=== PATIENT | female | born 1960 | race Caucasian/White ===

== ENCOUNTER 2016-11-27 21:27 | Emergency (ER) | payer OTHER ==
[~2016-11-27] VITALS: Ht 170.2 cm; Wt 86.0 kg
[~2016-11-27 21:27] MED LIST: CALC600T9 PO; CETITAB27 PO; GLUCOSAMINE/CHON PO; LEVO112T2 PO; PARO1TAB29 PO; TRAZ100T29 PO
[2016-11-27 21:28] VITALS: BP 113/61; PULSE 85; TEMP 36.8; O2SAT 95; Ht 170.2 cm; Wt 86.0 kg
[2016-11-27] MEDS ORDERED: KETOROLAC TROMETHAMINE 60 MG/2 ML VIAL IM STA (21:51)
[2016-11-27] MEDS ORDERED: DEXM10TA2 PO (22:15)
[2016-11-27] MEDS ORDERED: DEXM10TA PO (22:15)
[2016-11-27] MEDS ORDERED: PARO1TAB27 PO (22:15)
[2016-11-27] MEDS ORDERED: BOSW1POW4 PO (22:15)
--- NOTE | 2016-11-27 23:15 | DIAGNOSTIC IMAGING REPORT ---
LEFT HAMSTRING ULTRASOUND CLINICAL HISTORY: Left hamstring medial pain. COMPARISON STUDY: No previous studies for comparison. TECHNIQUE: Sonography of the posterior medial aspect of the left thigh site of pain was performed. FINDINGS: Note is made of a large elongated complex fluid collection of the posterior medial aspect of the left thigh that measures approximately 15.1 x 3.3 x 2.7 cm. This is suggestive of a hematoma which is likely along the fascia and may be just deep to the fascia. A portion of this hematoma may be intramuscular in location. IMPRESSION: Large posterior medial left thigh subfascial/intramuscular fluid collection suggestive of a hematoma, measuring 15.1 x 3.3 x 2.7 cm. This suggests a grade II/III muscle tear, likely involving a portion of the hamstrings. Electronically signed by: Timmy Horta M.D. 11/27/2016 11:14 PM Dictated Date/Time: 11/27/2016 11:08 PM
[2016-11-27] MEDS ORDERED: HYDR-5688 PO (23:29)
[2016-11-27] MEDS ORDERED: NORCO 5/325MG HOME PACK ONE (23:45)
[2016-11-27] MEDS ORDERED: NORCO 5/325MG HOME PACK PO ONE (23:45)
--- NOTE | 2016-11-28 00:12 | EMERGENCY ROOM VISIT NOTE ---
History First contact with patient: 21:38 Chief Complaint: LEG PAIN,LEG INJURY Stated Complaint: POSSIBLE TURN HAMSTRING,LF LEG History of Present Illness The patient is a 56 year old white female who presents to the Emergency Room with complaints of left posterior thigh pain. Patient was at a country dance this evening and was dancing with her dog. She states she thinks she stepped on his leash in her left leg slipped forward. She essentially did an entire splint. She denies any snap or pop of her leg. She had immediate onset of pain in her medial hamstring bundle. She denies any buttock pain. She has been unable to bear weight on the left leg. She denies any thigh pain. Range of motion is limited secondary to pain. No prior history of significant left leg injury. No numbness or tingling. No treatment yet. Review of Systems REVIEW OF SYSTEM: HEENT: No dizziness, visual problems, hearing loss, or tinnitus. There is no difficulty swallowing and no oral lesions are present. PULMONARY: No cough, shortness of breath, sputum production or hemoptysis. CARDIOVASCULAR: No chest pain, palpitations, shortness of breath or peripheral edema. GASTROINTESTINAL: No diarrhea, constipation, nausea, vomiting, or abdominal pain. GENITOURINARY: No dysuria, frequency, urgency or nocturia. NEUROLOGIC: No weakness, muscle tenderness, epilepsy or history of neurological problems. MUSCULOSKELETAL: No history of joint tenderness/swelling. No history of arthritis or arthralgias. SKIN: No rashes or lesions. PSYCHIATRIC: No history of depression or mental illness. ENDOCRINE: No history of diabetes or abnormal hair growth. Past Medical/Surgical History Previous surgeries: Trigger digit release, left carpal tunnel release, colonoscopy Medical history: Significant for hypothyroidism and seasonal allergies Family History Noncontributory. Social History Smoking Status: Former Smoker Smokeless Tobacco Use: No Alcohol Use: none Drug Use: none Marital Status: Housing Status: lives alone Occupation Status: employed Current/Historical Medications Scheduled Boswellia Sarah Extract (Bul (Boswellia Sarah Extract), 1-2 CAP PO DAILY Cetirizine/Pseudoephedrine (Zyrtec-D Er 5MG/120MG), 1 TAB PO QAM Dexmethylphenidate Hcl (Dexmethylphenidate Hcl), 20 MG PO QAM Dexmethylphenidate Hcl (Focalin), 10 MG PO DAILY Levothyroxine Sodium (Synthroid), 112 MCG PO QAM Paroxetine (Paxil), 20 MG PO QPM Scheduled PRN Hydrocodone/Acetaminophen 5MG/325MG (Dille 5MG/325MG), 1-2 TABLET PO Q4H PRN for Pain Trazodone Hcl (Trazodone), 1-2 TAB PO HS PRN for Sleep Allergies Coded Allergies: Cat Dander (Unverified Allergy, Intermediate, EYES WATER, 11/27/16) Molds & Smuts (Unverified Allergy, Intermediate, UNKNOWN, 11/27/16) Dust (Verified Allergy, Unknown, SINUS INFECTION, 05/29/15) Physical Exam Vital Signs Date Time Temp Pulse Resp B/P (MAP) Pulse Ox O2 Delivery O2 Flow Rate FiO2 11/27/16 21:28 36.8 85 16 113/61 95 Room Air Physical Exam Gen.: Well-developed, well-nourished, middle-aged white female, in obvious discomfort. No acute distress. Sitting in a wheelchair. Alert and oriented. Skin:Warm and dry with good turgor. No rashes or lesions. No ecchymosis or erythema. The patient is not diaphoretic. No abrasions. No palpable defect in the left thigh. Musculoskeletal: Patient has no pain with palpation over her tibia, fibula, or gastroc. No pain with palpation over the quadriceps. Supple motion of the hip and knee actively and passively. Internal rotation does cause medial hamstring bundle pain. No pain with palpation over the hamstring insertions or origins. No pain over the ischial tuberosity. Patient does have focal discomfort with palpation over the medial hamstring bundle mid body. This is reproducible. She is unable to fully extend secondary to hamstring pain. Neurologic: Gross sensation is intact across the lower extremities by soft touch. Peripheral pulses are 2+. Medical Decision & Procedures ER Provider Diagnostic Interpretation: Ultrasound imaging of the thigh was read by radiology. It shows a 15 cm x 3.3 cm x 2.7 cm complex fluid collection in the area of concern. This is most likely a hematoma. Medications Administered Medications (Trade) Dose Ordered Sig/Catracho Route Start Time Stop Time Status Last Admin Dose Admin Ketorolac Tromethamine (Toradol Inj) 60 mg NOW STAT IM 11/27/16 21:51 11/27/16 21:53 DC 11/27/16 23:25 60 MG Toradol 60 mg IM ED Course Patient was educated regarding today's findings. Conservative care measures were discussed. I do not think traditional radiographic imaging will show us much. Ultrasound was obtained. This was read by radiology as positive for complex fluid collection consistent with hematoma. Patient was given a spica wrap with an Fredi wrap, and provided crutches for ambulation. Weight-bear as tolerated. Tylenol and Motrin every 6 hours as needed for mild discomfort. Substitute Dille 5 mg every 6 hours for more severe pain. Driving precautions were given. Follow-up with her PCP this week for reexamination. She understands that this may not resolve as quickly as she would like. She may require physical therapy to speed her resolution. She is aware. Medical Decision Possibility of hamstring avulsion, hamstring tear, femur fracture, and distal tendon rupture were considered. Impression Primary Impression: Tear of left hamstring Departure Information Dispostion Home / Self-Care Prescriptions Hydrocodone/Acetaminophen 5MG/325MG (Dille 5MG/325MG) Tab 1-2 TABLET PO Q4H Y for Pain, #16 TAB For Initial Treatment Prov: Peter Boss,P.A. 11/27/16 Referrals Ash Viramontes M.D. (PCP) Forms HOME CARE DOCUMENTATION FORM, SPECIAL NARCOTICS INSTRUCTIONS, MOTRIN USE, TYLENOL USE, IMPORTANT VISIT INFORMATION Patient Instructions My [place] Additional Instructions Ice to the area frequently over the next 3 days, then use moist heat Gentle motion daily Use crutches until you can walk without a [id number] as tolerated Tylenol and Motrin every 6 hours as needed for mild discomfort Substitute Dille 1 to 2 tablets every 6 hours as needed for more severe pain-no driving. Follow-up with your PCP if you are not improving, for a physical therapy referral Use the Fredi wrap for compression to limit swelling Problem Qualifiers Primary Impression: Tear of left hamstring Encounter type: initial encounter Qualified Codes: S76.312A - Strain of muscle, fascia and tendon of the posterior muscle group at thigh level, left thigh, initial encounter
== END 2016-11-28 00:21 | disposition home or self-care (01) ==
LOC: C.EDB 21:28 → C.EDD 11-28 00:21
DX: S76.812A Strain of other specified muscles, fascia and tendons at thigh level, left thigh, initial encounter (principal); X58.XXXA Exposure to other specified factors, initial encounter; E03.9 Hypothyroidism, unspecified; Z98.890 Other specified postprocedural states; Z87.891 Personal history of nicotine dependence; Z79.899 Other long term (current) drug therapy; Z91.09 Other allergy status, other than to drugs and biological substances

== ENCOUNTER → 2017-01-19 | Outpatient (CLI) | payer OTHER ==
[~2017-01-19] MED LIST changes: +BOSW1POW4 PO; -CALC600T9 PO; +DEXM10TA PO; +DEXM10TA2 PO; -GLUCOSAMINE/CHON PO; +HYDR-5688 PO; +PARO1TAB27 PO; -PARO1TAB29 PO
--- NOTE | 2017-01-19 17:19 | DIAGNOSTIC IMAGING REPORT ---
LEFT LOWER EXT JOINT WITHOUT CLINICAL HISTORY: KNEE pain. Trauma. TECHNIQUE: Multiaxial MRI acquisition COMPARISON STUDY: None FINDINGS: Minimal bone contusion anterior aspect lateral tibial plateau. Signal characteristics the osseous structures are otherwise unremarkable. No significant joint effusion. Anterior and posterior cruciate ligaments are intact. Medial as well as lateral menisci are unremarkable in configuration and signal character. Medial and lateral collateral ligament structures are intact. Patellar retinaculum are intact. No evidence for chondromalacia patella. IMPRESSION: 1. Minimal contusion anterior aspect lateral tibial plateau. 2. Otherwise negative study The above report was generated using voice recognition software. It may contain grammatical, syntax or spelling errors. Electronically signed by: Silverio Zacarias M.D. 01/19/2017 5:18 PM Dictated Date/Time: 01/19/2017 5:13 PM
== END | disposition home or self-care (01) ==
LOC: C.MRIBC 16:14
PROVIDERS: ATTEND Orthopaedic Surgery
DX: M25.562 Pain in left knee (principal)

== ENCOUNTER → 2017-02-01 | Outpatient (CLI) | payer OTHER | LOC: C.LAB 14:46 | PROVIDERS: ATTEND Family Medicine | DX: E03.9 Hypothyroidism, unspecified (principal) ==

== ENCOUNTER 2018-07-10 19:56 | Inpatient (IN) ==
[2018-07-10 21:26] LABS: Basophils # (auto) 0.07 K/uL (0-0.2); Basophils % (auto) 0.7 %; Eosinophils # (auto) 0.26 K/uL (0-0.5); Eosinophils % (auto) 2.8 %; Hematocrit (blood only) 39.1 % (37-47); Hemoglobin 12.7 g/dL (12.0-16.0); Immature Granulocytes # (auto) 0.01 K/uL (0.00-0.02); Immature Granulocytes % (auto) 0.1 %; Lymphocytes # (auto) 2.61 K/uL (1.2-3.4); Lymphocytes % (auto) 27.9 %; Mean Corpuscular Hgb Conc 32.5 g/dL (32-36); Mean Corpuscular Volume 86.7 fL (80-100); Mean Platelet Volume 9.4 fL (7.4-10.4); Monocytes # (auto) 0.61 K/uL (0.11-0.59); Monocytes % (auto) 6.5 %; Platelet Count 340 K/uL (130-400); RDW Coefficient of Variation 12.8 % (11.5-14.5); RDW Standard Deviation 40.9 fL (36.4-46.3); Red Blood Count 4.51 M/uL (4.2-5.4); White Blood Count 9.36 K/uL (4.8-10.8)
[2018-07-10 21:38] LABS: Partial Thromboplastin Time 25.9 Seconds (21.0-31.0); Prothrombin Time 10.1 Seconds (9.0-12.0)
[2018-07-10 21:51] LABS: BUN Creatinine Ratio 20.1 (10-20); Calcium 8.8 mg/dl (8.5-10.1); Creatinine Clr Calc Pharmacy 81.7 ml/min; Est GFR (African American) 86.3; Est GFR (Non-African American) 74.5; Potassium 3.3 mmol/L (3.5-5.1)
== END 2018-07-11 14:52 | disposition home or self-care (01) ==
LOC: ED 19:56 → 3W 21:43

== ENCOUNTER 2022-05-27 10:22 | Observation (INO) ==
[2022-05-27 11:28] LABS: Hematocrit (blood only) 40.9 % (34.1-44.9); Hemoglobin 13.7 g/dl (12.0-16.0); Mean Corpuscular Hemoglobin 29.4 pg (25.0-34.0); Mean Corpuscular Hgb Conc 33.5 g/dL (32.0-36.0); Mean Corpuscular Volume 87.8 fL (80.0-100.0); Mean Platelet Volume 9.1 fL (9.4-12.3); Platelet Count 374 K/uL (130-400); RDW Coefficient of Variation 13.1 % (11.5-14.5); RDW Standard Deviation 41.5 fL (36.4-46.3); Red Blood Count 4.66 M/uL (3.93-5.22); White Blood Count 29.62 K/ul (4.8-10.8)
[2022-05-27 11:44] LABS: Basophils # (auto) 0.04 K/uL (0-0.2); Basophils % (auto) 0.1 %; Immature Granulocytes # (auto) 0.24 K/uL (0.00-0.02); Immature Granulocytes % (auto) 0.8 %; Lymphocytes # (auto) 0.79 K/uL (1.2-3.4); Lymphocytes % (auto) 2.7 %; Monocytes # (auto) 1.87 K/uL (0.24-0.82); Monocytes % (auto) 6.3 %; Neutrophils # (auto) 26.68 K/uL (1.4-6.5); Neutrophils % (auto) 90.1 %
[2022-05-27 11:49] LABS: Albumin Globulin Ratio 1.7 (0.9-2); Albumin Level 4.3 gm/dl (3.4-5.0); BUN Creatinine Ratio 23.8 (10-20); Bilirubin,Total 0.5 mg/dl (0.2-1.0); Calcium 9.7 mg/dl (8.5-10.1); Creatinine Clr Calc Pharmacy 101.3 ml/min; Est GFR (African American) 110.6 ml/min; Est GFR (Non-African American) 95.5 ml/min; Globulin 2.6 gm/dl (2.5-4.0); Potassium 3.5 mmol/L (3.5-5.1); Total Protein 6.9 gm/dl (6.0-8.3)
[2022-05-27] MEDS ORDERED: SODIUM CHLORIDE 0.9% 1000ML 1,000 ML IV ONE (12:15)
[2022-05-27] MEDS ORDERED: ACETAMINOPHEN 1,000 MG/100 ML VIAL IV STA (12:15)
[2022-05-27] MEDS ORDERED: OPTIRAY 350 100ml IV ONE (12:40)
[2022-05-27 12:54] LABS: Appearance Urine Clear (Clear); Bilirubin Urine Negative (Negative); Blood Urine Negative (Negative); Color Urine Yellow; Glucose Urine UA Negative (Negative); Ketones Urine Negative (Negative); Leukocyte Esterase Urine Negative (Negative); Nitrite Urine Negative (Negative); Protein Urine Negative (Negative); Specific Gravity Urine 1.024 (1.000-1.030); Urobilinogen Urine Negative (Negative)
--- NOTE | 2022-05-27 13:41 | CT Scan Report ---
CT SCAN OF THE ABDOMEN AND PELVIS WITH IV CONTRAST CLINICAL HISTORY: Lower abdominal pain. Leukocytosis. COMPARISON STUDY: No priors. TECHNIQUE: Following the IV administration of 87 cc of Optiray 350, CT scan of the abdomen and pelvi s is performed from the lung bases to the proximal femora. Images are reviewed in the axial, sagittal , and coronal planes. IV contrast was administered without complication. A dose lowering technique wa s utilized adhering to the principles of ALARA. CT DOSE: 315.52 mGy.cm FINDINGS: Lung bases: The heart is normal in size and without pericardial effusion. The lung bases are clear no ting bibasilar scarring/atelectasis. Liver: The contrast-enhanced liver is normal in size, contour, and attenuation. There is no intrahepa tic biliary ductal dilatation. The hepatic veins and portal veins are patent. Gallbladder: Unremarkable. Spleen: Normal in size and attenuation. Pancreas: Unremarkable. Adrenal glands: Unremarkable. Kidneys: The contrast enhanced kidneys are normal in size and without hydronephrosis. The kidneys enh ance symmetrically. Abdominal vasculature: The abdominal aorta is normal in course and caliber. Bowel: Moderate fecal retention is seen throughout the colon. There is no bowel obstruction. There is moderate to advanced colonic diverticulosis. There is mild wall thickening the sigmoid colon with in filtration suggested between the sigmoid and the left ovary on axial image #331. The appendix is wel l-visualized and normal. Peritoneum: There is no intraperitoneal free air or abdominal ascites. There is a fat-containing umbi lical hernia. Lymphadenopathy: None. Pelvic viscera: The bladder wall is thickened and there is pericystic inflammation. The uterus is nor mal as visualized. Skeletal structures: The skeletal structures are osteopenic. There are bilateral pars defects at L4 w ith advanced disc space narrowing, endplate sclerosis, and grade 1 anterolisthesis at L4-L5. No lytic or blastic lesions are seen. IMPRESSION: 1. The bladder wall appears thickened and there is surrounding infiltration. Correlate with clinical findings and urinalysis for evidence of cystitis. 2. There is moderate to advanced colonic diverticulosis. There is mild wall thickening of the sigmoid colon with minimal infiltration suggested around the sigmoid and the adjacent left ovary. Clinically the presence of a mild diverticulitis or possibly oophoritis. 3. No intraperitoneal free air is seen and there is no organized fluid collection to suggest abscess. 4. Additional findings as above. ACT 112: Negative or not required by law. Electronically signed by: Sim Frankel M.D. 05/27/2022 1:38 PM
[2022-05-27] MEDS ORDERED: PIPERACILLIN/TAZOBACTAM 4.5 GM/120 ML BAG IV ONE (13:55)
--- NOTE | 2022-05-27 15:02 | History & Physical Report ---
Date of Service May 27, 2022 Assessment & Plan (1) Diverticulitis: Plan: Bilateral lower abdominal crampy pain since this AM, feeling feverish, difficulty moving BMs, only had 1 very small BM so far today. WBC 29, lactate 1.0, procalcitonin 0.13. CT A/P: Moderate-advanced colonic diverticulosis with mild wall thickening of the sigmoid colon with minimal infiltration of the sigmoid and adjacent left ovary, no intraperitoneal free air or organized fluid collection to suggest abscess. Started on Zosyn in ED, will convert to Rocephin plus Flagyl. Considered cipro but patient has a previous hamstring rupture. Obtain EKG given use of QTC prolonging agents. Check EKG from last year, QTC wnl. Full liquid diet to begin, advance as tolerated by patient. IVF, replete electrolytes as necessary. Patient is at risk for C. difficile infection given recent Augmentin, doxycycline courses. Continue to monitor. (2) Hypothyroid: Plan: Continue levothyroxine 112 mcg. (3) Fibromyalgia: Plan: Continue Paxil, trazodone at night. (4) Allergy-induced asthma: Plan: Uses albuterol inhaler as needed, Zyrtec, Singulair. Plan Admit to med/surg. SCDs for DVT PPx. Full code. History of Present Illness Chief Complaint: abdominal pain x1 day Primary Care Provider: Ash Viramontes MD Reyna Anthony is a 61 y/o female with a past medical history of hypothyroidism, fibromyalgia, and allergy induced asthma who presented today with abdominal pain. She woke up this morning with lower, bilateral crampy abdominal pain and felt feverish. She thought she may need to have a BM, however tried and was unsuccessful. She had been feeling well up until this morning, and several normal bowel movements over the past week, nonpainful and nonbloody. She has had 1 very small bowel movement this morning, and otherwise has not been able to have what she would consider for her a normal size BM. Of note, she is recently been on 2 different antibiotics, Augmentin for recent sinus infection and a 3-week course of doxycycline her recent tick bite with bull's-eye rash. Both antibiotics were completed within the last week. She has not had any diarrhea. Presentation to the ED, her vital signs are within normal limits and stable, temp 37.6 C. Labs remarkable for for WBC of 29 with left shift, lactate 1.0, procalcitonin 0.13. Lipase level 11, no electrolyte abnormalities, renal function at baseline. No transaminitis. UA is negative for all, does not appear infected. Blood cultures collected in ED. CT A/P: There is moderate fecal retention throughout the colon without evidence of obstruction. There is moderate to advanced colonic diverticulosis with mild wall thickening of the sigmoid colon and infiltration suggested between the colon and left ovary, suggestive of mild diverticulitis or oophoritis. There is no intraperitoneal free air or fluid collection to suggest abscess. There is also bladder wall thickening with surrounding infiltration, however UA does not appear infected. Allergies Allergy/AdvReac Type Severity Reaction Status Date / Time cat dander Allergy Mild EYES WATER Verified 02/25/21 15:11 mold Allergy Mild sinus Verified 02/25/21 15:11 issues Home Medications Medication Instructions Recorded Confirmed Type cetirizine 10 mg tablet (Zyrtec) 10 mg PO QAM 07/10/18 02/25/21 History levothyroxine 112 mcg tablet 112 mcg PO QAM 07/10/18 02/25/21 History montelukast 10 mg tablet 10 mg PO QPM 07/10/18 02/25/21 History paroxetine HCl 20 mg tablet (Paxil) 20 mg PO QPM 07/10/18 02/25/21 History trazodone 100 mg tablet 100 mg PO HS 07/10/18 02/25/21 History albuterol sulfate 90 mcg/actuation 2 puff inhalation Q6H PRN 02/25/21 02/25/21 History aerosol inhaler (ProAir HFA) Shortness Of Breath oxycodone-acetaminophen 5 mg-325 1 tab PO Q6H PRN pain #20 tabs 03/12/21 Rx mg tablet (Percocet) Past Med/Surg History Medical History (Updated 05/27/22 @ 15:41 by Sarah Escoto PA-C) Allergy-induced asthma inhaler prn Chronic back pain Fibromyalgia GERD (gastroesophageal reflux disease) Hearing difficulty of right ear Hypothyroid Osteoarthritis PVD (posterior vitreous detachment), left eye hx of--was evaluated, no sx, cleared Surgical History 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 History of colonoscopy History of tooth extraction History of wisdom tooth extraction S/P carpal tunnel release bilt S/P trigger finger release Family History Other No family history of adverse response to anesthesia Social History Smoking Status: Never smoker Second Hand Exposure: No; Hx Alcohol Use: No Hx Substance Use: No Preferred Language: Malaysian Communication Ability: Effective Testing Coordinator Required: No Beliefs That Will Affect Care: None Current Living Situation: Alone Feels Safe at Home: Yes Assistive Devices: Glasses Review of Systems Review of Systems: Constitutional: Brady feverish at one point this a.m.; no reported fevers at home or chills,, weakness, fatigue, myalgias, anorexia, night sweats Eyes: No diplopia, no worsening or blurred vision ENT: normal hearing, no trouble swallowing Respiratory: No cough, sputum, dyspnea at rest or on exertion Cardiovascular: No chest pain, tightness or palpitations Abdomen: Bilateral lower abdominal crampy pain since 7 AM this morning with minimal BMs, mild nausea x1 without any vomiting : Denies dysuria, hematuria, increased urgency/frequency, urinary retention Musculoskeletal: No joint pain, calf pain, swelling Neurologic: No weakness, numbness/tingling, or balance problems Psychiatric: No anxiety or depression Skin: No rash or itch Physical Exam Physical Exam: General: awake, alert, no apparent distress Head: Normocephalic, atraumatic ENT: PERRL, EOMI, no pharyngeal exudate, mucous membranes moist Chest: Clear to auscultation, on room air, no adventitious breath sounds Cardiac: Regular rate and rhythm, no murmur, no JVD, normal peripheral pulses, good capillary refill Abdominal: mildly TTP in b/l lower quadrants without rebound or guarding; NABS x 4 quadrants, soft Extremities: Normal inspection, no peripheral edema or erythema, calfs nontender to palpation Psych: Normal mood and affect Neuro: AAO x 3, strength intact bilaterally and rated 5/5, no motor deficits, speech is clear, no peripheral sensory deficits Skin: no rash or erythema Results & Data Results & Data ([facility]) Vital Signs (Past 12 Hours) Vital Signs Temp Pulse Pulse Resp BP Pulse Ox O2 Del Method 05/27/22 14:50 68 19 95 Room Air 05/27/22 10:56 37.6 C H 76 20 125/77 95 Room Air Laboratory Results Abnormal lab results 05/27/22 05/27/22 Range/Units 11:14 11:14 WBC 29.62 H (4.8-10.8) K/ul MPV 9.1 L (9.4-12.3) fL Neut # (Auto) 26.68 H (1.4-6.5) K/uL Lymph # (Auto) 0.79 L (1.2-3.4) K/uL [place] # (Auto) 1.87 H (0.24-0.82) K/uL Immature Gran # (Auto) 0.24 H (0.00-0.02) K/uL BUN/Creatinine Ratio 23.8 H (10-20) Glucose 114 H (70-99(Fasting)) mg/dl Diagnostic Findings Abdomen/Pelvis CT 05/27/22 12:15 CT SCAN OF THE ABDOMEN AND PELVIS WITH IV CONTRAST CLINICAL HISTORY: Lower abdominal pain. Leukocytosis. COMPARISON STUDY: No priors. TECHNIQUE: Following the IV administration of 87 cc of Optiray 350, CT scan of the abdomen and pelvis is performed from the lung bases to the proximal femora. Images are reviewed in the axial, sagittal, and coronal planes. IV contrast was administered without complication. A dose lowering technique was utilized adhering to the principles of ALARA. CT DOSE: 315.52 mGy.cm FINDINGS: Lung bases: The heart is normal in size and without pericardial effusion. The lung bases are clear noting bibasilar scarring/atelectasis. Liver: The contrast-enhanced liver is normal in size, contour, and attenuation. There is no intrahepatic biliary ductal dilatation. The hepatic veins and portal veins are patent. Gallbladder: Unremarkable. Spleen: Normal in size and attenuation. Pancreas: Unremarkable. Adrenal glands: Unremarkable. Kidneys: The contrast enhanced kidneys are normal in size and without h ydronephrosis. The kidneys enhance symmetrically. Abdominal vasculature: The abdominal aorta is normal in course and caliber. Bowel: Moderate fecal retention is seen throughout the colon. There is no bowel obstruction. There is moderate to advanced colonic diverticulosis. There is mild wall thickening the sigmoid colon with infiltration suggested between the sigmoid and the left ovary on axial image #331. The appendix is well-visualized and normal. Peritoneum: There is no intraperitoneal free air or abdominal ascites. There is a fat-containing umbilical hernia. Lymphadenopathy: None. Pelvic viscera: The bladder wall is thickened and there is pericystic inflammation. The uterus is normal as visualized. Skeletal structures: The skeletal structures are osteopenic. There are bilateral pars defects at L4 with advanced disc space narrowing, endplate sclerosis, and grade 1 anterolisthesis at L4-L5. No lytic or blastic lesions are seen. IMPRESSION: 1. The bladder wall appears thickened and there is surrounding infiltration. Correlate with clinical findings and urinalysis for evidence of cystitis. 2. There is moderate to advanced colonic diverticulosis. There is mild wall thickening of the sigmoid colon with minimal infiltration suggested around the sigmoid and the adjacent left ovary. Clinically the presence of a mild diverticulitis or possibly oophoritis. 3. No intraperitoneal free air is seen and there is no organized fluid collection to suggest abscess. 4. Additional findings as above. ACT 112: Negative or not required by law. Electronically signed by: Sim Frankel M.D. 05/27/2022 1:38 PM Code Status & VTE Plan Code Status Full Code. Supervising Physician Co-Signing Physician Notes Patient seen and examined, chart reviewed, case discussed with Sarah Escoto and I agree with the assessment and plan as above except as otherwise noted Labs and images reviewed Reyna Anthony is a 61-year-old female with a past medical history of hypothyroidism, allergy induced asthma, and recent sinus infection treated with Augmentin and recent tick bite with bull's-eye's rash treated with doxycycline who presents with feeling of fever, temperature of 99 Fahrenheit, crampy abdominal pain, and lack of bowel movements and to is found to have a leukocytosis to 29 with left shift, moderate to advanced diverticulosis, and suspected mild diverticulitis on ER evaluation. CT consistent with diverticulitis, does show possible oophoritis, suspect that this is mild infiltration 2/2 diverticulitis. No flank pain, no vaginal bleeding/symptoms. By chart review patient with a history of meniscus tear, patient reports that she has also had a tear of her hamstring although do not see a record of this on chart review. We will defer fluoroquinolones and treat with ceftriaxone/Flagyl. Discussed diverticulosis with patient, and that overall her presentation is consistent with uncomplicated diverticulosis without sepsis and no evidence of perforation/abscess, although a elevated white count of 29/not greater than 30. She was recommended recommended for admission given her high rate count and recent antibiotic treatment, although Augmentin was 5 weeks ago on review with patient. Patient reports that her pain began this morning and prefers observation due to her white count and is not comfortable returning home with close outpatient follow-up. At bedside does have low midline abdominal pain without guarding/rebound. Lungs are clear, breathing is unlabored, heart rate is regular. We will treat with Rocephin/Flagyl, trend CBC, and follow serial exam. PG Care Time/CCT Total # of Minutes Spent Total Time Spent with Patient: Total time spent is greater than 50% in coordination of care (as documented) at patient's floor/unit and/or counseling patient: Coding Level of Care Code 84097 Initial Inpt Care Lvl 3 Diagnoses Diverticulitis K57.92 Hypothyroid E03.9 Fibromyalgia M79.7 Allergy-induced asthma J45.909
--- NOTE | 2022-05-27 16:00 | Emergency Department Note ---
Impression & Plan Diverticulitis, Leukocytosis, Lower abdominal pain ED Provider Note NAME: LAURA PADRON AGE: 61 SEX: F ARRIVES VIA: Walk-In INFORMANT: Patient ED PROVIDER(S): Johann Phelan MD CHIEF COMPLAINT: Abdominal pain PLAN: Disposition: Admit MEDICAL DECISION MAKING: The patient is a pleasant 61-year-old woman with a past medical history of osteoarthritis, fibromyalgia, GERD, hypothyroidism who presents to the emergency department company by her friend for evaluation of lower abdominal pain with feverishness and intermittent nausea with feeling of constipation that developed quickly this morning. She reports going out to dinner with her friend last night and they had [place] food which she felt was fine. This morning however she reports eating a breakfast bar and her symptoms began thereafter. She denies any urinary symptoms, cough congestion, chest pain or shortness of breath. She does report that she was treated for a sinus infection approximately a month ago and then shortly after that had a tick bite with an annular rash on her abdomen and so completed 3 weeks of doxycycline. She reports she was riding her horse yesterday but denies any rough riding/trotting and only walked. On arrival the patient is uncomfortable no acute distress, with temperature of 37.6 and vital signs otherwise stable. She appears clinically dry. She has mild lower abdominal tenderness without guarding or rebound. WBC 29K with neutrophil predominance and left shift. H/H and platelets within normal limits. Chemistry without metabolic acidosis. Lactic acid 1.0, electrolytes and LFTs without significant abnormality. Lipase is not elevated. Procalcitonin is not elevated. UA without evidence of infection. CT of the abdomen pelvis was performed and demonstrates findings most consistent with diverticulitis given the patient's symptoms/sensation of constipation. Patient denies any vaginal symptoms or discharge and so oophoritis is considered less likely. Patient was treated with IV fluid hydration and Which she felt improved her lynn n. She was given IV Zosyn for diverticulitis given her significant leukocytosis. Patient agrees with plan for admission for further management. Case was discussed with Sarah Escoto [facility] PAC with Dr. Contreras, [facility] hospitalist, who will evaluate the patient for admission. Triage Nursing notes reviewed and agree them. Prior medical records reviewed Vital Signs: reviewed Differential diagnosis: Gastroenteritis, food borne illness, infections, appendicitis, diverticulitis, inflammatory bowel disease, obstruction, GI bleed, biliary pathology, volvulus, as well as other pathologies. ER treatment provided: See below. Diagnostics interpreted by me: Cardiac Monitoring: An order for continuous cardiac monitoring was placed and demonstrated normal sinus rhythm, 68 bpm, no ectopy. Laboratory studies: See below Imaging studies: See below Consultation(s): Sarah Escoto [facility] PAC with Dr. Contreras, [facility] hospitalist HPI: The patient is a pleasant 61-year-old woman with a past medical history of osteoarthritis, fibromyalgia, GERD, hypothyroidism who presents to the emergency department company by her friend for evaluation of lower abdominal pain with feverishness and intermittent nausea with feeling of constipation that developed quickly this morning. She reports going out to dinner with her friend last night and they had [place] food which she felt was fine. This morning however she reports eating a breakfast bar and her symptoms began thereafter. She denies any urinary symptoms, cough congestion, chest pain or shortness of breat h. She does report that she was treated for a sinus infection approximately a month ago and then shortly after that had a tick bite with an annular rash on her abdomen and so completed 3 weeks of doxycycline. She reports she was riding her horse yesterday but denies any rough riding/trotting and only walked. ROS: See above HPI for pertinent positives & negatives. A total of 10 systems reviewed and were otherwise negative. VITALS:See Below PHYSICAL EXAMINATION: GENERAL: Awake, alert, uncomfortable-appearing, in no distress HENT: Normocephalic, atraumatic. Oropharynx with dry mucous membranes and otherwise unremarkable. EYES: Normal conjunctiva. Sclera non-icteric. NECK: Supple. No nuchal rigidity. FROM. No JVD. RESPIRATORY: Clear to auscultation. CARDIAC: Regular rate, normal rhythm. Extremities warm and well perfused. Pulses equal. ABDOMEN: Soft, non-distended. Mild lower abdominal tenderness to palpation. No rebound or guarding. No masses. RECTAL: Deferred. MUSCULOSKELETAL: Chest examination reveals no tenderness. The back is symmetrical on inspection without obvious abnormality. There is no CVA ten derness to palpation. No joint edema. LOWER EXTREMITIES: Calves are equal size bilaterally and non-tender. No edema. No discoloration. NEURO: Normal sensorium. No sensory or motor deficits noted. SKIN: No rash or jaundice noted. 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 History of colonoscopy History of tooth extraction History of wisdom tooth extraction S/P carpal tunnel release bilt S/P trigger finger release Family History Other No family history of adverse response to anesthesia Social History Smoking Status: Never smoker Second Hand Exposure: No; Hx Alcohol Use: No Hx Substance Use: No Preferred Language: [place] Communication Ability: Effective Gum Worker Required: No Beliefs That Will Affect Care: None Current Living Situation: Alone Feels Safe at Home: Yes Assistive Devices: Glasses Allergies Allergies Allergy/AdvReac Type Severity Reaction Status Date / Time cat dander Allergy Mild EYES WATER Verified 02/25/21 15:11 mold Allergy Mild sinus Verified 02/25/21 15:11 issues Home Meds Home Medications Medication Instructions Recorded Confirmed cetirizine 10 mg tablet (Zyrtec) 10 mg PO QAM 07/10/18 02/25/21 levothyroxine 112 mcg tablet 112 mcg PO QAM 07/10/18 02/25/21 montelukast 10 mg tablet 10 mg PO QPM 07/10/18 02/25/21 paroxetine HCl 20 mg tablet (Paxil) 20 mg PO QPM 07/10/18 02/25/21 trazodone 100 mg tablet 100 mg PO HS 07/10/18 02/25/21 albuterol sulfate 90 mcg/actuation 2 puff inhalation Q6H PRN 02/25/21 02/25/21 aerosol inhaler (ProAir HFA) Shortness Of Breath Previous Rx's Medication Instructions Recorded oxycodone-acetaminophen 5 mg-325 1 tab PO Q6H PRN pain #20 tabs 03/12/21 mg tablet (Percocet) Results & Data (ED) Vital Signs Vital Signs - 24 hr 05/27/22 10:56 05/27/22 14:50 Temperature 37.6 C H Temperature Source Temporal Artery Scan Pulse Rate 76 Pulse Rate [Right Brachial] 68 Respiratory Rate 20 19 Respiratory Effort / Characteristics Non-Labored Non-Labored Spontaneous Respiratory Depth Normal Normal Blood Pressure 125/77 Blood Pressure Mean 93 Pulse Oximetry 95 95 Oxygen Delivery Method Room Air Room Air Sepsis Recent Fever Within 48 Hours No Sepsis New/Unexplained Change in Mental Status N/A Sepsis Action Taken by Nursing No Action Required Laboratory Data Attestation: I reviewed the patient's lab results. Result diagrams: 05/27/22 11:14 05/27/22 11:14 Lab Results 05/27/22 05/27/22 05/27/22 Range/Units 11:14 11:14 12:30 WBC 29.62 H (4.8-10.8) K/ul RBC 4.66 (3.93-5.22) M/uL Hgb 13.7 (12.0-16.0) g/dl Hct 40.9 (34.1-44.9) % MCV 87.8 (80.0-100.0) fL MCH 29.4 (25.0-34.0) pg MCHC 33.5 (32.0-36.0) g/dL RDW Std Deviation 41.5 (36.4-46.3) fL RDW Coeff of Geovani 13.1 (11.5-14.5) % Plt Count 374 (130-400) K/uL MPV 9.1 L (9.4-12.3) fL Immature Gran % (Auto) 0.8 % Neut % (Auto) 90.1 % Lymph % (Auto) 2.7 % [place] % (Auto) 6.3 % Eos % (Auto) 0.0 % Baso % (Auto) 0.1 % Neut # (Auto) 26.68 H (1.4-6.5) K/uL Lymph # (Auto) 0.79 L (1.2-3.4) K/uL [place] # (Auto) 1.87 H (0.24-0.82) K/uL Eos # (Auto) 0.00 (0-0.50) K/uL Baso # (Auto) 0.04 (0-0.2) K/uL Immature Gran # (Auto) 0.24 H (0.00-0.02) K/uL Sodium 140 (136-145) mmol/L Potassium 3.5 (3.5-5.1) mmol/L Chloride 107 (98-107) mmol/L Carbon Dioxide 25 (21-32) mmol/L Anion Gap 8 (3-11) BUN 15 (6-23) mg/dl Creatinine 0.63 (0.6-1.2) mg/dl Est Cr Clr Drug Dosing 101.3 ml/min Est GFR ( Amer) 110.6 ml/min Est GFR (Non-Af Amer) 95.5 ml/min BUN/Creatinine Ratio 23.8 H (10-20) Glucose 114 H (70-99(Fasting)) mg/dl Lactate (0.4-2.0) mmol/L Calcium 9.7 (8.5-10.1) mg/dl Total Bilirubin 0.5 (0.2-1.0) mg/dl AST 18 (13-39) U/L ALT 26 (7-52) U/L Alkaline Phosphatase 63 (34-104) U/L Total Protein 6.9 (6.0-8.3) gm/dl Albumin 4.3 (3.4-5.0) gm/dl Globulin 2.6 (2.5-4.0) gm/dl Albumin/Globulin Ratio 1.7 (0.9-2) Lipase 11 (11-82) U/L Procalcitonin (0-0.5) ng/ml Urine Color Yellow Urine Appearance Clear (Clear) Urine pH 6.0 (4.5-7.5) Ur Specific [place] 1.024 (1.000-1.030) Urine Protein Negative (Negative) Urine Glucose (UA) Negative (Negative) Urine Ketones Negative (Negative) Urine Blood Negative (Negative) Urine Nitrite Negative (Negative) Urine Bilirubin Negative (Negative) Urine Urobilinogen Negative (Negative) Ur Leukocyte Esterase Negative (Negative) 05/27/22 05/27/22 Range/Units 13:05 13:13 WBC (4.8-10.8) K/ul RBC (3.93-5.22) M/uL Hgb (12.0-16.0) g/dl Hct (34.1-44.9) % MCV (80.0-100.0) fL MCH (25.0-34.0) pg MCHC (32.0-36.0) g/dL RDW Std Deviation (36.4-46.3) fL RDW Coeff of Geovani (11.5-14.5) % Plt Count (130-400) K/uL MPV (9.4-12.3) fL Immature Gran % (Auto) % Neut % (Auto) % Lymph % (Auto) % [place] % (Auto) % Eos % (Auto) % Baso % (Auto) % Neut # (Auto) (1.4-6.5) K/uL Lymph # (Auto) (1.2-3.4) K/uL [place] # (Auto) (0.24-0.82) K/uL Eos # (Auto) (0-0.50) K/uL Baso # (Auto) (0-0.2) K/uL Immature Gran # (Auto) (0.00-0.02) K/uL Sodium (136-145) mmol/L Potassium (3.5-5.1) mmol/L Chloride (98-107) mmol/L Carbon Dioxide (21-32) mmol/L Anion Gap (3-11) BUN (6-23) mg/dl Creatinine (0.6-1.2) mg/dl Est Cr Clr Drug Dosing ml/min Est GFR ( Amer) ml/min Est GFR (Non-Af Amer) ml/min BUN/Creatinine Ratio (10-20) Glucose (70-99(Fasting)) mg/dl Lactate 1.0 (0.4-2.0) mmol/L Calcium (8.5-10.1) mg/dl Total Bilirubin (0.2-1.0) mg/dl AST (13-39) U/L ALT (7-52) U/L Alkaline Phosphatase (34-104) U/L Total Protein (6.0-8.3) gm/dl Albumin (3.4-5.0) gm/dl Globulin (2.5-4.0) gm/dl Albumin/Globulin Ratio (0.9-2) Lipase (11-82) U/L Procalcitonin 0.13 (0-0.5) ng/ml Urine Color Urine Appearance (Clear) Urine pH (4.5-7.5) Ur Specific [place] (1.000-1.030) Urine Protein (Negative) Urine Glucose (UA) (Negative) Urine Ketones (Negative) Urine Blood (Negative) Urine Nitrite (Negative) Urine Bilirubin (Negative) Urine Urobilinogen (Negative) Ur Leukocyte Esterase (Negative) Administered Medications Discontinued Medications Sodium Chloride (Nss 1000ml) 1,000 mls @ 999 mls/hr IV .Q1H1M ONE Stop: 05/27/22 13:15 Last Infusion: 05/27/22 13:21 Dose: 0 mls/hr Documented By: Admin: 05/27/22 12:21 Dose: 999 mls/hr Documented By: AMARIS Acetaminophen (Ofirmev) 1,000 mg in 100 mls @ 400 mls/hr IV NOW STA Stop: 05/27/22 12:29 Last Infusion: 05/27/22 13:21 Dose: 0 mls/hr Documented By: Admin: 05/27/22 12:23 Dose: 400 mls/hr Documented By: AMARIS Piperacillin Sod/Tazobactam Sod (Zosyn) 4.5 gm in 120 mls @ 240 mls/hr IV NOW ONE Stop: 05/27/22 14:24 Last Infusion: 05/27/22 15:40 Dose: 0 mls/hr Documented By: Admin: 05/27/22 14:30 Dose: 240 mls/hr Documented By: AMARIS Ioversol (Optiray 350 100ml) 87 ml IV ONCE ONE Stop: 05/27/22 12:41 Last Admin: 05/27/22 12:41 Dose: 87 ml Documented By: ABDULKADIR Imaging Data Radiologist's Impression: Abdomen/Pelvis CT 05/27/22 12:15 CT SCAN OF THE ABDOMEN AND PELVIS WITH IV CONTRAST CLINICAL HISTORY: Lower abdominal pain. Leukocytosis. COMPARISON STUDY: No priors. TECHNIQUE: Following the IV administration of 87 cc of Optiray 350, CT scan of the abdomen and pelvis is performed from the lung bases to the proximal femora. Images are reviewed in the axial, sagittal, and coronal planes. IV contrast was administered without complication. A dose lowering technique was utilized adhering to the principles of ALARA. CT DOSE: 315.52 mGy.cm FINDINGS: Lung bases: The heart is normal in size and without pericardial effusion. The lung bases are clear noting bibasilar scarring/atelectasis. Liver: The contrast-enhanced liver is normal in size, contour, and attenuation. There is no intrahepatic biliary ductal dilatation. The hepatic veins and portal veins are patent. Gallbladder: Unremarkable. Spleen: Normal in size and attenuation. Pancreas: Unremarkable. Adrenal glands: Unremarkable. Kidneys: The contrast enhanced kidneys are normal in size and without hydronephrosis. The kidneys enhance symmetrically. Abdominal vasculature: The abdominal aorta is normal in course and caliber. Bowel: Moderate fecal retention is seen throughout the colon. There is no bowel obstruction. There is moderate to advanced colonic diverticulosis. There is mild wall thickening the sigmoid colon with infiltration suggested between the sigmoid and the left ovary on axial image #331. The appendix is well-visualized and normal. Peritoneum: There is no intraperitoneal free air or abdominal ascites. There is a fat-containing umbilical hernia. Lymphadenopathy: None. Pelvic viscera: The bladder wall is thickened and there is pericystic inflammation. The uterus is normal as visualized. Skeletal structures: The skeletal structures are osteopenic. There are bilateral pars defects at L4 with advanced disc space narrowing, endplate sclerosis, and grade 1 anterolisthesis at L4-L5. No lytic or blastic lesions are seen. IMPRESSION: 1. The bladder wall appears thickened and there is surrounding infiltration. Correlate with clinical findings and urinalysis for evidence of cystitis. 2. There is moderate to advanced colonic diverticulosis. There is mild wall thickening of the sigmoid colon with minimal infiltration suggested around the sigmoid and the adjacent left ovary. Clinically the presence of a mild diverticulitis or possibly oophoritis. 3. No intraperitoneal free air is seen and there is no organized fluid collection to suggest abscess. 4. Additional findings as above. ACT 112: Negative or not required by law. Electronically signed by: Sim Frankel M.D. 05/27/2022 1:38 PM Discharge Plan Visit Data Chief Complaint: Abdominal Pain Stated Complaint: SEVERE ABDOMINAL PAIN, NAUSEA ED Provider: Johann Phelan Discharge Problem: Diverticulitis, Leukocytosis, Lower abdominal pain Forms Stand Alone Forms: [facility] Prescriptions Prescriptions: No Action levothyroxine 112 mcg tablet 112 mcg PO QAM cetirizine [Zyrtec] 10 mg Tablet 10 mg PO QAM trazodone 100 mg tablet 100 mg PO HS paroxetine HCl [Paxil] 20 mg Tablet 20 mg PO QPM montelukast 10 mg tablet 10 mg PO QPM albuterol sulfate [ProAir HFA] 90 mcg/actuation Hfa Aerosol Inhaler 2 puff INHALATION Q6H PRN (Reason: Shortness Of Breath) oxycodone-acetaminophen [Percocet] 5-325 mg tablet 1 tab PO Q6H PRN (Reason: pain) Qty: 20 0RF Referrals Referrals: Ash Viramontes MD [Primary Care Provider] -
[2022-05-27] MEDS ORDERED: POLYETHYLENE (MIRALAX) 17 GM PACK PO PRN (18:31)
[2022-05-27] MEDS ORDERED: ALUMINUM/MAGNESIUM SUSP 30 ML UDC PO PRN (18:31)
[2022-05-27] MEDS ORDERED: ALBUTEROL HFA 8 GM INHALER INH PRN (18:31)
[2022-05-27] MEDS ORDERED: ONDANSETRON INJ 2 MG/ML 2 ML VIAL IV PRN (18:31)
[2022-05-27] MEDS ORDERED: cefTRIAXone SODIUM 1,000 MG in DEXTROSE 5% AD-VAN 50 ML IV SCH (18:31)
[2022-05-27] MEDS ORDERED: oxyCODONE/ACETAMINOPHEN 5mg/325mg TAB PO PRN (18:31)
[2022-05-27] MEDS: SODIUM CHLORIDE 0.9% 1000ML 1,000 ML IV SCH (19:50)
[2022-05-27] MEDS: oxyCODONE/ACETAMINOPHEN 5mg/325mg TAB PO PRN (19:53)
[2022-05-27] MEDS: metroNIDAZOLE 500 MG/100 ML BAG IV SCH (19:55)
[2022-05-27] MEDS: MONTELUKAST SODIUM 10 MG TABLET PO SCH (19:57)
[2022-05-27] MEDS: PARoxetine HCL 20 MG TAB PO SCH (19:57)
[2022-05-27] MEDS ORDERED: cefTRIAXone SODIUM 2,000 MG in DEXTROSE 5% 50 ML IV SCH (20:00)
[2022-05-27] MEDS: traZODone HCL 100 MG TAB PO SCH (21:07)
[2022-05-28] MEDS: metroNIDAZOLE 500 MG/100 ML BAG IV SCH ×2 (02:55→10:48)
[2022-05-28] MEDS: oxyCODONE/ACETAMINOPHEN 5mg/325mg TAB PO PRN ×2 (04:11→10:47)
[2022-05-28 06:50] LABS: BUN Creatinine Ratio 22.2 (10-20); Calcium 8.6 mg/dl (8.5-10.1); Creatinine Clr Calc Pharmacy 118.2 ml/min; Est GFR (African American) 116.4 ml/min; Est GFR (Non-African American) 100.4 ml/min; Potassium 3.9 mmol/L (3.5-5.1)
[2022-05-28 07:16] LABS: Basophils # (auto) 0.01 K/uL (0-0.2); Basophils % (auto) 0.1 %; Hematocrit (blood only) 33.5 % (34.1-44.9); Hemoglobin 11.2 g/dl (12.0-16.0); Immature Granulocytes # (auto) 0.12 K/uL (0.00-0.02); Immature Granulocytes % (auto) 0.8 %; Lymphocytes # (auto) 0.73 K/uL (1.2-3.4); Lymphocytes % (auto) 4.7 %; Mean Corpuscular Hemoglobin 29.2 pg (25.0-34.0); Mean Corpuscular Hgb Conc 33.4 g/dL (32.0-36.0); Mean Corpuscular Volume 87.2 fL (80.0-100.0); Mean Platelet Volume 9.5 fL (9.4-12.3); Monocytes # (auto) 0.78 K/uL (0.24-0.82); Neutrophils # (auto) 13.81 K/uL (1.4-6.5); Neutrophils % (auto) 89.4 %; Platelet Count 272 K/uL (130-400); RDW Coefficient of Variation 13.2 % (11.5-14.5); RDW Standard Deviation 42.3 fL (36.4-46.3); Red Blood Count 3.84 M/uL (3.93-5.22); White Blood Count 15.45 K/ul (4.8-10.8)
[2022-05-28] MEDS: CETIRIZINE HCL 10 MG TABLET PO SCH (08:43)
[2022-05-28] MEDS: LEVOTHYROXINE SODIUM 112 MCG TABLET PO SCH (08:44)
[2022-05-28] MEDS: SODIUM CHLORIDE 0.9% 1000ML 1,000 ML IV SCH (08:46)
--- NOTE | 2022-05-28 17:23 | Hospitalist Progress Note ---
Date of Service May 28, 2022 Assessment & Plan (1) Diverticulitis: Plan: Bilateral lower abdominal crampy pain since this AM, feeling feverish, difficulty moving BMs, only had 1 very small BM so far today. WBC 29, lactate 1.0, procalcitonin 0.13. CT A/P: Moderate-advanced colonic diverticulosis with mild wall thickening of the sigmoid colon with minimal infiltration of the sigmoid and adjacent left ovary, no intraperitoneal free air or organized fluid collection to suggest abscess. 05/28 No clinical evidence of diverticulitis. Stop antibiotics. Regular diet to be begun at dinner. Tolerated low fiber diet at lunch. Constipation seems to be the problemfecal impaction seen on CT abdomen. Lactulose 1 dose nowalready on polyethylene glycol. No BM for 2 days before presentation. (2) Hypothyroid: Plan: Continue levothyroxine 112 mcg. (3) Fibromyalgia: Plan: (4) Allergy-induced asthma: Plan: Uses albuterol inhaler as needed, Zyrtec, Singulair. (5) Depression: Plan: 30-year history of taking Paxil which is being weaned off now by PCP. Continue Paxil mg here.. Also states she has a diagnosis of obsessive-compulsive disorder. No notes to affirm that Plan Discharge tomorrow if remains well. Percocet stopped. Laxatives and high-fiber diet recommendations. Admission and Anticipated Discharge Date Admission Date: May 27, 2022 Subjective seen at 11 am Had done well with liquid diet. No n/v Complained of lower abdominal pain going across her abdomen from the right lower quadrant to the left and Percocet relieved it. No nausea. Had nausea ye sterday. Had not had a bowel movement for 2 days and is usually not constipated. No vomiting or diarrhea recently. Does not have a diagnosis of asthma and is has allergies for which she takes Singulair and albuterol she says. Fibromyalgia causes pain in her upper back legs and feet. Longstanding history of depression and OCD. Her PCP is trying to wean her off Paxil and she is currently on 20 mg. She is taken Paxil since the . Has been ambulating here without difficulty Physical Exam Physical Exam: Well-looking talkative lady, Moist oral mucosa Chest is clear to station CVS S1-S2 Abdomen slightly distended with tenderness and guarding in the right lower quadrant Extremities no edema Intact judgment and insight Results & Data Results & Data ([facility]) Vital Signs (Past 12 Hours) Vital Signs Temp Pulse Resp BP Pulse Ox O2 Del Method 05/28/22 16:00 36.7 C 60 20 106/62 95 Room Air 05/28/22 07:20 36.8 C 63 16 112/56 L 95 Room Air Laboratory Results Abnormal lab results 05/28/22 05/28/22 Range/Units 05:51 05:51 WBC 15.45 H D (4.8-10.8) K/ul RBC 3.84 L (3.93-5.22) M/uL Hgb 11.2 L (12.0-16.0) g/dl Hct 33.5 L (34.1-44.9) % Neut # (Auto) 13.81 H (1.4-6.5) K/uL Lymph # (Auto) 0.73 L (1.2-3.4) K/uL Immature Gran # (Auto) 0.12 H (0.00-0.02) K/uL Chloride 109 H (98-107) mmol/L Creatinine 0.54 L (0.6-1.2) mg/dl BUN/Creatinine Ratio 22.2 H (10-20) Glucose 116 H (70-99(Fasting)) mg/dl PG Care Time/CCT Total # of Minutes Spent Total Time Spent with Patient: Total time spent is greater than 50% in coordination of care (as documented) at patient's floor/unit and/or counseling patient: Coding Level of Care Code 08778 Subseq Hosp Care Lvl 2 Diagnoses Diverticulitis K57.92 Hypothyroid E03.9 Fibromyalgia M79.7 Allergy-induced asthma J45.909 Depression F32.A
[2022-05-28] MEDS ORDERED: LACTULOSE SYRUP 20 GM/30 ML UDC PO ONE (17:45)
[2022-05-28] MEDS ORDERED: CIPROFLOXACIN 500 MG TAB PO SCH (21:00)
[2022-05-28] MEDS ORDERED: metroNIDAZOLE 500 MG TAB PO SCH (21:00)
[2022-05-28] MEDS ORDERED: NAPROXEN 250 MG TAB PO SCH (21:00)
[2022-05-28] MEDS: PARoxetine HCL 20 MG TAB PO SCH (21:27)
[2022-05-28] MEDS: MONTELUKAST SODIUM 10 MG TABLET PO SCH (21:27)
[2022-05-28] MEDS: ACETAMINOPHEN 325 MG TAB PO PRN (21:27)
[2022-05-28] MEDS: traZODone HCL 100 MG TAB PO SCH (21:27)
[2022-05-29] MEDS: LEVOTHYROXINE SODIUM 112 MCG TABLET PO SCH (08:17)
[2022-05-29] MEDS: CETIRIZINE HCL 10 MG TABLET PO SCH (08:17)
[2022-05-29] MEDS ORDERED: MINERAL OIL ENEMA 133 ML BTL PR PRN (10:44)
[2022-05-29] MEDS ORDERED: LACTULOSE SYRUP 20 GM/30 ML UDC PO ONE (12:31)
[2022-05-29] MEDS ORDERED: bisacodyL 10 MG SUPP PR STA (13:22)
[2022-05-29] MEDS: ACETAMINOPHEN 325 MG TAB PO PRN (16:03)
[2022-05-29] MEDS ORDERED: LACTULOSE SYRUP 30 GM/45 ML UDP PO STA (17:26)
--- NOTE | 2022-05-29 17:27 | Hospitalist Progress Note ---
Date of Service May 29, 2022 Assessment & Plan (1) Constipation: Plan: With mild diverticulitis if that. Clinical exam not consistent with diverticulitis. Antibiotics stopped. After 20 g of lactulose, 1 Dulcolax suppository, Fleet enema, polyethylene glycol and a bowel movement which did not completely relieve her constipation, has some twinges of abdominal pain. Appetite is good. . Has never had constipation before Will give 30 g of lactulose p.o. this evening Likely discharge tomorrow (2) Hypothyroid: Plan: Check TSH in view of this new onset constipation. (3) Fibromyalgia: Plan: (4) Allergy-induced asthma: Plan: Uses albuterol inhaler as needed, Zyrtec, Singulair. (5) Depression: Plan: 30-year history of taking Paxil which is being weaned off now by PCP. Continue Paxil mg here.. Also states she has a diagnosis of obsessive-compulsive disorder. No notes to affirm that Plan Discharge tomorrow if remains well. Laxatives and high-fiber diet recommendations emphasized as well as more fluid intake then she has been doing. Admission and Anticipated Discharge Date Admission Date: May 27, 2022 Subjective seen at 1030 and then at 1700 h. Complained of lower abdominal pain in t winges/stabs. Had a small bowel movement before I saw her. After getting a fleets enema and Dulcolax she had a bowel movement that did not completely relieve her constipation when I met her at 5 PM. No nausea or vomiting. 100% of breakfast consumed and only about half of lunch. Complains of some belching as well. Admits to poor fiber intake at home. Not drinking a lot of water. Quite active in horse riding. Physical Exam Physical Exam: Well-looking talkative lady, standing by her roommate's bed at 5 pm, taking her phone charging cord Moist oral mucosa Chest is clear to auscultation CVS S1-S2 Abdomen slightly distended with tenderness and guarding in the right lower quadrant Extremities no edema UPHOLSTERER LIMOUSINE AND HEARSE normal rapid gait Intact judgment and insight Results & Data Results & Data ([facility]) Vital Signs (Past 12 Hours) Vital Signs Temp Pulse Resp BP BP Pulse Ox O2 Del Method 05/29/22 14:39 36.8 C 60 16 112/68 96 Room Air 05/29/22 07:05 36.8 C 65 16 105/62 96 Room Air Medications Administered Home Medications Medication Instructions Recorded Confirmed Last Taken levothyroxine 112 mcg tablet 112 mcg PO DAILYBB 07/10/18 05/27/22 05/27/22 montelukast 10 mg tablet 10 mg PO QPM 07/10/18 05/27/22 05/26/22 trazodone 100 mg tablet 100 mg PO HS 07/10/18 05/27/22 05/26/22 albuterol sulfate 90 mcg/actuation 2 puff inhalation Q6H PRN 02/25/21 05/27/22 Unknown aerosol inhaler (ProAir HFA) Shortness Of Breath Active Medications Generic Name Dose Route Start Last Admin Trade Name Freq PRN Reason Stop Dose Admin Acetaminophen 650 mg 05/27/22 18:31 05/29/22 16:03 Acetaminophen 325 Mg Tab PO 06/26/22 18:30 650 mg Q4H PRN Administration Mild pain or Fever Cetirizine HCl 10 mg 05/28/22 09:00 05/29/22 08:17 Cetirizine Hcl 10 Mg Tablet PO 06/27/22 08:59 Not Given QAM REEMA Levothyroxine Sodium 112 mcg 05/28/22 09:00 05/29/22 08:17 Levothyroxine Sodium 112 Mcg Tablet PO 06/27/22 08:59 112 mcg QAM REEMA Administration Mineral Oil 133 ml 05/29/22 10:44 05/29/22 11:14 Mineral Oil Enema 133 Ml Btl GA 06/28/22 10:43 133 ml DAILYBD PRN Administration Constipation Montelukast Sodium 10 mg 05/27/22 21:00 05/28/22 21:27 Montelukast Sodium 10 Mg Tablet PO 06/26/22 20:59 10 mg QPM REEMA Administration Paroxetine HCl 20 mg 05/27/22 21:00 05/28/22 21:27 Paroxetine Hcl 20 Mg Tab PO 06/26/22 20:59 Not Given QPM REEMA Trazodone HCl 100 mg 05/27/22 21:00 05/28/22 21:27 Trazodone Hcl 100 Mg Tab PO 06/26/22 20:59 100 mg HS REEMA Administration PG Care Time/CCT Total # of Minutes Spent Total Time Spent with Patient: Total time spent is greater than 50% in coordination of care (as documented) at patient's floor/unit and/or counseling patient: Coding Level of Care Code 16662 Subseq Hosp Care Lvl 2 Diagnoses Constipation K59.00 Hypothyroid E03.9 Fibromyalgia M79.7 Allergy-induced asthma J45.909 Depression F32.A
[2022-05-29] MEDS: traZODone HCL 100 MG TAB PO SCH (20:20)
[2022-05-29] MEDS: MONTELUKAST SODIUM 10 MG TABLET PO SCH (20:20)
[2022-05-29] MEDS: PARoxetine HCL 20 MG TAB PO SCH ×2 (20:21→20:22)
[2022-05-30] MEDS: CETIRIZINE HCL 10 MG TABLET PO SCH (07:36)
[2022-05-30] MEDS: LEVOTHYROXINE SODIUM 112 MCG TABLET PO SCH (07:41)
[2022-05-30] MEDS: ACETAMINOPHEN 325 MG TAB PO PRN (07:42)
[2022-05-30 08:13] LABS: Hemoglobin 14.7 g/dl (12.0-16.0); Mean Corpuscular Hemoglobin 29.2 pg (25.0-34.0); Mean Corpuscular Hgb Conc 33.4 g/dL (32.0-36.0); Mean Corpuscular Volume 87.5 fL (80.0-100.0); Mean Platelet Volume 9.2 fL (9.4-12.3); Platelet Count 363 K/uL (130-400); RDW Coefficient of Variation 13.2 % (11.5-14.5); RDW Standard Deviation 42.3 fL (36.4-46.3); Red Blood Count 5.03 M/uL (3.93-5.22); White Blood Count 16.86 K/ul (4.8-10.8)
[2022-05-30] MEDS ORDERED: LACTULOSE SYRUP 20 GM/30 ML UDC PO SCH (09:00)
--- NOTE | 2022-05-30 12:00 | Discharge Summary ---
Date of Service May 30, 2022 Admission HPI Per Admitting Provider Reyna Anthony is a 61 y/o female with a past medical history of hypothyroidism, fibromyalgia, and allergy induced asthma who presented today with abdominal pain. She woke up this morning with lower, bilateral crampy abdominal pain and felt feverish. She thought she may need to have a BM, however tried and was unsuccessful. She had been feeling well up until this morning, and several normal bowel movements over the past week, nonpainful and nonbloody. She has had 1 very small bowel movement this morning, and otherwise has not been able to have what she would consider for her a normal size BM. Of note, she is recently been on 2 different antibiotics, Augmentin for recent sinus infection and a 3-week course of doxycycline her recent tick bite with bull's-eye rash ( Lyme prophylaxis). Both antibiotics were completed within the last week. She has not had any diarrhea. Presentation to the ED, her vital signs are within normal limits and stable, temp 37.6 C. Labs remarkable for for WBC of 29 with left shift, lactate 1.0, procalcitonin 0.13. Lipase level 11, no electrolyte abnormalities, renal function at baseline. No transaminitis. UA is negative for all, does not appear infected. Blood cultures collected in ED. CT A/P: There is moderate fecal retention throughout the colon without evidence of obstruction. There is moderate to advanced colonic diverticulosis with mild wall thickening of the sigmoid colon and infiltration suggested between the colon and left ovary, suggestive of mild diverticulitis or oophoritis. There is no intraperitoneal free air or fluid collection to suggest abscess. There is also bladder wall thickening with surrounding infiltration, however UA does not appear infected. 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 Clinical exam was not consistent with diverticulitis. Antibiotics stopped on hospital day 2[place] [id number] on 05/30/2022, and had mild abdominal cramping- so I decided to give a 5 day course of cipro and Flagyl. After 20 g of lactulose, 1 Dulcolax suppository, Fleet enema, polyethylene glycol and a bowel movement which did not completely relieve her constipation, has some twinges of abdominal pain 05/29. Appetite remained goof Has never had constipation before After 30 g of lactulose p.o. 05/29 pm, had diarrhea. But no BMP next day when seen around noon discharged 05/30 w counselling again to eat more fibers. For the last year or so had been on a diet which has a lot of processed food. She has lost 20 pounds on it. Urged to stop that and do exercising for weight loss. Her BMI is 28 [place] often. (2) Hypothyroid: tsh 6.19 05/30/2022 and Synthroid raised from 112 MCG daily to 125 MCG daily considering she has constipation.. (3) Fibromyalgia: Pretty asymptomatic (4) Allergy-induced asthma: Uses albuterol inhaler as needed, Zyrtec, Singulair. (5) Depression: 30-year history of taking Paxil which is being weaned off now by PCP. She was on 5 mg every other day or so. Told her to stop it completely. Plan Discharged with a 5-day course of metronidazole and ciprofloxacin. Lactulose as needed and MiraLAX daily. Laxatives and high-fiber diet recommendations emphasized as well as more fluid intake then she has been doing. Total Time Total Time Spent Total Time Spent (In Minutes): 40 minutes Discharge Plan Discharge Items Patient Disposition: Home - Self-Care Reason For Visit: DIVERTICULITIS Discharge Diagnosis: constipation and diverticulitis Activity: Resume your previous activity Bathing: No limitations Non-emergency contact: Primary Care Provider Call non-emergency contact if: you have any medication questions Follow-up/Referrals: Ash Viramontes MD [Primary Care Provider] - Diet: Regular Diet Comment: eat natural fibers and exercise regualrly Addtl Attending Provider Instructions: drink adequate fluids See your PCP in 3 days as per plan Pending Studies at Discharge: No Stand-Alone Forms: [facility] Medications and DC Order Prescriptions: New levothyroxine 125 mcg capsule 125 mcg PO DAILY Qty: 60 0RF ciprofloxacin 500 mg/5 mL suspension,microcapsule recon 250 mg PO BID 5 Days Qty: 25 0RF metronidazole [Flagyl] 375 mg capsule 375 mg PO BID 10 Days Qty: 20 0RF lactulose 10 gram packet 10 g PO DAILY PRN (Reason: constipation) Qty: 15 0RF Continued trazodone 100 mg tablet 100 mg PO HS montelukast 10 mg tablet 10 mg PO QPM albuterol sulfate [ProAir HFA] 90 mcg/actuation Hfa Aerosol Inhaler 2 puff INHALATION Q6H PRN (Reason: Shortness Of Breath) Discontinued levothyroxine 112 mcg tablet 112 mcg PO DAILYBB Discharge Orders: Discharge Order (Routine); Ordered 05/30/22 Ordered By: Rodriguez Villatoro Admission Data Admit Date/Time: 05/27/22 15:30 Attending Provider: Rodriguez Villatoro Admit Provider: Navarro Contreras Primary Care Provider: Ash Viramontes Coding Level of Care Code D/C DAY MANAGEMENT >30 MINS Diagnoses Constipation K59.00 Hypothyroid E03.9 Fibromyalgia M79.7 Allergy-induced asthma J45.909 Depression F32.A
== END 2022-05-30 14:43 | disposition home or self-care (01) ==
LOC: ED 10:22 → SUATTDRO 15:30 → INTOOBSV 15:30 → 3N 15:30

== ENCOUNTER 2022-06-18 10:33 | Inpatient (IN) ==
[2022-06-18] MEDS ORDERED: ONDANSETRON INJ 2 MG/ML 2 ML VIAL IV STA ×2 (11:20→15:50)
[2022-06-18] MEDS ORDERED: ONDANSETRON INJ 2 MG/ML 2 ML VIAL ONE (11:21)
[2022-06-18 11:43] LABS: Basophils # (auto) 0.04 K/uL (0-0.2); Basophils % (auto) 0.3 %; Eosinophils # (auto) 0.03 K/uL (0-0.50); Eosinophils % (auto) 0.2 %; Hemoglobin 12.8 g/dl (12.0-16.0); Immature Granulocytes # (auto) 0.09 K/uL (0.00-0.02); Immature Granulocytes % (auto) 0.6 %; Lymphocytes # (auto) 1.23 K/uL (1.2-3.4); Lymphocytes % (auto) 7.7 %; Mean Corpuscular Hemoglobin 28.9 pg (25.0-34.0); Mean Corpuscular Hgb Conc 33.7 g/dL (32.0-36.0); Mean Corpuscular Volume 85.8 fL (80.0-100.0); Mean Platelet Volume 9.3 fL (9.4-12.3); Monocytes # (auto) 1.22 K/uL (0.24-0.82); Monocytes % (auto) 7.7 %; Neutrophils # (auto) 13.28 K/uL (1.4-6.5); Neutrophils % (auto) 83.5 %; Platelet Count 339 K/uL (130-400); RDW Coefficient of Variation 13.1 % (11.5-14.5); RDW Standard Deviation 41.1 fL (36.4-46.3); Red Blood Count 4.43 M/uL (3.93-5.22); White Blood Count 15.89 K/ul (4.8-10.8)
[2022-06-18 11:54] LABS: Appearance Urine Clear (Clear); Bacteria Urine Automated Negative (Negative); Bilirubin Urine Negative (Negative); Blood Urine Negative (Negative); Color Urine Orange; Glucose Urine UA Negative (Negative); Ketones Urine Trace (Negative); Leukocyte Esterase Urine 2+ (Negative); Nitrite Urine Negative (Negative); Protein Urine Trace (Negative); RBC Urine Automated 0-4 /hpf (0-4); Urobilinogen Urine Negative (Negative)
[2022-06-18 12:07] LABS: Albumin Globulin Ratio 1.3 (0.9-2); Albumin Level 3.8 gm/dl (3.4-5.0); BUN Creatinine Ratio 12.3 (10-20); Calcium 9.1 mg/dl (8.5-10.1); Creatinine Clr Calc Pharmacy 96.1 ml/min; Est GFR (African American) 109.5 ml/min; Est GFR (Non-African American) 94.5 ml/min; Potassium 3.9 mmol/L (3.5-5.1); Total Protein 6.8 gm/dl (6.0-8.3)
[2022-06-18] MEDS ORDERED: OPTIRAY 350 100ml IV ONE (12:58)
[2022-06-18] MEDS ORDERED: KETOROLAC 30 MG/ML VIAL IV STA (13:22)
--- NOTE | 2022-06-18 13:32 | CT Scan Report ---
CT abd pelvis IV con only CLINICAL HISTORY: RECENT DIVERTICULITIS, INCREASED LLQ PAIN TECHNIQUE: Helical axial images of the abdomen and pelvis were obtained and displayed. Automated dose lowering techniques and/or adjustment according to patient size were utilized for this exam. This e xam was performed with intravenous contrast. CT DOSE: 314.53 mGy.cm COMPARISON: Comparison is made to CT abdomen pelvis 05/27/2022 FINDINGS: Lower chest: No acute abnormality. Liver: Unremarkable. No focal lesions are seen. Gallbladder and biliary tree: No calcified gallstones. Normal caliber wall. No intra- or extrahepatic biliary ductal dilation. Pancreas: Unremarkable, no focal lesions. Spleen: Splenule is incidentally noted. Adrenals: Unremarkable. Kidneys and ureters: Unremarkable. Bladder: Unremarkable. Reproductive organs: Unremarkable. The left adnexa is involved with the sigmoid colon stranding. Bowel: There is wall thickening in the sigmoid colon. There are adjacent rim-enhancing fluid collecti ons which are also adjacent to the adnexa. No definitive extraluminal gas is seen. The appendix is no rmal. Lymph nodes Retroperitoneal: Subcentimeter lymph nodes are noted. Pelvic: Subcentimeter nodes are seen on the right. Mesenteric: Unremarkable. Peritoneum: Fat stranding is seen in the left pelvis. Complex, loculated fluid collection measuring i n total approximately 53 x 42 mm with surrounding fat stranding is seen adjacent to the sigmoid colon . There is a serpiginous component in the anterior aspect of the collection. No pneumoperitoneum is s een. Vessels: Unremarkable. Abdominal wall: Unremarkable. Bones: Unremarkable. IMPRESSION: Findings are compatible with diverticulitis. In the interval there is development of a complex fluid collection surrounding the sigmoid colon. The posterior component represents an abscess, the anterior serpiginous component may represent further loculations of an abscess or reactive oophoritis. No emile e air is seen in the abdomen. ACT 112: Negative or not required by law. Electronically signed by: Arun Benitez M.D. 06/18/2022 1:31 PM
[2022-06-18] MEDS ORDERED: PIPERACILLIN/TAZOBACTAM 4.5 GM/120 ML BAG IV ONE (13:39)
--- NOTE | 2022-06-18 13:39 | Emergency Department Note ---
History of Present Illness General Chief complaint: Abdominal Pain Stated complaint: ABDOMINAL PAIN, FEVER Time Seen by Provider: 06/18/22 12:45 History of Present Illness Maximum Pain Intensity: 3 61-year-old female presents to the ED with a chief complaint of pain in the left lower quadrant. She states that she was in the hospital from the to the for diverticulitis. She had gotten better but yesterday started having some crampy abdominal pain in the lower abdomen more so on the left. The patient states that she saw her PCP yesterday and was started on Flagyl and Ramy trim. He presented today because of the crampy pain. He also reports that previously she was told she had an inflamed ovary and a thickened uterus. She has seen an appointment to see a health policy manager for this. No urinary symptoms. No diarrhea. No blood in the stools. No other complaints. OTC pain medications seems to help some. Home Medications Medication Instructions Recorded Confirmed Type montelukast 10 mg tablet 10 mg PO QPM 07/10/18 05/27/22 History trazodone 100 mg tablet 100 mg PO HS 07/10/18 05/27/22 History albuterol sulfate 90 mcg/actuation 2 puff inhalation Q6H PRN 02/25/21 05/27/22 History aerosol inhaler (ProAir HFA) Shortness Of Breath lactulose 10 gram oral packet 10 g PO DAILY PRN constipation #15 05/30/22 Rx ea levothyroxine 125 mcg capsule 125 mcg PO DAILY #60 caps 05/30/22 Rx Allergies Allergy/AdvReac Type Severity Reaction Status Date / Time cat dander Allergy Mild EYES WATER Verified 05/27/22 16:04 mold Allergy Mild sinus Verified 05/27/22 16:04 issues Past Med/Surg History Medical History Allergy-induced asthma inhaler prn Chronic back pain Fibromyalgia GERD (gastroesophageal reflux disease) Hearing difficulty of right ear Hypothyroid Osteoarthritis PVD (posterior vitreous detachment), left eye hx of--was evaluated, no sx, cleared Surgical History 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 History of colonoscopy History of tooth extraction History of wisdom tooth extraction S/P carpal tunnel release bilt S/P trigger finger release Family History Other No family history of adverse response to anesthesia Social History Smoking Status: Never smoker Second Hand Exposure: No; Hx Alcohol Use: No Hx Substance Use: No Preferred Language: Barbadian Communication Ability: Effective Electroencephalograph Technologist Required: No Beliefs That Will Affect Care: None Current Living Situation: Alone Feels Safe at Home: Yes Assistive Devices: None Review of Systems A total of 10 systems reviewed and were otherwise negative Physical Exam Vital Signs Vital Signs - 24 hr 06/18/22 10:41 06/18/22 13:50 Temperature 37.4 C Temperature Source Temporal Artery Scan Pulse Rate 94 H Pulse Rate [Left Finger] 72 Respiratory Rate 18 18 Respiratory Effort / Characteristics Non-Labored Non-Labored Spontaneous Respiratory Depth Normal Normal Respiratory Pattern Regular Blood Pressure 106/63 Blood Pressure [Left Arm] 98/60 L Blood Pressure Mean 77 Blood Pressure Mean [Left Arm] 72 Blood Pressure Position Sitting Pulse Oximetry 97 98 Oxygen Delivery Method Room Air Room Air Sepsis Recent Fever Within 48 Hours Yes Sepsis New/Unexplained Change in Mental Status No Sepsis Action Taken by Nursing No Action Required CONSTITUTIONAL/VITAL SIGNS: Reviewed / noted above. GENERAL: Non-toxic in appearance. INTEGUMENTARY: Warm, dry, and [place]. HEAD: Normocephalic. EYES: without scleral icterus or trauma. ENT/OROPHARYNX: clear and moist. LYMPHADENOPATHY/NECK: Is supple without lymphadenopathy or meningismus. RESPIRATORY: Clear to auscultation bilaterally. No increased work of breathing. CARDIOVASCULAR: Regular rate and rhythm. GI/ABDOMEN: Soft and nontender. No organomegaly or pulsatile mass. EXTREMITIES: Warm and well perfused. BACK: No CVA tenderness. NEUROLOGICAL: Intact without focal deficits. PSYCHIATRIC: normal affect. MUSCULOSKELETAL: Normally developed with good muscle tone. TRIAGE NURSING DOCUMENTATION REVIEWED. Course Administered Medications Discontinued Medications Piperacillin Sod/Tazobactam Sod (Zosyn) 4.5 gm in 120 mls @ 240 mls/hr IV NOW ONE Stop: 06/18/22 14:08 Last Infusion: 06/18/22 14:51 Dose: 0 mls/hr Documented By: Admin: 06/18/22 13:57 Dose: 240 mls/hr Documented By: PATY Ioversol (Optiray 350 100ml) 87 ml IV ONCE ONE Stop: 06/18/22 12:59 Last Admin: 06/18/22 12:56 Dose: 87 ml Documented By: LIBBY Ketorolac Tromethamine (Ketorolac 30 Mg/Ml Vial) 30 mg IV NOW STA Stop: 06/18/22 13:23 Last Admin: 06/18/22 13:51 Dose: 30 mg Documented By: PATY Ondansetron HCl (Ondansetron Inj 2 Mg/Ml 2 Ml Vial) 4 mg IV NOW STA Stop: 06/18/22 11:21 Last Admin: 06/18/22 11:25 Dose: 4 mg Documented By: BRIAN Ondansetron HCl (Ondansetron Inj 2 Mg/Ml 2 Ml Vial) Confirm Administered Dose 4 mg .ROUTE .STK-MED ONE Stop: 06/18/22 11:22 Last Admin: 06/18/22 11:25 Dose: Not Given Documented By: BRIAN Medical Decision Making Differential Diagnosis Differential considered: pancreatitis, hepatitis, acute cholecystitis, AAA, UTI, pyelonephritis, kidney stones, appendicitis, diverticulitis, shingles, bowel obstruction, mesenteric ischemia, intussusception,hernia, testicular torsion, retractor pathology Medical Records Attestation: I reviewed the patient's medical records. Home Medications Current Medication List: was personally reviewed by me Laboratory Data Attestation: I reviewed the patient's lab results. Result diagrams: 06/18/22 11:20 06/18/22 11:20 Lab Results 06/18/22 06/18/22 06/18/22 Range/Units 11:10 11:20 11:20 WBC 15.89 H (4.8-10.8) K/ul RBC 4.43 (3.93-5.22) M/uL Hgb 12.8 (12.0-16.0) g/dl Hct 38.0 (34.1-44.9) % MCV 85.8 (80.0-100.0) fL MCH 28.9 (25.0-34.0) pg MCHC 33.7 (32.0-36.0) g/dL RDW Std Deviation 41.1 (36.4-46.3) fL RDW Coeff of Geovani 13.1 (11.5-14.5) % Plt Count 339 (130-400) K/uL MPV 9.3 L (9.4-12.3) fL Immature Gran % (Auto) 0.6 % Neut % (Auto) 83.5 % Lymph % (Auto) 7.7 % [place] % (Auto) 7.7 % Eos % (Auto) 0.2 % Baso % (Auto) 0.3 % Neut # (Auto) 13.28 H (1.4-6.5) K/uL Lymph # (Auto) 1.23 (1.2-3.4) K/uL [place] # (Auto) 1.22 H (0.24-0.82) K/uL Eos # (Auto) 0.03 (0-0.50) K/uL Baso # (Auto) 0.04 (0-0.2) K/uL Immature Gran # (Auto) 0.09 H (0.00-0.02) K/uL Sodium 137 (136-145) mmol/L Potassium 3.9 (3.5-5.1) mmol/L Chloride 105 (98-107) mmol/L Carbon Dioxide 24 (21-32) mmol/L Anion Gap 8 (3-11) BUN 8 (6-23) mg/dl Creatinine 0.65 (0.6-1.2) mg/dl Est Cr Clr Drug Dosing 96.1 ml/min Est GFR ( Amer) 109.5 ml/min Est GFR (Non-Af Amer) 94.5 ml/min BUN/Creatinine Ratio 12.3 (10-20) Glucose 112 H (70-99(Fasting)) mg/dl Calcium 9.1 (8.5-10.1) mg/dl Total Bilirubin 1.0 (0.2-1.0) mg/dl AST 23 (13-39) U/L ALT 28 (7-52) U/L Alkaline Phosphatase 60 (34-104) U/L Total Protein 6.8 (6.0-8.3) gm/dl Albumin 3.8 (3.4-5.0) gm/dl Globulin 3.0 (2.5-4.0) gm/dl Albumin/Globulin Ratio 1.3 (0.9-2) Lipase 15 (11-82) U/L Urine Color [place] Urine Appearance Clear (Clear) Urine pH 6.0 (4.5-7.5) Ur Specific [place] 1.020 (1.000-1.030) Urine Protein Trace H (Negative) Urine Glucose (UA) Negative (Negative) Urine Ketones Trace H (Negative) Urine Blood Negative (Negative) Urine Nitrite Negative (Negative) Urine Bilirubin Negative (Negative) Urine Urobilinogen Negative (Negative) Ur Leukocyte Esterase 2+ H (Negative) Urine WBC (Auto) 1-5 (0-5) /hpf Urine RBC (Auto) 0-4 (0-4) /hpf U Hyaline Cast (Auto) 1-5 (0-5) /lpf U Epithel Cells (Auto) 10-20 H (0-5) /lpf Urine Bacteria (Auto) Negative (Negative) SARS-CoV-2, RNA, NAAT (NEGATIVE) 06/18/22 Range/Units 14:55 WBC (4.8-10.8) K/ul RBC (3.93-5.22) M/uL Hgb (12.0-16.0) g/dl Hct (34.1-44.9) % MCV (80.0-100.0) fL MCH (25.0-34.0) pg MCHC (32.0-36.0) g/dL RDW Std Deviation (36.4-46.3) fL RDW Coeff of Geovani (11.5-14.5) % Plt Count (130-400) K/uL MPV (9.4-12.3) fL Immature Gran % (Auto) % Neut % (Auto) % Lymph % (Auto) % [place] % (Auto) % Eos % (Auto) % Baso % (Auto) % Neut # (Auto) (1.4-6.5) K/uL Lymph # (Auto) (1.2-3.4) K/uL [place] # (Auto) (0.24-0.82) K/uL Eos # (Auto) (0-0.50) K/uL Baso # (Auto) (0-0.2) K/uL Immature Gran # (Auto) (0.00-0.02) K/uL Sodium (136-145) mmol/L Potassium (3.5-5.1) mmol/L Chloride (98-107) mmol/L Carbon Dioxide (21-32) mmol/L Anion Gap (3-11) BUN (6-23) mg/dl Creatinine (0.6-1.2) mg/dl Est Cr Clr Drug Dosing ml/min Est GFR ( Amer) ml/min Est GFR (Non-Af Amer) ml/min BUN/Creatinine Ratio (10-20) Glucose (70-99(Fasting)) mg/dl Calcium (8.5-10.1) mg/dl Total Bilirubin (0.2-1.0) mg/dl AST (13-39) U/L ALT (7-52) U/L Alkaline Phosphatase (34-104) U/L Total Protein (6.0-8.3) gm/dl Albumin (3.4-5.0) gm/dl Globulin (2.5-4.0) gm/dl Albumin/Globulin Ratio (0.9-2) Lipase (11-82) U/L Urine Color Urine Appearance (Clear) Urine pH (4.5-7.5) Ur Specific [place] (1.000-1.030) Urine Protein (Negative) Urine Glucose (UA) (Negative) Urine Ketones (Negative) Urine Blood (Negative) Urine Nitrite (Negative) Urine Bilirubin (Negative) Urine Urobilinogen (Negative) Ur Leukocyte Esterase (Negative) Urine WBC (Auto) (0-5) /hpf Urine RBC (Auto) (0-4) /hpf U Hyaline Cast (Auto) (0-5) /lpf U Epithel Cells (Auto) (0-5) /lpf Urine Bacteria (Auto) (Negative) SARS-CoV-2, RNA, NAAT NEGATIVE (NEGATIVE) Imaging Data Radiologist's Impression: Abdomen/Pelvis CT 06/18/22 10:49 CT abd pelvis IV con only CLINICAL HISTORY: RECENT DIVERTICULITIS, INCREASED LLQ PAIN TECHNIQUE: Helical axial images of the abdomen and pelvis were obtained and displayed. Automated dose lowering techniques and/or adjustment according to patient size were utilized for this exam. This exam was performed with intravenous contrast. CT DOSE: 314.53 mGy.cm COMPARISON: Comparison is made to CT abdomen pelvis 05/27/2022 FINDINGS: Lower chest: No acute abnormality. Liver: Unremarkable. No focal lesions are seen. Gallbladder and biliary tree: No calcified gallstones. Normal caliber wall. No intra- or extrahepatic biliary ductal dilation. Pancreas: Unremarkable, no focal lesions. Spleen: Splenule is incidentally noted. Adrenals: Unremarkable. Kidneys and ureters: Unremarkable. Bladder: Unremarkable. Reproductive organs: Unremarkable. The left adnexa is involved with the sigmoid colon stranding. Bowel: There is wall thickening in the sigmoid colon. There are adjacent rim- enhancing fluid collections which are also adjacent to the adnexa. No definitive extraluminal gas is seen. The appendix is normal. Lymph nodes Retroperitoneal: Subcentimeter lymph nodes are noted. Pelvic: Subcentimeter nodes are seen on the right. Mesenteric: Unremarkable. Peritoneum: Fat stranding is seen in the left pelvis. Complex, loculated fluid c ollection measuring in total approximately 53 x 42 mm with surrounding fat stranding is seen adjacent to the sigmoid colon. There is a serpiginous component in the anterior aspect of the collection. No pneumoperitoneum is seen. Vessels: Unremarkable. Abdominal wall: Unremarkable. Bones: Unremarkable. IMPRESSION: Findings are compatible with diverticulitis. In the interval there is development of a complex fluid collection surrounding the sigmoid colon. The posterior component represents an abscess, the anterior serpiginous component may represent further loculations of an abscess or reactive oophoritis. No free air is seen in the abdomen. ACT 112: Negative or not required by law. Electronically signed by: Arun Benitez M.D. 06/18/2022 1:31 PM MDM Narrative 58-year-old female presents with left lower quadrant abdominal pain that started yesterday. She had diverticulitis earlier this month. Went through a course of antibiotics. She was started on antibiotics yesterday with Bactrim and Flagyl by her PCP because of her symptoms. She presents today for some worsening. Her CBC shows white blood cell count of 15.8. Chemistry panel was unremarkable. Lipase was negative. Urine did not show infection. CT scan of the abdomen pelvis shows findings concerning for diverticulitis with abscess. I did speak with general surgery here. They recommend transfer for interventional radiology. Plan is to send the patient to [facility] with this. She was treated with IV Zosyn here as well as IV Toradol, IV Zofran and IV fluids. Impression & Plan Diverticulitis of intestine with abscess Discharge Plan Visit Data Chief Complaint: Abdominal Pain Stated Complaint: ABDOMINAL PAIN, FEVER ED Provider: Benjie Valadez Discharge Problem: Diverticulitis of intestine with abscess Patient Disposition: Transfer Acute Care Hospital Discharge Instructions Activity Restrictions/Additional Instructions: Go to the [facility] for further care and evaluation. Forms Stand Alone Forms: [facility] [place] [facility] Prescriptions Prescriptions: No Action trazodone 100 mg tablet 100 mg PO HS montelukast 10 mg tablet 10 mg PO QPM albuterol sulfate [ProAir HFA] 90 mcg/actuation Hfa Aerosol Inhaler 2 puff INHALATION Q6H PRN (Reason: Shortness Of Breath) levothyroxine 125 mcg capsule 125 mcg PO DAILY Qty: 60 0RF lactulose 10 gram packet 10 g PO DAILY PRN (Reason: constipation) Qty: 15 0RF Referrals Referrals: Ash Viramontes MD [Primary Care Provider] -
[2022-06-18] MEDS ORDERED: SODIUM CHLORIDE 0.9% 1000ML 1,000 ML IV ONE (15:35)
[2022-06-18] MEDS: PIPERACILLIN/TAZOBACTAM 4.5 GM in DEXTROSE 5% 100 ML IV SCH (18:42)
[2022-06-18] MEDS ORDERED: PROCHLORPERAZINE 1 ML IV ONE (21:55)
[2022-06-18] MEDS ORDERED: traZODone HCL 50 MG TAB PO ONE (22:51)
[2022-06-19] MEDS ORDERED: SODIUM CHLORIDE 0.9% 1000ML 1,000 ML IV SCH (02:56)
[2022-06-19] MEDS ORDERED: ALBUTEROL HFA 8 GM INHALER INH PRN (02:56)
[2022-06-19] MEDS: PIPERACILLIN/TAZOBACTAM 4.5 GM in DEXTROSE 5% 100 ML IV SCH ×3 (04:18→19:24)
[2022-06-19] MEDS: LEVOTHYROXINE SODIUM 125 MCG TABLET PO SCH (05:50)
--- NOTE | 2022-06-19 07:14 | History & Physical Report ---
Date of Service June 19, 2022 Assessment & Plan (1) Diverticulitis of intestine with abscess: Plan: Patient presents to ED with left lower quadrant abdominal pain Lab data indicates elevated white count consistent with acute infection Patient treated in outpatient with Bactrim and Flagyl by her PCP CT of the abdomen shows evidence of diverticulitis with complex fluid collection surrounding the sigmoid colon with a posterior competent representing an abscess with further loculations and possible reactive oophoritis present. General surgery contacted from ED and that recommended patient to be transferred for interventional radiology [facility] Patient accepted to [facility] awaiting bed Continue IV Zosyn for antibiotic coverage IV analgesics and antiemetics as needed (2) Leukocytosis: Plan: Patient presents elevated white count of 15,000 along with left local and abdominal pain secondary to acute diverticulitis CT imaging shows evidence of fluid collection with abscess formation Continue IV Zosyn till bed available for IR drainage (3) Hypothyroid: Plan: Continue home dose levothyroxine 125mcg daily (4) GERD (gastroesophageal reflux disease): Plan: Continue PPI therapy Admission and Anticipated Discharge Date Admission Date: June 19, 2022 History of Present Illness Chief Complaint: Patient presents to ED with complaints of abdominal pain Primary Care Provider: Ash Viramontes MD This is a 61-year-old female with past medical history significant history of hypothyroidism, history of recent admission for diverticulitis about 3 weeks ago who presents to the emergency department with complaints of acute worsening of the pain in the left lower quadrant area. Patient was treated for acute diverticulitis and discharged on May 30 and patient reports that she has been having progressive improvement and she continued her antibiotics which she was given during her discharge. Patient however reports that she started experiencing crampy abdominal pain in lower abdomen on the left side and saw her PCP 2 days ago and she was prescribed a course of antibiotics with Flagyl and Bactrim. Patient however reports that her pain has continued to worsen over the past 24 hours and hence patient presents to ED for further evaluation. Patient was also reported to have inflammation in the bowel extending to her ovaries and was recommended to see a accounting associate as an outpatient as well. Patient otherwise denies any urinary symptoms or chest pain or shortness of breath. Upon evaluation in the ED patient was found to evaluate a white count of 15,000 and also had a CT of the abdomen that shows evidence of diverticulitis with development of a complex fluid collection surrounding the sigmoid colon and the posterior component showing an abscess with no free air seen in the abdomen. ED had contacted general surgery and they recommended patient to be transferred to facility where they have interventional radiology availability and hence patient is scheduled to be transferred to [facility] when bed available. Allergies Allergy/AdvReac Type Severity Reaction Status Date / Time cat dander Allergy Mild EYES WATER Verified 06/18/22 20:51 mold Allergy Mild sinus Verified 06/18/22 20:51 issues Home Medications Medication Instructions Recorded Confirmed Type montelukast 10 mg tablet 10 mg PO QPM 07/10/18 06/18/22 History trazodone 100 mg tablet 100 mg PO HS 07/10/18 06/18/22 History albuterol sulfate 90 mcg/actuation 2 puff inhalation Q6H PRN 02/25/21 06/18/22 History aerosol inhaler (ProAir HFA) Shortness Of Breath levothyroxine 125 mcg capsule 125 mcg PO DAILYBB 06/18/22 06/18/22 History Past Med/Surg History Medical History Allergy-induced asthma inhaler prn Chronic back pain Fibromyalgia GERD (gastroesophageal reflux disease) Hearing difficulty of right ear Hypothyroid Osteoarthritis PVD (posterior vitreous detachment), left eye hx of--was evaluated, no sx, cleared Surgical History 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 History of colonoscopy History of tooth extraction History of wisdom tooth extraction S/P carpal tunnel release bilt S/P trigger finger release Family History Other No family history of adverse response to anesthesia Social History Smoking Status: Never smoker Second Hand Exposure: No; Hx Alcohol Use: Yes Alcohol type: wine and hard liquor Hx Substance Use: No Preferred Language: Jordanian Communication Ability: Effective Dietetic Aide Required: No Beliefs That Will Affect Care: None Current Living Situation: Alone Feels Safe at Home: Yes Assistive Devices: Glasses Review of Systems Review of Systems: All systems reviewed & are unremarkable except as noted in HPI & below Physical Exam Physical Exam: Constitutional: well-nourished patient, in mild distress Vitals as above. HEENT: No scleral injection Clear oropharynx without exudate. Neck: Supple without lymphadenopathy or thyromegaly. Trachea midline. Lungs: Clear to auscultation bilaterally no wheezing. Cardiac: No murmurs.No extremity edema. Abdomen:Left lower quadrant tenderness noted no rebound tenderness MSK: No cyanosis or clubbing. Skin: No rashes, warm, dry. Neurologic: Grossly intact cranial nerves. Results & Data Results & Data ([facility]) Vital Signs (Past 12 Hours) Vital Signs Temp Pulse Pulse Resp BP Pulse Ox O2 Del Method 06/19/22 03:02 77 06/19/22 03:01 36.7 C 81 18 124/75 98 Room Air 06/19/22 02:00 80 17 121/87 98 Room Air 06/18/22 23:42 87 18 135/83 97 Room Air 06/18/22 21:00 96 H 16 123/72 99 Room Air Laboratory Results Short CBC 06/18/22 Range/Units 11:20 WBC 15.89 H (4.8-10.8) K/ul Hgb 12.8 (12.0-16.0) g/dl Hct 38.0 (34.1-44.9) % Plt Count 339 (130-400) K/uL BMP 06/18/22 11:20 Sodium 137 Potassium 3.9 Chloride 105 Carbon Dioxide 24 BUN 8 Creatinine 0.65 Glucose 112 H Calcium 9.1 Liver Function 06/18/22 Range/Units 11:20 Total Bilirubin 1.0 (0.2-1.0) mg/dl AST 23 (13-39) U/L ALT 28 (7-52) U/L Alkaline Phosphatase 60 (34-104) U/L Albumin 3.8 (3.4-5.0) gm/dl Urine 06/18/22 Range/Units 11:10 Urine Color [place] Urine Appearance Clear (Clear) Urine pH 6.0 (4.5-7.5) Ur Specific [place] 1.020 (1.000-1.030) Urine Protein Trace H (Negative) Urine Glucose (UA) Negative (Negative) Diagnostic Findings Abdomen/Pelvis CT 06/18/22 10:49 CT abd pelvis IV con only CLINICAL HISTORY: RECENT DIVERTICULITIS, INCREASED LLQ PAIN TECHNIQUE: Helical axial images of the abdomen and pelvis were obtained and displayed. Automated dose lowering techniques and/or adjustment according to patient size were utilized for this exam. This exam was performed with intravenous contrast. CT DOSE: 314.53 mGy.cm COMPARISON: Comparison is made to CT abdomen pelvis 05/27/2022 FINDINGS: Lower chest: No acute abnormality. Liver: Unremarkable. No focal lesions are seen. Gallbladder and biliary tree: No calcified gallstones. Normal caliber wall. No intra- or extrahepatic biliary ductal dilation. Pancreas: Unremarkable, no focal lesions. Spleen: Splenule is incidentally noted. Adrenals: Unremarkable. Kidneys and ureters: Unremarkable. Bladder: Unremarkable. Reproductive organs: Unremarkable. The left adnexa is involved with the sigmoid colon stranding. Bowel: There is wall thickening in the sigmoid colon. There are adjacent rim- enhancing fluid collections which are also adjacent to the adnexa. No definitive extraluminal gas is seen. The appendix is normal. Lymph nodes Retroperitoneal: Subcentimeter lymph nodes are noted. Pelvic: Subcentimeter nodes are seen on the right. Mesenteric: Unremarkable. Peritoneum: Fat stranding is seen in the left pelvis. Complex, loculated fluid collection measuring in total approximately 53 x 42 mm with surrounding fat stranding is seen adjacent to the sigmoid colon. There is a serpiginous component in the anterior aspect of the collection. No pneumoperitoneum is seen. Vessels: Unremarkable. Abdominal wall: Unremarkable. Bones: Unremarkable. IMPRESSION: Findings are compatible with diverticulitis. In the interval there is development of a complex fluid collection surrounding the sigmoid colon. The posterior component represents an abscess, the anterior serpiginous component may represent further loculations of an abscess or reactive oophoritis. No free air is seen in the abdomen. ACT 112: Negative or not required by law. Electronically signed by: Arun Benitez M.D. 06/18/2022 1:31 PM Code Status & VTE Plan VTE Prophylaxis Plan VTE Prophylaxis will be ordered: Yes PG Care Time/CCT Total # of Minutes Spent Total Time Spent with Patient: Total time spent is greater than 50% in coordination of care (as documented) at patient's floor/unit and/or counseling patient: Coding Level of Care Code 52211 Initial Inpt Care Lvl 2 Diagnoses Diverticulitis of intestine with abscess K57.80 Leukocytosis D72.829 Hypothyroid E03.9 GERD (gastroesophageal reflux disease) K21.9
[2022-06-19 07:35] LABS: Basophils # (auto) 0.04 K/uL (0-0.2); Basophils % (auto) 0.4 %; Eosinophils # (auto) 0.05 K/uL (0-0.50); Eosinophils % (auto) 0.4 %; Hematocrit (blood only) 33.6 % (34.1-44.9); Hemoglobin 11.1 g/dl (12.0-16.0); Immature Granulocytes # (auto) 0.05 K/uL (0.00-0.02); Immature Granulocytes % (auto) 0.4 %; Lymphocytes # (auto) 0.82 K/uL (1.2-3.4); Lymphocytes % (auto) 7.2 %; Mean Corpuscular Hemoglobin 28.7 pg (25.0-34.0); Mean Corpuscular Volume 86.8 fL (80.0-100.0); Mean Platelet Volume 8.9 fL (9.4-12.3); Monocytes # (auto) 0.99 K/uL (0.24-0.82); Monocytes % (auto) 8.7 %; Neutrophils # (auto) 9.37 K/uL (1.4-6.5); Neutrophils % (auto) 82.9 %; Platelet Count 261 K/uL (130-400); RDW Coefficient of Variation 13.1 % (11.5-14.5); RDW Standard Deviation 41.1 fL (36.4-46.3); Red Blood Count 3.87 M/uL (3.93-5.22); White Blood Count 11.32 K/ul (4.8-10.8)
[2022-06-19 08:02] LABS: BUN Creatinine Ratio 12.9 (10-20); Creatinine Clr Calc Pharmacy 100.8 ml/min; Est GFR (African American) 111.2 ml/min
[2022-06-19] MEDS: HEPARIN SOD 5,000 UNIT/0.5 ML VIAL SQ SCH ×2 (08:40→20:29)
[2022-06-19] MEDS: PANTOprazole 40 MG in SYRINGE 0 ML IV SCH ×2 (08:41→20:31)
--- NOTE | 2022-06-19 12:42 | Gastrointestinal Consultation ---
Date of Consultation June 19, 2022 Assessment & Plan (1) Diverticulitis of intestine with abscess: Plan complicated diverticulitis with abscess: improving clinically, continue current antibiotics and await placement/transfer to [facility] for IR drainage. recs: --continue abx --clear liquid diet --supportive care, IVFs --will need outpatient colonoscopy in 6-8 weeks after resolution of diverticulitis Thank you for allowing me to participate in the care of this patient History of Present Illness Attending Physician: Man Covarrubias MD History of Present Illness 61 yo female with hx hypothyroidism, recent admission for diverticulitis earlier this month here with complicated diverticulitis with abscess formation. She noted worsening abdominal pains in her left side and nausea. Placed on abx upon admission and today she feels better with improved pain and resolved nausea. current plan is to transfer to [facility] for IR drainage of the abscess, awaiting placement. CT showed diverticulitis and abscess surrounding sigmoid colon, no perforation. CBC and CMP reviewed. Allergies Allergy/AdvReac Type Severity Reaction Status Date / Time cat dander Allergy Mild EYES WATER Verified 06/18/22 20:51 mold Allergy Mild sinus Verified 06/18/22 20:51 issues Home Medications Medication Instructions Recorded Confirmed Type montelukast 10 mg tablet 10 mg PO QPM 07/10/18 06/18/22 History trazodone 100 mg tablet 100 mg PO HS 07/10/18 06/18/22 History albuterol sulfate 90 mcg/actuation 2 puff inhalation Q6H PRN 02/25/21 06/18/22 History aerosol inhaler (ProAir HFA) Shortness Of Breath levothyroxine 125 mcg capsule 125 mcg PO DAILYBB 06/18/22 06/18/22 History Patient History Medical History Allergy-induced asthma inhaler prn Chronic back pain Fibromyalgia GERD (gastroesophageal reflux disease) Hearing difficulty of right ear Hypothyroid Osteoarthritis PVD (posterior vitreous detachment), left eye hx of--was evaluated, no sx, cleared Surgical History 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 History of colonoscopy History of tooth extraction History of wisdom tooth extraction S/P carpal tunnel release bilt S/P trigger finger release Family History Other No family history of adverse response to anesthesia Social History Smoking Status: Never smoker Second Hand Exposure: No; Hx Alcohol Use: Yes Alcohol type: wine and hard liquor Hx Substance Use: No Preferred Language: Romanian Communication Ability: Effective Cross Country Coach Required: No Beliefs That Will Affect Care: None Current Living Situation: Alone Feels Safe at Home: Yes Assistive Devices: Glasses Review of Systems Constitutional: no fever, no chills and no weight loss Eyes: as per Subjective / HPI Ear, Nose, Mouth, Throat: as per Subjective / HPI Respiratory: no dyspnea and no dyspnea on exertion Cardiovascular: no chest pain and no palpitations Gastrointestinal: as per Subjective / HPI Musculoskeletal: no joint pain and no swelling Integumentary: no rash and no lesions Neurologic: no numbness and no paresthesia Psychiatric: no depression and no anxiety Endocrine: no fatigue Hematologic / Lymphatic: no easy bleeding and no easy bruising Physical Exam Constitutional: WD/WN, vitals as above Eyes: EOM intact bilaterally Neck: normal visual inspection Respiratory: normal respiratory effort, lungs clear to auscultation Cardiovascular: RRR, no murmur, no edema Gastrointestinal (Abdomen): Inspection/Auscultation: abdomen normal to inspection; abdomen not distended Percussion/Palpation: + abdomen tender (mild LLQ ) and abdomen soft; no hepatosplenomegaly Musculoskeletal: Extremities: no cyanosis Gait: normal gait Skin: no rashes, warm and dry Neurologic: moves all extremities Psychiatric: A+Ox3, euthymic affect Results & Data ([facility]) Vital Signs (Past 12 Hours) Vital Signs Temp Pulse Pulse Resp BP Pulse Ox O2 Del Method 06/19/22 11:37 36.7 C 87 18 117/72 97 Room Air 06/19/22 08:03 37.0 C 84 18 111/70 94 Room Air 06/19/22 07:25 82 06/19/22 03:02 77 06/19/22 03:01 36.7 C 81 18 124/75 98 Room Air 06/19/22 02:00 80 17 121/87 98 Room Air PG Care Time/CCT Total # of Minutes Spent Total Time Spent with Patient: Total time spent is greater than 50% in coordination of care (as documented) at patient's floor/unit and/or counseling patient: Coding Level of Care Code 27314 Inpt Consult Level 4 Diagnoses Diverticulitis of intestine with abscess K57.80
--- NOTE | 2022-06-19 18:16 | Hospitalist Progress Note ---
Date of Service June 19, 2022 Assessment & Plan (1) Diverticulitis of intestine with abscess: Plan: Patient presents to ED with left lower quadrant abdominal pain Lab data indicates elevated white count consistent with acute infection Patient treated in outpatient with Bactrim and Flagyl by her PCP CT of the abdomen shows evidence of diverticulitis with complex fluid collection surrounding the sigmoid colon with a posterior competent representing an abscess with further loculations and possible reactive oophoritis present. General surgery contacted from ED and that recommended patient to be transferred for interventional radiology [facility] Patient accepted to [facility] awaiting bed Continue IV Zosyn for antibiotic coverage IV analgesics and antiemetics as needed 06/19 [facility] declined the patient given they have no bed for last 6 days, I spoke with [facility] interventional radiologist who looked at the images, he is on the impression that the abscesses are too small to drain, patient feels significantly better today, start on clear liquid, will advance to full liquid tomorrow if he can tolerate, interventional radiology history recommend to repeat imaging if there is no improvement, for now continue Zosyn and probiotics Leukocytosis trending down, presented with worsening of 15,000, today white cells 11,000 (2) Hypothyroid: Plan: Continue home dose levothyroxine 125mcg daily (3) GERD (gastroesophageal reflux disease): Plan: Continue PPI therapy Admission and Anticipated Discharge Date Admission Date: June 19, 2022 Physical Exam Physical Exam: Constitutional: well-nourished patient, in mild distress Vitals as above. HEENT: No scleral injection Clear oropharynx without exudate. Neck: Supple without lymphadenopathy or thyromegaly. Trachea midline. Lungs: Clear to auscultation bilaterally no wheezing. Cardiac: No murmurs.No extremity edema. Abdomen:Left lower quadrant tenderness noted no rebound tenderness MSK: No cyanosis or clubbing. Skin: No rashes, warm, dry. Neurologic: Grossly intact cranial nerves. Constitutional: WD/WN, vitals as above Eyes: EOM intact bilaterally Neck: normal visual inspection Respiratory: normal respiratory effort, lungs clear to auscultation Cardiovascular: RRR, no murmur, no edema Gastrointestinal (Abdomen): Inspection/Auscultation: abdomen normal to in spection; abdomen not distended Percussion/Palpation: + abdomen tender (mild LLQ ) and abdomen soft; no hepatosplenomegaly Musculoskeletal: Extremities: no cyanosis Gait: normal gait Skin: no rashes, warm and dry Psychiatric: A+Ox3, euthymic affect Results & Data Results & Data ([facility]) Vital Signs (Past 12 Hours) Vital Signs Temp Pulse Pulse Resp BP Pulse Ox O2 Del Method 06/19/22 16:02 37.1 C 79 18 108/70 96 Room Air 06/19/22 15:45 102 H 06/19/22 11:37 36.7 C 87 18 117/72 97 Room Air 06/19/22 08:03 37.0 C 84 18 111/70 94 Room Air 06/19/22 07:25 82 PG Care Time/CCT Total # of Minutes Spent Total Time Spent with Patient: Total time spent is greater than 50% in coordination of care (as documented) at patient's floor/unit and/or counseling patient: Coding Level of Care Code 34610 Subseq Hosp Care Lvl 3 Diagnoses Diverticulitis of intestine with abscess K57.80 Hypothyroid E03.9 GERD (gastroesophageal reflux disease) K21.9
[2022-06-19] MEDS: traZODone HCL 100 MG TAB PO SCH (20:31)
[2022-06-19] MEDS: MONTELUKAST SODIUM 10 MG TABLET PO SCH (20:31)
[2022-06-19] MEDS ORDERED: traZODone HCL 100 MG TAB PO SCH (21:00)
[2022-06-20] MEDS: PIPERACILLIN/TAZOBACTAM 4.5 GM in DEXTROSE 5% 100 ML IV SCH ×3 (03:08→18:11)
[2022-06-20] MEDS: ONDANSETRON INJ 2 MG/ML 2 ML VIAL IV PRN (03:16)
[2022-06-20] MEDS: LEVOTHYROXINE SODIUM 125 MCG TABLET PO SCH (06:30)
[2022-06-20 07:01] LABS: Hematocrit (blood only) 32.5 % (34.1-44.9); Hemoglobin 10.6 g/dl (12.0-16.0); Mean Corpuscular Hemoglobin 28.6 pg (25.0-34.0); Mean Corpuscular Hgb Conc 32.6 g/dL (32.0-36.0); Mean Corpuscular Volume 87.8 fL (80.0-100.0); Mean Platelet Volume 9.3 fL (9.4-12.3); Platelet Count 279 K/uL (130-400); RDW Coefficient of Variation 12.9 % (11.5-14.5); RDW Standard Deviation 41.8 fL (36.4-46.3); White Blood Count 9.44 K/ul (4.8-10.8)
[2022-06-20 07:34] LABS: BUN Creatinine Ratio 10.4 (10-20); Calcium 8.1 mg/dl (8.5-10.1); Creatinine Clr Calc Pharmacy 93.1 ml/min; Est GFR (African American) 108.4 ml/min; Est GFR (Non-African American) 93.5 ml/min; Potassium 3.7 mmol/L (3.5-5.1)
[2022-06-20] MEDS: HEPARIN SOD 5,000 UNIT/0.5 ML VIAL SQ SCH ×2 (08:41→20:25)
[2022-06-20] MEDS: PANTOprazole 40 MG in SYRINGE 0 ML IV SCH ×2 (08:41→20:24)
--- NOTE | 2022-06-20 13:43 | Hospitalist Progress Note ---
Date of Service June 20, 2022 Assessment & Plan (1) Diverticulitis of intestine with abscess: Plan: Patient presents to ED with left lower quadrant abdominal pain Lab data indicates elevated white count consistent with acute infection Patient treated in outpatient with Bactrim and Flagyl by her PCP CT of the abdomen shows evidence of diverticulitis with complex fluid collection surrounding the sigmoid colon with a posterior competent representing an abscess with further loculations and possible reactive oophoritis present. General surgery contacted from ED and that recommended patient to be transferred for interventional radiology [place] Patient accepted to [facility] awaiting bed Continue IV Zosyn for antibiotic coverage IV analgesics and antiemetics as needed 06/19 [facility] declined the patient given they have no bed for last 6 days, I spoke wi th [facility] interventional radiologist who looked at the images, he is on the impression that the abscesses are too small to drain, patient feels significantly better today, start on clear liquid, will advance to full liquid tomorrow if he can tolerate, interventional radiology history recommend to repeat imaging if there is no improvement, for now continue Zosyn and probiotics Leukocytosis trending down, presented with worsening of 15,000, today white cells 11,000 06/20 Patient complaining of some nausea, however on physical exam patient looks better, she is not tachycardic, mild tenderness to left lower quadrant not rebound tenderness, was sick and is normalized, hold clear liquid for now, continue Zosyn, continue probiotic, CBC tomorrow, her white cell count is normalized (2) Hypothyroid: Plan: Continue home dose levothyroxine 125mcg daily (3) GERD (gastroesophageal reflux disease): Plan: Continue PPI therapy Admission and Anticipated Discharge Date Admission Date: June 19, 2022 Subjective Complains of having some nausea, currently on clear liquid, hold clear liquid for now, however on exam patient looks better, she is not tachycardic, she has no significant tenderness on exam, white cell count is normalized Review of Systems Review of Systems: General: Complaining of some nausea, no weakness Neck: No tenderness or pain CVS: No chest pain shortness of breath Lungs: No wheezing , Shortness of breath today Abdomen: Some nausea no vomiting HISTORY OF PRESENT ILLNESS: This patient developed gradual onset of shortness of breath this morning which has persisted all day. The shortness of breath is worse with exertion but is felt at rest at times. There is no chest pain, fever, production of sputum with cough, a feeling of wheezing, or swelling in the throat. There is no history of heart disease. Denies pain or swelling in the legs, history of cancer, or injuries to the legs or pelvic area, or a recent period of prolonged immobilization. REVIEW OF SYSTEMS: Head: No headache, injury or neck pain. Neck: No pain, stiffness, or swelling. Neurological: No headache, new changes in mental status, vertigo, focal weakness, numbness. Gastrointestinal: No abdominal pain, blood in stools, diarrhea, loss of appetite, nausea, or vomiting. Genitourinary: No dysuria, hematuria, hesitancy, frequency, change in bladder function, or flank pain. Musculoskeletal: No new joint pain or swelling, stiffness, or limited range of motion. General: No fever or chills, fatigue, loss of appetite, or significant recent weight gain or loss. PMH: The patient is healthy; there is no significant medical or surgical history. SOCIAL HISTORY: Patient lives at home. PHYSICAL EXAM: Vital Signs: Reviewed Nurse's notes. HEART: Regular rate and rhythm without murmurs, ectopy, gallops, or rubs. LUNGS: Clear to auscultation and breath sounds equal, no wheezes, rales, or rhonchi. SKIN: Normal. ABDOMEN: Soft, non-tender, no hepato-splenomegaly, or masses. MENTAL STATUS: Alert, o riented, and coherent. HEAD: Atraumatic, without temporal or scalp tenderness. EYES: PERRL, EOMI, no discharge or injection. NEUROLOGICAL: Alert and cooperative. Sensory and motor functions grossly intact. EMERGENCY DEPARTMENT COURSE: EKG: Normal sinus rhythm, no S-T segment abnormalities, no Q waves, normal MI interval and QRS duration. CBC and cardiac enzymes are normal. Chest X-Ray is normal with clear expanded lungs and a normal heart shadow. D-Dimer is XXXXX DIAGNOSIS: Shortness of breath of uncertain cause DISCHARGE INSTRUCTIONS & TREATMENT: Return here right away if the shortness of breath gets worse or if you develop any chest pain, fever, or a severe cough. See your own physician in follow-up. Physical Exam Physical Exam: Constitutional: well-nourished patient, in mild distress Vitals as above. HEENT: No scleral injection Clear oropharynx without exudate. Neck: Supple without lymphadenopathy or thyromegaly. Trachea midline. Lungs: Clear to auscultation bilaterally no wheezing. Cardiac: No murmurs.No extremity edema. Abdomen:Left lower quadrant tenderness noted no rebound tenderness MSK: No cyanosis or clubbing. Skin: No rashes, warm, dry. Neurologic: Grossly intact cranial nerves. Constitutional: WD/WN, vitals as above Eyes: EOM intact bilaterally Neck: normal visual inspection Respiratory: normal respiratory effort, lungs clear to auscultation Cardiovascular: RRR, no murmur, no edema Gastrointestinal (Abdomen): Inspection/Auscultation: abdomen normal to inspection; abdomen not distended Percussion/Palpation: + abdomen tender (mild LLQ ) and abdomen soft; no hepatosplenomegaly Musculoskeletal: Extremities: no cyanosis Gait: normal gait Skin: no rashes, warm and dry Psychiatric: A+Ox3, euthymic affect Results & Data Results & Data ([facility]) Vital Signs (Past 12 Hours) Vital Signs Temp Pulse Pulse Resp BP Pulse Ox O2 Del Method 06/20/22 11:48 37.6 C H 93 H 18 101/67 96 Room Air 06/20/22 07:35 37.0 C 77 18 113/67 93 Room Air 06/20/22 07:05 85 06/20/22 04:11 37.6 C H 87 20 98/57 L 94 Room Air PG Care Time/CCT Total # of Minutes Spent Total Time Spent with Patient: Total time spent is greater than 50% in coordination of care (as documented) at patient's floor/unit and/or counseling patient: Coding Level of Care Code 19224 Subseq Hosp Care Lvl 2 Diagnoses Diverticulitis of intestine with abscess K57.80 Hypothyroid E03.9 GERD (gastroesophageal reflux disease) K21.9
[2022-06-20] MEDS: ACETAMINOPHEN 325 MG TAB PO PRN ×2 (13:52→22:02)
[2022-06-20] MEDS: MONTELUKAST SODIUM 10 MG TABLET PO SCH (20:26)
[2022-06-20] MEDS: traZODone HCL 100 MG TAB PO SCH (23:27)
[2022-06-21] MEDS: ONDANSETRON INJ 2 MG/ML 2 ML VIAL IV PRN (03:21)
[2022-06-21] MEDS: PIPERACILLIN/TAZOBACTAM 4.5 GM in DEXTROSE 5% 100 ML IV SCH ×3 (03:21→18:15)
[2022-06-21] MEDS: LEVOTHYROXINE SODIUM 125 MCG TABLET PO SCH (05:48)
[2022-06-21 06:20] LABS: Basophils # (auto) 0.05 K/uL (0-0.2); Basophils % (auto) 0.7 %; Eosinophils # (auto) 0.12 K/uL (0-0.50); Eosinophils % (auto) 1.6 %; Hematocrit (blood only) 32.7 % (34.1-44.9); Hemoglobin 10.8 g/dl (12.0-16.0); Immature Granulocytes # (auto) 0.02 K/uL (0.00-0.02); Immature Granulocytes % (auto) 0.3 %; Lymphocytes # (auto) 1.14 K/uL (1.2-3.4); Lymphocytes % (auto) 15.6 %; Mean Corpuscular Hemoglobin 28.8 pg (25.0-34.0); Mean Corpuscular Volume 87.2 fL (80.0-100.0); Mean Platelet Volume 9.2 fL (9.4-12.3); Monocytes # (auto) 0.86 K/uL (0.24-0.82); Monocytes % (auto) 11.8 %; Neutrophils # (auto) 5.11 K/uL (1.4-6.5); Platelet Count 308 K/uL (130-400); RDW Coefficient of Variation 12.7 % (11.5-14.5); RDW Standard Deviation 40.7 fL (36.4-46.3); Red Blood Count 3.75 M/uL (3.93-5.22)
[2022-06-21] MEDS: PANTOprazole 40 MG in SYRINGE 0 ML IV SCH ×2 (07:38→20:23)
[2022-06-21] MEDS: HEPARIN SOD 5,000 UNIT/0.5 ML VIAL SQ SCH ×2 (07:38→20:22)
[2022-06-21] MEDS: ACETAMINOPHEN 325 MG TAB PO PRN (13:37)
[2022-06-21] MEDS: MONTELUKAST SODIUM 10 MG TABLET PO SCH (20:22)
[2022-06-21] MEDS: traZODone HCL 100 MG TAB PO SCH (21:14)
--- NOTE | 2022-06-21 23:38 | Hospitalist Progress Note ---
Date of Service June 21, 2022 Assessment & Plan (1) Diverticulitis of intestine with abscess: Plan: Patient presents to ED with left lower quadrant abdominal pain Lab data indicates elevated white count consistent with acute infection Patient treated in outpatient with Bactrim and Flagyl by her PCP CT of the abdomen shows evidence of diverticulitis with complex fluid collection surrounding the sigmoid colon with a posterior competent representing an abscess with further loculations and possible reactive oophoritis present. General surgery contacted from ED and that recommended patient to be transferred for interventional radiology [facility] Patient accepted to [facility] awaiting bed Continue IV Zosyn for antibiotic coverage IV analgesics and antiemetics as needed 06/19 [facility] had declined the patient given they have no bed for last 6 days, inte rventional radiology from [place] had reviewed the images and felt that the abscesses are too small to drain, Continue close monitoring and continue Zosyn and probiotics Leukocytosis trending down 1/ 2 patient's symptoms progressively improving with Zosyn Continue to monitor symptoms with advancement of diet (2) Hypothyroid: Plan: Continue home dose levothyroxine 125mcg daily (3) GERD (gastroesophageal reflux disease): Plan: Continue PPI therapy Admission and Anticipated Discharge Date Admission Date: June 19, 2022 Subjective Patient reports mild nausea and had her diet advancement held because of abdominal discomfort she developed yesterday reports feeling slightly better today Physical Exam Physical Exam: Constitutional: well-nourished patient, Vitals as above. HEENT: No scleral injection Clear oropharynx without exudate. Neck: Supple without lymphadenopathy or thyromegaly. Trachea midline. Lungs: Clear to auscultation bilaterally no wheezing. Cardiac: No murmurs.No extremity edema. Abdomen:Left lower quadrant tenderness improving no rebound tenderness MSK: No cyanosis or clubbing. Skin: No rashes, warm, dry. Neurologic: Grossly intact cranial nerves. Results & Data Results & Data ([facility]) Vital Signs (Past 12 Hours) Vital Signs Temp Pulse Pulse Resp BP Pulse Ox O2 Del Method 06/21/22 22:29 37.1 C 83 18 105/63 95 Room Air 06/21/22 19:44 36.6 C 82 18 99/65 L 96 Room Air 06/21/22 15:48 87 06/21/22 14:37 36.8 C 82 16 112/65 96 Room Air PG Care Time/CCT Total # of Minutes Spent Total Time Spent with Patient: Total time spent is greater than 50% in coordination of care (as documented) at patient's floor/unit and/or counseling patient: Coding Level of Care Code 90579 Subseq Hosp Care Lvl 2 Diagnoses Diverticulitis of intestine with abscess K57.80 Hypothyroid E03.9 GERD (gastroesophageal reflux disease) K21.9
[2022-06-22] MEDS: PIPERACILLIN/TAZOBACTAM 4.5 GM in DEXTROSE 5% 100 ML IV SCH ×3 (03:21→19:08)
[2022-06-22] MEDS: LEVOTHYROXINE SODIUM 125 MCG TABLET PO SCH (05:36)
[2022-06-22 06:14] LABS: Basophils # (auto) 0.06 K/uL (0-0.2); Basophils % (auto) 0.8 %; Eosinophils # (auto) 0.14 K/uL (0-0.50); Eosinophils % (auto) 1.9 %; Hematocrit (blood only) 32.7 % (34.1-44.9); Hemoglobin 10.8 g/dl (12.0-16.0); Immature Granulocytes # (auto) 0.03 K/uL (0.00-0.02); Immature Granulocytes % (auto) 0.4 %; Lymphocytes % (auto) 18.8 %; Mean Corpuscular Hemoglobin 28.7 pg (25.0-34.0); Mean Platelet Volume 9.1 fL (9.4-12.3); Monocytes # (auto) 0.88 K/uL (0.24-0.82); Monocytes % (auto) 11.8 %; Neutrophils # (auto) 4.93 K/uL (1.4-6.5); Neutrophils % (auto) 66.3 %; Platelet Count 342 K/uL (130-400); RDW Coefficient of Variation 12.6 % (11.5-14.5); RDW Standard Deviation 40.1 fL (36.4-46.3); Red Blood Count 3.76 M/uL (3.93-5.22); White Blood Count 7.44 K/ul (4.8-10.8)
[2022-06-22 06:36] LABS: BUN Creatinine Ratio 7.6 (10-20); Calcium 8.4 mg/dl (8.5-10.1); Creatinine Clr Calc Pharmacy 93.5 ml/min; Potassium 3.3 mmol/L (3.5-5.1)
[2022-06-22] MEDS: HEPARIN SOD 5,000 UNIT/0.5 ML VIAL SQ SCH ×2 (07:41→20:04)
[2022-06-22] MEDS: POTASSIUM CHLORIDE / WTR 10 MEQ/100 ML PLCT IV SCH ×2 (08:51→10:04)
--- NOTE | 2022-06-22 12:29 | Surgery Consultation ---
Date of Consultation June 22, 2022 Assessment & Plan (1) Diverticulitis of intestine with abscess: This is a 61yF with a PMH GERD, hypothyroid, depression, fibromyalgia who presented to the [facility] on 06/18/22 with complaints of left lower quadrant pain. CT a/p in the ER showed findings are compatible with diverticulitis with development of a complex fluid collection surrounding the sigmoid colon, measuring 53mm x 42mm. The posterior component represents an abscess, the anterior serpiginous component may represent further loculations of an abscess or reactive oophoritis. It was intially recommended she transfer out for IR drainage, however [facility] declined due to no bed availability and [facility] reviewed images and said the collections are too small for drainage. Since admission WBC has been downtrending, 15 on admission now 7.4. Her vital signs are stable and she is afebrile. On examination her abdomen is soft with improving discomfort to palpation in the LLQ. She is starting to have BM's. Would recommend continuing course of antibiotic, currently on Zosyn. Would repeat CT scan to assess for improvement in fluid collection. If improved/stable findings we are okay with her advancing diet as tolerates. Complete course of abx, may transition to PO upon discharge. And follow up with us in clinic to discuss possible sigmoid colon resection in the future. Supervising Physician Co-Signing Physician Notes Patient seen and examined, labs image reviewed, agree with above. 61-year-old female admitted with diverticulitis and phlegmon/abscess. She was initially planned for transfer to facility with IR capabilities, however transfer was delayed significantly due to bed availability. They then attempted another institution his radiologist reviewed the CT scan did not feel that it was amenable to drainage. She has been treated with antibiotics and is doing quite well. She feels much better than she did upon admission on Tuesday. She is tolerating clear liquid diet and having bowel movements. On exam she is afeb rile stable vitals, her abdomen is soft, nontender, nondistended. WBC is normal. I personally reviewed and interpreted the CT scan from 18 June 2022 and agree with the assessment of diverticulitis with phlegmon/developing abscess. Given her symptoms of significantly improved we will repeat a CT scan to assess the size of the abscess. We will then advance her diet accordingly. She had a recent colonoscopy in August and likely does not need another. She would be a candidate for surgical resection after the inflammation dies down, likely in several months. History of Present Illness Attending Physician: Ketan Marion MD History of Present Illness This is a 61yF with a PMH GERD, hypothyroid, depression, fibromyalgia who presented to the [facility] on 06/18/22 with complaints of left lower quadrant pain. Patient was admitted on 05/[address] scan at that time mentioning diverticulitis vs. oophoritis without abscess collection. She was admitted under medicine, was managed conservatively, and was discharged to home without issues. Unfortunately her pain returned and her PCP prescribed her PO Bactrim and Flagyl on 06/17. Her symptoms did not improve and was associated with pain, nausea, and she could not stand up without feeling as though she was going to pass out. Therefore she came to the ER for further evaluation. A CT a/p was obtained that showed findings are compatible with diverticulitis with development of a complex fluid collection surrounding the sigmoid colon, measuring 53mm x 42mm. The posterior component represents an abscess, the anterior serpiginous component may represent further loculations of an abscess or reactive oophoritis. Last colonoscopy was earlier this year with [facility] she said showed diverticulosis. No prior abdominal surgical history. She was suppose to transfer out to OSH for IR drainage, but transfer has been unsuccessful due to bed availability. Allergies Allergy/AdvReac Type Severity Reaction Status Date / Time cat dander Allergy Mild EYES WATER Verified 06/18/22 20:51 mold Allergy Mild sinus Verified 06/18/22 20:51 issues Home Medications Medication Instructions Recorded Confirmed Type montelukast 10 mg tablet 10 mg PO QPM 07/10/18 06/18/22 History trazodone 100 mg tablet 100 mg PO HS 07/10/18 06/18/22 History albuterol sulfate 90 mcg/actuation 2 puff inhalation Q6H PRN 02/25/21 06/18/22 History aerosol inhaler (ProAir HFA) Shortness Of Breath levothyroxine 125 mcg capsule 125 mcg PO DAILYBB 06/18/22 06/18/22 History Patient History Medical History Allergy-induced asthma inhaler prn Chronic back pain Fibromyalgia GERD (gastroesophageal reflux disease) Hearing difficulty of right ear Hypothyroid Osteoarthritis PVD (posterior vitreous detachment), left eye hx of--was evaluated, no sx, cleared Surgical History 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 History of colonoscopy History of tooth extraction History of wisdom tooth extraction S/P carpal tunnel release bilt S/P trigger finger release Family History Other No family history of adverse response to anesthesia Social History Smoking Status: Never smoker Second Hand Exposure: No; Hx Alcohol Use: Yes Alcohol type: wine and hard liquor Hx Substance Use: No Preferred Language: Egyptian Communication Ability: Effective Ict Help Desk Technician Required: No Beliefs That Will Affect Care: None Current Living Situation: Alone Feels Safe at Home: Yes Assistive Devices: None Review of Systems Constitutional: no fever and no chills Respiratory: no dyspnea Cardiovascular: no chest pain Gastrointestinal: + nausea and + vomiting Physical Exam Physical Exam: awake/alert, no distress Respiratory: normal respiratory effort Gastrointestinal (Abdomen): Inspection/Auscultation: abdomen not distended Percussion/Palpation: + abdomen tender (ttp in LLQ) and abdomen soft Results & Data ([facility]) Vital Signs (Past 12 Hours) Vital Signs Temp Pulse Pulse Resp BP Pulse Ox O2 Del Method 06/22/22 11:19 37.2 C 75 16 106/57 L 94 Room Air 06/22/22 07:46 36.6 C 68 16 104/64 94 Room Air 06/22/22 07:25 66 06/22/22 02:46 37.0 C 67 18 111/64 96 Room Air Diagnostic Findings CT abd pelvis IV con only CLINICAL HISTORY: RECENT DIVERTICULITIS, INCREASED LLQ PAIN TECHNIQUE: Helical axial images of the abdomen and pelvis were obtained and displayed. Automated dose lowering techniques and/or adjustment according to patient size were utilized for this exam. This exam was performed with intravenous contrast. CT DOSE: 314.53 mGy.cm COMPARISON: Comparison is made to CT abdomen pelvis 05/27/2022 FINDINGS: Lower chest: No acute abnormality. Liver: Unremarkable. No focal lesions are seen. Gallbladder and biliary tree: No calcified gallstones. Normal caliber wall. No intra- or extrahepatic biliary ductal dilation. Pancreas: Unremarkable, no focal lesions. Spleen: Splenule is incidentally noted. Adrenals: Unremarkable. Kidneys and ureters: Unremarkable. Bladder: Unremarkable. Reproductive organs: Unremarkable. The left adnexa is involved with the sigmoid colon stranding. Bowel: There is wall thickening in the sigmoid colon. There are adjacent rim- enhancing fluid collections which are also adjacent to the adnexa. No definitive extraluminal gas is seen. The appendix is normal. Lymph nodes Retroperitoneal: Subcentimeter lymph nodes are noted. Pelvic: Subcentimeter nodes are seen on the right. Mesenteric: Unremarkable. Peritoneum: Fat stranding is seen in the left pelvis. Complex, loculated fluid collection measuring in total approximately 53 x 42 mm with surrounding fat stranding is seen adjacent to the sigmoid colon. There is a serpiginous component in the anterior aspect of the collection. No pneumoperitoneum is seen. Vessels: Unremarkable. Abdominal wall: Unremarkable. Bones: Unremarkable. IMPRESSION: Findings are compatible with diverticulitis. In the interval there is development of a complex fluid collection surrounding the sigmoid colon. The posterior component represents an abscess, the anterior serpiginous component may represent further loculations of an abscess or reactive oophoritis. No free air is seen in the abdomen. ACT 112: Negative or not required by law. Electronically signed by: Arun Benitez M.D. 06/18/2022 1:31 PM PG Care Time/CCT Total # of Minutes Spent Total Time Spent with Patient: Total time spent is greater than 50% in coordination of care (as documented) at patient's floor/unit and/or counseling patient: Coding Level of Care Code 45111 Inpt Consult Level 3 Diagnoses Diverticulitis of intestine with abscess K57.80
[2022-06-22] MEDS: LACTATED RINGER'S 1,000 ML IV SCH ×2 (12:50→21:55)
--- NOTE | 2022-06-22 13:40 | Hospitalist Progress Note ---
Date of Service June 22, 2022 Assessment & Plan (1) Diverticulitis of intestine with abscess: Plan: Patient presents to ED with left lower quadrant abdominal pain Lab data indicates elevated white count consistent with acute infection Patient treated in outpatient with Bactrim and Flagyl by her PCP CT of the abdomen shows evidence of diverticulitis with complex fluid collection surrounding the sigmoid colon with a posterior competent representing an abscess with further loculations and possible reactive oophoritis present. General surgery contacted from ED and that recommended patient to be transferred for interventional radiology [place] Patient was initially accepted to [facility] but given bed crunch patient was not accepted at [facility] for interventional radiology Continue IV Zosyn for antibiotic coverage IV analgesics and antiemetics as needed 06/19 Continue close monitoring and continue Zosyn and probiotics Leukocytosis trending down [place] interventional radiology contacted 06/21 patient's symptoms progressively improving with Zosyn Continue to monitor symptoms with advancement of diet 06/22 patient has slight increase in left lower quadrant tenderness Will obtain general surgery input Will obtain stool studies and stool for C. difficile as patient has watery diarrhea episodes today Start IV fluids as patient's p.o. intake is marginal Patient concerned about her abscess involving her left ovary, and hence will obtain BEE TENDER input to assist with management (2) Hypothyroid: Plan: Continue home dose levothyroxine 125mcg daily (3) GERD (gastroesophageal reflux disease): Plan: Continue PPI therapy Admission and Anticipated Discharge Date Admission Date: June 19, 2022 Subjective Patient reports few episodes of watery diarrhea today and also has some left lower quadrant tenderness as well No fevers or chills reported . P.o. intake marginal Physical Exam Physical Exam: Constitutional: well-nourished patient, Vitals as above. HEENT: No scleral injection Clear oropharynx without exudate. Neck: Supple without lymphadenopathy or thyromegaly. Trachea midline. Lungs: Clear to auscultation bilaterally no wheezing. Cardiac: No murmurs.No extremity edema. Abdomen:Left lower quadrant tenderness present on deep palpation no rebound tenderness MSK: No cyanosis or clubbing. Skin: No rashes, warm, dry. Neurologic: Grossly intact cranial nerves. Results & Data Results & Data ([facility]) Vital Signs (Past 12 Hours) Vital Signs Temp Pulse Pulse Resp BP Pulse Ox O2 Del Method 06/22/22 11:19 37.2 C 75 16 106/57 L 94 Room Air 06/22/22 07:46 36.6 C 68 16 104/64 94 Room Air 06/22/22 07:25 66 06/22/22 02:46 37.0 C 67 18 111/64 96 Room Air PG Care Time/CCT Total # of Minutes Spent Total Time Spent with Patient: Total time spent is greater than 50% in coordination of care (as documented) at patient's floor/unit and/or counseling patient: Coding Level of Care Code 14007 Subseq Hosp Care Lvl 2 Diagnoses Diverticulitis of intestine with abscess K57.80 Hypothyroid E03.9 GERD (gastroesophageal reflux disease) K21.9
--- NOTE | 2022-06-22 14:58 | Consultation ---
Date of Consultation June 22, 2022 Assessment & Plan (1) Endometrial thickening on ultrasound: follow up as outpatient for further testing History of Present Illness Requesting Physician: Dr Marion Reason for Consultation: thickened endometrium Attending Physician: Ketan Marion MD History of Present Illness 61 F P0000 post-menopausal who was admitted to the hospital for the second time in as many weeks with generalized low abdominal pain which first hgibito61/8/22 and then again on 06/17/22. She has diverticulitis with small abscess noted by CT. Incidental finding of thickened endometrium 12 mm noted. Patient with no prior vaginal bleeding or any pediatric acute care unit nurse problems. She has a pediatric acute care unit nurse appointment on with Dr. Neal already scheduled. Allergies Allergy/AdvReac Type Severity Reaction Status Date / Time cat dander Allergy Mild EYES WATER Verified 06/18/22 20:51 mold Allergy Mild sinus Verified 06/18/22 20:51 issues Home Medications Medication Instructions Recorded Confirmed Type montelukast 10 mg tablet 10 mg PO QPM 07/10/18 06/18/22 History trazodone 100 mg tablet 100 mg PO HS 07/10/18 06/18/22 History albuterol sulfate 90 mcg/actuation 2 puff inhalation Q6H PRN 02/25/21 06/18/22 History aerosol inhaler (ProAir HFA) Shortness Of Breath levothyroxine 125 mcg capsule 125 mcg PO DAILYBB 06/18/22 06/18/22 History Patient History Medical History Allergy-induced asthma inhaler prn Chronic back pain Fibromyalgia GERD (gastroesophageal reflux disease) Hearing difficulty of right ear Hypothyroid Osteoarthritis PVD (posterior vitreous detachment), left eye hx of--was evaluated, no sx, cleared Surgical History 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 History of colonoscopy History of tooth extraction History of wisdom tooth extraction S/P carpal tunnel release bilt S/P trigger finger release Family History Other No family history of adverse response to anesthesia Social History Smoking Status: Never smoker Second Hand Exposure: No; Hx Alcohol Use: Yes Alcohol type: wine and hard liquor Hx Substance Use: No Preferred Language: Azeri Communication Ability: Effective Reservations Sales Supervisor Required: No Beliefs That Will Affect Care: None Current Living Situation: Alone Feels Safe at Home: Yes Assistive Devices: None Review of Systems Review of Systems: All systems reviewed & are unremarkable except as noted in HPI & below Physical Exam Constitutional: WD/WN, vitals as above Eyes: PERRL, conjunctivae normal, anicteric sclerae Respiratory: normal respiratory effort, lungs clear to auscultation Cardiovascular: Rate/Rhythm: regular rate and regular rhythm Gastrointestinal (Abdomen): normal bowel sounds, soft, nontender, no hepatosplenomegaly Inspection/Auscultation: abdomen normal to inspection soft with no guarding or rebound Musculoskeletal: Extremities: extremities normal to inspection Skin: no rashes, warm and dry Neurologic: patellar DTR's 2+ bilat, sensation intact Psychiatric: A+Ox3, euthymic affect Results & Data ([facility]) Vital Signs (Past 12 Hours) Vital Signs Temp Pulse Pulse Resp BP Pulse Ox O2 Del Method 06/22/22 11:19 37.2 C 75 16 106/57 L 94 Room Air 06/22/22 07:46 36.6 C 68 16 104/64 94 Room Air 06/22/22 07:25 66 Laboratory Results 06/18/22 06/18/22 06/18/22 11:10 11:20 11:20 WBC 15.89 H RBC 4.43 Hgb 12.8 Hct 38.0 MCV 85.8 MCH 28.9 MCHC 33.7 RDW Std Deviation 41.1 RDW Coeff of Geovani 13.1 Plt Count 339 MPV 9.3 L Immature Gran % (Auto) 0.6 Neut % (Auto) 83.5 Lymph % (Auto) 7.7 [place] % (Auto) 7.7 Eos % (Auto) 0.2 Baso % (Auto) 0.3 Neut # (Auto) 13.28 H Lymph # (Auto) 1.23 [place] # (Auto) 1.22 H Eos # (Auto) 0.03 Baso # (Auto) 0.04 Immature Gran # (Auto) 0.09 H Sodium 137 Potassium 3.9 Chloride 105 Carbon Dioxide 24 Anion Gap 8 BUN 8 Creatinine 0.65 Est Cr Clr Drug Dosing 96.1 Est GFR ( Amer) 109.5 Est GFR (Non-Af Amer) 94.5 BUN/Creatinine Ratio 12.3 Glucose 112 H POC Glucose Calcium 9.1 Total Bilirubin 1.0 AST 23 ALT 28 Alkaline Phosphatase 60 Total Protein 6.8 Albumin 3.8 Globulin 3.0 Albumin/Globulin Ratio 1.3 Lipase 15 Urine Color [place] Urine Appearance Clear Urine pH 6.0 Ur Specific [place] 1.020 Urine Protein Trace H Urine Glucose (UA) Negative Urine Ketones Trace H Urine Blood Negative Urine Nitrite Negative Urine Bilirubin Negative Urine Urobilinogen Negative Ur Leukocyte Esterase 2+ H Urine WBC (Auto) 1-5 Urine RBC (Auto) 0-4 U Hyaline Cast (Auto) 1-5 U Epithel Cells (Auto) 10-20 H Urine Bacteria (Auto) Negative SARS-CoV-2, RNA, NAAT 06/18/22 06/19/22 06/19/22 14:55 07:22 07:22 WBC 11.32 H RBC 3.87 L Hgb 11.1 L Hct 33.6 L MCV 86.8 MCH 28.7 MCHC 33.0 RDW Std Deviation 41.1 RDW Coeff of Geovani 13.1 Plt Count 261 MPV 8.9 L Immature Gran % (Auto) 0.4 Neut % (Auto) 82.9 Lymph % (Auto) 7.2 [place] % (Auto) 8.7 Eos % (Auto) 0.4 Baso % (Auto) 0.4 Neut # (Auto) 9.37 H Lymph # (Auto) 0.82 L [place] # (Auto) 0.99 H Eos # (Auto) 0.05 Baso # (Auto) 0.04 Immature Gran # (Auto) 0.05 H Sodium 140 Potassium 4.0 Chloride 109 H Carbon Dioxide 25 Anion Gap 6 BUN 8 Creatinine 0.62 Est Cr Clr Drug Dosing 100.8 Est GFR ( Amer) 111.2 Est GFR (Non-Af Amer) 96.0 BUN/Creatinine Ratio 12.9 Glucose 99 POC Glucose Calcium 8.0 L Total Bilirubin AST ALT Alkaline Phosphatase Total Protein Albumin Globulin Albumin/Globulin Ratio Lipase Urine Color Urine Appearance Urine pH Ur Specific [place] Urine Protein Urine Glucose (UA) Urine Ketones Urine Blood Urine Nitrite Urine Bilirubin Urine Urobilinogen Ur Leukocyte Esterase Urine WBC (Auto) Urine RBC (Auto) U Hyaline Cast (Auto) U Epithel Cells (Auto) Urine Bacteria (Auto) SARS-CoV-2, RNA, NAAT NEGATIVE 06/19/22 06/20/22 06/20/22 07:31 05:56 05:56 WBC 9.44 RBC 3.70 L Hgb 10.6 L Hct 32.5 L MCV 87.8 MCH 28.6 MCHC 32.6 RDW Std Deviation 41.8 RDW Coeff of Geovani 12.9 Plt Count 279 MPV 9.3 L Immature Gran % (Auto) Neut % (Auto) Lymph % (Auto) [place] % (Auto) Eos % (Auto) Baso % (Auto) Neut # (Auto) Lymph # (Auto) [place] # (Auto) Eos # (Auto) Baso # (Auto) Immature Gran # (Auto) Sodium 140 Potassium 3.7 Chloride 108 H Carbon Dioxide 28 Anion Gap 4 BUN 7 Creatinine 0.67 Est Cr Clr Drug Dosing 93.1 Est GFR ( Amer) 108.4 Est GFR (Non-Af Amer) 93.5 BUN/Creatinine Ratio 10.4 Glucose 92 POC Glucose 97 Calcium 8.1 L Total Bilirubin AST ALT Alkaline Phosphatase Total Protein Albumin Globulin Albumin/Globulin Ratio Lipase Urine Color Urine Appearance Urine pH Ur Specific [place] Urine Protein Urine Glucose (UA) Urine Ketones Urine Blood Urine Nitrite Urine Bilirubin Urine Urobilinogen Ur Leukocyte Esterase Urine WBC (Auto) Urine RBC (Auto) U Hyaline Cast (Auto) U Epithel Cells (Auto) Urine Bacteria (Auto) SARS-CoV-2, RNA, NAAT 06/21/22 06/22/22 06/22/22 05:28 05:34 05:34 WBC 7.30 7.44 RBC 3.75 L 3.76 L Hgb 10.8 L 10.8 L Hct 32.7 L 32.7 L MCV 87.2 87.0 MCH 28.8 28.7 MCHC 33.0 33.0 RDW Std Deviation 40.7 40.1 RDW Coeff of Geovani 12.7 12.6 Plt Count 308 342 MPV 9.2 L 9.1 L Immature Gran % (Auto) 0.3 0.4 Neut % (Auto) 70.0 66.3 Lymph % (Auto) 15.6 18.8 [place] % (Auto) 11.8 11.8 Eos % (Auto) 1.6 1.9 Baso % (Auto) 0.7 0.8 Neut # (Auto) 5.11 4.93 Lymph # (Auto) 1.14 L 1.40 [place] # (Auto) 0.86 H 0.88 H Eos # (Auto) 0.12 0.14 Baso # (Auto) 0.05 0.06 Immature Gran # (Auto) 0.02 0.03 H Sodium 141 Potassium 3.3 L Chloride 106 Carbon Dioxide 29 Anion Gap 6 BUN 5 L Creatinine 0.66 Est Cr Clr Drug Dosing 93.5 Est GFR ( Amer) 109.0 Est GFR (Non-Af Amer) 94.0 BUN/Creatinine Ratio 7.6 L Glucose 100 H POC Glucose Calcium 8.4 L Total Bilirubin AST ALT Alkaline Phosphatase Total Protein Albumin Globulin Albumin/Globulin Ratio Lipase Urine Color Urine Appearance Urine pH Ur Specific [place] Urine Protein Urine Glucose (UA) Urine Ketones Urine Blood Urine Nitrite Urine Bilirubin Urine Urobilinogen Ur Leukocyte Esterase Urine WBC (Auto) Urine RBC (Auto) U Hyaline Cast (Auto) U Epithel Cells (Auto) Urine Bacteria (Auto) SARS-CoV-2, RNA, NAAT
[2022-06-22] MEDS ORDERED: OPTIRAY 350 100ml IV ONE (15:57)
--- NOTE | 2022-06-22 16:29 | CT Scan Report ---
CT SCAN OF THE ABDOMEN AND PELVIS WITH IV CONTRAST CLINICAL HISTORY: Left lower quadrant pain. Recent diverticulitis. COMPARISON STUDY: Abdominal CT dated 06/18/2022. TECHNIQUE: Following the IV administration of 87 cc of Optiray 350, CT scan of the abdomen and pelvi s is performed from the lung bases to the proximal femora. Images are reviewed in the axial, sagittal , and coronal planes. IV contrast was administered without complication. A dose lowering technique wa s utilized adhering to the principles of ALARA. CT DOSE: 307.35 mGy.cm FINDINGS: Lung bases: The heart is normal in size and without pericardial effusion. The lung bases are clear no ting bibasilar scarring/atelectasis. Liver: The contrast-enhanced liver is normal in size, contour, and attenuation. There is no intrahepa tic biliary ductal dilatation. The hepatic veins and portal veins are patent. Gallbladder: The gallbladder is distended but otherwise normal in appearance. Spleen: Normal in size and attenuation. Pancreas: Unremarkable. Adrenal glands: Unremarkable. Kidneys: The contrast enhanced kidneys are normal in size and without hydronephrosis. The kidneys enh ance symmetrically. Abdominal vasculature: The abdominal aorta is normal in course and caliber. Bowel: There is moderately advanced diverticulosis of the left colon. Wall thickening with inflammati on and fluid around the sigmoid colon is consistent with acute diverticulitis and this is similar to the 06/18/2022 examination. There are several loculations of fluid seen around the sigmoid colon. A 4 .2 x 1.6 cm loculation along the superior aspect of the sigmoid colon demonstrated seen on image #330 likely represents an intramural abscess. A 4.5 x 1.4 cm loculation between the sigmoid colon and eklutna rosy seen on image #350 No bowel obstruction is seen. Additional small loculations along the anterior aspect of the sigmoid colon seen on images #344 measure up to 2 cm and could represent abscess versus a reactive oophoritis of the left ovary. The appendix is well-visualized and normal. Peritoneum: There is no intraperitoneal free air or abdominal ascites. There is a fat-containing umbi lical hernia. Lymphadenopathy: None. Pelvic viscera: The bladder wall appears thickened and there is surrounding infiltration. The uterus is normal as visualized. Skeletal structures: The skeletal structures are osteopenic. Bilateral pars defects are noted at L4 w ith advanced disc space narrowing, endplate sclerosis, and grade 1 anterolisthesis at L4-L5. No lytic or blastic lesions are seen. IMPRESSION: 1. Acute diverticulitis of the sigmoid colon is similar in appearance to the 06/18/2022 examination. 2. No intraperitoneal free air is seen. 3. Diverticulitis closely approximates the left ovary and uterus. There are several serpiginous pocke ts of fluid identified around the sigmoid colon as above. Several of these likely represent diverticu lar abscesses. Loculations of fluid involving the left ovary and between the sigmoid colon and uterus could also represent reactive oophoritis and possibly hydrosalpinx. This is unlikely to be different iated by imaging. 4. The bladder wall appears thickened and there is surrounding infiltration. Correlate with clinical findings and urinalysis. 5. Additional findings as above. ACT 112: Negative or not required by law. Electronically signed by: Sim Frankel M.D. 06/22/2022 4:27 PM
[2022-06-22] MEDS: traZODone HCL 100 MG TAB PO SCH (20:04)
[2022-06-22] MEDS: MONTELUKAST SODIUM 10 MG TABLET PO SCH (20:05)
[2022-06-22] MEDS: ACETAMINOPHEN 325 MG TAB PO PRN (21:00)
[2022-06-23] MEDS: PIPERACILLIN/TAZOBACTAM 4.5 GM in DEXTROSE 5% 100 ML IV SCH ×3 (02:15→17:32)
[2022-06-23] MEDS ORDERED: ONDANSETRON INJ 2 MG/ML 2 ML VIAL IV STA (02:19)
[2022-06-23] MEDS: LEVOTHYROXINE SODIUM 125 MCG TABLET PO SCH (05:39)
[2022-06-23 06:46] LABS: Basophils # (auto) 0.06 K/uL (0-0.2); Eosinophils # (auto) 0.15 K/uL (0-0.50); Eosinophils % (auto) 2.4 %; Hematocrit (blood only) 30.7 % (34.1-44.9); Hemoglobin 10.3 g/dl (12.0-16.0); Immature Granulocytes # (auto) 0.03 K/uL (0.00-0.02); Immature Granulocytes % (auto) 0.5 %; Lymphocytes # (auto) 1.35 K/uL (1.2-3.4); Mean Corpuscular Hemoglobin 28.9 pg (25.0-34.0); Mean Corpuscular Hgb Conc 33.6 g/dL (32.0-36.0); Mean Corpuscular Volume 86.2 fL (80.0-100.0); Mean Platelet Volume 9.1 fL (9.4-12.3); Monocytes # (auto) 0.62 K/uL (0.24-0.82); Monocytes % (auto) 10.1 %; Neutrophils # (auto) 3.93 K/uL (1.4-6.5); Platelet Count 301 K/uL (130-400); RDW Coefficient of Variation 12.8 % (11.5-14.5); RDW Standard Deviation 40.3 fL (36.4-46.3); Red Blood Count 3.56 M/uL (3.93-5.22); White Blood Count 6.14 K/ul (4.8-10.8)
[2022-06-23 07:13] LABS: BUN Creatinine Ratio 6.3 (10-20); Calcium 7.9 mg/dl (8.5-10.1); Creatinine Clr Calc Pharmacy 98.6 ml/min; Est GFR (African American) 110.1 ml/min; Potassium 3.3 mmol/L (3.5-5.1)
[2022-06-23] MEDS ORDERED: POTASSIUM CHLORIDE CRTAB 20 MEQ TABCR PO STA (07:59)
[2022-06-23] MEDS: LACTATED RINGER'S 1,000 ML IV SCH ×2 (07:59→17:27)
[2022-06-23] MEDS: HEPARIN SOD 5,000 UNIT/0.5 ML VIAL SQ SCH ×2 (07:59→21:21)
[2022-06-23] MEDS: POTASSIUM CHLORIDE / WTR 10 MEQ/100 ML PLCT IV SCH ×2 (08:11→09:24)
--- NOTE | 2022-06-23 09:31 | Hospitalist Progress Note ---
Date of Service June 23, 2022 Assessment & Plan (1) Diverticulitis of intestine with abscess: Plan: Patient presented to ED with left lower quadrant abdominal pain, elevated WBC count, CTAP with diverticulitis with very small abscesses. CTAP did show some extension of inflammation near ovary, suspect due to extent of the infection rather than true ovarian involvement. Denied transfer by tertiary site due to collections too small to drain. Continues to improve on Zosyn and with slow escalation of diet. WBC count normal 6.14, no fevers, Hgb stable. General Surgery following and discussed case with Gen. Surg PA, team is hopeful for discharge home within next 24-48 hours with follow up with Dr. Richmond for possible consideration of partial colectomy of infected segment. Ultimately for Augmentin on discharge for total Abx of 2 weeks. IV analgesics and antiemetics as needed Stool studies and C diff negative, checked given diarrhea. Case discussed with consulting service, and labs from today 06/23 personally reviewed by me. (2) Hypothyroid: Plan: Continue home dose levothyroxine 125mcg daily (3) GERD (gastroesophageal reflux disease): Plan: Continue PPI therapy (4) Endometrial thickening on ultrasound: Plan: Incidentally noted on US. Dr. Yuan saw patient as Gynecology consult and appreciate recommendations: incidental finding, will follow up outpatient with Clinical Lab Clerk. Admission and Anticipated Discharge Date Admission Date: June 19, 2022 Subjective Patient feeling better today than yesterday, some cramping at times but significantly improved compared to admission and tolerated diet very well. Was very happy that she didn't have any pain with eating. Review of Systems Review of Systems: All systems reviewed & are unremarkable except as noted in Subjective Physical Exam Constitutional: WD/WN, vitals as above Respiratory: normal respiratory effort, lungs clear to auscultation Cardiovascular: RRR, no murmur, no edema Gastrointestinal (Abdomen): normal bowel sounds, abdomen soft, mildly tender LLQ without rebound or guarding Skin: no rashes, warm and dry Psychiatric: A+Ox3, euthymic affect Results & Data Results & Data ([facility]) Vital Signs (Past 12 Hours) Vital Signs Temp Pulse Pulse Resp BP Pulse Ox O2 Del Method 06/23/22 08:12 37.4 C 64 19 111/68 95 Room Air 06/23/22 02:59 37.0 C 64 18 116/73 94 Room Air 06/22/22 22:00 63 06/22/22 22:32 36.9 C 72 18 113/71 96 Room Air PG Care Time/CCT Total # of Minutes Spent Total Time Spent with Patient: Total time spent is greater than 50% in coordination of care (as documented) at patient's floor/unit and/or counseling patient: Coding Level of Care Code 36668 SUB INP/OBS CARE 3/50MIN Diagnoses Diverticulitis of intestine with abscess K57.80 Hypothyroid E03.9 GERD (gastroesophageal reflux disease) K21.9 Endometrial thickening on ultrasound R93.89
--- NOTE | 2022-06-23 10:45 | Surgery Progress Note ---
Date of Service June 23, 2022 Assessment & Plan (1) Diverticulitis of intestine with abscess: Plan: pt here with diverticulitis w/ phlegmon vs abscess WBC 6.1. Vitals are stable and patient afebrile CT scan yesterday with stable findings Abdomen is soft, expected ttp in LLQ, improving overall Will slowly continue to advance diet as tolerates Pending progress anticipate dispo to home over next 24-48 hours on 2 week course of abx to complete F/u in clinic with Dr. Richmond in clinic upon dispo Admission and Anticipated Discharge Date Admission Date: June 19, 2022 Supervising Physician Co-Signing Physician Notes Patient seen and examined, labs and image reviewed, agree with above. Admitted with diverticulitis with contained phlegmon versus abscess. Initially plan for IR drainage at outside facility, however after several days it was noted that she had clinically improved and the abscess was not felt amenable to drainage. She continues to feel much better than she did upon admission, though she did have some cramping yesterday. She tolerated full liquids this morning and is awaiting a low fiber diet for lunch. She has had several loose bowel movements. On exam she is afebrile stable vitals, her abdomen is soft, nontender, nondistended. WBC normal. Repeat CT scan from yesterday showed similar appearance to the area of phlegmon/abscess. This again appears to be not amenable to drainage at this time. No acute surgical intervention indicated at this time. We will continue with IV antibiotics for today and if she is doing well tomorrow with a normal white count tolerating low fiber diet she may be discharged on oral antibiotics. Subjective Patient feeling better than admission, but still not her baseline. Some abdominal cramping. She is tolerating liquid diet thus far without issues. Having BM's she describes as "powder". Some dizziness. Physical Exam Physical Exam: awake/alert, no distress Gastrointestinal (Abdomen): Inspection/Auscultation: abdomen not distended Percussion/Palpation: + abdomen tender (in llq) and abdomen soft Results & Data ([facility]) Vital Signs (Past 12 Hours) Vital Signs Temp Pulse Pulse Resp BP Pulse Ox O2 Del Method 06/23/22 10:13 59 L 06/23/22 08:12 37.4 C 64 19 111/68 95 Room Air 01/04/23 02:59 37.0 C 64 18 116/73 94 Room Air PG Care Time/CCT Total # of Minutes Spent Total Time Spent with Patient: Total time spent is greater than 50% in coordination of care (as documented) at patient's floor/unit and/or counseling patient: Coding Level of Care Code 98299 SUB INP/OBS CARE Diagnoses Diverticulitis of intestine with abscess K57.80
[2022-06-23] MEDS: traZODone HCL 100 MG TAB PO SCH (21:21)
[2022-06-23] MEDS: MONTELUKAST SODIUM 10 MG TABLET PO SCH (21:22)
[2022-06-23] MEDS: ACETAMINOPHEN 325 MG TAB PO PRN (21:24)
[2022-06-24] MEDS: LACTATED RINGER'S 1,000 ML IV SCH (02:17)
[2022-06-24] MEDS: PIPERACILLIN/TAZOBACTAM 4.5 GM in DEXTROSE 5% 100 ML IV SCH ×3 (02:17→18:34)
[2022-06-24] MEDS: LEVOTHYROXINE SODIUM 125 MCG TABLET PO SCH (06:00)
[2022-06-24 07:04] LABS: Hematocrit (blood only) 31.4 % (34.1-44.9); Hemoglobin 10.4 g/dl (12.0-16.0); Mean Corpuscular Hemoglobin 28.9 pg (25.0-34.0); Mean Corpuscular Hgb Conc 33.1 g/dL (32.0-36.0); Mean Corpuscular Volume 87.2 fL (80.0-100.0); Mean Platelet Volume 9.2 fL (9.4-12.3); Platelet Count 301 K/uL (130-400); RDW Coefficient of Variation 12.8 % (11.5-14.5); RDW Standard Deviation 40.8 fL (36.4-46.3); White Blood Count 6.86 K/ul (4.8-10.8)
[2022-06-24] MEDS: HEPARIN SOD 5,000 UNIT/0.5 ML VIAL SQ SCH ×2 (08:46→21:03)
--- NOTE | 2022-06-24 09:58 | Surgery Progress Note ---
Date of Service June 24, 2022 Assessment & Plan (1) Diverticulitis of intestine with abscess: Plan: pt here with diverticulitis w/ phlegmon vs abscess WBC 6.8. Vitals are stable and patient afebrile Abdomen is soft, expected ttp in LLQ, improving overall Tolerating a low fiber diet, + bowel function. Stable for discharge to home from our point of view, though pt wondering is she can stay another day Okay to transition to a course of PO abx upon discharge F/u in clinic with Dr. Richmond in clinic as outpatient Admission and Anticipated Discharge Date Admission Date: June 19, 2022 Supervising Physician Co-Signing Physician Notes Patient seen and examined, labs reviewed, agree with above. 61-year-old female admitted with diverticulitis with phlegmon and abscess not amenable to percutaneous drainage due to small size. She again continues to improve and is tolerating low fiber diet. Her bowels are coming more firm. She did have a little bit of nausea before breakfast but actually got better after eating. On exam she is afebrile with stable vitals, her abdomen is soft, tender to palpation left lower quadrant though slightly improved. Her WBC is normal. Would discharge on 2 weeks antibiotics. Follow-up with me in 3 weeks with a [address] scan. Return precautions given. Recommend elective sigmoidectomy in the next few months. Subjective Patient feeling about the same. Much better than admission. Still with some LLQ discomfort, but not worsening. Had some pain/nausea this AM, but ate breakfast and this resolved it, likely hunger pains. She is passing gas and having loose/semi formed BMs. Physical Exam Physical Exam: awake/alert, no distress Respiratory: normal respiratory effort Gastrointestinal (Abdomen): Inspection/Auscultation: abdomen not distended Percussion/Palpation: + abdomen tender (in llq) and abdomen soft Results & Data ([facility]) Vital Signs (Past 12 Hours) Vital Signs Temp Pulse Pulse Resp BP Pulse Ox O2 Del Method 06/24/22 07:15 69 06/24/22 06:11 36.3 C L 60 18 129/75 93 Room Air 06/24/22 02:27 36.7 C 60 18 109/61 95 Room Air 06/23/22 21:59 59 L 06/23/22 23:08 Room Air 06/23/22 22:13 37.4 C 59 L 18 110/64 96 Room Air PG Care Time/CCT Total # of Minutes Spent Total Time Spent with Patient: Total time spent is greater than 50% in coordination of care (as documented) at patient's floor/unit and/or counseling patient: Coding Level of Care Code 64408 SUB INP/OBS CARE 07/14MIN Diagnoses Diverticulitis of intestine with abscess K57.80
[2022-06-24] MEDS: ACETAMINOPHEN 325 MG TAB PO PRN ×2 (15:53→21:03)
--- NOTE | 2022-06-24 16:40 | Hospitalist Progress Note ---
Date of Service June 24, 2022 Assessment & Plan (1) Diverticulitis of intestine with abscess: Plan: Patient presented to ED with left lower quadrant abdominal pain, elevated WBC count, CTAP with diverticulitis with very small abscesses. CTAP did show some extension of inflammation near ovary, suspect due to extent of the infection rather than true ovarian involvement. Denied transfer by tertiary site due to collections too small to drain. Continues to improve on Zosyn and with slow escalation of diet. WBC count normal 6.86, no fevers, Hgb stable. General Surgery following and discussed case with Gen. Surg PA, team is hopeful for discharge home within next 24-48 hours with follow up with Dr. Richmond for possible consideration of partial colectomy of infected segment. Ultimately for Augmentin on discharge for total Abx of 2 weeks. IV analgesics and antiemetics as needed; using doses intermittently Stool studies and C diff negative, checked given diarrhea. (2) Hypothyroid: Plan: Continue home dose levothyroxine 125mcg daily (3) GERD (gastroesophageal reflux disease): Plan: Continue PPI therapy (4) Endometrial thickening on ultrasound: Plan: Incidentally noted on abdominal imaging. Dr. Yuan saw patient as Gynecology consult and appreciate recommendations: incidental finding, will follow up outpatient with Car Inspector. Admission and Anticipated Discharge Date Admission Date: June 19, 2022 Subjective Abdominal pain about the same today, intermittent nausea, very nervous about discharge home. Review of Systems Review of Systems: All systems reviewed & are unremarkable except as noted in Subjective Physical Exam Physical Exam: awake/alert, no distress Constitutional: WD/WN, vitals as above Respiratory: normal respiratory effort, lungs clear to auscultation normal respiratory effort Cardiovascular: RRR, no murmur, no edema Gastrointestinal (Abdomen): Inspection/Auscultation: abdomen not distended Percussion/Palpation: + abdomen tender (in llq) and abdomen soft Skin: no rashes, warm and dry Psychiatric: A+Ox3, euthymic affect Results & Data Results & Data ([facility]) Vital Signs (Past 12 Hours) Vital Signs Temp Pulse Pulse Resp BP Pulse Ox O2 Del Method 06/24/22 15:05 36.8 C 79 18 134/81 96 Room Air 06/24/22 15:03 95 H 06/24/22 11:10 36.5 C 84 19 128/77 98 Room Air 06/24/22 07:15 69 06/24/22 06:11 36.3 C L 60 18 129/75 93 Room Air PG Care Time/CCT Total # of Minutes Spent Total Time Spent with Patient: Total time spent is greater than 50% in coordination of care (as documented) at patient's floor/unit and/or counseling patient: Coding Level of Care Code 00906 SUB INP/OBS CARE 2/35MIN Diagnoses Diverticulitis of intestine with abscess K57.80 Hypothyroid E03.9 GERD (gastroesophageal reflux disease) K21.9 Endometrial thickening on ultrasound R93.89
[2022-06-24] MEDS: traZODone HCL 100 MG TAB PO SCH (21:03)
[2022-06-24] MEDS: MONTELUKAST SODIUM 10 MG TABLET PO SCH (21:03)
[2022-06-25] MEDS: PIPERACILLIN/TAZOBACTAM 4.5 GM in DEXTROSE 5% 100 ML IV SCH (02:40)
[2022-06-25] MEDS: ACETAMINOPHEN 325 MG TAB PO PRN (06:02)
[2022-06-25] MEDS: LEVOTHYROXINE SODIUM 125 MCG TABLET PO SCH (06:03)
[2022-06-25 06:27] LABS: Hematocrit (blood only) 32.9 % (34.1-44.9); Mean Corpuscular Hemoglobin 28.6 pg (25.0-34.0); Mean Corpuscular Hgb Conc 33.4 g/dL (32.0-36.0); Mean Corpuscular Volume 85.5 fL (80.0-100.0); Mean Platelet Volume 9.9 fL (9.4-12.3); Platelet Count 335 K/uL (130-400); RDW Coefficient of Variation 12.8 % (11.5-14.5); RDW Standard Deviation 39.7 fL (36.4-46.3); Red Blood Count 3.85 M/uL (3.93-5.22); White Blood Count 7.87 K/ul (4.8-10.8)
[2022-06-25 06:41] LABS: Albumin Globulin Ratio 1.1 (0.9-2); Albumin Level 3.3 gm/dl (3.4-5.0); BUN Creatinine Ratio 13.2 (10-20); Bilirubin,Total 0.3 mg/dl (0.2-1.0); Calcium 8.4 mg/dl (8.5-10.1); Creatinine Clr Calc Pharmacy 83.5 ml/min; Est GFR (African American) 96.8 ml/min; Est GFR (Non-African American) 83.5 ml/min; Globulin 3.1 gm/dl (2.5-4.0); Potassium 3.5 mmol/L (3.5-5.1); Total Protein 6.4 gm/dl (6.0-8.3)
[2022-06-25] MEDS: HEPARIN SOD 5,000 UNIT/0.5 ML VIAL SQ SCH (08:16)
--- NOTE | 2022-06-25 09:33 | Discharge Summary ---
Discharge Summary Date of Service June 25, 2022 Admission HPI Per Admitting Provider This is a 61-year-old female with past medical history significant history of hypothyroidism, history of recent admission for diverticulitis about 3 weeks ago who presents to the emergency department with complaints of acute worsening of the pain in the left lower quadrant area. Patient was treated for acute diverticulitis and discharged on May 30 and patient reports that she has been having progressive improvement and she continued her antibiotics which she was given during her discharge. Patient however reports that she started experiencing crampy abdominal pain in lower abdomen on the left side and saw her PCP 2 days ago and she was prescribed a course of antibiotics with Flagyl and Bactrim. Patient however reports that her pain has continued to worsen over the past 24 hours and hence patient presents to ED for further evaluation. Patient was also reported to have inflammation in the bowel extending to her ovaries and was recommended to see a plastic fixture builder as an outpatient as well. Patient otherwise denies any urinary symptoms or chest pain or shortness of breath. Upon evaluation in the ED patient was found to evaluate a white count of 15,000 and also had a CT of the abdomen that shows evidence of diverticulitis with development of a complex fluid collection surrounding the sigmoid colon and the posterior component showing an abscess with no free air seen in the abdomen. ED had contacted general surgery and they recommended patient to be transferred to facility where they have interventional radiology availability and hence patient is scheduled to be transferred to [facility] when bed available. Admission Exam Per Admitting Provider Constitutional: well-nourished patient, in mild distress Vitals as above. HEENT: No scleral injection Clear oropharynx without exudate. Neck: Supple without lymphadenopathy or thyromegaly. Trachea midline. Lungs: Clear to auscultation bilaterally no wheezing. Cardiac: No murmurs.No extremity edema. Abdomen:Left lower quadrant tenderness noted no rebound tenderness MSK: No cyanosis or clubbing. Skin: No rashes, warm, dry. Neurologic: Grossly intact cranial nerves. Principal Dx & Hospital Course #1 = Principal Diagnosis (1) Diverticulitis of intestine with abscess: Patient presented to ED with left lower quadrant abdominal pain, elevated WBC count, CTAP with diverticulitis with very small abscesses. CTAP did show some extension of inflammation near ovary, suspect due to extent of the infection rather than true ovarian involvement. Denied transfer by tertiary site due to collections too small to drain. WBC count normal 6.86, no fevers, Hgb stable. Stool studies and C diff negative, checked given diarrhea. Continues to improve on Zosyn and with slow escalation of diet -> transition to Augmentin BID x2 more weeks for discharge. General Surgery following and discussed case with Gen. Surg PA, follow up with Dr. Richmond for possible consideration of partial colectomy of infected segment. (2) Hypothyroid: Continue home dose levothyroxine 125mcg daily. Has follow up TSH next week. (3) GERD (gastroesophageal reflux disease): Continue PPI therapy. (4) Endometrial thickening on ultrasound: Incidentally noted on abdominal imaging. Dr. Yuan saw patient as Gynecology consult and appreciate recommendations: incidental finding, will follow up outpatient with Antique Finisher. Plan Dispo: home, no home health care needs Discharge Exam Constitutional WD/WN, vitals as above Respiratory normal respiratory effort, lungs clear to auscultation normal respiratory effort Cardiovascular RRR, no murmur, no edema Gastrointestinal (Abdomen) normal bowel sounds, soft, nontender, no hepatosplenomegaly Skin no rashes, warm and dry Psychiatric A+Ox3, euthymic affect Updated Medication List Medication Instructions Recorded Confirmed Type montelukast 10 mg tablet 10 mg PO QPM 07/10/18 06/18/22 History trazodone 100 mg tablet 100 mg PO HS 07/10/18 06/18/22 History albuterol sulfate 90 mcg/actuation 2 puff inhalation Q6H PRN 02/25/21 06/18/22 History aerosol inhaler (ProAir HFA) Shortness Of Breath levothyroxine 125 mcg capsule 125 mcg PO DAILYBB 06/18/22 06/18/22 History amoxicillin 875 mg-potassium 1 tab PO BIDM 14 days #28 tabs 06/25/22 Rx clavulanate 125 mg tablet Hospital Stay Data Consultations 06/18/22 20:10 ED Decision to Admit Stat 06/19/22 02:56 Consult Gastroenterology Routine 06/22/22 11:35 Consult General Surgery Routine 06/22/22 11:39 Consult Gynecology Routine Diagnostic Imagining Performed 06/18/22 10:49 CT abd pelvis IV con only Stat 06/22/22 14:37 CT abd pelvis IV con only Routine Discharge Instructions Given to Patient (Per Discharging Provider) You were admitted to the hospital for evaluation of belly pain. You were found to have diverticulitis, an infection of the outpouchings in your colon. Due to having some small abscess infection collections, we consulted with another hospital to see if they would need drainage. They determined that the collections were too small to drain. You were given Zosyn for antibiotics, which will be transitioned to Augmentin on discharge and sent to your [facility]. You will take this for another 2 weeks. You should hear from the surgery office about a follow up appointment. If not, call the number above for an appointment in the next two weeks. Stick to a low fiber diet for now to give your belly a break. We felt safe sending you home because your belly felt better and your signs of infection improved on your labwork. You should follow up with your primary care office in the next week or so, please call their office if you do not hear by Tuesday. If you have worsening of your belly pain, or other acute medical concerns, seek out urgent medical attention. Total Time Total Time Spent Total Time Spent (In Minutes): 45 minutes Coding Level of Care Code HOSP INP/OBS DISCH >30 MIN Diagnoses Diverticulitis of intestine with abscess K57.80 Hypothyroid E03.9 GERD (gastroesophageal reflux disease) K21.9 Endometrial thickening on ultrasound R93.89
[2022-06-25] MEDS ORDERED: AMOXICILLIN/CLAVULANATE 875 MG TAB PO SCH (17:00)
== END 2022-06-25 12:47 | disposition home or self-care (01) | DRG 392 ==
LOC: ED 10:33 → SUATTDRO 06-19 01:35 → 2N 06-19 01:35

== ENCOUNTER 2023-09-07 09:37 | Inpatient (IN) ==
--- NOTE | 2023-09-07 10:07 | Emergency Department Note ---
Impression & Plan Diverticulitis of colon with perforation, Abdominal pain, Leukocytosis ED Provider Note NAME: LAURA PADRON AGE: 63 SEX: F : 1960 ARRIVES VIA: Walk-In INFORMANT: Patient ED PROVIDER(S): Kelton Casarze DO CHIEF COMPLAINT: abdominal pain HPI: Patient is a 63-year-old female with a past medical history GERD, diverticulitis and fibromyalgia for abdominal pain located in the left lower quadrant that started this past Tuesday. Is been gradually getting worse since then. Is now radiating over to the right lower quadrant. This morning she was having nausea vomiting has not been keeping anything down. She denies any fevers. No headache or change in vision. She denies any chest pain or shortness of breath. No dysuria urgency or frequency. This is her second bout of diverticulitis. She had a CT performed as an outpatient earlier today which showed a small microperforation she was referred in. ADDITIONAL HISTORY OBTAINED: Per HPI Chronic Medical/Social Conditions Affecting Care: Per HPI PAST MEDICAL HISTORY:See Below PAST SURGICAL HISTORY:See Below FAMILY HISTORY:See Below SOCIAL HISTORY:See Below HOME MEDICATIONS:See Below ALLERGIES:See Below VITALS:See Below PHYSICAL EXAMINATION: GENERAL: Sitting up in bed, alert, well appearing, well nourished, no distress, non-toxic EYE EXAM: normal conjunctiva. OROPHARYNX: mucous membranes are moist NECK: supple, no nuchal rigidity, no adenopathy, non-tender LUNGS: Clear to auscultation. Normal chest wall mechanics HEART: no murmurs, S1 normal and S2 normal ABDOMEN: abdomen soft, non-tender, normo-active bowel sounds, no masses, no rebound or guarding. UPPER EXTREMITIES: upper extremities are grossly normal. LOWER EXTREMITIES: No pitting edema. NEURO EXAM: Normal sensorium, cranial nerves II-XII grossly intact, normal speech, no gross weakness of arms, no gross weakness of legs. MEDICAL DECISION MAKING: Patient is a 63-year-old female referred in by PCPs office following having blood work done which was a CBC and a BMP as an outpatient. External records were reviewed and showed mild leukocytosis but no significant anemia. BMP was unremarkable. In the ER we added on a lipase and a lactic acid which was normal. UA was clean. External records were reviewed from earlier today which showed a CT suggesting a small microperforation vs Diverticulum. Patient is fairly acutely tender on palpation. She was given IV Zosyn and fluids and updated at bedside and discussed the case with the hospitalist for further evaluation management and treatment. I also discussed case with general surgery for the microperforation versus diverticulum. Consults/Care Managements Discussions: Per [facility] Triage Nursing notes reviewed. Limited review of prior medical records performed Vital Signs: reviewed and remarkable for no significant abnormalities Differential diagnosis: Differential diagnoses includes but is not limited to gastritis, peptic ulcer disease, GERD, gallbladder disease, pancreatitis, small bowel obstruction, appendicitis, diverticulitis, hernia, urinary tract infection, torsion, perforation, trauma, infectious. ER treatment provided: See below Diagnostics interpreted by me include EKG and cardiac monitoring as listed below: -Cardiac Monitoring: An order was placed for continuous cardiac monitoring. The monitor shows a rate of 78 with sinus rhythm. -ECG: none -Laboratory studies:Interpreted by me as stated above in MDM and shown below. Imaging studies: Xrays: As interpreted by me:none CTs show: External records for the CT performed earlier today were reviewed showed a fair amount of inflammation left lower quadrant Procedures:none Critical Care: None Past Med/Surg History Medical History Depression Anxiety History of diverticulitis Diverticulosis Endometrial thickening on ultrasound Chronic back pain PVD (posterior vitreous detachment), left eye hx of--was evaluated, no sx, cleared Hearing difficulty of right ear Allergy-induced asthma inhaler prn GERD (gastroesophageal reflux disease) Osteoarthritis Hypothyroid Fibromyalgia Surgical History History of dilatation and curettage History of arthroscopy of right knee 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 History of colonoscopy History of tooth extraction History of wisdom tooth extraction S/P trigger finger release S/P carpal tunnel release bilt Family History Aunt Cancer Grandmother Cancer Grandfather Cancer Mother Heart disease Hypertension Brother Diabetes Other No family history of adverse response to anesthesia Social History Smoking Status: Never smoker Second Hand Exposure: No; Do You Dip or Chew Tobacco: No; Hx Alcohol Use: Yes Alcohol type: wine Hx Substance Use: No Preferred Language: Yakut Communication Ability: Effective Visual Impairment: No Limitations Hearing Ability: Normal Manager Intensive Care Unit Required: No Beliefs That Will Affect Care: None marital status: / Current Living Situation: Alone current occupational status: employed 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 How many Children do You have: 0 Feels Safe at Home: Yes during the past year weight has: decreased > 10 lbs Assistive Devices: Glasses Allergies Allergies Allergy/AdvReac Type Severity Reaction Status Date / Time cat dander Allergy Mild EYES WATER Verified 09/07/23 12:18 mold Allergy Mild sinus Verified 09/07/23 12:18 issues DUST MITES Allergy Mild SINUS Uncoded 09/07/23 12:18 ISSUES Home Meds Home Medications Medication Instructions Recorded Confirmed montelukast 10 mg tablet 10 mg PO QPM 07/10/18 09/07/23 trazodone 100 mg tablet 100 mg PO HS 07/10/18 09/07/23 albuterol sulfate 90 mcg/actuation 2 puff inhalation Q6H PRN 02/25/21 09/07/23 aerosol inhaler (ProAir HFA) Shortness Of Breath ascorbic acid 1,000 0 ea PO DAILY 05/18/23 09/07/23 ep-ceafoystthuc-gjcdrirh powder effervescent pack (Essence C) levothyroxine 112 mcg tablet 112 mcg PO DAILY 05/18/23 09/07/23 sertraline 100 mg tablet 100 mg PO DAILY 05/18/23 09/07/23 hyoscyamine sulfate 0.125 mg 0 mg PO Q6H 09/07/23 09/07/23 sublingual tablet meclizine 25 mg tablet 25 mg PO TID PRN motion sickness 09/07/23 09/07/23 valacyclovir 1 gram tablet 0 mg PO DAILY 09/07/23 09/07/23 Results & Data (ED) Vital Signs Vital Signs - 24 hr 09/07/23 09:45 09/07/23 10:15 Temperature 36.8 C Temperature Source Temporal Artery Scan Pulse Rate 87 Pulse Rate [Apical] 83 Respiratory Rate 18 18 Respiratory Effort / Characteristics Non-Labored Spontaneous Non-Labored Spontaneous Respiratory Depth Normal Normal Respiratory Pattern Regular Blood Pressure 117/70 Blood Pressure [Right Arm] 128/78 Blood Pressure Mean 85 Blood Pressure Mean [Right Arm] 94 Blood Pressure Position Sitting Blood Pressure Position [Right Arm] Sitting Pulse Oximetry 97 98 Oxygen Delivery Method Room Air Room Air Sepsis Recent Fever Within 48 Hours No Sepsis New/Unexplained Change in Mental Status No Sepsis Action Taken by Nursing No Action Required Laboratory Data Lab Results 09/07/23 09/07/23 Range/Units 10:08 10:16 Lactate 0.8 (0.4-2.0) mmol/L Lipase 26 (11-82) U/L Urine Color Yellow Urine Appearance Clear (Clear) Urine pH 6.0 (4.5-7.5) Ur Specific Hazen > 1.045 H (1.000-1.030) Urine Protein Negative (Negative) Urine Glucose (UA) Negative (Negative) Urine Ketones Negative (Negative) Urine Blood Negative (Negative) Urine Nitrite Negative (Negative) Urine Bilirubin Negative (Negative) Urine Urobilinogen Negative (Negative) Ur Leukocyte Esterase Negative (Negative) Administered Medications Lactated Ringer's (Lr) 1,000 mls @ 100 mls/hr IV .Q10H REEMA Stop: 09/08/23 06:59 Last Admin: 09/07/23 11:27 Dose: 100 mls/hr Documented By: DERECK Morphine Sulfate (Morphine Sulfate 2 Mg/Ml Carp) 2 mg IV Q4H PRN PRN Reason: Pain(5+) Stop: 09/21/23 10:19 Last Admin: 09/07/23 10:42 Dose: 2 mg Documented By: JERONIMO Discontinued Medications Ciprofloxacin (Cipro / D5w) 400 mg in 200 mls @ 100 mls/hr IV NOW STA; Protocol Stop: 09/07/23 12:02 Last Admin: 09/07/23 10:22 Dose: Not Given Documented By: JERONIMO Metronidazole (Flagyl) 500 mg in 100 mls @ 100 mls/hr IV NOW STA; Protocol Stop: 09/07/23 11:02 Last Admin: 09/07/23 10:22 Dose: Not Given Documented By: JERONIMO Sodium Chloride (Nss) 1,000 mls @ 999 mls/hr IV .Q1H1M ONE Stop: 09/07/23 11:07 Last Infusion: 09/07/23 11:26 Dose: Infused Documented By: Admin: 09/07/23 10:18 Dose: 999 mls/hr Documented By: JERONIMO Piperacillin Sod/Tazobactam Sod (Zosyn) 4.5 gm in 100 mls @ 200 mls/hr IV NOW ONE Stop: 09/07/23 10:37 Last Infusion: 09/07/23 11:26 Dose: Infused Documented By: Admin: 09/07/23 10:22 Dose: 200 mls/hr Documented By: JERONIMO Pantoprazole Sodium 40 mg/ (Syringe) 10 mls @ 5 mls/min IV NOW ONE Stop: 09/07/23 11:01 Last Admin: 09/07/23 11:27 Dose: 5 mls/min Documented By: DERECK Miscellaneous (Patient's Height &/Or Weight Needed) 1 each N/A NOW STA Stop: 09/07/23 12:35 Last Admin: 09/07/23 12:48 Dose: 1 each Documented By: DERECK Ondansetron HCl (Ondansetron Inj 2 Mg/Ml 2 Ml Vial) 4 mg IV NOW STA Stop: 09/07/23 10:08 Last Admin: 09/07/23 10:19 Dose: Not Given Documented By: JERONIMO Ondansetron HCl (Ondansetron Inj 2 Mg/Ml 2 Ml Vial) 4 mg IV NOW STA Stop: 09/07/23 10:47 Last Admin: 09/07/23 12:44 Dose: Not Given Documented By: DERECK Discharge Plan Visit Data Chief Complaint: Abnormal Labs/Diagnostic Testing Stated Complaint: SENT TO ER AFTER CT AND LAB WORK ED Provider: Kelton Casarez Discharge Problem: Diverticulitis of colon with perforation, Abdominal pain, Leukocytosis Patient Disposition: Admitted As Inpatient Discharge Instructions Interventions: ED Discharge Assessment Last Done: 09/07/23 12:24 Discharge Problem: Abdominal pain Qualifiers: Abdominal location: unspecified location Qualified Code(s): R10.9 - Unspecified abdominal pain Leukocytosis Qualifiers: Leukocytosis type: unspecified Qualified Code(s): D72.829 - Elevated white blood cell count, unspecified
[2023-09-07] MEDS: SODIUM CHLORIDE 0.9% 1,000 ML IV ONE (10:18)
[2023-09-07] MEDS: ONDANSETRON INJ 2 MG/ML 2 ML VIAL IV STA ×2 (10:19→12:44)
[2023-09-07] MEDS: CIPROFLOXACIN / D5W 400 MG/200 ML BAG IV STA (10:22)
[2023-09-07] MEDS: PIPERACILLIN/TAZOBACTAM 4.5 GM/100 ML BAG IV ONE (10:22)
[2023-09-07] MEDS: metroNIDAZOLE 500 MG/100 ML BAG IV STA (10:22)
--- NOTE | 2023-09-07 10:25 | History & Physical Report ---
Date of Service September 07, 2023 Assessment & Plan (1) Sigmoid diverticulitis: Plan: -Admit to med/tele -Currently stable and non-toxic appearing -Started to develop LLQ pain similar to previous episodes of sigmoid diverticulitis on 09/02 -Outpatient CT of the abd/pelvis w/IV con this am shows findings consistent with acute sigmoid diverticulitis with possible microperforation -She has a WBC of 11 but labs are otherwise unremarkable -Ordered 1L NSS and a dose of Zosyn in the ED -Will conitnue with Zosyn for now -Will order maintenance LR to be started after the 1L NSS bolus is complete -Will obtain stat lactate and blood cultures -Pain control with tylenol and morphine -PRN zofran for nausea/vomiting -NPO except meds until she is evaluated by General Surgery -General surgery consult placed -BL LOLIS's for DVT PPX -AM CBC, CMP, mag, PT/INR (2) GERD (gastroesophageal reflux disease): Plan: -Will start daily IV pantoprazole while NPO (3) Hypothyroid: Plan: -Continue Levothyroxine (4) Anxiety: Plan: -Continue sertraline Plan The patient was seen with and discussed with Dr. Gonzalez at the time of the admission History of Present Illness Chief Complaint: Acute sigmoid diverticulitis on outpatient CT Primary Care Provider: Donovan Kumar MD Reyna is a 63 year old female with a PMH significant for sigmoid diverticulitis, hypothyroidism, and fibromyalgia who presented to the [facility] ED on 09/07/[address] of the abd/pelvis findings consistent with recurrent sigmoid diverticulitis. She was noted to be stable in the ED. Labs were significant for a WBC of 11 with neutrophil predominance of [address] of the abd/pelvis w/IV con was read as 1. Interval development of acute sigmoid diverticulitis within the mid sigmoid colon. 2. There is again noted a 2.3 cm hypodensity in the expected location of the left ovary which remains unchanged. This may represent an ovarian cyst. A small diverticular abscess is considered less likely but not entirely excluded. This is similar to the prior study. 3. In addition, there is a punctate focus of gas adjacent to the left sigmoid colon as described above which may represent a small diverticulum versus a small focus of microperforation. Of note, these areas are difficult to assess due to the surrounding inflammatory change. 4. Bladder wall thickening. This may be reactive to the acute diverticulitis. Recommend correlate with urinalysis to exclude a cystitis. 5. Additional findings as described above.. Prior to admission the patient was ordered 1L NSS and a dose of Zosyn. General Surgery was contacted and will see the patient shortly, there is no urgent plan for surgery at this time. At the time of the exam the patient was sitting in bed in no acute distress with her significant other bedside. She states that she started to develop LLQ abdominal pain on 09/02. Symptoms continued to progress over the week and were similar to her last episode of sigmoid diverticulitis. She called her PCP who ordered the CT scan of the abd/pelvis and labs this am. Her pain is currently a 8/10, sharp/stabbing, and only located in the LLQ. She denies recent fever, chills chest pain, cough vomiting, dysuria, hematuria, melena, diarrhea, LE swelling, and recently trauma. She follows with a diverticulitis specialist but had not yet scheduled sigmoidectomy as she had been feeling well. She is a full code and would want her to make medical decisions for her if she cannot make de cisions herself. -Last colonoscopy on 01/11/23 with showed diverticulosis of the sigmoid colon without other acute findings. Please refer to Dr. Gonzalez' attestation for any changes to the treatment plan Allergies Allergy/AdvReac Type Severity Reaction Status Date / Time cat dander Allergy Mild EYES WATER Verified 05/18/23 14:02 mold Allergy Mild sinus Verified 05/18/23 14:02 issues DUST MITES Allergy Mild SINUS Uncoded 05/18/23 14:02 ISSUES Home Medications Medication Instructions Recorded Confirmed Type montelukast 10 mg tablet 10 mg PO QPM 07/10/18 05/18/23 History trazodone 100 mg tablet 100 - 200 mg PO HS 07/10/18 05/18/23 History albuterol sulfate 90 mcg/actuation 2 puff inhalation Q6H PRN 02/25/21 05/18/23 History aerosol inhaler (ProAir HFA) Shortness Of Breath ascorbic acid 1,000 1 ea PO DAILY 05/18/23 05/18/23 History io-sujdjgvqjhmk-ytybdcvq powder effervescent pack (Essence C) levothyroxine 112 mcg tablet 112 mcg PO DAILY 05/18/23 05/18/23 History sertraline 100 mg tablet 100 mg PO DAILY 05/18/23 05/18/23 History meclizine 25 mg tablet 25 mg PO DAILY PRN motion sickness 08/30/23 Rx #30 tabs valacyclovir 1 gram tablet 1,000 mg PO DAILY #30 tabs 08/30/23 Rx Past Med/Surg History Medical History (Updated 09/07/23 @ 10:27 by Benjie Amaral PA-C) Depression Anxiety History of diverticulitis Diverticulosis Endometrial thickening on ultrasound Chronic back pain PVD (posterior vitreous detachment), left eye hx of--was evaluated, no sx, cleared Hearing difficulty of right ear Allergy-induced asthma inhaler prn GERD (gastroesophageal reflux disease) Osteoarthritis Hypothyroid Fibromyalgia Surgical History History of dilatation and curettage History of arthroscopy of right knee 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 History of colonoscopy History of tooth extraction History of wisdom tooth extraction S/P trigger finger release S/P carpal tunnel release bilt Family History Aunt Cancer Grandmother Cancer Grandfather Cancer Mother Heart disease Hypertension Brother Diabetes Other No family history of adverse response to anesthesia Social History Smoking Status: Never smoker Second Hand Exposure: No; Do You Dip or Chew Tobacco: No; Hx Alcohol Use: Yes Alcohol type: wine Hx Substance Use: No Preferred Language: Spanish Communication Ability: Effective Visual Impairment: No Limitations Hearing Ability: Normal Animal Control Licensing Worker Required: No Beliefs That Will Affect Care: None marital status: / Current Living Situation: Alone current occupational status: employed 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 How many Children do You have: 0 Feels Safe at Home: Yes during the past year weight has: decreased > 10 lbs Assistive Devices: Glasses Physical Exam Physical Exam: Physical Exam: General: In no acute distress, stated age, well-nourished, good hygiene HEENT: Normocephalic, atraumatic, no scleral icterus, pupils around round, symmetrical, and reactive to light, moist mucus membranes, trachea midline, no thyromegaly Chest/Pulm: No respiratory distress, symmetrical chest expansion, clear breath sounds throughout Cardiac: RRR, no murmurs noted Abdomen: Negative for ascites and bruising, normoactive bowel sounds, soft, significantly tender to palpation in the LLQ without rebound tenderness Musculoskeletal: Symmetrical and without signs of acute trauma, upper and lower extremities with full ROM, no atrophy, spasticity, or flaccidity Extremities: Radial, dorsalis pedis, and posterior tibial pulses are intact and symmetrical, no edema noted in the BL LE's Skin: Warm, dry, no rashes , lesions, or scars noted Neuro: Alert and oriented to person, place, month, year, and president, no focal defects, no tremors noted Psych: No acute distress, calm and cooperative during the exam Results & Data Results & Data Vital Signs (Past 12 Hours) Vital Signs Temp Pulse Resp BP Pulse Ox O2 Del Method 09/07/23 09:45 36.8 C 87 18 117/70 97 Room Air Laboratory Results Laboratory Results - last 24 hr 09/07/23 09/07/23 10:08 10:16 Lactate 0.8 Lipase Pending Diagnostic Findings ABDOMEN AND PELVIS CT WITH IV CONTRAST CT DOSE: 1178.1 mGy.cm HISTORY: Left lower quadrant pain. HX OTHER DISEASES DIGESTIVE SYSTEM TECHNIQUE: Multiaxial CT images of the abdomen and pelvis were performed following the use of intravenous contrast. A dose lowering technique was utilized adhering to the principles of ALARA. COMPARISON STUDY: Abdomen and pelvis CT 07/13/2022. FINDINGS: The lung bases are clear. Bilateral L4 spondylolysis again noted. No acute fractures. Stable 9 mm cyst within the left hepatic lobe. The gallbladder, pancreas, spleen, and adrenal glands are unremarkable. The kidneys enhance normally. No hydronephrosis. The main pulmonary vein is patent. Normal caliber abdominal aorta. A few prominent retroperitoneal lymph nodes measuring up to 8 mm short axis diameter. These have slightly increased in size. Mild bladder wall thickening. The uterus and right ovary are unremarkable. Moderate thickening within the mid sigmoid colon with pericolonic fat stranding and multiple inflamed diverticula consistent with acute diverticulitis. There is a heterogeneous appearance to the adjacent left ovary again noted. The 2.3 cm hypodensity in the expected location of the left ovary remains unchanged. This may represent an ovarian cysts. A small diverticular abscess is considered less likely but not entirely excluded. Punctate focus of gas also adjacent to the left sigmoid colon on image 272 which may represent a diverticulum versus a small focus of microperforation. These areas are difficult to assess due to the surrounding inflammatory change. No dilated loops of bowel to suggest an obstruction. Normal appendix. IMPRESSION: 1. Interval development of acute sigmoid diverticulitis within the mid sigmoid colon. 2. There is again noted a 2.3 cm hypodensity in the expected location of the left ovary which remains unchanged. This may represent an ovarian cyst. A small diverticular abscess is considered less likely but not entirely excluded. This is similar to the prior study. 3. In addition, there is a punctate focus of gas adjacent to the left sigmoid colon as described above which may represent a small diverticulum versus a small focus of microperforation. Of note, these areas are difficult to assess due to the surrounding inflammatory change. 4. Bladder wall thickening. This may be reactive to the acute diverticulitis. Recommend correlate with urinalysis to exclude a cystitis. 5. Additional findings as described above. ACT 112: Negative or not required by law. Electronically signed by: Andrea Elias M.D. 09/07/2023 9:14 AM Dictated: 09/07/23906 Transcribed: 09/07/23 09 ECG Additional Comments: Will obtain at the time of admission Code Status & VTE Plan Code Status Full code VTE Prophylaxis Plan VTE Prophylaxis will be ordered: Yes Supervising Physician Co-Signing Physician Notes I have personally seen, evaluated and examined the patient. I have also personally discussed the management of the patient with the resident physician/TONY and I agree with the exam findings documented in the history and physical examination and the documented assessment and plan unless otherwise stated below. Brief Exam: In general pleasant 63-year-old female who is alert and oriented x 3 at the time my exam. She is accompanied by her friend at the time of my exam. She granted permission to be in the room during my interview and examination. She appears to be in mild to moderate distress with her left lower quadrant pain at the time of our evaluation. HEENT: Normocephalic atraumatic. Heart: Regular rate and rhythm no murmur. Lungs: Clear bilaterally. Abdomen: Soft positive bowel sounds tender to palpation diffusely mostly left lower quadrant no rebound or peritoneal sign. Extremities: Intact no significant edema. Neurologically: Intact no focal deficit on exam she is alert and oriented x 3. Assessment/plan: As described above. Please refer to orders for further planning. PG Care Time/CCT Total # of Minutes Spent Total Time Spent with Patient: Total time spent is greater than 50% in coordination of care (as documented) at patient's floor/unit and/or counseling patient: Coding [place] [address] INT INP/OBS CARE 3/75MIN Patient Type Established Medical Decision Making High Complexity Diagnoses Sigmoid diverticulitis K57.32 GERD (gastroesophageal reflux disease) K21.9 Hypothyroid E03.9 Anxiety F41.9
[2023-09-07] MEDS: MoRPHine SULFATE 2 MG/ML CARP IV PRN (10:42)
[2023-09-07 10:43] LABS: Appearance Urine Clear (Clear); Bilirubin Urine Negative (Negative); Blood Urine Negative (Negative); Color Urine Yellow; Glucose Urine UA Negative (Negative); Ketones Urine Negative (Negative); Leukocyte Esterase Urine Negative (Negative); Nitrite Urine Negative (Negative); Protein Urine Negative (Negative); Specific Gravity Urine > 1.045 (1.000-1.030); Urobilinogen Urine Negative (Negative)
--- NOTE | 2023-09-07 11:20 | Surgery Consultation ---
Date of Consultation September 07, 2023 Assessment & Plan (1) Sigmoid diverticulitis: This is a 63yF with a PMH of hypothyroid, GERD, fibromyalgia, depression who presents to the [facility] ED on 09/07/23 with complaints of abdominal pain since the weekend. Over the last couple of days the pain has become more severe, located mostly in the LLQ, and associated with nausea/vomiting. She reached out to GI who recommended the patient undergo a CT scan and blood work which was performed today. A CT a/p was performed that revealed acute sigmoid diverticulitis with the question of possible microperforation. Due to the results she was referred for further evaluation in the ER. Patients labs show WBC 11, hbg 12, Cr 0.7, l actate 0.8. Vital signs are stable and patient is afebrile. On exam patient is resting in no acute distress. Abdomen is soft, with tenderness to palpation in the LLQ. Agree with admission under medicine, bowel rest, NPO with IVF, and start IV abx. There is no indications as this time for acute surgical intervention. We will follow along closely. as above. her second occurrence. no urgent indication for surgery. will follow along. keep npo. History of Present Illness History of Present Illness This is a 63yF with a PMH of hypothyroid, GERD, fibromyalgia, depression who presents to the [facility] ED on 09/07/23 with complaints of abdominal pain since the weekend. The patient reports her pain has been sporadic and crampy in nature through the weekend. Over the last couple of days the pain has become more severe, located mostly in the LLQ, and associated with nausea/vomiting. She reached out to GI who recommended the patient undergo a CT scan and blood work which was performed today. A CT a/p was performed that revealed acute sigmoid diverticulitis with the question of possible microperforation. Due to the resul ts she was referred for further evaluation in the ER. Patient reports low grade temps at home 100F, nausea and vomiting. She is having regular BM's, last was this AM. Last ate spaghetti and ice cream for dinner on 09/05. Denies bloody BMs, CP/SOB, chills. No prior abdominal surgical history. Of note this is her 2nd admission with diverticulitis. First episode was 06/2022 and she was treated with conservative measures. She was offered an elective sigmoidectomy as an outpatient by both our services and [facility] after she recovered from her acute episode. She did undergo colonoscopy 01/09 which showed diverticulosis. And as she continued to feel better she opted to not followup and move forward with surgery. Patient reports she also followed up with Dr. Neal regarding findings of her L ovary on CT scans and workup revealed no issues per pt. Allergies Allergy/AdvReac Type Severity Reaction Status Date / Time cat dander Allergy Mild EYES WATER Verified 09/07/23 12:18 mold Allergy Mild sinus Verified 09/07/23 12:18 issues DUST MITES Allergy Mild SINUS Uncoded 09/07/23 12:18 ISSUES Home Medications Medication Instructions Recorded Confirmed Type montelukast 10 mg tablet 10 mg PO QPM 07/10/18 09/07/23 History trazodone 100 mg tablet 100 mg PO HS 07/10/18 09/07/23 History albuterol sulfate 90 mcg/actuation 2 puff inhalation Q6H PRN 02/25/21 09/07/23 History aerosol inhaler (ProAir HFA) Shortness Of Breath ascorbic acid 1,000 0 ea PO DAILY 05/18/23 09/07/[address]-pczvrstajdbf-tkavydqc powder effervescent pack (Essence C) levothyroxine 112 mcg tablet 112 mcg PO DAILY 05/18/23 09/07/23 History sertraline 100 mg tablet 100 mg PO DAILY 05/18/23 09/07/23 History hyoscyamine sulfate 0.125 mg 0 mg PO Q6H 09/07/23 09/07/23 History sublingual tablet meclizine 25 mg tablet 25 mg PO TID PRN motion sickness 09/07/23 09/07/23 History valacyclovir 1 gram tablet 0 mg PO DAILY 09/07/23 09/07/23 History Patient History Medical History Depression Anxiety History of diverticulitis Diverticulosis Endometrial thickening on ultrasound Chronic back pain PVD (posterior vitreous detachment), left eye hx of--was evaluated, no sx, cleared Hearing difficulty of right ear Allergy-induced asthma inhaler prn GERD (gastroesophageal reflux disease) Osteoarthritis Hypothyroid Fibromyalgia Surgical History History of dilatation and curettage History of arthroscopy of right knee 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 History of colonoscopy History of tooth extraction History of wisdom tooth extraction S/P trigger finger release S/P carpal tunnel release bilt Family History Aunt Cancer Grandmother Cancer Grandfather Cancer Mother Heart disease Hypertension Brother Diabetes Other No family history of adverse response to anesthesia Social History Smoking Status: Never smoker Second Hand Exposure: No; Do You Dip or Chew Tobacco: No; Hx Alcohol Use: Yes Alcohol type: wine Hx Substance Use: No Preferred Language: [place] Communication Ability: Effective Visual Impairment: No Limitations Hearing Ability: Normal Braker Passenger Train Required: No Beliefs That Will Affect Care: None marital status: / Current Living Situation: Alone current occupational status: employed 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 How many Children do You have: 0 Feels Safe at Home: Yes during the past year weight has: decreased > 10 lbs Assistive Devices: Glasses Review of Systems Constitutional: + fever (low grade); no chills Respiratory: no dyspnea Cardiovascular: no chest pain Gastrointestinal: + abdominal pain, + nausea and + vomitin g; no change in bowel habits Physical Exam Physical Exam: awake/alert, no distress Respiratory: normal respiratory effort Gastrointestinal (Abdomen): Inspection/Auscultation: abdomen not distended Percussion/Palpation: + abdomen tender (ttp in the LLQ) and abdomen soft; no guarding Results & Data Vital Signs (Past 12 Hours) Vital Signs Temp Pulse Pulse Resp BP BP Pulse Ox 09/07/23 10:26 85 09/07/23 10:15 83 18 128/78 98 09/07/23 09:45 98.2 F 87 18 117/70 97 O2 Del Method 09/07/23 10:26 09/07/23 10:15 Room Air 09/07/23 09:45 Room Air Diagnostic Findings ABDOMEN AND PELVIS CT WITH IV CONTRAST CT DOSE: 1178.1 mGy.cm HISTORY: Left lower quadrant pain. HX OTHER DISEASES DIGESTIVE SYSTEM TECHNIQUE: Multiaxial CT images of the abdomen and pelvis were performed following the use of intravenous contrast. A dose lowering technique was utilized adhering to the principles of ALARA. COMPARISON STUDY: Abdomen and pelvis CT 07/13/2022. FINDINGS: The lung bases are clear. Bilateral L4 spondylolysis again noted. No acute fractures. Stable 9 mm cyst within the left hepatic lobe. The gallbladder, pancreas, spleen, and adrenal glands are unremarkable. The kidneys enhance normally. No hydronephrosis. The main pulmonary vein is patent. Normal caliber abdominal aorta. A few prominent retroperitoneal lymph nodes measuring up to 8 mm short axis diameter. These have slightly increased in size. Mild bladder wall thickening. The uterus and right ovary are unremarkable. Moderate thickening within the mid sigmoid colon with pericolonic fat stranding and multiple inflamed diverticula consistent with acute diverticulitis. There is a heterogeneous appearance to the adjacent left ovary again noted. The 2.3 cm hypodensity in the expected location of the left ovary remains unchanged. This may represent an ovarian cysts. A small diverticular abscess is considered less likely but not entirely excluded. Punctate focus of gas also adjacent to the left sigmoid colon on image 272 which may represent a diverticulum versus a small focus of microperforation. These areas are difficult to assess due to the surrounding inflammatory change. No dilated loops of bowel to suggest an obstruction. Normal appendix. IMPRESSION: 1. Interval development of acute sigmoid diverticulitis within the mid sigmoid colon. 2. There is again noted a 2.3 cm hypodensity in the expected location of the left ovary which remains unchanged. This may represent an ovarian cyst. A small diverticular abscess is considered less likely but not entirely excluded. This is similar to the prior study. 3. In addition, there is a punctate focus of gas adjacent to the left sigmoid colon as described above which may represent a small diverticulum versus a small focus of microperforation. Of note, these areas are difficult to assess due to the surrounding inflammatory change. 4. Bladder wall thickening. This may be reactive to the acute diverticulitis. Recommend correlate with urinalysis to exclude a cystitis. 5. Additional findings as described above. ACT 112: Negative or not required by law. Electronically signed by: Andrea Elias M.D. 09/07/2023 9:14 AM PG Care Time/CCT Total # of Minutes Spent Total Time Spent with Patient: Total time spent is greater than 50% in coordination of care (as documented) at patient's floor/unit and/or counseling patient: Coding Level of Care Code 12093 OP VST NEW MOD 45 MIN Diagnoses Sigmoid diverticulitis K57.32
[2023-09-07] MEDS: PANTOprazole 40 MG in SYRINGE 0 ML IV ONE (11:27)
[2023-09-07] MEDS: LACTATED RINGER'S 1,000 ML IV SCH (11:27)
[2023-09-07] MEDS: Patient's HEIGHT &/or WEIGHT Needed STA (12:48)
[2023-09-07] MEDS: ACETAMINOPHEN 1,000 MG/100 ML VIAL IV PRN (15:44)
[2023-09-07] MEDS: ONDANSETRON INJ 2 MG/ML 2 ML VIAL IV PRN (15:44)
--- NOTE | 2023-09-07 15:59 | Electrocardiogram Report ---
Test Reason : Blood Pressure : / mmHG Vent. Rate : 080 BPM Atrial Rate : 080 BPM P-R Int : 190 ms QRS Dur : 088 ms QT Int : 394 ms P-R-T Axes : 069 007 037 degrees QTc Int : 454 ms Normal sinus rhythm Poor R wave progression, consider anterior [place] vs. lead placement vs. LVH Abnormal ECG When compared with ECG of 06-JUL-2022 13:44, Nonspecific T wave abnormality, worse in Anterior leads Confirmed by Chuy Rendon ([id number]) on 09/07/2023 3:58:57 PM Referred By: REFERRED SELF Confirmed By:William Rendon
[2023-09-07] MEDS: PIPERACILLIN/TAZOBACTAM 4.5 GM in DEXTROSE 5% MINI-B 100 ML IV SCH (16:04)
[2023-09-08 06:47] LABS: Basophils # (auto) 0.06 K/uL (0.00-0.20); Basophils % (auto) 0.7 %; Eosinophils # (auto) 0.18 K/uL (0.00-0.50); Hematocrit (blood only) 35.8 % (37.0-47.0); Hemoglobin 11.6 g/dl (12.0-16.0); Immature Granulocytes # (auto) 0.02 K/uL (0.01-0.20); Immature Granulocytes % (auto) 0.2 %; Lymphocytes # (auto) 1.52 K/uL (1.20-3.40); Lymphocytes % (auto) 16.7 %; Mean Corpuscular Hemoglobin 27.6 pg (25.0-34.0); Mean Corpuscular Hgb Conc 32.4 g/dL (32.0-36.0); Mean Corpuscular Volume 85.2 fL (80.0-100.0); Mean Platelet Volume 9.6 fL (9.4-12.4); Monocytes # (auto) 0.91 K/uL (0.11-0.59); Neutrophils # (auto) 6.39 K/uL (1.40-6.50); Neutrophils % (auto) 70.4 %; Platelet Count 272 K/uL (130-400); RDW Coefficient of Variation 13.3 % (11.5-14.5); RDW Standard Deviation 41.3 fL (36.4-46.3); White Blood Count 9.08 K/ul (4.8-10.8)
[2023-09-08 07:07] LABS: Albumin Globulin Ratio 1.4 (0.9-2); Albumin Level 3.5 gm/dl (3.4-5.0); BUN Creatinine Ratio 8.8 (10-20); Bilirubin,Total 1.1 mg/dl (0.2-1.0); Calcium 8.8 mg/dl (8.6-10.3); Creatinine Clr Calc Pharmacy 96.8 ml/min; Est GFR (African American) 106.4 ml/min; Est GFR (Non-African American) 91.8 ml/min; Globulin 2.5 gm/dl (2.5-4.0); Magnesium 2.1 mg/dl (1.7-2.4); Potassium 3.9 mmol/L (3.5-5.1)
[2023-09-08] MEDS: LACTATED RINGER'S 1,000 ML IV SCH (07:59)
[2023-09-08 08:04] LABS: Prothrombin Time 11.1 Seconds (9.0-12.0)
[2023-09-08] MEDS: PANTOprazole 40 MG TAB PO SCH (09:10)
[2023-09-08] MEDS ORDERED: PANTOprazole 40 MG in SYRINGE 0 ML IV SCH (11:00)
--- NOTE | 2023-09-08 11:59 | Surgery Progress Note ---
<Statement entered by Dave Clay, - 09/09/23 14:55> This case was discussed with the surgical PA Date of Service September 08, 2023 Assessment & Plan (1) Diverticulitis of colon with perforation: Plan: Patient here w/ CT evidence of diverticulitis with concern for microperforation, no drainable abscess WBC 9. VSS and patient afebrile Reports some ongoing lower abdominal pain and recently received IV morphine Abdomen soft with discomfort to palpation in the mid pelvic and LLQ regions Would continue NPO for now with ice/sips for now, possible clears later if improvement in symptoms Continue IV abx while in house Admission and Anticipated Discharge Date Admission Date: September 07, 2023 Subjective Patient reports feeling okay because she did just receive some pain medication. She said it was a combination of her abdominal pain, fibromyalgia, and back pain. No nausea currently. Last vomited yesterday evening. Thinks she is passing some gas. No BM today thus far. Physical Exam Physical Exam: awake/alert, no distress Respiratory: normal respiratory effort Gastrointestinal (Abdomen): Inspection/Auscultation: abdomen not distended Percussion/Palpation: + abdomen tender (ttp in the LLQ) and abdomen soft; no guarding Results & Data Vital Signs (Past 12 Hours) Vital Signs Temp Pulse Pulse Resp BP Pulse Ox O2 Del Method 09/08/23 11:35 98.4 F 76 16 108/51 L 96 Room Air 09/08/23 07:47 98.5 F 70 16 108/57 L 93 Room Air 09/08/23 07:46 70 09/08/23 04:18 98.1 F 73 20 112/73 96 Room Air 09/08/23 03:29 75 PG Care Time/CCT Total # of Minutes Spent Total Time Spent with Patient: Total time spent is greater than 50% in coordination of care (as documented) at patient's floor/unit and/or counseling patient: Coding Level of Care Code 16503 SUB INP/OBS CARE 07/14MIN Diagnoses Diverticulitis of colon with perforation K57.20
--- NOTE | 2023-09-08 17:05 | Hospitalist Progress Note ---
Date of Service September 08, 2023 Assessment & Plan (1) Sigmoid diverticulitis: Plan: -Started to develop LLQ pain similar to previous episodes of sigmoid diverticulitis on 09/02. Had prior episode of diverticulitis in the past. -Outpatient CT of the abd/pelvis w/IV con AM of admission shows findings consistent with acute sigmoid diverticulitis with possible microperforation -leukocytosis resolved, no fever overnight -general surgery consulted, discussed with PA today pain improved by afternoon advance to clear liquid diet -continue pip-tazo, IV fluids -AM BMP, mag (2) GERD (gastroesophageal reflux disease): Plan: oral PPI (3) Hypothyroid: Plan: -Continue Levothyroxine (4) Anxiety: Plan: -Continue sertraline Plan Fibromyalgia, chronic low back pain, headache - likely caffiene withdrawal -continue APAP, analgesics, symptomatic care Continue levothyroxine for hypothyroidism Admission and Anticipated Discharge Date Admission Date: September 07, 2023 Subjective LLQ abdominal pain has improved, +flatus no BM Had nausea overnight and AM but now resolved Has had bifrontal headache since yesterday, usually drinks caffiene daily no hx migraine Physical Exam 2 Physical Exam: PHYSICAL EXAMINATION Last 24h vital signs reviewed, see documentation in flowsheet General: comfortable appearing, no distress HEENT: Normocephalic, atraumatic, pupils round and equal, sclerae anicteric, no conjunctival injection, moist mucus membranes Lungs: Normal respiratory effort. Clear to auscultation bilaterally. No RRW Heart: Regular rate and rhythm, no murmurs. No JVD Abdomen: Soft, mildly tender LLQ without rrg, nondistended. Bowel sounds present. Extremities: Warm, dry, well-perfused. No extremity edema. Neuro: Alert and oriented x 4, face symmetric, moves 4 extremities well Psych: Normal affect and behavior Results & Data Results & Data Vital Signs (Past 12 Hours) Vital Signs Temp Pulse Pulse Resp BP Pulse Ox Pulse Ox 09/08/23 16:03 36.7 C 80 16 127/74 96 09/08/23 15:00 74 09/08/23 12:24 95 09/08/23 11:35 36.9 C 76 16 108/51 L 96 09/08/23 07:47 36.9 C 70 16 108/57 L 93 09/08/23 07:46 70 O2 Del Method O2 Del Method 09/08/23 16:03 Room Air 09/08/23 15:00 09/08/23 12:24 Room Air 09/08/23 11:35 Room Air 09/08/23 07:47 Room Air 09/08/23 07:46 Laboratory Results 09/08/23 06:01 09/08/23 06:01 PG Care Time/CCT Total # of Minutes Spent Total Time Spent with Patient: Total time spent is greater than 50% in coordination of care (as documented) at patient's floor/unit and/or counseling patient: Coding Level of Care Code 77746 SUB INP/OBS CARE MIN Diagnoses Sigmoid diverticulitis K57.32 GERD (gastroesophageal reflux disease) K21.9 Hypothyroid E03.9 Anxiety F41.9
[2023-09-08] MEDS ORDERED: ALBUTEROL HFA 8 GM INHALER INH PRN (20:44)
[2023-09-08] MEDS: MONTELUKAST SODIUM 10 MG TABLET PO SCH (21:56)
[2023-09-08] MEDS: traZODone HCL 100 MG TAB PO SCH (21:56)
[2023-09-08] MEDS: ADVANCED PROBIOTIC 625 MG CAPSULE PO SCH (21:56)
[2023-09-08] MEDS: HYOSCYAMINE SULFATE 0.125 MG TAB PO SCH (21:59)
[2023-09-09 07:07] LABS: BUN Creatinine Ratio 8.7 (10-20); Calcium 8.7 mg/dl (8.6-10.3); Est GFR (African American) 105.9 ml/min; Est GFR (Non-African American) 91.4 ml/min; Potassium 3.7 mmol/L (3.5-5.1)
[2023-09-09] MEDS: valACYclovir HCL 500 MG TABLET PO SCH (08:32)
[2023-09-09] MEDS ORDERED: [UNRECOGNIZED DRUG - OTHER] PO SCH (09:00)
[2023-09-09] MEDS: LEVOTHYROXINE SODIUM 112 MCG TABLET PO SCH (09:55)
[2023-09-09] MEDS: SERTRALINE HCL 100 MG TABLET PO SCH (09:55)
--- NOTE | 2023-09-09 14:31 | Surgery Progress Note ---
<Statement entered by Dave Clay, DO - 09/12/23 12:27> This patient was seen and examined with the surgical FISH PROCESSING SUPERVISOR Date of Service September 09, 2023 Assessment & Plan (1) Diverticulitis of colon with perforation: Plan: Tolerating clears, would keep on clears for now VSS abd pain mostly before she passing flatus TTP LLQ controlled with medication pt seen with Dr. Clay Admission and Anticipated Discharge Date Admission Date: September 07, 2023 Subjective Pt reports she is doing ok Still having LLQ pain cramping mostly before she passing flatus had sm BM yesterday Tolerating clear s Review of Systems Constitutional: no fever and no chills Respiratory: no dyspnea Cardiovascular: no chest pain Gastrointestinal: + abdominal pain and + nausea (mild ); n o vomiting Musculoskeletal: no muscle weakness Physical Exam Physical Exam: alert oriented Constitutional: cooperative and comfortable; no acute distress ENMT: external ear and nose normal, oropharynx normal Respiratory: normal respiratory effort and able to speak in complete sentences; no respiratory distress Cardiovascular: Rate/Rhythm: regular rate Gastrointestinal (Abdomen): Inspection/Auscultation: abdomen not distended Percussion/Palpation: + abdomen tender (LLQ) and abdomen soft Results & Data Vital Signs (Past 12 Hours) Vital Signs Temp Pulse Pulse Resp BP BP Pulse Ox 09/09/23 12:30 98.6 F 75 16 127/75 95 09/09/23 07:54 98.2 F 74 16 136/77 95 09/09/23 07:24 73 09/09/23 04:01 97.7 F 76 20 122/74 94 09/09/23 02:55 76 O2 Del Method O2 Flow Rate 09/09/23 12:30 Room Air 09/09/23 07:54 Nasal Cannula 3 09/09/23 07:24 09/09/23 04:01 Room Air 09/09/23 02:55 PG Care Time/CCT Total # of Minutes Spent Total Time Spent with Patient: Total time spent is greater than 50% in coordination of care (as documented) at patient's floor/unit and/or counseling patient: Coding Level of Care Code 78694 SUB INP/OBS CARE 07/14MIN Diagnoses Diverticulitis of colon with perforation K57.20
--- NOTE | 2023-09-09 15:08 | Hospitalist Progress Note ---
Date of Service September 09, 2023 Assessment & Plan (1) Sigmoid diverticulitis: Plan: -Started to develop LLQ pain similar to previous episodes of sigmoid diverticulitis on 09/02. Had prior episode of diverticulitis in the past. -Outpatient CT of the abd/pelvis w/IV con AM of admission shows findings consistent with acute sigmoid diverticulitis with possible microperforation -leukocytosis resolved, one temp 38.2 overnight, remains tender on exam -general surgery consulted, reviewed recs in note - continue CLD today -continue pip-tazo, IV fluids -BMP, mag normal -AM BMP, CBC (2) GERD (gastroesophageal reflux disease): Plan: oral PPI (3) Hypothyroid: Plan: -Continue Levothyroxine (4) Anxiety: Plan: -Continue sertraline Plan Fibromyalgia, chronic low back pain, headache - likely caffiene withdrawal -continue APAP, analgesics, symptomatic care Continue levothyroxine for hypothyroidism Admission and Anticipated Discharge Date Admission Date: September 07, 2023 Subjective Tm 38.2 overnight. Tolerating CLD. Had BM Increased crampy LLQ pain this AM improved after gas, BMs, better this afternoon Physical Exam Physical Exam: PHYSICAL EXAMINATION Last 24h vital signs reviewed, see documentation in flowsheet General: comfortable appearing, no distress HEENT: Normocephalic, atraumatic, pupils round and equal, sclerae anicteric, no conjunctival injection, moist mucus membranes Lungs: Normal respiratory effort. Clear to auscultation bilaterally. No RRW Heart: Regular rate and rhythm, no murmurs. No JVD Abdomen: Soft, TTP suprapubic area without rrg, nondistended. Bowel sounds pres ent. Extremities: Warm, dry, well-perfused. No extremity edema. Neuro: Alert and oriented x 4, face symmetric, moves 4 extremities well Psych: Normal affect and behavior Results & Data Results & Data Vital Signs (Past 12 Hours) Vital Signs Temp Pulse Pulse Resp BP BP Pulse Ox 09/09/23 12:30 37 C 75 16 127/75 95 09/09/23 12:00 09/09/23 07:54 36.8 C 74 16 136/77 95 09/09/23 07:24 73 09/09/23 04:01 36.5 C 76 20 122/74 94 Pulse Ox O2 Del Method O2 Del Method O2 Flow Rate 09/09/23 12:30 Room Air 09/09/23 12:00 95 Room Air 09/09/23 07:54 Nasal Cannula 3 09/09/23 07:24 09/09/23 04:01 Room Air PG Care Time/CCT Total # of Minutes Spent Total Time Spent with Patient: Total time spent is greater than 50% in coordination of care (as documented) at patient's floor/unit and/or counseling patient: Coding Level of Care Code 72834 SUB INP/OBS CARE 235MIN Diagnoses Sigmoid diverticulitis K57.32 GERD (gastroesophageal reflux disease) K21.9 Hypothyroid E03.9 Anxiety F41.9
[2023-09-10 07:09] LABS: Hematocrit (blood only) 34.2 % (37.0-47.0); Hemoglobin 11.3 g/dl (12.0-16.0); Mean Corpuscular Hemoglobin 27.6 pg (25.0-34.0); Mean Corpuscular Volume 83.6 fL (80.0-100.0); Mean Platelet Volume 10.2 fL (9.4-12.4); Platelet Count 292 K/uL (130-400); RDW Coefficient of Variation 12.9 % (11.5-14.5); RDW Standard Deviation 39.2 fL (36.4-46.3); Red Blood Count 4.09 M/uL (4.20-5.40); White Blood Count 9.01 K/ul (4.8-10.8)
[2023-09-10 07:21] LABS: BUN Creatinine Ratio 7.6 (10-20); Calcium 8.7 mg/dl (8.6-10.3); Creatinine Clr Calc Pharmacy 100.1 ml/min; Est GFR (African American) 107.4 ml/min; Est GFR (Non-African American) 92.7 ml/min; Potassium 3.6 mmol/L (3.5-5.1)
[2023-09-10] MEDS: oxyCODONE HCL IR 5 MG TAB (IMMEDIATE RELEASE) PO PRN (09:24)
--- NOTE | 2023-09-10 13:41 | Surgery Progress Note ---
Date of Service September 10, 2023 Assessment & Plan (1) Diverticulitis of colon with perforation: Plan: Patient here w/ CT evidence of diverticulitis with concern for microperforation, no drainable abscess WBC 9. VSS and patient afebrile continues with lower abdominal pain Abdomen soft with discomfort to palpation in the mid pelvic and LLQ regions continue clears for now if no improvement by Tuesday, may require repeat CT scan to determine whether she has a developing abscess Admission and Anticipated Discharge Date Admission Date: September 07, 2023 Subjective Somewhat crampy pain overnight. Passing flatus and having bowel movements. Pain better with pain medicine. No fevers. Physical Exam Physical Exam: NAD, A&O x 3 AFVSS Abdomen: Soft, mild TTP lower abdomen Minimal distention, no guarding or rebound Results & Data Vital Signs (Past 12 Hours) Vital Signs Temp Pulse Pulse Resp BP BP Pulse Ox 09/10/23 11:17 37.9 C H 77 18 111/68 94 09/10/23 07:53 37 C 77 18 119/74 95 09/10/23 07:00 61 09/10/23 03:02 36.7 C 90 18 114/69 94 O2 Del Method 09/10/23 11:17 Room Air 09/10/23 07:53 Room Air 09/10/23 07:00 09/10/23 03:02 Room Air Laboratory Results 09/10/23 Range/Units 06:01 WBC 9.01 (4.8-10.8) K/ul RBC 4.09 L (4.20-5.40) M/uL Hgb 11.3 L (12.0-16.0) g/dl Hct 34.2 L (37.0-47.0) % MCV 83.6 (80.0-100.0) fL MCH 27.6 (25.0-34.0) pg MCHC 33.0 (32.0-36.0) g/dL RDW Std Deviation 39.2 (36.4-46.3) fL RDW Coeff of Geovani 12.9 (11.5-14.5) % Plt Count 292 (130-400) K/uL MPV 10.2 (9.4-12.4) fL Sodium 140 (136-145) mmol/L Potassium 3.6 (3.5-5.1) mmol/L Chloride 107 (98-107) mmol/L Carbon Dioxide 26 (21-32) mmol/L Anion Gap 7 (3-11) BUN 5 L (6-23) mg/dl Creatinine 0.66 (0.6-1.2) mg/dl Est Cr Clr Drug Dosing 100.1 ml/min Est GFR ( Amer) 107.4 ml/min Est GFR (Non-Af Amer) 92.7 ml/min BUN/Creatinine Ratio 7.6 L (10-20) Glucose 84 (70-99(Fasting)) mg/dl Calcium 8.7 (8.6-10.3) mg/dl
--- NOTE | 2023-09-10 13:44 | Hospitalist Progress Note ---
Date of Service September 10, 2023 Assessment & Plan (1) Sigmoid diverticulitis: Plan: -Started to develop LLQ pain similar to previous episodes of sigmoid diverticulitis on 09/02. Had prior episode of diverticulitis in the past. -Outpatient CT of the abd/pelvis w/IV con AM of admission shows findings consistent with acute sigmoid diverticulitis with possible microperforation -leukocytosis resolved - nl WBC today, having low grade temps, remains tender on exam without peritoneal signs, continues to have pain -stopped IV morphine (none 48h) and replaced with oxycodone 5 mg PRN which was effective. Continue hyoscyamine -general surgery following, continue CLD today. repeat imaging if not continuing to improve. -continue pip-tazo, IV fluids -BMP normal -AM BMP, mag, CBC (2) GERD (gastroesophageal reflux disease): Plan: oral PPI (3) Hypothyroid: Plan: -Continue Levothyroxine (4) Anxiety: Plan: -Continue sertraline Plan Fibromyalgia, chronic low back pain, headache - likely caffiene withdrawal -continue APAP, analgesics, symptomatic care Continue levothyroxine for hypothyroidism Admission and Anticipated Discharge Date Admission Date: September 07, 2023 Subjective Had loose stool overnight, nonbloody. This AM episode of severe abdominal pain resolved after oxycodone 5 mg x 1 LLQ/suprapubic area remains tender Having low grade temps Tm 37.9 today Physical Exam 2 Physical Exam: PHYSICAL EXAMINATION Last 24h vital signs reviewed, see documentation in flowsheet General: comfortable appearing, no distress HEENT: Normocephalic, atraumatic, pupils round and equal, sclerae anicteric, no conjunctival injection, moist mucus membranes Lungs: Normal respiratory effort. Clear to auscultation bilaterally. No RRW Heart: Regular rate and rhythm, no murmurs. No JVD Abdomen: Soft, TTP suprapubic area no rebound/guarding, nondistended. Bowel sounds present. - unchanged 09/09 Extremities: Warm, dry, well-perfused. No extremity edema. Neuro: Alert and oriented x 4, face symmetric, moves 4 extremities well Psych: Normal affect and behavior Results & Data Results & Data Vital Signs (Past 12 Hours) Vital Signs Temp Pulse Pulse Resp BP BP Pulse Ox 09/10/23 11:17 37.9 C H 77 18 111/68 94 09/10/23 07:53 37 C 77 18 119/74 95 09/10/23 07:00 61 09/10/23 03:02 36.7 C 90 18 114/69 94 O2 Del Method 09/10/23 11:17 Room Air 09/10/23 07:53 Room Air 09/10/23 07:00 09/10/23 03:02 Room Air Laboratory Results 09/10/23 06:01 09/10/23 06:01 PG Care Time/CCT Total # of Minutes Spent Total Time Spent with Patient: Total time spent is greater than 50% in coordination of care (as documented) at patient's floor/unit and/or counseling patient: Coding Level of Care Code 90067 SUB INP/OBS CARE 235MIN Diagnoses Sigmoid diverticulitis K57.32 GERD (gastroesophageal reflux disease) K21.9 Hypothyroid E03.9 Anxiety F41.9
[2023-09-10] MEDS: ACETAMINOPHEN 500 MG TAB PO PRN (16:08)
[2023-09-11] MEDS: MECLIZINE HCL 25 MG TAB PO PRN (05:49)
[2023-09-11] MEDS: LEVOTHYROXINE SODIUM 112 MCG TABLET PO SCH (05:49)
--- NOTE | 2023-09-11 07:43 | Hospitalist Progress Note ---
Date of Service September 11, 2023 Assessment & Plan (1) Sigmoid diverticulitis: Plan: -Started to develop LLQ pain similar to previous episodes of sigmoid diverticulitis on 09/02. Had prior episode of diverticulitis in the past. -Outpatient CT of the abd/pelvis w/IV con AM of admission shows findings consistent with acute sigmoid diverticulitis with possible microperforation -fever 09/09, remains on CLD -oxycodone 5 mg PRN which is effective. Continue hyoscyamine -general surgery following, continue CLD today. repeat imaging if not continuing to improve. -continue pip-tazo, IV fluids -labs not done this AM - ordered for now -AM BMP, mag, CBC ordered (2) GERD (gastroesophageal reflux disease): Plan: oral PPI (3) Hypothyroid: Plan: -Continue Levothyroxine (4) Anxiety: Plan: -Continue sertraline Plan Fibromyalgia, chronic low back pain, headache - likely caffiene withdrawal -continue APAP, analgesics, symptomatic care Continue levothyroxine for hypothyroidism Admission and Anticipated Discharge Date Admission Date: September 07, 2023 Subjective Fever yesterday Only on dose 5 mg oxycodone last 24h, reviewed MAR Remains on CLD Physical Exam Physical Exam: PHYSICAL EXAMINATION Last 24h vital signs reviewed, see documentation in flowsheet General: comfortable appearing, no distress HEENT: Normocephalic, atraumatic, pupils round and equal, sclerae anicteric, no conjunctival injection, moist mucus membranes Lungs: Normal respiratory effort. Clear to auscultation bilaterally. No RRW Heart: Regular rate and rhythm, no murmurs. No JVD Abdomen: Soft, TTP suprapubic area no rebound/guarding, nondistended. Bowel sounds present. - unchanged 09/10 except frequency of BT increased Extremities: Warm, dry, well-perfused. No extremity edema. Neuro: Alert and oriented x 4, face symmetric, moves 4 extremities well Psych: Normal affect and behavior Results & Data Results & Data Vital Signs (Past 12 Hours) Vital Signs Temp Pulse Pulse Resp BP Pulse Ox O2 Del Method 09/11/23 07:00 80 09/11/23 03:56 36.9 C 74 18 106/60 92 Room Air 09/10/23 23:27 37.3 C 89 16 125/77 95 Room Air 09/10/23 21:56 70 PG Care Time/CCT Total # of Minutes Spent Total Time Spent with Patient: Total time spent is greater than 50% in coordination of care (as documented) at patient's floor/unit and/or counseling patient: Coding Level of Care Code 19257 SUB INP/OBS CARE 235MIN Diagnoses Sigmoid diverticulitis K57.32 GERD (gastroesophageal reflux disease) K21.9 Hypothyroid E03.9 Anxiety F41.9
--- NOTE | 2023-09-11 10:22 | Surgery Progress Note ---
Date of Service September 11, 2023 Assessment & Plan (1) Diverticulitis of colon with perforation: Plan: Patient here w/ CT evidence of diverticulitis with concern for microperforation, no drainable abscess WBC 9. VSS and patient afebrile continues with lower abdominal pain Abdomen soft with discomfort to palpation in the mid pelvic and LLQ regions continue clears for now if no improvement by Tuesday, may require repeat CT scan to determine whether she has a developing abscess Admission and Anticipated Discharge Date Admission Date: September 07, 2023 Subjective Continues to have lower abdominal cramping and pain. No nausea or vomiting. Passing flatus. Physical Exam Physical Exam: NAD, A&O x 3 AFVSS; Low-grade fever yesterday Abdomen: Soft, mild TTP lower abdomen Minimal distention, no guarding or rebound Results & Data Vital Signs (Past 12 Hours) Vital Signs Temp Pulse Pulse Resp BP Pulse Ox O2 Del Method 09/11/23 08:28 37.2 C 73 18 108/58 L 92 Room Air 09/11/23 07:00 80 09/11/23 03:56 36.9 C 74 18 106/60 92 Room Air 09/10/23 23:27 37.3 C 89 16 125/77 95 Room Air
[2023-09-11 15:15] LABS: Hematocrit (blood only) 31.6 % (37.0-47.0); Mean Corpuscular Hemoglobin 27.1 pg (25.0-34.0); Mean Corpuscular Hgb Conc 31.6 g/dL (32.0-36.0); Mean Corpuscular Volume 85.6 fL (80.0-100.0); Mean Platelet Volume 9.2 fL (9.4-12.4); Platelet Count 241 K/uL (130-400); RDW Coefficient of Variation 12.8 % (11.5-14.5); Red Blood Count 3.69 M/uL (4.20-5.40); White Blood Count 8.68 K/ul (4.8-10.8)
[2023-09-11 15:25] LABS: BUN Creatinine Ratio 8.2 (10-20); Calcium 8.1 mg/dl (8.6-10.3); Creatinine Clr Calc Pharmacy 109.1 ml/min; Est GFR (African American) 110.3 ml/min; Est GFR (Non-African American) 95.1 ml/min; Magnesium 1.8 mg/dl (1.7-2.4); Potassium 3.8 mmol/L (3.5-5.1)
[2023-09-11] MEDS: POTASSIUM CHLORIDE CRTAB 20 MEQ TABCR PO STA (17:32)
[2023-09-11] MEDS: MAGNESIUM SULFATE / D5W 1 GM/100 ML BAG IV ONE (17:33)
[2023-09-12 07:31] LABS: Hematocrit (blood only) 33.7 % (37.0-47.0); Hemoglobin 10.6 g/dl (12.0-16.0); Mean Corpuscular Hemoglobin 27.2 pg (25.0-34.0); Mean Corpuscular Hgb Conc 31.5 g/dL (32.0-36.0); Mean Corpuscular Volume 86.4 fL (80.0-100.0); Mean Platelet Volume 9.5 fL (9.4-12.4); Platelet Count 264 K/uL (130-400); RDW Coefficient of Variation 12.9 % (11.5-14.5); RDW Standard Deviation 40.5 fL (36.4-46.3); White Blood Count 7.62 K/ul (4.8-10.8)
[2023-09-12 07:45] LABS: Calcium 8.5 mg/dl (8.6-10.3); Magnesium 2.2 mg/dl (1.7-2.4); Potassium 3.7 mmol/L (3.5-5.1)
[2023-09-12 07:50] LABS: BUN Creatinine Ratio 6.3 (10-20); Creatinine Clr Calc Pharmacy 104.6 ml/min; Est GFR (African American) 108.5 ml/min; Est GFR (Non-African American) 93.6 ml/min
--- NOTE | 2023-09-12 08:27 | Surgery Progress Note ---
Date of Service September 12, 2023 Assessment & Plan (1) Diverticulitis of colon with perforation: Plan: Will repeat imaging this morning with contrast to evaluate her diverticulitis/potential abscess formation. Will make recommendations accordingly. Admission and Anticipated Discharge Date Admission Date: September 07, 2023 Subjective Patient seen. Events of the weekend noted. She felt yesterday that she had "turned the corner" but again this morning is having sharp pain on the left lower quadrant. Physical Exam Constitutional: WD/WN, vitals as above no acute distress and not ill appearing Eyes: PERRL, conjunctivae normal, anicteric sclerae EOM intact bilaterally ENMT: external ear and nose normal, oropharynx normal Ears: no hearing impairment Neck: trachea midline, no thyromegaly Respiratory: normal respiratory effort; no respiratory distress and does not use accessory muscles Cardiovascular: Rate/Rhythm: regular rate and regular rhythm Gastrointestinal (Abdomen): Soft. Positive left lower quadrant tenderness. No peritonitis. Skin: no rashes, warm and dry Psychiatric: Orientation: alert, oriented x 3 and cooperative Results & Data Vital Signs (Past 12 Hours) Vital Signs Temp Pulse Pulse Resp BP BP Pulse Ox 09/12/23 07:09 36.6 C 76 18 117/74 96 09/12/23 03:09 36.5 C 74 16 115/69 98 09/11/23 23:11 36.6 C 73 18 125/71 96 09/11/23 22:11 81 O2 Del Method 09/12/23 07:09 Room Air 09/12/23 03:09 Room Air 09/11/23 23:11 Room Air 09/11/23 22:11 PG Care Time/CCT Total # of Minutes Spent Total Time Spent with Patient: Total time spent is greater than 50% in coordination of care (as documented) at patient's floor/unit and/or counseling patient: Coding Level of Care Code 83670 SUB INP/OBS CARE 07/14MIN Diagnoses Diverticulitis of colon with perforation K57.20
[2023-09-12] MEDS: OPTIRAY 320 100ml IV ONE (09:25)
--- NOTE | 2023-09-12 09:44 | CT Scan Report ---
CT abd pelvis IV con only CLINICAL HISTORY: diverticulitis TECHNIQUE: Helical axial images of the abdomen and pelvis were obtained and displayed. Automated dose lowering techniques and/or adjustment according to patient size were utilized for this exam. This e xam was performed with intravenous contrast. CT DOSE: 1232.51 mGy.cm COMPARISON: Comparison is made to CT abdomen pelvis 09/07/2023 FINDINGS: Lower chest: Bibasilar atelectasis versus scarring is seen. Liver: Unremarkable. No focal lesions are seen. Gallbladder and biliary tree: Distended gallbladder is again seen. No intra- or extrahepatic biliary ductal dilation. Pancreas: Unremarkable, no focal lesions. Spleen: Unremarkable. Adrenals: Unremarkable. Kidneys and ureters: Unremarkable. Bladder: Diffuse homogeneous wall thickening is seen. Reproductive organs: Unremarkable. Bowel: Sigmoid colon thickening and vascular involvement is increased from prior exam. There is a flu id collection measuring 30 mm adjacent to the bowel containing locules of air. Lymph nodes Retroperitoneal: Subcentimeter lymph nodes are noted. Pelvic: Subcentimeter lymph nodes are noted. Mesenteric: Regional lymph nodes are enlarged in the left lower quadrant. Peritoneum: No pneumoperitoneum is seen. Worsening fat stranding about the sigmoid colon. Vessels: Unremarkable. Abdominal wall: Unremarkable. Bones: Degenerative changes in the visualized spine. Bilateral pars defects are seen at L4-L5 with gr katherine 1 anterolisthesis. IMPRESSION: Interval worsening of diverticulitis. Interval development of a diverticular abscess with a tiny focu s of air compatible with a contained perforation, however no free pneumoperitoneum is seen. Reactive lymphadenopathy is seen. ACT 112: Negative or not required by law. Electronically signed by: Arun Benitez M.D. 09/12/2023 9:43 AM
[2023-09-12 11:44] LABS: INR 1.1 (0.9-1.1); Partial Thromboplastin Ratio 1.1; Partial Thromboplastin Time 31 Seconds (21-31); Prothrombin Time 11.9 Seconds (9.0-12.0)
--- NOTE | 2023-09-12 15:32 | Hospitalist Progress Note ---
Date of Service September 12, 2023 Assessment & Plan (1) Sigmoid diverticulitis: Plan: -Started to develop LLQ pain similar to previous episodes of sigmoid diverticulitis on 09/02. Had prior episode of diverticulitis in the past. -Outpatient CT of the abd/pelvis w/IV con AM of admission shows findings consistent with acute sigmoid diverticulitis with possible microperforation -treated with IV pip-tazo, bowel rest / clear liquid diet, pain failed to improve over weekend, one fever and intermittent low grade temps last few days -oxycodone 5 mg PRN which is effective. Continue hyoscyamine -being followed by general surgery -CBC notable for persistent anemia, no leukocytosis, Cr and electrolytes wnl -on 09/[address] abdomen/pelvis with 3 cm diverticular abscess - discussed with Dr. Aponte, attempt at drainage by IR today (2) GERD (gastroesophageal reflux disease): Plan: oral PPI (3) Hypothyroid: Plan: -Continue Levothyroxine (4) Anxiety: Plan: -Continue sertraline Plan Fibromyalgia, chronic low back pain, headache - likely caffiene withdrawal -continue APAP, analgesics, symptomatic care Continue levothyroxine for hypothyroidism Admission and Anticipated Discharge Date Admission Date: September 07, 2023 Subjective LLQ/left pelvic pain unchanged, still having significant pain, no fever overnight Physical Exam 2 Physical Exam: PHYSICAL EXAMINATION Last 24h vital signs reviewed, see documentation in flowsheet General: comfortable appearing, no distress HEENT: Normocephalic, atraumatic, pupils round and equal, sclerae anicteric, no conjunctival injection, moist mucus membranes Lungs: Normal respiratory effort. Heart: Abdomen: Soft, TTP left suprapubic area no rebound/guarding, nondistended. Bowel sounds present. - unchanged 09/11, remains tender same place Extremities: Warm, dry, well-perfused. No extremity edema. Neuro: Alert and oriented x 4, face symmetric, moves 4 extremities well Psych: Normal affect and behavior Results & Data Results & Data Vital Signs (Past 12 Hours) Vital Signs Temp Pulse Pulse Resp BP BP Pulse Ox 09/12/23 11:31 36.9 C 64 16 119/82 95 09/12/23 11:15 64 09/12/23 07:09 36.6 C 76 18 117/74 96 O2 Del Method 09/12/23 11:31 Room Air 09/12/23 11:15 09/12/23 07:09 Room Air Laboratory Results 09/12/23 07:04 09/12/23 07:04 PG Care Time/CCT Total # of Minutes Spent Total Time Spent with Patient: Total time spent is greater than 50% in coordination of care (as documented) at patient's floor/unit and/or counseling patient: Coding Level of Care Code 16184 SUB INP/OBS CARE 2/35MIN Diagnoses Sigmoid diverticulitis K57.32 GERD (gastroesophageal reflux disease) K21.9 Hypothyroid E03.9 Anxiety F41.9
--- NOTE | 2023-09-12 16:00 | CT Scan Report ---
CT limited or localized study CLINICAL HISTORY: IR abscess drain TECHNIQUE: Patient was prepared for percutaneous abscess drainage and a preprocedural scan of the pel vis was performed. CT DOSE: 372.16 mGy.cm COMPARISON: Comparison is made to CT abdomen pelvis 09/12/[address] abdomen pelvis 09/07/2023 FINDINGS/IMPRESSION: It was determined that no safe window for abscess drainage exists because of the partially distended bladder and left epigastric artery. Findings were discussed with the patient's s urgeon. ACT 112: Negative or not required by law. Electronically signed by: Arun Benitez M.D. 09/12/2023 3:59 PM
[2023-09-12] MEDS: fentaNYL citrate PF 100 MCG/2 ML VIAL ONE (17:07)
--- NOTE | 2023-09-13 10:02 | Surgery Progress Note ---
Date of Service September 13, 2023 Assessment & Plan (1) Diverticulitis of colon with perforation: Plan: Pt here with diverticulitis with perforation Repeat CT scan yesterday showed slightly worsened diverticulitis with development of 3cm abscess IR unable to drain given no safe window WBC has been normal, no true fevers over last 24hours Abdomen soft, ttp in supra pubic and LLQ regions + gas, last BM few days ago Last required oxycodone around 3:30am Would keep sips/chips for now, on IV zosyn. may consider clears a little later pending how she's feeling Will monitor progress closely and determine if any surgical intervention required this wk if lack of meaningful improvement as above. pt seen. she is feeling somewhat better than yesterday. we discussed the option of continuing with just antibiotics vs a laparoscopy with abcess drainage/washout. we discussed the pros/cons/risks of each options. questions answered. I would not be able to do the surgery until anyway so we will re-discuss those two options tomorrow. will let her have clears today. there is no urgent/emergent indication for surgery today. Admission and Anticipated Discharge Date Admission Date: September 07, 2023 Subjective Patient reports ongoing LLQ/suprapubic pain. A little frustrated with lack of progress overall. She reports it is mostly it is improved since her admission, but remains present. Some mild nausea yesterday, none today. + flatus. No BM in last couple of days. Feels thirsty asking to resume eating again. Physical Exam Physical Exam: awake/alert, no distress Respiratory: normal respiratory effort Gastrointestinal (Abdomen): Percussion/Palpation: + abdomen tender (ttp suprapubic and LLQ) and abdomen soft Results & Data Vital Signs (Past 12 Hours) Vital Signs Temp Pulse Pulse Resp BP Pulse Ox O2 Del Method 09/13/23 07:42 98.6 F 68 17 107/66 93 Room Air 09/13/23 07:36 63 09/13/23 04:20 98.2 F 69 20 114/73 95 Room Air 09/12/23 23:34 99.5 F 75 20 112/68 92 Room Air 09/12/23 23:28 64 PG Care Time/CCT Total # of Minutes Spent Total Time Spent with Patient: Total time spent is greater than 50% in coordination of care (as documented) at patient's floor/unit and/or counseling patient: Coding Level of Care Code 57268 SUB INP/OBS CARE MIN Diagnoses Diverticulitis of colon with perforation K57.20
--- NOTE | 2023-09-13 11:40 | Hospitalist Progress Note ---
Date of Service September 13, 2023 Assessment & Plan (1) Sigmoid diverticulitis: Plan: -Started to develop LLQ pain similar to previous episodes of sigmoid diverticulitis on 09/02. Had prior episode of diverticulitis in the past. -Outpatient CT of the abd/pelvis w/IV con AM of admission shows findings consistent with acute sigmoid diverticulitis with possible microperforation -Initially treated with IV pip-tazo, bowel rest / clear liquid diet, pain failed to improve over weekend, one fever and intermittent low grade temps last few days -oxycodone 5 mg PRN which is effective. Continue hyoscyamine -Repeat CT done on 325 showed a 3 cm diverticular abscess, however IR attempted to drain but there was no safe window for drainage -Patient continues to have pain-, but denies fevers or chills -Tolerating ice chips, will like to advance to clear liquids but will defer to general surgery -Continue IV Zosyn for now (2) GERD (gastroesophageal reflux disease): Plan: oral PPI (3) Hypothyroid: Plan: -Continue Levothyroxine (4) Anxiety: Plan: -Continue sertraline Plan Fibromyalgia, chronic low back pain, headache - likely caffiene withdrawal -continue APAP, analgesics, symptomatic care Continue levothyroxine for hypothyroidism Continue hospitalization, hopefully discharge when patient is able to tolerate diet or pending final recommendation from general surgery. Patient may need OR Admission and Anticipated Discharge Date Admission Date: September 07, 2023 Subjective Patient seen and examined, tolerating ice chips, want to consider clear liquid diet, however still complaining of left lower quadrant pain. Last bowel movement was 3 days ago Review of Systems Review of Systems: All systems reviewed are negative, apart from the ones contained in the history. Physical Exam Physical Exam: The patient is awake, alert and oriented 3, well developed and well nourished, normocephalic and atraumatic, lying in bed and in no acute distress. HEENT--PERRL, EOMI, mucous membranes and oropharynx mildly dry Neck--supple. No JVD. No bruits. Thyroid normal, trachea midline, no adenopathy. Heart--normal S1 and S2. No murmurs, rubs or gallops. Lungs--clear bilaterally, no respiratory distress, no accessory muscle use. Abdomen--normal bowel sounds and soft. Left lower quadrant tenderness Extremities--no cyanosis or clubbing. No edema. Dermatologic--normal skin turgor, normal color, no abnormal lymph nodes, no rash. Neurologic--cranial nerves II through XII grossly intact. Rheumatologic--normal range of motion. Psychiatric--normal affect. Results & Data Results & Data Vital Signs (Past 12 Hours) Vital Signs Temp Pulse Pulse Resp BP Pulse Ox O2 Del Method 09/13/23 11:07 98.6 F 63 16 111/62 92 Room Air 09/13/23 07:42 98.6 F 68 17 107/66 93 Room Air 09/13/23 07:36 63 09/13/23 04:20 98.2 F 69 20 114/73 95 Room Air PG Care Time/CCT Total # of Minutes Spent Total Time Spent with Patient: Total time spent is greater than 50% in coordination of care (as documented) at patient's floor/unit and/or counseling patient: Coding Level of Care Code 60307 SUB INP/OBS CARE 235MIN Diagnoses Sigmoid diverticulitis K57.32 GERD (gastroesophageal reflux disease) K21.9 Hypothyroid E03.9 Anxiety F41.9 Time Spent (min) 35
--- NOTE | 2023-09-14 08:00 | Surgery Progress Note ---
Date of Service September 14, 2023 Assessment & Plan (1) Abscess of sigmoid colon due to diverticulitis: Plan: doing ok. plan will be to try full liquids today...npo after midnight...if symptoms worsen, has a fever, or wbc increases would have a low threshold for l aparoscopy with drainage of abcess tomorrow...if she does well will consider d/c with oral antibiotics with repeat of ct scan in short interval in near future. Admission and Anticipated Discharge Date Admission Date: September 07, 2023 Subjective pt seen. feeling ok. clears did not increase her pain. she did have several loose bm's which improved her symptoms as well. afebrile. wbc pending. Physical Exam Constitutional: WD/WN, vitals as above no acute distress and not ill appearing Eyes: PERRL, conjunctivae normal, anicteric sclerae EOM intact bilaterally ENMT: external ear and nose normal, oropharynx normal Ears: no hearing impairment Neck: trachea midline, no thyromegaly Respiratory: normal respiratory effort; no respiratory distress and does not use accessory muscles Cardiovascular: Rate/Rhythm: regular rate and regular rhythm Gastrointestinal (Abdomen): soft. mild LLQ ttp. no peritonitis. similar to slightly improved since yesterday. Skin: no rashes, warm and dry Psychiatric: Orientation: alert, oriented x 3 and cooperative Results & Data Vital Signs (Past 12 Hours) Vital Signs Temp Pulse Pulse Resp BP Pulse Ox O2 Del Method 09/14/23 07:50 36.6 C 61 18 129/75 96 Room Air 09/14/23 07:05 57 L 09/14/23 03:57 36.7 C 74 20 113/73 96 Room Air 09/14/23 01:08 56 L 09/13/23 23:43 36.4 C L 56 L 20 111/59 L 94 Room Air PG Care Time/CCT Total # of Minutes Spent Total Time Spent with Patient: Total time spent is greater than 50% in coordination of care (as documented) at patient's floor/unit and/or counseling patient: Coding Level of Care Code 94325 SUB INP/OBS CARE 235MIN Diagnoses Abscess of sigmoid colon due to diverticulitis K57.20
[2023-09-14 08:02] LABS: Hematocrit (blood only) 32.4 % (37.0-47.0); Hemoglobin 10.5 g/dl (12.0-16.0); Mean Corpuscular Hemoglobin 27.3 pg (25.0-34.0); Mean Corpuscular Hgb Conc 32.4 g/dL (32.0-36.0); Mean Corpuscular Volume 84.4 fL (80.0-100.0); Mean Platelet Volume 9.4 fL (9.4-12.4); Platelet Count 309 K/uL (130-400); RDW Coefficient of Variation 12.6 % (11.5-14.5); RDW Standard Deviation 38.5 fL (36.4-46.3); Red Blood Count 3.84 M/uL (4.20-5.40); White Blood Count 4.86 K/ul (4.8-10.8)
[2023-09-14 08:18] LABS: BUN Creatinine Ratio 6.3 (10-20); Calcium 8.6 mg/dl (8.6-10.3); Est GFR (African American) 109.1 ml/min; Est GFR (Non-African American) 94.1 ml/min; Potassium 3.6 mmol/L (3.5-5.1)
[2023-09-14 08:39] LABS: Basophils # (auto) 0.04 K/uL (0.00-0.20); Basophils % (auto) 0.8 %; Eosinophils # (auto) 0.22 K/uL (0.00-0.50); Eosinophils % (auto) 4.5 %; Immature Granulocytes # (auto) 0.02 K/uL (0.01-0.20); Immature Granulocytes % (auto) 0.4 %; Lymphocytes # (auto) 1.11 K/uL (1.20-3.40); Lymphocytes % (auto) 22.8 %; Monocytes # (auto) 0.56 K/uL (0.11-0.59); Monocytes % (auto) 11.5 %; Neutrophils # (auto) 2.91 K/uL (1.40-6.50)
--- NOTE | 2023-09-14 11:25 | Hospitalist Progress Note ---
Date of Service September 14, 2023 Assessment & Plan (1) Sigmoid diverticulitis: Plan: -Started to develop LLQ pain similar to previous episodes of sigmoid diverticulitis on 09/02. Had prior episode of diverticulitis in the past. -Outpatient CT of the abd/pelvis w/IV con AM of admission shows findings consistent with acute sigmoid diverticulitis with possible microperforation -Initially treated with IV pip-tazo, bowel rest / clear liquid diet, pain failed to improve over weekend, one fever and intermittent low grade temps last few days -oxycodone 5 mg PRN which is effective. Continue hyoscyamine -Repeat CT done on 325 showed a 3 cm diverticular abscess, however IR attempted to drain but there was no safe window for drainage -Patient is currently tolerating clear liquid diet, plan is to advance to full liquid diet -If no worsening of pain and if no elevated WBC, patient's will be made n.p.o. after midnight and plan is for exploratory laparotomy if worsening -Otherwise if patient continues to tolerate diet will be discharged on p.o. antibiotics and follow-up CT -Continue IV Zosyn for now (2) GERD (gastroesophageal reflux disease): Plan: oral PPI (3) Hypothyroid: Plan: -Continue Levothyroxine (4) Anxiety: Plan: -Continue sertraline Plan Fibromyalgia, chronic low back pain, headache - likely caffiene withdrawal -continue APAP, analgesics, symptomatic care Continue levothyroxine for hypothyroidism Continue hospitalization, hopefully discharge when patient is able to tolerate diet or pending final recommendation from general surgery. Patient may need OR Admission and Anticipated Discharge Date Admission Date: September 07, 2023 Subjective Patient seen and examined, tolerating clear liquid diet, plan is to advance to full liquid, no worsening of abdominal pain. Review of Systems Review of Systems: All systems reviewed are negative, apart from the ones contained in the history. Physical Exam Physical Exam: The patient is awake, alert and oriented 3, well developed and well nourished, normocephalic and atraumatic, lying in bed and in no acute distress. HEENT--PERRL, EOMI, mucous membranes and oropharynx mildly dry Neck--supple. No JVD. No bruits. Thyroid normal, trachea midline, no adenopathy. Heart--normal S1 and S2. No murmurs, rubs or gallops. Lungs--clear bilaterally, no respiratory distress, no accessory muscle use. Abdomen--normal bowel sounds and soft. Left lower quadrant tenderness Extremities--no cyanosis or clubbing. No edema. Dermatologic--normal skin turgor, normal color, no abnormal lymph nodes, no rash. Neurologic--cranial nerves II through XII grossly intact. Rheumatologic--normal range of motion. Psychiatric--normal affect. Results & Data Results & Data Vital Signs (Past 12 Hours) Vital Signs Temp Pulse Pulse Resp BP Pulse Ox O2 Del Method 09/14/23 07:50 97.9 F 61 18 129/75 96 Room Air 09/14/23 07:05 57 L 09/14/23 03:57 98.1 F 74 20 113/73 96 Room Air 09/14/23 01:08 56 L 09/13/23 23:43 97.5 F L 56 L 20 111/59 L 94 Room Air PG Care Time/CCT Total # of Minutes Spent Total Time Spent with Patient: Total time spent is greater than 50% in coordination of care (as documented) at patient's floor/unit and/or counseling patient: Coding Level of Care Code 84412 SUB INP/OBS CARE 2/35MIN Diagnoses Sigmoid diverticulitis K57.32 GERD (gastroesophageal reflux disease) K21.9 Hypothyroid E03.9 Anxiety F41.9 Time Spent (min) 35
[2023-09-15 07:04] LABS: Hematocrit (blood only) 33.4 % (37.0-47.0); Hemoglobin 10.6 g/dl (12.0-16.0); Mean Corpuscular Hemoglobin 26.9 pg (25.0-34.0); Mean Corpuscular Hgb Conc 31.7 g/dL (32.0-36.0); Mean Corpuscular Volume 84.8 fL (80.0-100.0); Mean Platelet Volume 9.4 fL (9.4-12.4); Platelet Count 372 K/uL (130-400); RDW Coefficient of Variation 12.6 % (11.5-14.5); RDW Standard Deviation 38.7 fL (36.4-46.3); Red Blood Count 3.94 M/uL (4.20-5.40); White Blood Count 5.24 K/ul (4.8-10.8)
[2023-09-15 08:10] LABS: Basophils # (auto) 0.07 K/uL (0.00-0.20); Basophils % (auto) 1.3 %; Eosinophils # (auto) 0.35 K/uL (0.00-0.50); Eosinophils % (auto) 6.7 %; Immature Granulocytes # (auto) 0.02 K/uL (0.01-0.20); Immature Granulocytes % (auto) 0.4 %; Lymphocytes # (auto) 1.73 K/uL (1.20-3.40); Monocytes # (auto) 0.58 K/uL (0.11-0.59); Monocytes % (auto) 11.1 %; Neutrophils # (auto) 2.49 K/uL (1.40-6.50); Neutrophils % (auto) 47.5 %
--- NOTE | 2023-09-15 08:18 | Surgery Progress Note ---
Date of Service September 15, 2023 Assessment & Plan (1) Abscess of sigmoid colon due to diverticulitis: Plan: pt would like to try and not have surgery. she reallizes we may still need to perform some sort of drainage procedure in the future. I do believe she is s table enough for d/c on low residue diet and oral antibiotics. I recommend several weeks. I would like to see her in the office in 7-10 days. will probably repeat CT scan in 3-4 weeks if she does well. will advane to low residue diet this AM. Admission and Anticipated Discharge Date Admission Date: September 07, 2023 Subjective pt seen. feeling better each day. cabrera full liquids and would like more. still some discomfort but definitely improving Physical Exam Physical Exam: alert. nad abd: soft. +LLQ tenderness. no peritonitis Results & Data Vital Signs (Past 12 Hours) Vital Signs Temp Pulse Pulse Resp BP Pulse Ox O2 Del Method 09/15/23 07:59 36.6 C 56 L 18 124/72 96 Room Air 09/15/23 07:42 54 L 09/15/23 07:10 Room Air 09/15/23 04:14 36.7 C 62 20 99/62 L 96 Room Air 09/14/23 23:53 36.5 C 58 L 20 111/75 97 Room Air 09/14/23 22:01 54 L PG Care Time/CCT Total # of Minutes Spent Total Time Spent with Patient: Total time spent is greater than 50% in coordination of care (as documented) at patient's floor/unit and/or counseling patient: Coding Level of Care Code 40331 SUB INP/OBS CARE 07/14MIN Diagnoses Abscess of sigmoid colon due to diverticulitis K57.20
--- NOTE | 2023-09-15 11:53 | Discharge Summary ---
Date of Service September 15, 2023 Admission HPI Per Admitting Provider Reyna is a 63 year old female with a PMH significant for sigmoid diverticulitis, hypothyroidism, and fibromyalgia who presented to the [facility] ED on 09/07/[address] of the abd/pelvis findings consistent with recurrent sigmoid diverticulitis. She was noted to be stable in the ED. Labs were significant for a WBC of 11 with neutrophil predominance of [address] of the abd/pelvis w/IV con was read as 1. Interval development of acute sigmoid diverticulitis within the mid sigmoid colon. 2. There is again noted a 2.3 cm hypodensity in the expected location of the left ovary which remains unchanged. This may represent an ovarian cyst. A small diverticular abscess is considered less likely but not entirely excluded. This is similar to the prior study. 3. In addition, there is a punctate focus of gas adjacent to the left sigmoid colon as described above which may represent a small diverticulum versus a small focus of microperforation. Of note, these areas are difficult to assess due to the quincy rounding inflammatory change. 4. Bladder wall thickening. This may be reactive to the acute diverticulitis. Recommend correlate with urinalysis to exclude a cystitis. 5. Additional findings as described above.. Prior to admission the patient was ordered 1L NSS and a dose of Zosyn. General Surgery was contacted and will see the patient shortly, there is no urgent plan for surgery at this time. At the time of the exam the patient was sitting in bed in no acute distress with her significant other bedside. She states that she started to develop LLQ abdominal pain on 09/02. Symptoms continued to progress over the week and were similar to her last episode of sigmoid diverticulitis. She called her PCP who ordered the CT scan of the abd/pelvis and labs this am. Her pain is currently a 8/10, sharp/stabbing, and only located in the LLQ. She denies recent fever, chills chest pain, cough vomiting, dysuria, hematuria, melena, diarrhea, LE swelling, and recently trauma. She follows with a diverticulitis specialist but had not yet scheduled sigmoidectomy as she had been feeling well. She is a full code and would want her to make medical decisions for her if she cannot make decisions herself. -Last colonoscopy on 01/11/23 with showed diverticulosis of the sigmoid colon without other acute findings. Principal Diagnosis Diverticulitis with perforation and abscess Discharge Exam The patient is awake, alert and oriented 3, well developed and well nourished, normocephalic and atraumatic, lying in bed and in no acute distress. HEENT--PERRL, EOMI, mucous membranes and oropharynx mildly dry Neck--supple. No JVD. No bruits. Thyroid normal, trachea midline, no adenopathy. Heart--normal S1 and S2. No murmurs, rubs or gallops. Lungs--clear bilaterally, no respiratory distress, no accessory muscle use. Abdomen--normal bowel sounds and soft. Left lower quadrant tenderness Extremities--no cyanosis or clubbing. No edema. Dermatologic--normal skin turgor, normal color, no abnormal lymph nodes, no rash. Neurologic--cranial nerves II through XII grossly intact. Rheumatologic--normal range of motion. Psychiatric--normal affect. Discharge Data Allergies Allergy/AdvReac Type Severity Reaction Status Date / Time cat dander Allergy Mild EYES WATER Verified 09/07/23 12:18 mold Allergy Mild sinus Verified 09/07/23 12:18 issues DUST MITES Allergy Mild SINUS Uncoded 09/07/23 12:18 ISSUES Consultations 09/07/23 10:18 ED Decision to Admit Stat 09/07/23 10:22 Consult General Surgery Routine 09/13/23 18:02 Consult Patient Services Routine Procedures Performed Operation Date: 09/15/23 15:00 <No data on this case meets the specified criteria> Ordered Studies 09/12/23 08:37 CT abd pelvis IV con only Urgent 09/12/23 14:30 CT limited or localized study Routine Hospital Course (1) Sigmoid diverticulitis: -Started to develop LLQ pain similar to previous episodes of sigmoid diverticulitis on 09/02. Had prior episode of diverticulitis in the past. -Outpatient CT of the abd/pelvis w/IV con AM of admission shows findings consistent with acute sigmoid diverticulitis with possible microperforation -Initially treated with IV pip-tazo, bowel rest / clear liquid diet, pain failed to improve over weekend, one fever and intermittent low grade temps last few days -oxycodone 5 mg PRN which is effective. Continue hyoscyamine -Repeat CT done on 325 showed a 3 cm diverticular abscess, however IR attempted to drain but there was no safe window for drainage -Patient is currently tolerating clear liquid diet, plan is to advance to full liquid diet -If no worsening of pain and if no elevated WBC, patient's will be made n.p.o. after midnight and plan is for exploratory laparotomy if worsening -Otherwise if patient continues to tolerate diet will be discharged on p.o. antibiotics and follow-up CT -Discharged on p.o. ciprofloxacin 500 mg twice daily for 10 days and also p.o. Flagyl 500 mg twice daily for 10 days (2) GERD (gastroesophageal reflux disease): oral PPI (3) Hypothyroid: -Continue Levothyroxine (4) Anxiety: -Continue sertraline Plan Fibromyalgia, chronic low back pain, headache - likely caffiene withdrawal -continue APAP, analgesics, symptomatic care Continue levothyroxine for hypothyroidism Outpatient follow-up with general surgery in 10 days Total Time Total Time Spent Total Time Spent (In Minutes): 35 Discharge Plan Discharge Items Patient Disposition: Home - Self-Care Reason For Visit: SENT TO ER AFTER CT AND LAB WORK Discharge Diagnosis: diverticulitis Activity: Resume your previous activity Non-emergency contact: Primary Care Provider and Surgeon Call non-emergency contact if: you have any medication questions and your symptoms worsen Follow-up/Referrals: Ishaan Aponte DO [Surgeon] - (Please call to schedule follow up in the office within 1 week) Donovan Kumar MD [Primary Care Provider] - 09/19/23 12:45 pm (THIS APPOINTMENT WILL BE WITH DR ROPER AT THE [facility]) Diet: Low Fiber Addtl Attending Provider Instructions: please follow up with surgery in 10 days please continue on a low fiber diet until your follow up with the surgeon Pending Studies at Discharge: No Stand-Alone Forms: My [employer], Smoking Cessation Medications and DC Order Prescriptions: New metronidazole 500 mg tablet 500 mg PO BID 10 Days Qty: 20 0RF ciprofloxacin HCl 500 mg tablet 500 mg PO BID 10 Days Qty: 20 0RF Continued trazodone 100 mg tablet 100 mg PO HS montelukast 10 mg tablet 10 mg PO QPM albuterol sulfate [ProAir HFA] 90 mcg/actuation Hfa Aerosol Inhaler 2 puff INHALATION Q6H PRN (Reason: Shortness Of Breath) sertraline 100 mg tablet 100 mg PO DAILY levothyroxine 112 mcg tablet 112 mcg PO DAILY Essence C 1,000 mg Powder Effervescent In Packet 0 ea PO DAILY Rx Instructions: Unable to verify OTC medications with patient/family at this date/time. hyoscyamine sulfate 0.125 mg tablet, sublingual 0 mg PO Q6H Rx Instructions: Per pharmacy, pt hasn't picked this medication up yet. Original Directions: 0.125mg by mouth every 6 hours for 10 days. meclizine 25 mg tablet 25 mg PO TID PRN (Reason: motion sickness) valacyclovir 1 gram tablet 0 mg PO DAILY Rx Instructions: Unable to verify with patient/family/pharmacy at this date/time. Original Directions: 1 gram by mouth once daily Discharge Orders: Discharge Order (Routine); Ordered 09/15/23 Ordered By: Zoila Thompson Admission Data Admit Date/Time: 09/07/23 10:20 Attending Provider: Zoila Thompson Admit Provider: Titus Gonzalez Primary Care Provider: Donovan Kumar Other Providers: Titus Gonzalez; Ishaan Aponte Coding Level of Care Code 55767 INP/OBS DISCH >30 MIN Diagnoses Sigmoid diverticulitis K57.32 GERD (gastroesophageal reflux disease) K21.9 Hypothyroid E03.9 Anxiety F41.9 Time Spent (min) 35
== END 2023-09-15 13:36 | disposition home or self-care (01) | DRG 392 ==
LOC: ED 09:37 → SUATTDRO 10:20 → EDINP 10:20 → 2N 22:51

== ENCOUNTER 2024-01-13 05:56 | Observation (INO) ==
--- NOTE | 2023-12-21 11:06 | PAT Medication Instructions ---
Medication Instructions Date of Service December 21, 2023 Home Medications Medication Instructions Recorded amoxicillin 875 mg-potassium 1 tab PO BID #28 tabs 12/02/23 clavulanate 125 mg tablet Medication List: trazodone 100 mg tablet 100 mg PO HS albuterol sulfate 90 mcg/actuation aerosol inhaler (ProAir HFA) 2 puff inhalation Q6H PRN Shortness Of Breath ascorbic acid 1,000 rl-tjzyxocfrpqi-tfwmraue powder effervescent pack (Essence C) 0 ea PO DAILY levothyroxine 112 mcg tablet 112 mcg PO DAILY meclizine 25 mg tablet 25 mg PO TID PRN motion sickness valacyclovir 1 gram tablet 0 mg PO DAILY PRN cold sore sertraline 100 mg tablet 100 mg PO QAM amoxicillin 875 mg-potassium clavulanate 125 mg tablet 1 tab PO BID MEDICATION INSTRUCTIONS: Continue as directed amoxicillin 875 mg-potassium clavulanate 125 mg tablet 1 tab PO BID albuterol sulfate 90 mcg/actuation aerosol inhaler (ProAir HFA) 2 puff inhalation Q6H PRN Shortness Of Breath (use if needed; BRING TO HOSPITAL) DO NOT take the morning of surgery ascorbic acid 1,000 cn-rcyusvfsbhxu-eewhjhys powder effervescent pack (Essence C) 0 ea PO DAILY Take morning of surgery With a small sip of water, OTHERWISE NOTHING TO EAT OR DRINK AFTER MIDNIGHT: levothyroxine 112 mcg tablet 112 mcg PO DAILY meclizine 25 mg tablet 25 mg PO TID PRN motion sickness valacyclovir 1 gram tablet 0 mg PO DAILY PRN cold sore sertraline 100 mg tablet 100 mg PO QAM Take evening before surgery trazodone 100 mg tablet 100 mg PO HS Other Notes If you have any questions please call us at [phone] or [phone] or [phone] or [phone]
--- NOTE | 2023-12-27 15:19 | Anesthesiology Consultation ---
Date of Service December 27, 2023 Assessment & Plan (1) Encounter for pre-operative examination: - Infectious disease screening: Per assessment on 12/27/23: No known recent infectious disease contacts or current infectious disease symptoms. - Outpatient joint assessment: Pt currently scheduled for inpatient pathway. If surgeon requests review for outpatient joint pathway, patient is an acceptable candidate for outpatient joint program from anesthesia standpoint pending surgeon's office assessment that patient is motivated, has good support and completes Same Day Joint Program preop requirements. Chart Review Chart Review: Acceptable Risk for Surgery and Patient seen in Pre Admission Testing Teaching & Discussion Pre-Anesthesia Teaching/Discussion Notes: Instructed NPO after midnight before surgery,except medications with 15 cc of water. Medication instructions provided according to the PAT guidelines. History Surgery Operation Date: 01/13/24 11:00 Proposed Procedures p Right Total Knee Arthroplasty - Jose Morfin, Height/Weight Height: 5 ft 7.5 in Weight: 85.6 kg Allergies Allergy/AdvReac Type Severity Reaction Status Date / Time mold Allergy Mild Sinus Verified 12/26/23 11:10 issues DUST MITES Allergy Mild Sinus Uncoded 12/26/23 11:10 issues Medications Home Medications Medication Instructions Recorded Confirmed Last Taken trazodone 100 mg tablet 100 mg PO HS 07/10/18 12/19/23 01/10/23 22:15 albuterol sulfate 90 mcg/actuation 2 puff inhalation Q6H PRN 02/25/21 12/19/23 Unknown aerosol inhaler (ProAir HFA) Shortness Of Breath ascorbic acid 1,000 0 ea PO DAILY 05/18/23 12/19/23 Unknown ti-posxiwbxalsv-xenblczi powder effervescent pack (Essence C) levothyroxine 112 mcg tablet 112 mcg PO DAILY 05/18/23 12/19/23 Unknown meclizine 25 mg tablet 25 mg PO TID PRN motion sickness 09/07/23 12/19/23 Unknown valacyclovir 1 gram tablet 0 mg PO DAILY PRN cols sore 09/07/23 12/19/23 Unknown sertraline 100 mg tablet 100 mg PO QAM 09/26/23 12/19/23 Unknown amoxicillin 875 mg-potassium 1 tab PO BID #28 tabs 12/02/23 12/19/23 Unknown clavulanate 125 mg tablet Past Medical History Medical History Allergy-induced asthma Anxiety Chronic back pain Depression Diverticulosis Endometrial thickening on ultrasound GERD (gastroesophageal reflux disease) Hearing difficulty of right ear History of COVID-19 (2021) Symptoms resolved History of diverticulitis (08/2023) [facility] hospitalization, medically managed/decision not to have surgical intervention No issues since, resolution of diverticulitis on subsequent Abdomen/Pelvis CT 12/15/2023 Hypothyroidism Osteoarthritis PVD (posterior vitreous detachment), left eye 4+ years ago, medically managed/surgical intervention not required No issues since Exercise / Class Metabolic Activity III < 4 Walking/Shop/Light housework Past Family History Family History Aunt Cancer Grandmother Cancer Grandfather Cancer Mother Heart disease Hypertension Brother Diabetes Other No family history of adverse response to anesthesia Past Surgical History Surgical History 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 History of arthroscopy of right knee History of colonoscopy [facility] (12/2022) History of dilatation and curettage History of tooth extraction History of wisdom tooth extraction S/P carpal tunnel release R/L S/P trigger finger release Past Anesthesia History No Hx of Anesthesia Complications and No Family Hx of Anesthesia Complications History of PONV No Hx of PONV and No Hx of Motion Sickness Social History Smoking Status: Never smoker Do You Dip or Chew Tobacco: No Hx Alcohol Use: Yes Alcohol type: wine alcohol intake frequency: holidays/special occasions only Hx Substance Use: No substance use type: does not use Review of Systems Intermittent increased phlegm/throat clearing, hx seasonal allergies. Patient denies chest pain, shortness of breath, fever, chills, productive cough, wheezing, palpitations. Physical Exam Vital Signs BP 111/53 P 61 TEMP 98.0 SP02 97%RA RESP 16 Physical Full cervical extension range of motion. Full TMJ range of motion. TMD 3 finger breaths Mallampati Score II Dentition: intact, several crowns Lungs: clear throughout to auscultation Cardiac: regular rate and rhythm, no murmurs noted Spine: normal Carotid arteries: negative bruit Extremities: no LE edema Lab Results Anesthesia Preop Results Results Anesthesia Widget: WBC 7.46 K/ul (4.8-10.8) 12/27/23 Hgb 11.9 g/dl (12.0-16.0) L 12/27/23 Hct 37.1 % (37.0-47.0) 12/27/23 Plt 264 K/uL (130-400) 12/27/23 Na 138 mmol/L (136-145) 12/27/23 K 4.3 mmol/L (3.5-5.1) 12/27/23 Cl 106 mmol/L (98-107) 12/27/23 CO2 27 mmol/L (21-32) 12/27/23 BUN 10 mg/dl (6-23) 12/27/23 Creat 0.72 mg/dl (0.6-1.2) 12/27/23 Glucose Level 94 mg/dl (70-99(Fasting)) 12/27/23 PT 10.4 Seconds (9.0-12.0) 12/27/23 PTT 26 Seconds (21-31) 12/27/23 INR 1.0 (0.9-1.1) 12/27/23 Blood Type A Positive 12/27/23 Antibody Screen NEGATIVE 12/27/23 Testing Electrocardiogram Date: 08/27/23 NSR at 80bpm. PRWP, consider anterior CO vs lead placement vs LVH. NS TWA. Compared to 07/06/22, NS TWA worsened in anterior leads. Chest X-Ray Date: 12/27/23 FINDINGS: PA and lateral chest radiographs are compared to study dated 06/03/2023. The cardiomediastinal silhouette is unremarkable. Scarring/atelectasis is noted at the left lung base. The lungs and pleural spaces are otherwise clear. There is no pneumothorax. The skeletal structures are osteopenic. The bony thorax appears intact. IMPRESSION: No active disease in the chest.
[2024-01-13] MEDS: ACETAMINOPHEN 500 MG TAB PO SCH ×2 (06:24→13:39)
[2024-01-13] MEDS ORDERED: ROPIVACAINE 0.5% 5 MG/ML 30 ML VIAL ONE (06:24)
[2024-01-13] MEDS: FAMOTIDINE 20 MG TAB PO SCH (06:24)
[2024-01-13] MEDS: LR 500ML BOLUS, THEN 15ML/HR IV SCH (06:24)
[2024-01-13] MEDS: dexAMETHasone**PF** 10 MG/ML VIAL IV SCH (06:24)
[2024-01-13] MEDS: GABAPENTIN 300 MG CAP PO SCH (06:25)
--- NOTE | 2024-01-13 06:37 | History & Physical Bridge Note ---
Date of Service January 13, 2024 History & Physical Bridge Note I have examined the patient, reviewed the History & Physical and in the interval since the performance of the History & Physical I have noted the following changes of clinical significance: no changes noted
[2024-01-13] MEDS ORDERED: MIDAZOLAM HCL 1 MG/ML 2ML VIAL ONE ×2 (06:40)
[2024-01-13] MEDS: LR 60ML/HR IV SCH (06:41)
[2024-01-13] MEDS ORDERED: PROPOFOL IV EMULSION 10 MG/ML 20 ML VIAL IV ONE (06:46)
[2024-01-13] MEDS ORDERED: LIDOCAINE 2% 2 ML VIAL/AMP(20MG/ML) INFIL ONE (06:46)
[2024-01-13] MEDS ORDERED: ATROPINE SULFATE 0.1 MG/ML 10ML SYR IV PRN (07:02)
[2024-01-13] MEDS ORDERED: ePHEDrine sulfate 50 MG/ML AMP IV PRN (07:02)
[2024-01-13] MEDS ORDERED: fentaNYL citrate PF 100 MCG/2 ML VIAL IV PRN (07:02)
[2024-01-13] MEDS ORDERED: HYDROmorphone INJ 2 MG/ML SYR/VIAL IV PRN (07:02)
[2024-01-13] MEDS ORDERED: ONDANSETRON INJ 2 MG/ML 2 ML VIAL IV PRN ×2 (07:02→11:40)
[2024-01-13] MEDS: TRANEXAMIC ACID 1,000 MG **IV Pre-op IV SCH (07:32)
[2024-01-13] MEDS: ceFAZolin 2000MG 2,000 MG/15 ML SYR IV SCH ×2 (07:50→15:59)
[2024-01-13] MEDS ORDERED: fentaNYL citrate PF 100 MCG/2 ML VIAL ONE (07:55)
[2024-01-13] MEDS ORDERED: KETAMINE HCL 10MG/ML SYR ONE (07:55)
[2024-01-13] MEDS ORDERED: ONDANSETRON INJ 2 MG/ML 2 ML VIAL ONE (08:09)
[2024-01-13] MEDS: ROPIV 0.5% 246mg, Ketorolac 30mg, EPINEPHrine 0.5mg in NSS INFIL SCH (08:21)
[2024-01-13] MEDS: ORTHO JOINT ANESTHETIC ONE (08:22)
[2024-01-13] MEDS: TRANEXAMIC ACID 1,000 MG **IV Intra-op IV SCH (08:56)
--- NOTE | 2024-01-13 08:59 | Operative Report ---
PG Post Operative Report Pre & Post Diagnosis Operation Date: 01/13/24 08:00 Pre-Op Diagnosis: Degenerative Joint Disease Right Knee Post-Op Diagnosis: Degenerative Joint Disease Right Knee I identified the patient and participated in the time-out.: Yes Procedure Operation Date: 01/13/24 08:00 Actual Procedures p Right Total Knee Arthroplasty(Right) - Jose Morfin DO Surgeon Jose Morfin DO Rn Post Partum Jose Dominguez PA-C Estimated Blood Loss 30 Findings Consistent with Post-Op Diagnosis Specimens Right femoral and tibial bone Description of Procedure Implants used: I used a Peg Persona total knee arthroplasty system with a size 7 standard PS femur, D tibia, 31 oval patella, and a size 10 CPS polyethylene bearing. All components were cemented in place with Biomet cement. [facility] for the above procedure. She was seen in the preoperative holding area and the operative extremity was identified and signed. She was given a preoperative antibiotic, TXA, a spinal anesthetic and an adductor nerve block. She was taken back to the operating room and laid on the table in supine position. She was given basic sedation. The operative knee was then prepped and draped in sterile fashion. A timeout was done, and the patient and the operative extremity was properly identified. A midline incision was made directly over the patella. Dissection was taken down to the extensor mechanism. A subvastus arthrotomy was used. The medial retinaculum was released and the fat pad was mostly excised. The knee was flexed and the ACL, PCL, and meniscus were removed. A drill was sent down the center of the femoral canal followed by an intramedullary luisa. Off that luisa a distal femoral cutting block was placed. 9 mm was resected off the distal femur at 5 of valgus. A posterior referencing AP sizing guide was then placed on the distal femur. The femur measured to be a size 7. 2 drill holes were placed in 3 of external rotation. A 4-in-1 cutting block was then impacted into place. Anterior, posterior, and chamfer cuts were then made. The proximal tibia was then exposed. An external tibial alignment guide was placed. A tibial cut guide was then anchored in place and the proximal tibia was then resected. The posterior aspect of the knee was then opened up and any additional meniscus fragments and osteophytes were removed. The tibia measured to be a size D. The tibial plate was then placed in the appropriate rotation and the tibia was drilled and punched. Trial components were then placed. I used a size 10 CPS polyethylene insert. The knee was brought through a full range of motion and felt to be stable. The peg holes for the femoral component were then drilled. The patella was then everted and 9 mm was resected off the posterior aspect of the patella. The patella measured to be a size 31 oval. 3 peg holes were then drilled. A trial patella was placed. The knee was once again brought through a full range of motion and felt to be stable. Trial components were then removed. The surrounding soft tissues were injected with 100 cc of an orthopedic pain control cocktail. All components were then cemented into place with Biomet cement. The final polyethylene insert was then snapped into place. Once cement was dry the tourniquet was deflated. Hemostasis was obtained. A dilute betadyne lavage was then done for 3 minutes. The joint was then irrigated with normal saline solution. The subvastus arthrotomy was then closed with #1 Vicryl suture. The skin was closed with 2-0 Vicryl, 3-0V lock suture, and rebecca. A soft compressive dressing was placed. She was then transferred to a hospital bed and taken to the postanesthesia care unit in stable condition. She tolerated the procedure well. Jose Dominguez PA-C, was present for the entire procedure. He was critical for patient positioning, prepping, draping, retraction exposure, wound closure and application of sterile dressing. I attest to the content of the Intraoperative Record and any orders documented therein. Any exceptions are noted below.
--- NOTE | 2024-01-13 10:17 | XRay Report ---
RIGHT KNEE 2 VIEWS History: Right total knee arthroplasty. Degenerative arthritis. Postop. FINDINGS: The patient is status post a right total knee arthroplasty. The hardware is intact. No frac ture or dislocation. Skin rebecca are in place. IMPRESSION: Right total knee arthroplasty. No evidence for hardware complication. ACT 112: Negative or not required by law. Electronically signed by: Andrea Elias M.D. 01/13/2024 10:15 AM
--- NOTE | 2024-01-13 11:02 | Anesthesiology Progress Note ---
Date of Service January 13, 2024 Anesthesia Post Procedure Vital Signs Vital Signs: Temp Pulse Pulse Resp BP Pulse Ox O2 Del Method 01/13/24 10:45 36.5 C 52 L 11 L 118/68 95 Room Air 01/13/24 10:35 36.5 C 50 L 12 107/65 94 Room Air 01/13/24 10:25 36.5 C 52 L 15 113/66 94 Room Air 01/13/24 10:15 52 L 15 126/67 96 Room Air 01/13/24 10:05 36.5 C 53 L 22 122/75 95 Room Air 01/13/24 09:55 36.5 C 53 L 23 117/70 94 Room Air 01/13/24 09:45 36.5 C 53 L 18 116/67 96 Oxymask 01/13/24 09:35 58 L 25 H 115/74 99 Oxymask 01/13/24 09:25 64 53 H 111/66 99 Oxymask 01/13/24 09:15 36.7 C 64 14 110/58 L 96 Oxymask 01/13/24 06:21 36.8 C 63 20 121/76 98 Room Air O2 Flow Rate 01/13/24 10:45 01/13/24 10:35 01/13/24 10:25 01/13/24 10:15 01/13/24 10:05 01/13/24 09:55 01/13/24 09:45 3 01/13/24 09:35 3 01/13/24 09:25 5 01/13/24 09:15 8 01/13/24 06:21 Transfer of Care Handoff Completed per policy Notes Mental Status: alert / awake / arousable and participated in evaluation Patient Amnestic to Procedure: Yes Nausea / Vomiting: adequately controlled Pain: adequately controlled Airway Patency, RR, SpO2: stable & adequate BP & HR: stable & adequate Hydration State: stable & adequate Neuraxial Anesthesia: was administered and sensory block is resolving Anesthetic Complications: no major complications apparent and Pt Satisfied with anesthetic care
[2024-01-13] MEDS: SODIUM CHLORIDE 0.9% 1,000 ML IV SCH (11:30)
[2024-01-13] MEDS ORDERED: ALBUTEROL HFA 8 GM INHALER INH PRN (11:40)
[2024-01-13] MEDS ORDERED: METOCLOPRAMIDE HCL INJ 5 MG/ML 2 ML VIAL IV PRN (11:40)
[2024-01-13] MEDS ORDERED: MECLIZINE HCL 25 MG TAB PO PRN (11:40)
[2024-01-13] MEDS ORDERED: NALOXONE HCL 0.4 MG/1 ML VIAL/CARP IV PRN (11:40)
[2024-01-13] MEDS ORDERED: bisacodyL 10 MG SUPP PR PRN (11:40)
[2024-01-13] MEDS ORDERED: MAGNESIUM HYDROXIDE SUSP 30 ML UDC PO PRN (11:40)
[2024-01-13] MEDS ORDERED: HYDROmorphone INJ 0.5 MG/0.5 ML SYR IV PRN (11:40)
[2024-01-13] MEDS: KETOROLAC TROMETHAMINE 15 MG/ML VIAL IV SCH (12:15)
[2024-01-13] MEDS: oxyCODONE HCL IR 5 MG TAB (IMMEDIATE RELEASE) PO PRN (13:41)
--- NOTE | 2024-01-13 14:36 | Anesthesiology Progress Note ---
Date of Service January 13, 2024 Anesthesia Post Procedure Vital Signs Vital Signs: Temp Pulse Pulse Pulse Resp BP Pulse Ox 01/13/24 14:20 97.3 F L 60 16 133/79 97 01/13/24 13:31 97.9 F 63 18 118/78 96 01/13/24 12:21 98.1 F 56 L 18 125/78 96 01/13/24 11:53 98.2 F 55 L 18 115/75 96 01/13/24 11:20 97.5 F L 58 L 14 127/77 97 01/13/24 11:00 97.7 F 52 L 11 L 115/70 95 01/13/24 10:45 97.7 F 52 L 11 L 118/68 95 01/13/24 10:35 97.7 F 50 L 12 107/65 94 01/13/24 10:25 97.7 F 52 L 15 113/66 94 01/13/24 10:15 52 L 15 126/67 96 01/13/24 10:05 97.7 F 53 L 22 122/75 95 01/13/24 09:55 97.7 F 53 L 23 117/70 94 01/13/24 09:45 97.7 F 53 L 18 116/67 96 01/13/24 09:35 58 L 25 H 115/74 99 01/13/24 09:25 64 53 H 111/66 99 01/13/24 09:15 98.1 F 64 14 110/58 L 96 01/13/24 06:21 98.2 F 63 20 121/76 98 O2 Del Method O2 Flow Rate 01/13/24 14:20 Room Air 01/13/24 13:31 Room Air 01/13/24 12:21 Room Air 01/13/24 11:53 Room Air 01/13/24 11:20 Room Air 01/13/24 11:00 Room Air 01/13/24 10:45 Room Air 01/13/24 10:35 Room Air 01/13/24 10:25 Room Air 01/13/24 10:15 Room Air 01/13/24 10:05 Room Air 01/13/24 09:55 Room Air 01/13/24 09:45 Oxymask 3 01/13/24 09:35 Oxymask 3 01/13/24 09:25 Oxymask 5 01/13/24 09:15 Oxymask 8 01/13/24 06:21 Room Air Transfer of Care Handoff Completed per policy Notes Mental Status: alert / awake / arousable and participated in evaluation Patient Amnestic to Procedure: Yes Nausea / Vomiting: adequately controlled Pain: adequately controlled Airway Patency, RR, SpO2: stable & adequate BP & HR: stable & adequate Hydration State: stable & adequate Anesthetic Complications: no major complications apparent and Pt Satisfied with anesthetic care
[2024-01-13] MEDS: DOCUSATE SODIUM 100 MG CAP PO SCH (20:55)
[2024-01-13] MEDS: ASPIRIN 81 MG ECTAB PO SCH (20:56)
[2024-01-13] MEDS: SENNA 8.6 MG TAB PO SCH (20:57)
[2024-01-13] MEDS: traZODone HCL 100 MG TAB PO SCH (20:57)
[2024-01-14] MEDS: LEVOTHYROXINE SODIUM 112 MCG TABLET PO SCH (05:52)
--- NOTE | 2024-01-14 08:08 | Orthopedic Progress Note ---
Date of Service January 14, 2024 Assessment & Plan (1) Status post right knee replacement: Overall she is doing very well. She is not having much pain in the right knee. She will be seen by physical therapy today for ambulation and range of motion exercises. The nursing staff can change her dressing after physical therapy. She can be discharged home later today. She is on aspirin for DVT prophylaxis. She will follow-up with orthopedics in 2 weeks. Simón Orellana was seen and examined at bedside this morning. Overall she is doing very well. She is not having much pain in the right knee. She has been up and ambulating to the bathroom. She has no complaints.. Review of Systems All systems reviewed & are unremarkable except as noted in HPI & below. Physical Exam On physical examination of the right knee, the dressing is clean and dry. Her leg is out full extension. She is active dorsiflexion plantarflexion of her right ankle.. Results & Data Results & Data Laboratory Results . Diagnostic Findings Postoperative x-rays of the right knee show the prosthesis to be in anatomic alignment without any evidence of fracture complication, or loosening.. PG Care Time/CCT Total # of Minutes Spent Total Time Spent with Patient: Total time spent is greater than 50% in coordination of care (as documented) at patient's floor/unit and/or counseling patient: Coding Level of Care Code 74349 Post Operative Follow-Up Diagnoses Status post right knee replacement Z96.651
--- NOTE | 2024-01-14 08:09 | Discharge Summary ---
Date of Service January 14, 2024 Principal Diagnosis Same as "Discharge Diagnosis" noted below under Discharge Instructions. Discharge Exam On physical examination of the right knee, the dressing is clean and dry. Her leg is out full extension. She is active dorsiflexion plantarflexion of her right ankle.. Discharge Data Procedures Performed Operation Date: 01/13/24 08:00 Actual Procedures p Right Total Knee Arthroplasty(Right) - Jose Morfin DO Ordered Studies 01/13/24 05:00 US - OR guided needle placemen Routine Hospital Course (1) Status post right knee replacement: On January 13, 2024 Reyna arrived at [facility] and underwent a right knee replacement without complication. She had a spinal anesthetic. Postoperatively she was started on aspirin for DVT prophylaxis and transferred to the general orthopedic floors. Her hospital course was uneventful. On postop day #1, her vital signs were stable and her pain was well-controlled. She was able to participate well with physical therapy doing ambulation and range of motion exercises. She was then discharged home. She will follow-up with orthopedics in 2 weeks. PG Care Time/CCT Total # of Minutes Spent Total Time Spent with Patient: Total time spent is greater than 50% in coordination of care (as documented) at patient's floor/unit and/or counseling patient: Discharge Plan Discharge Items Patient Disposition: Home - Self-Care Reason For Visit: Degenerative Joint Disease Right Knee Discharge Diagnosis: Right knee replacement Activity: Per Instructions section Non-emergency contact: Surgeon Call non-emergency contact if: your wound has increased redness and your wound has increased drainage Follow-up/Referrals: Donovan Kumar MD [Primary Care Provider] - Diet: Regular Addtl Attending Provider Instructions: Activity and Therapy Recommendations: * If you are using [facility] then therapy will be provided at your home until they feel you have accomplished all of your goals. * If you are using [facility] then Physical Therapy will be provided until they feel you are ready to start Outpatient Physical Therapy. * If you are not using home therapy then Outpatient Physical Therapy should start about 3-5 days from your day of surgery. Therapy will last about 6-10 weeks * It is important not to put a pillow under your knee when you are relaxing or sleeping. It is just as important to make sure you are getting your knee perfectly straight as it is to regain your knee bend. * You were shown a series of exercises in the hospital. Do these exercises three times each day including the exercises you were shown in physical therapy. * Get up and walk several times each day. For the first four weeks, try not to stand or walk for more than one hour at a time. If you do stand or walk for more than one hour, you will not hurt anything, but your leg will likely swell. * As you feel comfortable, you may change from the walker or crutches to a cane and then to independent walking. Medications: * Narcotic You will likely be sent home from the hospital with a prescription for the narcotic pain medication that worked best throughout your stay. * Cefadroxil -take the antibiotic twice a day for 10 days to help prevent infection. * Aspirin Most patients will be required to take Aspirin 81mg twice a day for 6 weeks after surgery. This is obtained [id number] and a prescription is not necessary. * Other medications may be prescribed for specific circumstances. If you have any questions, please call the office at . * Resume previous home medications unless otherwise instructed TEDs/Elastic Stockings: The white elastic stockings help limit swelling and prevent blood clots from forming in your legs.~ The more you wear them, the more they work. Wear them for six weeks. Dressing Care: The dressing can be changed after physical therapy on postop day #1. Daily dry dressing changes for a few days, especially if the incision is still draining some. If the incision is not draining then you may leave the rebecca open to air. If there is a little bit of drainage or if the rebecca are getting stuck on your clothing then cover the incision with a dry dressing. The rebecca will be removed at your 2 week follow-up appointment. Showering: You may shower 5 days from the day of surgery as long as the incision is no longer draining. You may shower with the rebecca exposed. Let soapy water run over the rebecca and pat them dry. Do not scrub or soak the incision. Things To Watch For: * Drainage from the incision site that occurs more than one week after your surgery. * Increased redness at the incision site. * Fever above 102 degrees Fahrenheit. * Unusual chest pain or shortness of breath. * Call [facility] at with any of the above problems Follow-Up Visit: Follow-up with Dr. Morfin's PA (Jose Dominguez) 2-3 weeks after your day of surgery. He will remove your rebecca and answer any questions. If you have any additional questions or concerns, Dr Morfin is usually in the office at the same time and will be available An appointment was probably scheduled when you signed-up for surgery in the office. If you have any questions call Office Instructions: More detailed instructions as well as Frequently Asked Questions were provided in a folder by our office when you signed-up for surgery. Please review these instructions when you get home. If you have any further questions or concerns, please feel free to call the office at [phone] Pending Studies at Discharge: No Stand-Alone Forms: My [facility] [employer], Smoking Cessation Medications and DC Order Prescriptions: New oxycodone 5 mg Tablet 5 mg PO Q4H PRN (Reason: pain) Qty: 30 0RF cefadroxil 500 mg capsule 500 mg PO BID 10 Days Qty: 20 0RF aspirin 81 mg Tablet,Delayed Release (Dr/Ec) 81 mg PO BID 42 Days Qty: 84 0RF Continued trazodone 100 mg tablet 100 mg PO HS albuterol sulfate [ProAir HFA] 90 mcg/actuation Hfa Aerosol Inhaler 2 puff INHALATION Q6H PRN (Reason: Shortness Of Breath) levothyroxine 112 mcg tablet 112 mcg PO DAILY Essence C 1,000 mg Powder Effervescent In Packet 0 ea PO DAILY Rx Instructions: Unable to verify OTC medications with patient/family at this date/time. sertraline 100 mg tablet 100 mg PO QAM meclizine 25 mg tablet 25 mg PO TID PRN (Reason: motion sickness) valacyclovir 1 gram tablet 0 mg PO DAILY PRN (Reason: cols sore) Rx Instructions: Unable to verify with patient/family/pharmacy at this date/time. Original Directions: 1 gram by mouth once daily Discharge Orders: Discharge Order (Routine); Ordered 01/14/24 Ordered By: Jose Morfin Admission Data Admit Date/Time: 01/13/24 09:21 Attending Provider: Jose Morfin Admit Provider: Jose Morfin Primary Care Provider: Donovan Kumar
[2024-01-14] MEDS: SERTRALINE HCL 100 MG TABLET PO SCH (09:07)
[2024-01-14] MEDS: MULTIVITAMIN TAB PO SCH (09:07)
[2024-01-14] MEDS: dexAMETHasone 4 MG TAB PO SCH (09:07)
== END 2024-01-14 11:15 | disposition home or self-care (01) ==
LOC: ASU 05:56 → 3W 05:56

== ENCOUNTER 2024-03-17 20:22 | Observation (INO) ==
--- OUTSIDE RECORDS SUMMARY | 2024-03-17 20:27 | External Medical Summary | Continuity of Care Document ---
Author Name Unknown Organization [address] Address [address] [place] [address] [place] [id number] Care Team Providers Care Market Research Assistant Name Role Phone Jessie Kumar Primary Care Physician [phone] Encounter [facility]BR [id number] Date(s): 03/12/24 - 03/12/[address] [place] [id number] [facility], [address] [place] [address] [phone] Encounter Diagnosis Hx of diverticulitis of colon(Discharge Diagnosis) - 09/06/23 Hypothyroid(Discharge Diagnosis) - 02/16/24 Status post total right knee replacement(Discharge Diagnosis) - 03/12/24 Need for pneumococcal vaccination(Discharge Diagnosis) - 03/12/24 Discharge Disposition: Home or Self Care Attending Physician: MD Kumar Ravishankar E Referring Physician: MD Kumar Ravishankar E Allergies, Adverse Reactions, Alerts No Known Medication Allergies Substance Criticality Severity Reaction Reaction Severity Status Dust Active Allergy Not found in Search 1 Feathers Active Cats Active Mold Active 1Feathers Assessment and Plan Extracted from: Title:Office Visit Note Author:MD Kumar Ravishan kar E Date:03/12/24 1.Hx of diverticulitis of colon - Improving on antibiotics - Management per surgery - Red flags reviewed, reassuring exam today 2.Hypothyroid - Recheck TSH/FT4 as planned in Mid March - Clinically more euthyroid on 125mcg 3.Status post total right knee replacement - Doing well post-op 4.Need for pneumococcal vaccination - [id number] and Shingrix #1 today - return in 2months for shingrix #2 - Covid/flu via pharmacy this fall. f/u PRN or q6m. Time: 40mins 5 - pre-visit chart review 30 - visit, inclusive of history, exam, and discussion of assessment/plan 5 - post-visit documentation/orders/coordination of care Immunizations Given and Recorded Vaccine Date Status Refusal Reason pneumococcal 20-valent conjugate vaccine 1 03/12/24 Given zoster vaccine, inactivated 03/12/24 Given influenza virus vaccine, inactivated 2 06/10/22 Gi elías influenza virus vaccine, inactivated 05/10/16 Give n SARS-CoV-2 (COVID-19) Ad26 vaccine 09/02/20 Record ed SARS-CoV-2 (COVID-19) Ad26 vaccine 08/18/20 Record ed tetanus/diphtheria/pertuss, acel (Tdap) 02/07/18 G iven tetanus/diphtheria/pertuss, acel (Tdap) 09/13/06 R ecorded 1Result Comment: 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 Comment: Tiera Sheikh, [place] Medications amoxicillin-clavulanate 875 mg-125 mg oral tablet Start: 03/12/24 3:25:00 PM EDT, amoxicillin Start Date: 03/12/24 Status: Ordered levothyroxine 125 mcg (0.125 mg) oral tablet Start: 03/12/24 3:48:00 PM EDT, 1 tab, PO, Daily, Disp# 90 tab, Refills: 3, Pharmacy: [id number] Start Date: 03/12/24 Stop Date: 03/07/25 Status: Ordered meclizine 25 mg oral tablet Start: 01/25/24 11:01:00 AM EDT, 1/2 TO 1 TABLET, PO, tid, Disp# 30 tab, Refills: 0, PRN: if needed for dizziness, Pharmacy: [id number] Start Date: 01/25/24 Status: Ordered ProAir HFA 90 mcg/inh inhalation aerosol Start: 07/18/17 4:47:00 PM EST, 2 puff, inhaled, qid, Disp# 1 each, Refills: 2, PRN: as needed for wheezing, Pharmacy: [facility] Start Date: 07/18/17 Status: Ordered Probiotic 10 Ultra Strength Start: 03/12/24 3:25:00 PM EDT Start Date: 03/12/24 Status: Ordered sertraline 100 mg oral tablet Start: 01/21/23 10:24:00 AM EDT, 1 tab, PO, Daily Start Date: 01/21/23 Status: Ordered traZODone 100 mg oral tablet Start: 12/08/22 12:44:00 PM EDT, See Instructions, Disp# 90 tab, Refills: 3, TAKE 1 TABLET BY MOUTH EVERYDAY AT BEDTIME, Pharmacy: [facility][id number] Start Date: 12/08/22 Status: Ordered Tylenol Start: 12/01/16 3:04:00 PM EDT, PRN: as needed for pain Start Date: 12/01/16 Status: Ordered valACYclovir 1 g oral tablet Start: 09/15/22 8:21:00 PM EDT, See Instructions, Disp# 16 tab, Refills: 0, TAKE 2 TABLETS BY MOUTH TWICE DAILY IN 24 HOURS FOR VIRAL RECURRENCE. DRINK WITH PLENTY OF FLUIDS, Pharmacy: [facility][id number] Start Date: 09/15/22 Status: Ordered Mental Status 03/12/24 Barriers to Learning one year None evide nt Mandatory Health Literacy Documentation Yes Health Literacy Communication Barriers N ever Primary Language German Problem List Condition Confirmation Course Effective Dates Status H ealth Status Informant Constipation Confirmed Active Diverticulitis of colon Confirmed Active Chronic depression Confirmed Active Endometrial thickening on ultrasound Confirmed Active WILLA (generalized anxiety disorder) Confirmed Active Status post total right knee replacement Confirmed Active Hypothyroidism Confirmed Active Menopause Confirmed Active Oophoritis Confirmed Active Tobacco user Confirmed Active Vitamin D deficiency Confirmed Active Weight disorder Confirmed Active Diagnosis Diagnosis Type Effective Dates Health Status Clinical Service Informant Hypothyroid Discharge Diagnosis 02/16/24 Non-Specified Status post total right knee replacement Discharge Diagnosis 03/12/24 Non-Specified Need for pneumococcal vaccination Discharge Diagnosis 03/12/24 Non-Specified Hx of diverticulitis of colon Discharge Diagnosis 09/06/23 Non-Specified Procedures Procedure Date Related Diagnosis Body Site Status Arthroplasty of right knee 01/13/[address] of abdomen and pelvis 1 09/12/[address] of abdomen and pelvis 2 08/20/[address] colonoscopy 3 02/01/23 Completed Colonoscopy 4, 5 01/11/23 Complete d Colonoscopy 6 10/29/22 Completed Colonoscopy 7 08/26/21 Completed Mammogram 8 05/16/19 Completed Mammogram - screening 9 04/25/19 C ompleted Surgery 10 06/2018 Completed Mammogram 11 11/26/14 Completed Colonoscopy normal 2008 Comple annabelle Carpal tunnel 12 Complete d MRI of left knee 13 Compl eted Surgery 14 Completed 1CT abd pelvis IV con only CLINICAL HISTORY: diverticulitis TECHNIQUE: Helical axial images of the abdomen and pelvis were obtained and displayed. Automated dose lowering techniques and/or adjustment according to patient size were utilized for this exam. Thisexam was performed with intravenous contrast. CT DOSE: 1232.51 mGy.cm COMPARISON: Comparison is made to CT abdomen pelvis 09/07/2023 FINDINGS: Lower chest: Bibasilar atelectasis versus scarring is seen. Liver: Unremarkable. No focal lesions are seen. Gallbladder and biliary tree: Distended gallbladder is again seen. No intra- or extrahepatic biliary ductal dilation. Pancreas: Unremarkable, no focal lesions. Spleen: Unremarkable. Adrenals: Unremarkable. Kidneys and ureters: Unremarkable. Bladder: Diffuse homogeneous wall thickening is seen. Reproductive organs: Unremarkable. Bowel: Sigmoid colon thickening and vascular involvement is increased from prior exam. There is a fluid collection measuring 30 mm adjacent to the bowel containing locules of air. Lymph nodes Retroperitoneal: Subcentimeter lymph nodes are noted. Pelvic: Subcentimeter lymph nodes are noted. Mesenteric: Regional lymph nodes are enlarged in the left lower quadrant. Peritoneum: No pneumoperitoneum is seen. Worsening fat stranding about the sigmoid colon. Vessels: Unremarkable. Abdominal wall: Unremarkable. Bones: Degenerative changes in the visualized spine. Bilateral pars defects are seen at L4-L5 with grade 1 anterolisthesis. IMPRESSION: Interval worsening of diverticulitis. Interval development of a diverticular abscess with a tiny focus of air compatible with a contained perforation, however no free pneumoperitoneum is seen. Reactive lymphadenopathy is seen. 2ABDOMEN AND PELVIS CT WITH IV CONTRAST CT DOSE: 1178.1 mGy.cm HISTORY: Left lower quadrant pain. HX OTHER DISEASES DIGESTIVE SYSTEM TECHNIQUE: Multiaxial CT images of the abdomen and pelvis were performed following the use of intravenous contrast. A dose lowering technique was utilized adhering to the principles of ALARA. COMPARISON STUDY: Abdomen and pelvis CT 07/13/2022. FINDINGS: The lung bases are clear. Bilateral L4 spondylolysis again noted. No acute fractures. Stable 9 mm cyst within the left hepatic lobe. The gallbladder, pancreas, spleen, and adrenal glands are unremarkable. The kidneys enhance normally. No hydronephrosis. The main pulmonary vein is patent. Normal caliber abdominal aorta. A few prominent retroperitoneal lymph nodes measuring up to 8 mm short axis diameter. These have slightly increased in size. Mild bladder wall thickening. The uterus and right ovary are unremarkable. Moderate thickening within the mid sigmoid colon with pericolonic fat stranding and multiple inflamed diverticula consistent with acute diverticulitis. There is a hetero geneous appearance to the adjacent left ovary again noted. The 2.3 cm hypodensity in the expected location of the left ovary remains unchanged. This may represent an ovarian cysts. A small diverticular abscess is considered less likely but not entirely excluded. Punctate focus of gas also adjacent to the left sigmoid colon on image 272 which may represent a diverticulum versus a small focus of microperforation. These areas are difficult to assess due to the surrounding inflammatory change. No dilated loops of bowel to suggest an obstruction. Normal appendix. IMPRESSION: 1. Interval development of acute sigmoid diverticulitis within the mid sigmoid colon. 2. There is again noted a 2.3 cm hypodensity in the expected location of the left ovary which remains unchanged. This may represent an ovarian cyst. A small diverticular abscess is considered less likely but not entirely excluded. This is similar to the prior study. 3. In addition, there is a punctate focus of gas adjacent to the left sigmoid colon as described above which may represent a small diverticulum versus a small focus of microperforation. Of note, these areas are difficult to assess due to the surrounding inflammatory change. 4. Bladder wall thickening. This may be reactive to the acute diverticulitis. Recommend correlate with urinalysis to exclude a cystitis. 5. Additional findings as described above. 31) No clinically significant polyps identified. 2) Other incidental findings as above. Repeat in 1 year 4Findings: A few small-mouthed diverticula were found in the sigmoid colon. Acute angulation noted in proximal sigmoid/distal descending colon. The scope could not negotiate the angulation despite repositioning of the patient and application of pressure 5Diverticulosis in the sigmoid colon. No specimens collected. 6COLO to 30 cm terminated secondary to fixation of colon/tortuousity, diverticulosis. noted. 7COLO to cecum, left colon diverticulosis, redundant colon, repeat colo 10 years. 8IMPRESSION: ACR BI-RADS CATEGORY 2: BENIGN, ULTRASOUND ACR BI-RADS CATEGORY 2: BENIGN Effacement of the 5mm asymmetry in the left breast, with no suspicious sonographic correlate identified. This most likely represented normal overlapping fibroglandular tissue possibly due to positioning or the fact that this was the first time the patient had 3D mammography. Nevertheless, this is co nsidered benign given effacement of the finding and recommend routine screening mammography in 1 year (April 2020). 9IMPRESSION: 5 mm asymmetry in the left breast needs additional evaluation. 10right pinky 11There is no mammographic evidence of malignancy. A 1 year screening mammogram is recommended. 12both wrists. 131. Minimal contusion anterior aspect lateral tibial plateau. 2. Otherwise negative study 14right thumb Vital Signs Most recent to oldest [Reference Range]: 1 Patient Weight 86 kg (03/12/24 3:27 PM) Heart Rate 70 bpm (03/12/24 3:27 PM) Respiratory Rate 20 br/min (03/12/24 3:27 PM) Blood Pressure 130/75mmHg (03/12/24 3:27 PM) Social History Social History Type Response Tobacco Former smoker, Cigar ettes 1 Smoking Status Never smoked cigaret aliza Sex Female Sex Representation Female (finding) 1Smoked for one year as a teenager. [facility] Outpt Note * MD José, Jessie Santos: PERFORM Event Display: [facility] Outpt Note Authored Date: [id number] Chief Complaint 6 mo f/u - started abx for diverticulitis on 03/05, discuss vaccines History of Present Illness Patti is a 63yoF here today to f/u on multiple concerns. She had knee surgery which went well, 01/12. Healing well on the R knee and has been discharged from PT and walking without ane. As he was recovering from surgery she got covid 02/21-03/04. She's recovering from this. She also has diverticulitis and was started on antibiotics by Dr. Aponte (who she happenedto have an apptwith) for this on 03/05. She's taking Augmentin for this with plan for bowel resection given this is her 4th flare-up in short order. Planning for this 06/07/2024. Feels like it's responding to antibiotics as it does. She's adhering to low residue diet. She also has questions about vaccines since she turned 63. She is now due for [id number], shingrix, flu,and covid. She has hypothyroidism with elevated TSH in January. She was advised to increase to 125mcg briseida had at home with plan to recheck in 6 weeks (mid Mar). She requests refills of the 125mcg as her existing supply is . Review of Systems ROS reviewed/negative except as noted in HPI. Physical Exam Vitals & Measurements HR:70(Monitored) RR:20 BP:130/75 SpO2:98% WT:86kg WT:86.000kg(Dosing) PHQ2 Data(Data Documented on:03/12/2024 15:26) Emotional health assessment NEGATIVE GENERAL APPEARANCE: The patient is alert, oriented and in no acute distress. VITALS: As above. HEENT: Head is normocephalic/atraumatic. CARDIOVASCULAR: +2 radialpulses. LUNGS: Respirations even and unlabored. EXTREMITIES: No cyanosis, clubbing or edema. ABDOMEN: Soft, NT/ND, +BS, no rebound/guarding. NEUROLOGICAL: Grossly non-focal exam. SKIN: Warm and dry without any rash Assessment/Plan 1.Hx of diverticulitis of colon - Improving on antibiotics - Management per surgery - Red flags reviewed, reassuring exam today 2.Hypothyroid - Recheck TSH/FT4 as planned in Mid March - Clinically more euthyroid on 125mcg 3.Status post total right knee replacement - Doing well post-op 4.Need for pneumococcal vaccination - [id number] and Shingrix #1 today - return in 2months for shingrix #2 - Covid/flu via pharmacy this fall. f/u PRN or q6m. Time: 40mins 5 - pre-visit chart review 30 - visit, inclusive of history, exam, and discussion of assessment/plan 5 - post-visit documentation/orders/coordination of care Problem List/Past Medical History Ongoing Chronic depression Constipation Diverticulitis of colon Endometrial thickening on ultrasound WILLA (generalized anxiety disorder) Hypothyroidism Menopause Oophoritis Status post total right knee replacement Tobacco user Vitamin D deficiency Weight disorder Resolved ADD (attention deficit hyperactivity disorder, inattentive type) Bereavement Cirrhosis Encounter for gynecological examination without abnormal finding Gastric varices Pharyngitis Strain of muscle, fascia and tendon of lower back, initial encounter Suspected COVID-19 virus infection Procedure/Surgical History Arthroplasty of right knee| Service Date: 4CT of abdomen and pelvis| Service Date: 4CT of abdomen and pelvis| Service Date: 08/20/2023Virtual CT colonoscopy| Service Date: 02/01/2023olonoscopy| Service Date: 01/11/2023olonoscopy| Service Date: 3Colonoscopy| Service Date: 08/26/2021Mammogram| Service Date: 05/16/2019Mammogram - screening| Service Date: 04/25/2019Surgery| Service Date: 06/2018Mammogram| Service Date: 11/26/2014Colonoscopy normal| Service Date: 2007Carpal tunnelMRI of left kneeSurgery Medications acetaminophen(Tylenol), PRN albuterol(ProAir HFA 90 mcg/inh inhalation aerosol), 2 puff, inhaled, qid, PRN, 2 refills amoxicillin-clavulanate(amoxicillin-clavulanate 875 mg-125 mg oral tablet) bifidobacterium-lactobacillus(Probiotic 10 Ultra Strength) levothyroxine(levothyroxine 125 mcg (0.125 mg) oral tablet), 125 mcg= 1 tab, PO, Daily, 3 refills meclizine(meclizine 25 mg oral tablet), 1/2 TO 1 TABLET, PO, tid, PRN pneumococcal 20-valent conjugate vaccine(Prevnar 20 intramuscular suspension), 0.5 mL, IM, ONCE sertraline(sertraline 100 mg oral tablet), 100 mg= 1 tab, PO, Daily traZODone(traZODone 100 mg oral tablet), See Instructions, 3 refills valACYclovir(valACYclovir 1 g oral tablet), See Instructions zoster vaccine, inactivated(Shingrix), 0.5 mL, IM, ONCE Allergies Allergy Not found in SearchFeathers Cats Dust Mold No Known Medication Allergies Social History Smoking Status Never smoked cigarettes Alcohol Frequency:1-2 times per year Exercise - Occasional exercise Tobacco - Denies Tobacco Use Use:Former smoker Type:Cigarettes - Comments: Smoked for one year as a teenager. Family History Alzheimer disease: Father. Arthritis: Mother. Atrial fibrillation: Mother. Cardiovascular disease: Mother. Diverticulitis: Father. Heart attack: Mother. Heart disease: Mother. Hypertension: Mother. Irregular heart beat: Mother. Osteoporosis: Father. Reflux: Mother. Rheumatic heart disease: Mother. TIA: Father. Thyroid disease: Father. Health Status Family Member(s) Immunizations Vaccine Date Status influenza virus vaccine, inactivated 06/10/2022 Given Comments : Tiera Sheikh Rn SARS-CoV-2 (COVID-19) Ad26 vaccine 09/02/2020 Recorded SARS-CoV-2 (COVID-19) Ad26 vaccine 08/18/2020 Recorded tetanus/diphtheria/pertuss, acel (Tdap) 02/07/2018 Given influenza virus vaccine, inactivated 05/10/2016 Given tetanus/diphtheria/pertuss, acel (Tdap) 09/13/2006 Recorded Recommendations Health Maintenance Pending(in the next year) OverDue Adult Influenza Vaccine due12/18/23and every 1year Due Adult COVID-19 Vaccination due03/12/24Unknown Frequency Adult Social Determinants of Health Screening due03/12/24Unknown Frequency Falls Plan of Care due03/12/24Unknown Frequency Osteoporosis Screening due03/12/24One-time only Pneumococcal Vaccine Older Adults due03/12/24One-time only Shingles Vaccine due03/12/24One-time only Satisfied(in the past 1 year) Satisfied Body Mass Index on09/29/23.Satisfied by BECCA Langston Erin Breast Cancer Screening on09/20/23.Satisfied by BECCA Mazariegos Angela Lipid Screening on02/01/24.Satisfied by Contributor_system, [employer] Electronic Signature on File Electronically Reviewed/Signed by: Jessie Kumar MD Author Signature Dt/Tm:03/12/2024 04:05 PM Department of Family Medicine [facility] Patient Care team information Care Team Personnel Name: MD Kumar Ravishankar E Position: Physician Member Role: Primary Care Provider Address: [address] [place] [address] Care Team Related Persons Name: BA CASTILLO"
[2024-03-17] MEDS: SODIUM CHLORIDE 0.9% 1,000 ML IV ONE (20:41)
[2024-03-17] MEDS: ONDANSETRON INJ 2 MG/ML 2 ML VIAL IV STA (20:42)
--- NOTE | 2024-03-17 20:51 | Emergency Department Note ---
ED Provider Note History of Present Illness Chief Complaint: Vomiting Stated Complaint: VOMITTING, DIVERTICULITIS FLAIR, ABD PAIN Time Seen by Provider: 03/17/24 20:29 Source: patient Mode of arrival: ambulatory Limitations: no limitations This patient is a 63-year-old female who presents to the emergency department for evaluation of abdominal pain and vomiting. Patient has issues with recurrent diverticulitis and is scheduled for a partial colectomy June 07. She states that she was on Augmentin and finished her prescription 2 days ago. She is still having some residual left lower quadrant pain. She woke up this morning nauseous and began vomiting this afternoon. She denies any fevers. Home Medications Medication Instructions Recorded Confirmed Type trazodone 100 mg tablet 100 mg PO HS 07/10/18 03/17/24 History meclizine 25 mg tablet 25 mg PO TID PRN motion sickness 09/07/23 03/17/24 History sertraline 100 mg tablet 100 mg PO QAM 09/26/23 03/17/24 History ondansetron HCl 4 mg tablet 4 mg PO Q8H PRN nausea and 02/01/24 03/17/24 Rx vomiting #20 tabs hydrocodone 5 mg-acetaminophen 325 1 tab PO Q6H PRN pain #30 tabs 02/06/24 03/17/24 Rx mg tablet levothyroxine 125 mcg tablet 125 mcg PO DAILY 03/05/24 03/17/24 History (Levo-T) Allergies Allergy/AdvReac Type Severity Reaction Status Date / Time mold Allergy Mild Sinus Verified 03/05/24 14:04 issues DUST MITES Allergy Mild Sinus Uncoded 03/05/24 14:04 issues Past Med/Surg History Problem List (Updated 03/18/24 @ 00:55 by Dari Fountain PA-C) Ileus (Acute) Ileus Enteritis Diverticulitis Status post right knee replacement (~12/2023) Anxiety Endometrial thickening on ultrasound Depression Osteoarthritis of right knee S/P lateral meniscectomy of right knee Allergy-induced asthma Encounter for pre-operative examination GERD (gastroesophageal reflux disease) Hypothyroid Fibromyalgia Medical History Hypothyroidism GERD (gastroesophageal reflux disease) Anxiety History of COVID-19 (2021) Symptoms resolved Allergy-induced asthma Depression History of diverticulitis (08/2023) [facility] hospitalization, medically managed/decision not to have surgical intervention No issues since, resolution of diverticulitis on subsequent Abdomen/Pelvis CT 12/15/2023 Diverticulosis Endometrial thickening on ultrasound Chronic back pain PVD (posterior vitreous detachment), left eye 4+ years ago, medically managed/surgical intervention not required No issues since Hearing difficulty of right ear Osteoarthritis Surgical History History of dilatation and curettage History of arthroscopy of right knee 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 History of colonoscopy [facility] (12/2022) History of tooth extraction History of wisdom tooth extraction S/P trigger finger release S/P carpal tunnel release R/L Family History Aunt Cancer Grandmother Cancer Grandfather Cancer Mother Heart disease Hypertension Brother Diabetes Other No family history of adverse response to anesthesia Social History Smoking Status: Former smoker Second Hand Exposure: No; Do You Dip or Chew Tobacco: No; Hx Alcohol Use: Yes Alcohol type: wine Hx Substance Use: No Preferred Language: French Communication Ability: Effective Visual Impairment: No Limitations Hearing Ability: Normal [employer] Required: No Beliefs That Will Affect Care: None marital status: / Current Living Situation: Alone current occupational status: employed 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 How many Children do You have: 0 Feels Safe at Home: Yes during the past year weight has: decreased > 10 lbs Assistive Devices: Cane, Raised Toilet Seat, Walker and Other Physical Exam Vital Signs Vital Signs - 24 hr 03/17/24 20:25 03/17/24 22:47 03/17/24 22:47 Temperature 36.7 C Temperature Source Oral Pulse Rate 106 H 78 Pulse Rate [Finger] 77 Pulse Rhythm [Finger] Pulse Strength [Finger] Normal Respiratory Rate 16 16 Respiratory Effort / Characteristics Non-Labored Spontaneous Respiratory Depth Normal Respiratory Pattern Regular Blood Pressure 123/81 Blood Pressure [Left Arm] 129/60 Blood Pressure Mean 95 Blood Pressure Mean [Left Arm] 83 Blood Pressure Position [Left Arm] Pulse Oximetry 93 95 98 Oxygen Delivery Method Room Air Room Air Room Air Sepsis Recent Fever Within 48 Hours No Sepsis New/Unexplained Change in Mental Status No Sepsis Action Taken by Nursing No Action Required 03/18/24 00:29 Temperature Temperature Source Pulse Rate Pulse Rate [Finger] 69 Pulse Rhythm [Finger] Regular Pulse Strength [Finger] Normal Respiratory Rate 18 Respiratory Effort / Characteristics Non-Labored Spontaneous Respiratory Depth Normal Respiratory Pattern Regular Blood Pressure Blood Pressure [Left Arm] 129/75 Blood Pressure Mean Blood Pressure Mean [Left Arm] 93 Blood Pressure Position [Left Arm] Semi-fowlers Pulse Oximetry 98 Oxygen Delivery Method Room Air Sepsis Recent Fever Within 48 Hours Sepsis New/Unexplained Change in Mental Status Sepsis Action Taken by Nursing VITALS: Vitals are noted on the nurse's note and reviewed by myself. GENERAL: This is a 63-year-old female, in no acute distress, well-developed well-nourished. MOUTH: Mucous membranes moist. NECK: Supple without nuchal rigidity. HEART: Regular rate and rhythm without murmurs gallops or rubs. LUNGS: Clear to auscultation bilaterally without wheezes, rales or rhonchi. ABDOMEN: Positive bowel sounds x 4. Soft, tenderness in the left lower quadrant and left upper quadrant. No guarding or rebound tenderness. NEURO: Patient was alert and oriented to person place and time. Course Administered Medications Discontinued Medications Sodium Chloride (Nss) 1,000 mls @ 999 mls/hr IV .Q1H1M ONE Stop: 03/17/24 21:38 Last Infusion: 03/17/24 22:01 Dose: Infused Documented By: Admin: 03/17/24 20:41 Dose: 999 mls/hr Documented By: SHAY Ioversol (Optiray 320 100ml) 94 ml IV ONCE ONE Stop: 03/17/24 21:52 Last Admin: 03/17/24 21:51 Dose: 94 ml Documented By: MADISON Ketorolac Tromethamine (Ketorolac Tromethamine 15 Mg/Ml Vial) 15 mg IV NOW STA Stop: 03/17/24 22:04 Last Admin: 03/17/24 22:18 Dose: 15 mg Documented By: EMILY Ondansetron HCl (Ondansetron Inj 2 Mg/Ml 2 Ml Vial) 4 mg IV NOW STA Stop: 03/17/24 20:39 Last Admin: 03/17/24 20:42 Dose: 4 mg Documented By: [facility] Medical Decision Making Differential Diagnosis Appendicitis, testicular torsion, infections, diverticulitis, UTI, obstruction, mesenteric ischemia, aortic pathology, inflammatory bowel disease, renal colic, PUD, pancreatitis, biliary pathology, hernia, volvulus, constipation, as well as other pathologies. Laboratory Data Attestation: I reviewed the patient's lab results. 03/17/24 20:40 03/17/24 20:40 Lab Results 03/17/24 Range/Units 20:40 WBC 10.89 H (4.8-10.8) K/ul RBC 4.52 (4.20-5.40) M/uL Hgb 12.4 (12.0-16.0) g/dl Hct 38.9 (37.0-47.0) % MCV 86.1 (80.0-100.0) fL MCH 27.4 (25.0-34.0) pg MCHC 31.9 L (32.0-36.0) g/dL RDW Std Deviation 40.4 (36.4-46.3) fL RDW Coeff of Geovani 12.9 (11.5-14.5) % Plt Count 339 (130-400) K/uL MPV 9.6 (9.4-12.4) fL Immature Gran % (Auto) 0.5 % Neut % (Auto) 80.9 % Lymph % (Auto) 9.0 % [place] % (Auto) 7.8 % Eos % (Auto) 1.7 % Baso % (Auto) 0.1 % Neut # (Auto) 8.82 H (1.40-6.50) K/uL Lymph # (Auto) 0.98 L (1.20-3.40) K/uL [place] # (Auto) 0.85 H (0.11-0.59) K/uL Eos # (Auto) 0.18 (0.00-0.50) K/uL Baso # (Auto) 0.01 (0.00-0.20) K/uL Immature Gran # (Auto) 0.05 (0.01-0.20) K/uL Sodium 139 (136-145) mmol/L Potassium 3.6 (3.5-5.1) mmol/L Chloride 106 (98-107) mmol/L Carbon Dioxide 25 (21-32) mmol/L Anion Gap 8 (3-11) BUN 17 (6-23) mg/dl Creatinine 0.72 (0.6-1.2) mg/dl Est Cr Clr Drug Dosing 87.7 ml/min Est GFR ( Amer) 101.9 ml/min Est GFR (Non-Af Amer) 87.9 ml/min BUN/Creatinine Ratio 23.6 H (10-20) Glucose 100 H (70-99(Fasting)) mg/dl Calcium 9.2 (8.6-10.3) mg/dl Total Bilirubin 0.4 (0.2-1.0) mg/dl AST 13 (13-39) U/L ALT 11 (7-52) U/L Alkaline Phosphatase 104 (34-104) U/L Total Protein 7.1 (6.0-8.3) gm/dl Albumin 4.3 (3.4-5.0) gm/dl Globulin 2.8 (2.5-4.0) gm/dl Albumin/Globulin Ratio 1.5 (0.9-2) Lipase 29 (11-82) U/L Imaging Data Attestation: I personally reviewed and interpreted this imaging study as follows: Radiologist's Impression: Abdomen/Pelvis CT 03/17/24 20:39 Exam(s): CT ABDOMEN + PELVIS With Contrast IV Amt: 94ml optiray 320 EXAM: CT Abdomen and Pelvis With Intravenous Contrast CLINICAL HISTORY: Reason for exam: LLQ pain, diverticulitis. TECHNIQUE: Axial computed tomography images of the abdomen and pelvis with intravenous contrast. Automated exposure control was utilized for the study. A dose lowering technique was utilized adhering to the principles of ALARA. CONTRAST: Patient received 94ml optiray 320 of IV contrast COMPARISON: 12/15/2023 FINDINGS: Lung bases: No consolidation. ABDOMEN: Liver: A 7 mm lucency is noted within the left lobe of the liver.. Gallbladder and bile ducts: No calcified stones. No ductal dilation. Pancreas: No mass. No ductal dilation. Spleen: No splenomegaly. Adrenals: . No mass. Kidneys and ureters: No solid mass. No hydronephrosis. Stomach and bowel: There is air and fluid within the stomach. There is air and, fluid and stool within the colon. There are diverticula present on the colon. No significant inflammatory changes are noted.. There are distended loops of small bowel containing air and fluid.. PELVIS: Appendix: The appendix is not visualized. Bladder: No calculi are noted within the bladder.. Reproductive: There is a 3.7 x 5.8 cm lucency noted in the left adnexa.. ABDOMEN and PELVIS: Intraperitoneal space: No free air. No significant fluid collection. Bones/joints: There are degenerative changes in the spine. There is a bilateral spondylolysis with a grade 1 spondylolisthesis of L4 on L5.. Soft tissues: Unremarkable. Vasculature: . No abdominal aortic aneurysm. Lymph nodes: No enlarged lymph nodes. IMPRESSION: Diverticulosis. There is air and, fluid and stool within the colon. There are distended loops of small bowel containing air and fluid.. This may be related to an ileus. Cannot exclude a nonspecific enteritis. A 3.7 x 5.8 cm lucency is again noted in the left adnexa which may represent a cyst. This should be further evaluated with use of a nonemergent pelvic ultrasound. A 7 mm lucency in the left lobe of liver appears similar to previous exam may represent a cyst. Electronically signed by: Shahbaz Mahmood MD 03/17/24 23:03 PM MDM Narrative This patient is a 63-year-old female who presents to the emergency department for evaluation of abdominal pain. Patient recently finished a course of antibiotics for diverticulitis. CT performed and shows evidence of ileus, fortunately no perforation or abscess. Patient given IV fluids, Zofran, Toradol with symptomatic improvement. Case was discussed with general surgery who recommended medical admission for IV hydration and bowel rest. Case was then discussed with the [facility] hospitalist group who agreed to evaluate the patient for further care. Impression Ileus Discharge Plan Visit Data Chief Complaint: Vomiting Stated Complaint: VOMITTING, DIVERTICULITIS FLAIR, ABD PAIN ED Provider: Anna Renee ED Midlevel Provider: Dari Fountain Discharge Problem: Ileus Forms Stand Alone Forms: My [facility] [employer] Prescriptions Prescriptions: No Action hydrocodone-acetaminophen 5-325 mg tablet 1 tab PO Q6H PRN (Reason: pain) Qty: 30 0RF levothyroxine [Levo-T] 125 mcg tablet 125 mcg PO DAILY ondansetron HCl 4 mg tablet 4 mg PO Q8H PRN (Reason: nausea and vomiting) Qty: 20 0RF trazodone 100 mg tablet 100 mg PO HS sertraline 100 mg tablet 100 mg PO QAM meclizine 25 mg tablet 25 mg PO TID PRN (Reason: motion sickness) Referrals Referrals: Donovan Kumar MD [Primary Care Provider] -
[2024-03-17 21:10] LABS: Albumin Globulin Ratio 1.5 (0.9-2); Albumin Level 4.3 gm/dl (3.4-5.0); BUN Creatinine Ratio 23.6 (10-20); Bilirubin,Total 0.4 mg/dl (0.2-1.0); Calcium 9.2 mg/dl (8.6-10.3); Creatinine Clr Calc Pharmacy 87.7 ml/min; Est GFR (African American) 101.9 ml/min; Est GFR (Non-African American) 87.9 ml/min; Globulin 2.8 gm/dl (2.5-4.0); Potassium 3.6 mmol/L (3.5-5.1); Total Protein 7.1 gm/dl (6.0-8.3)
--- NOTE | 2024-03-17 21:10 | Surgery Consultation ---
<Statement entered by Dave Clay DO - 03/18/24 11:07> I have discussed this case with the surgical PA and I agree with the plan. Date of Consultation March 17, 2024 Assessment & Plan (1) Diverticulitis: I discussed with the treating clinician in the emergency department and the plan is as follows: They have ordered labs which are pending we will follow for the results of these A CT scan of the abdomen pelvis has been ordered and we will follow-up for the results of this Based on the patient's symptomatology is likely that she has recurrence of her diverticulitis and based on her CAT scan will likely require admission with intravenous antibiotics and intravenous fluids At the present time the patient is nontoxic-appearing and she is normotensive without fever and only has a slight tachycardia. We will await the results of her CT scan and labs and act accordingly based on these results. I did discuss with the patient that if she is noted to have current flare of diverticulitis on CT scan will be preferable to not operate her up at this time as any emergent surgery required colostomy. I did tell her that prior to undergoing her planned surgery would be preferable for her to have an appropriate bowel prep so 1 stage operation can be performed. Additional recommendations with forthcoming based on her clinical course as it unfolds Addendum (11:10 PM) Patient's laboratory results showed CBC were white blood cell count was 10.8. Hemoglobin, hematocrit, platelet count were normal. Chemistry profile showed sodium and potassium as well as the BUN and creatinine were normal. There is no elevation of LFTs or lipase. She did undergo a CT scan of the abdomen pelvis. Interpreting radiologist felt that there is no significant inflammatory change noted on this scan. The patient was noted to have some air, fluid, and stool in the colon consistent with an ileus; nonspecific enteritis cannot be excluded. The patient was also noted to have a 3.7 x 5.8 cm adnexal cyst. I discussed with the treating emergency room clinician. I current plan is to have the patient admitted to the medical service. Will implement bowel rest and hydrate with IV fluids and continue antibiotics. Would recommend repeating labs in the morning. Determination of how long the patient will remain hospitalized will depend on her clinical course with the above plan. Addendum (5:00 AM) Patient notes that she has had symptomatic improvement since admission to the hospital. She denies any nausea or vomiting. She denies any fevers, shakes, or chills. She notes minimal abdominal pain at this time. She has had a bowel movement since admission. Patient does have some slight pain with palpation the left lower quadrant which is similar to what was noted at time of admission. Will continue with plan as outlined above History of Present Illness Reason for Consultation: Abdominal pain, concern for diverticulitis History of Present Illness This is a 63-year-old female with an underlying history of recurrent diverticulitis. The patient says that she has now had 4 episodes of diverticulitis. Her most recent episode of diverticulitis was within the past 2 weeks and she notes that she completed a course of oral Augmentin on 03/15/2024 which was 2 days ago. Patient notes that since finishing her antibiotics she has been developing some loose nonbloody bowel movements and some left lower quadrant pain which are precursors of diverticulitis from her past history. She also has had some nausea without vomiting. She denies any fevers, shakes, or chills. Patient notes that because of her recurrent diverticulitis she is tentatively scheduled for a sigmoid colon resection by Dr. Aponte which is scheduled for early May of this year. Patient notes that she recently underwent a right knee replacement in December of this year which is why she did not schedule her bowel resection earlier. Because of her above-noted symptomatology she called the answering service of [facility] physician group general surgery and was advised by the on-call surgeon to report to the emergency department for further evaluation and likely admission. At the time of my visit with the patient she was resting comfortably in bed and she was in no distress. Allergies Allergy/AdvReac Type Severity Reaction Status Date / Time house dust Allergy Mild Sinus Verified 03/18/24 03:21 issues mold Allergy Mild Sinus Verified 03/05/24 14:04 issues Home Medications Medication Instructions Recorded Confirmed Type trazodone 100 mg tablet 100 mg PO HS 07/10/18 03/17/24 History meclizine 25 mg tablet 25 mg PO TID PRN motion sickness 09/07/23 03/17/24 History sertraline 100 mg tablet 100 mg PO QAM 09/26/23 03/17/24 History ondansetron HCl 4 mg tablet 4 mg PO Q8H PRN nausea and 02/01/24 03/17/24 Rx vomiting #20 tabs hydrocodone 5 mg-acetaminophen 325 1 tab PO Q6H PRN pain #30 tabs 02/06/24 03/17/24 Rx mg tablet levothyroxine 125 mcg tablet 125 mcg PO DAILY 03/05/24 03/17/24 History (Levo-T) Patient History Medical History Hypothyroidism GERD (gastroesophageal reflux disease) Anxiety History of COVID-19 (2021) Symptoms resolved Allergy-induced asthma Depression History of diverticulitis (08/2023) [facility] hospitalization, medically managed/decision not to have surgical intervention No issues since, resolution of diverticulitis on subsequent Abdomen/Pelvis CT 12/15/2023 Diverticulosis Endometrial thickening on ultrasound Chronic back pain PVD (posterior vitreous detachment), left eye 4+ years ago, medically managed/surgical intervention not required No issues since Hearing difficulty of right ear Osteoarthritis Surgical History History of dilatation and curettage History of arthroscopy of right knee 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 History of colonoscopy [facility] (12/2022) History of tooth extraction History of wisdom tooth extraction S/P trigger finger release S/P carpal tunnel release R/L Family History Aunt Cancer Grandmother Cancer Grandfather Cancer Mother Heart disease Hypertension Brother Diabetes Other No family history of adverse response to anesthesia Social History Smoking Status: Never smoker Second Hand Exposure: No; Do You Dip or Chew Tobacco: No; Hx Alcohol Use: Yes (occasionally) Alcohol type: wine Hx Substance Use: No Preferred Language: Slovak Communication Ability: Effective Visual Impairment: No Limitations Hearing Ability: Normal Powerhouse Operator Required: No Beliefs That Will Affect Care: None marital status: / Current Living Situation: Alone current occupational status: employed 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 How many Children do You have: 0 Feels Safe at Home: Yes during the past year weight has: decreased > 10 lbs Assistive Devices: Cane and Walker Review of Systems Review of Systems: All systems reviewed & are unremarkable except as noted in HPI & below Physical Exam Constitutional: WD/WN, vitals as above Eyes: Wears glasses ENMT: Ears: no hearing impairment and no external ear abnormality Mouth: no oropharynx abnormality Neck: trachea midline Respiratory: normal respiratory effort; no respiratory distress and no labored breathing Cardiovascular: Rate/Rhythm: regular rate and regular rhythm Gastrointestinal (Abdomen): Abdomen is soft, nonrigid, and nondistended. There is no rebound tenderness or guarding the patient did have pain with palpation (deep palpation) in the left lower quadrant Musculoskeletal: No calf tenderness. Patient had a well-healed incision over her right knee consistent with recent knee replacement Skin: no rashes Neurologic: moves all extremities Psychiatric: A+Ox3, euthymic affect Results & Data Vital Signs (Past 12 Hours) Vital Signs Temp Pulse Resp BP Pulse Ox O2 Del Method 03/17/24 20:25 36.7 C 106 H 16 123/81 93 Room Air PG Care Time/CCT Total # of Minutes Spent Total Time Spent with Patient: Total time spent is greater than 50% in coordination of care (as documented) at patient's floor/unit and/or counseling patient: Coding Level of Care Code 61649 INT INP/OBS CARE MIN Diagnoses Diverticulitis K57.92
[2024-03-17 21:24] LABS: Basophils # (auto) 0.01 K/uL (0.00-0.20); Basophils % (auto) 0.1 %; Eosinophils # (auto) 0.18 K/uL (0.00-0.50); Eosinophils % (auto) 1.7 %; Hematocrit (blood only) 38.9 % (37.0-47.0); Hemoglobin 12.4 g/dl (12.0-16.0); Immature Granulocytes # (auto) 0.05 K/uL (0.01-0.20); Immature Granulocytes % (auto) 0.5 %; Lymphocytes # (auto) 0.98 K/uL (1.20-3.40); Mean Corpuscular Hemoglobin 27.4 pg (25.0-34.0); Mean Corpuscular Hgb Conc 31.9 g/dL (32.0-36.0); Mean Corpuscular Volume 86.1 fL (80.0-100.0); Mean Platelet Volume 9.6 fL (9.4-12.4); Monocytes # (auto) 0.85 K/uL (0.11-0.59); Monocytes % (auto) 7.8 %; Neutrophils # (auto) 8.82 K/uL (1.40-6.50); Neutrophils % (auto) 80.9 %; Platelet Count 339 K/uL (130-400); RDW Coefficient of Variation 12.9 % (11.5-14.5); RDW Standard Deviation 40.4 fL (36.4-46.3); Red Blood Count 4.52 M/uL (4.20-5.40); White Blood Count 10.89 K/ul (4.8-10.8)
[2024-03-17] MEDS: OPTIRAY 320 100ml IV ONE (21:51)
[2024-03-17] MEDS: KETOROLAC TROMETHAMINE 15 MG/ML VIAL IV STA (22:18)
--- NOTE | 2024-03-17 23:03 | CT Scan Report ---
Exam(s): CT ABDOMEN + PELVIS With Contrast IV Amt: 94ml optiray 320 EXAM: CT Abdomen and Pelvis With Intravenous Contrast CLINICAL HISTORY: Reason for exam: LLQ pain, diverticulitis. TECHNIQUE: Axial computed tomography images of the abdomen and pelvis with intravenous contrast. Automated exposure control was utilized for the study. A dose lowering technique was utilized adhering to the principles of ALARA. CONTRAST: Patient received 94ml optiray 320 of IV contrast COMPARISON: 12/15/2023 FINDINGS: Lung bases: No consolidation. ABDOMEN: Liver: A 7 mm lucency is noted within the left lobe of the liver.. Gallbladder and bile ducts: No calcified stones. No ductal dilation. Pancreas: No mass. No ductal dilation. Spleen: No splenomegaly. Adrenals: . No mass. Kidneys and ureters: No solid mass. No hydronephrosis. Stomach and bowel: There is air and fluid within the stomach. There is air and, fluid and stool within the colon. There are diverticula present on the colon. No significant inflammatory changes are noted.. There are distended loops of small bowel containing air and fluid.. PELVIS: Appendix: The appendix is not visualized. Bladder: No calculi are noted within the bladder.. Reproductive: There is a 3.7 x 5.8 cm lucency noted in the left adnexa.. ABDOMEN and PELVIS: Intraperitoneal space: No free air. No significant fluid collection. Bones/joints: There are degenerative changes in the spine. There is a bilateral spondylolysis with a grade 1 spondylolisthesis of L4 on L5.. Soft tissues: Unremarkable. Vasculature: . No abdominal aortic aneurysm. Lymph nodes: No enlarged lymph nodes. IMPRESSION: Diverticulosis. There is air and, fluid and stool within the colon. There are distended loops of small bowel containing air and fluid.. This may be related to an ileus. Cannot exclude a nonspecific enteritis. A 3.7 x 5.8 cm lucency is again noted in the left adnexa which may represent a cyst. This should be further evaluated with use of a nonemergent pelvic ultrasound. A 7 mm lucency in the left lobe of liver appears similar to previous exam may represent a cyst. Electronically signed by: Shahbaz Mahmood MD 03/17/24 23:03 PM
--- NOTE | 2024-03-18 00:42 | History & Physical Report ---
Date of Service March 18, 2024 Assessment & Plan (1) Ileus: (2) Enteritis: (3) Anxiety: (4) Depression: (5) Allergy-induced asthma: (6) GERD (gastroesophageal reflux disease): (7) Hypothyroid: Plan Ileus/enteritis/GERD/history of recurrent diverticulitis- Patient with recently having completed a 14-day course of Augmentin from 03/02- 03/16, will therefore order a C. difficile study She ate a cheese steak which was unrefrigerated for over 24 hours, a few days ago, and will therefore order stool PCR She has not had a bowel movement in the past 24 hours, which may be due to the ileus itself, or she is auto correcting at this point and the studies can be cancelled if no abnormal stool This may also have begun as an antibiotic associated diarrhea with remaining ileus Diet will be n.p.o. except sips and medications Zofran 4 mg IV every 6 hours as needed Pantoprazole 40 mg IV daily NSS + KCl 20 mill equivalents at 100 mL/h x 2 L Acetaminophen 650 mg by mouth every 6 hours as needed for mild pain or fever Toradol 15 mg IV every 6 hours as needed for moderate to severe pain Bentyl 10 mg p.o. every 6 hours as needed abdominal cramping Patient has already been seen by general surgery in the emergency department Left adnexal cyst- Noted on CT scan, and initially noted on 12/15/2023 Radiology recommends a pelvic ultrasound for further clarification, which can be performed after acute GI process is resolved Anxiety and depression- Continue sertraline and trazodone Hypothyroidism- Continue levothyroxine History of Present Illness Chief Complaint: The patient presents to the emergency department with a few days of abdominal discomfort, which progressed into more significant pain and vomiting earlier in the day today Primary Care Provider: Donovan Kumar MD The patient is a 63-year-old female with a past medical history including recurrent diverticulitis, hypothyroidism, anxiety with depression, allergy induced asthma, GERD and fibromyalgia. She was empirically treated for her most recent case of diverticulitis from 03/02 through 03/16 with Augmentin twice daily dosing. She reports her stools have been more mushy over the past 48 hours, and today developed more significant abdominal pain and nausea with vomiting. She also reports that 2 days ago she ate a cheese steak which had been sitting out unrefrigerated for 24 hours. She is scheduled to undergo a sigmoid resection due to recurrent diverticulitis by Dr. Aponte on June 07. She denies any recent travels or sick exposures. Main dietary potential indiscretion is the above-mentioned she cheese steak. She reports that her abdominal pain is usually in her left lower quadrant, which is where it began on March 02, and now is more across her upper abdomen, from right side to left, and feels more gassy and crampy Allergies Allergy/AdvReac Type Severity Reaction Status Date / Time mold Allergy Mild Sinus Verified 03/05/24 14:04 issues DUST MITES Allergy Mild Sinus Uncoded 03/05/24 14:04 issues Home Medications Medication Instructions Recorded Confirmed Type trazodone 100 mg tablet 100 mg PO HS 07/10/18 03/17/24 History meclizine 25 mg tablet 25 mg PO TID PRN motion sickness 09/07/23 03/17/24 History sertraline 100 mg tablet 100 mg PO QAM 09/26/23 03/17/24 History ondansetron HCl 4 mg tablet 4 mg PO Q8H PRN nausea and 02/01/24 03/17/24 Rx vomiting #20 tabs hydrocodone 5 mg-acetaminophen 325 1 tab PO Q6H PRN pain #30 tabs 02/06/24 03/17/24 Rx mg tablet levothyroxine 125 mcg tablet 125 mcg PO DAILY 03/05/24 03/17/24 History (Levo-T) Past Med/Surg History Problem List (Updated 03/18/24 @ 00:34 by Long Lui MD) Ileus Enteritis Diverticulitis Status post right knee replacement (~12/2023) Anxiety Endometrial thickening on ultrasound Depression Osteoarthritis of right knee S/P lateral meniscectomy of right knee Allergy-induced asthma Encounter for pre-operative examination GERD (gastroesophageal reflux disease) Hypothyroid Fibromyalgia Medical History Hypothyroidism GERD (gastroesophageal reflux disease) Anxiety History of COVID-19 (2021) Symptoms resolved Allergy-induced asthma Depression History of diverticulitis (08/2023) [facility] hospitalization, medically managed/decision not to have surgical intervention No issues since, resolution of diverticulitis on subsequent Abdomen/Pelvis CT 12/15/2023 Diverticulosis Endometrial thickening on ultrasound Chronic back pain PVD (posterior vitreous detachment), left eye 4+ years ago, medically managed/surgical intervention not required No issues since Hearing difficulty of right ear Osteoarthritis Surgical History History of dilatation and curettage History of arthroscopy of right knee 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 History of colonoscopy [facility] (12/2022) History of tooth extraction History of wisdom tooth extraction S/P trigger finger release S/P carpal tunnel release R/L Family History Aunt Cancer Grandmother Cancer Grandfather Cancer Mother Heart disease Hypertension Brother Diabetes Other No family history of adverse response to anesthesia Social History Smoking Status: Former smoker Second Hand Exposure: No; Do You Dip or Chew Tobacco: No; Hx Alcohol Use: Yes Alcohol type: wine Hx Substance Use: No Preferred Language: Hungarian Communication Ability: Effective Visual Impairment: No Limitations Hearing Ability: Normal 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 Required: No Beliefs That Will Affect Care: None marital status: / Current Living Situation: Alone current occupational status: employed 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 How many Children do You have: 0 Feels Safe at Home: Yes during the past year weight has: decreased > 10 lbs Assistive Devices: Cane, Raised Toilet Seat, Walker and Other Review of Systems Review of Systems: The patient denies chest pain, palpitations, shortness of breath, dyspnea on exertion, cough, lower extremity swelling, sore throat, fevers, chills, sweats, weight change, fatigue, blood in urine or stool, dysuria, urinary frequency or urgency, lightheadedness, dizziness, headache, memory loss, loss of consciousness, rash, abnormal bruising or bleeding, imbalance, focal or generalized weakness, numbness or tingling in arms or legs, generalized arthralgias or myalgias, back or neck pain, or night sweats. The review of systems is otherwise negative other than for that already noted above, and at least 10 systems have been reviewed. Physical Exam Physical Exam: The patient is awake, alert and oriented 3, well developed and well nourished, normocephalic and atraumatic, lying in bed and in no acute distress. HEENT--PERRL, EOMI, mucous membranes and oropharynx mildly dry. Neck--supple. No JVD. No bruits. Thyroid normal, trachea midline, no adenopathy. Heart--normal S1 and S2. No murmurs, rubs or gallops. Lungs--clear bilaterally, no respiratory distress, no accessory muscle use. Abdomen--normal bowel sounds and soft. Mildly distended and tympanitic Extremities--no cyanosis or clubbing. No edema. There are good distal pulses b/l. Dermatologic--normal skin turgor, normal color, no abnormal lymph nodes, no rash. Neurologic--cranial nerves II through XII grossly intact. Rheumatologic--normal range of motion. Psychiatric--normal affect. Results & Data Results & Data Vital Signs (Past 12 Hours) Vital Signs Temp Pulse Pulse Resp BP BP Pulse Ox 03/17/24 22:47 78 98 03/17/24 22:47 77 16 129/60 95 03/17/24 20:25 36.7 C 106 H 16 123/81 93 O2 Del Method 03/17/24 22:47 Room Air 03/17/24 22:47 Room Air 03/17/24 20:25 Room Air Laboratory Results Laboratory Results WBC 10.89 K/ul (4.8-10.8) H 03/17/24 20:40 RBC 4.52 M/uL (4.20-5.40) 03/17/24 20:40 Hgb 12.4 g/dl (12.0-16.0) 03/17/24 20:40 Hct 38.9 % (37.0-47.0) 03/17/24 20:40 MCV 86.1 fL (80.0-100.0) 03/17/24 20:40 MCH 27.4 pg (25.0-34.0) 03/17/24 20:40 MCHC 31.9 g/dL (32.0-36.0) L 03/17/24 20:40 RDW Std Deviation 40.4 fL (36.4-46.3) 03/17/24 20:40 RDW Coeff of Geovani 12.9 % (11.5-14.5) 03/17/24 20:40 Plt Count 339 K/uL (130-400) 03/17/24 20:40 MPV 9.6 fL (9.4-12.4) 03/17/24 20:40 Immature Gran % (Auto) 0.5 % 03/17/24 20:40 Neut % (Auto) 80.9 % 03/17/24 20:40 Lymph % (Auto) 9.0 % 03/17/24 20:40 Wise % (Auto) 7.8 % 03/17/24 20:40 Eos % (Auto) 1.7 % 03/17/24 20:40 Baso % (Auto) 0.1 % 03/17/24 20:40 Neut # (Auto) 8.82 K/uL (1.40-6.50) H 03/17/24 20:40 Lymph # (Auto) 0.98 K/uL (1.20-3.40) L 03/17/24 20:40 Wise # (Auto) 0.85 K/uL (0.11-0.59) H 03/17/24 20:40 Eos # (Auto) 0.18 K/uL (0.00-0.50) 03/17/24 20:40 Baso # (Auto) 0.01 K/uL (0.00-0.20) 03/17/24 20:40 Immature Gran # (Auto) 0.05 K/uL (0.01-0.20) 03/17/24 20:40 Sodium 139 mmol/L (136-145) 03/17/24 20:40 Potassium 3.6 mmol/L (3.5-5.1) 03/17/24 20:40 Chloride 106 mmol/L (98-107) 03/17/24 20:40 Carbon Dioxide 25 mmol/L (21-32) 03/17/24 20:40 Anion Gap 8 (3-11) 03/17/24 20:40 BUN 17 mg/dl (6-23) 03/17/24 20:40 Creatinine 0.72 mg/dl (0.6-1.2) 03/17/24 20:40 Est Cr Clr Drug Dosing 87.7 ml/min 03/17/24 20:40 Est GFR ( Amer) 101.9 ml/min 03/17/24 20:40 Est GFR (Non-Af Amer) 87.9 ml/min 03/17/24 20:40 BUN/Creatinine Ratio 23.6 (10-20) H 03/17/24 20:40 Glucose 100 mg/dl (70-99(Fasting)) H 03/17/24 20:40 Calcium 9.2 mg/dl (8.6-10.3) 03/17/24 20:40 Total Bilirubin 0.4 mg/dl (0.2-1.0) 03/17/24 20:40 AST 13 U/L (13-39) 03/17/24 20:40 ALT 11 U/L (7-52) 03/17/24 20:40 Alkaline Phosphatase 104 U/L (34-104) 03/17/24 20:40 Total Protein 7.1 gm/dl (6.0-8.3) 03/17/24 20:40 Albumin 4.3 gm/dl (3.4-5.0) 03/17/24 20:40 Globulin 2.8 gm/dl (2.5-4.0) 03/17/24 20:40 Albumin/Globulin Ratio 1.5 (0.9-2) 03/17/24 20:40 Lipase 29 U/L (11-82) 03/17/24 20:40 Impressions Abdomen/Pelvis CT 03/17/24 20:39 Exam(s): CT ABDOMEN + PELVIS With Contrast IV Amt: 94ml optiray 320 EXAM: CT Abdomen and Pelvis With Intravenous Contrast CLINICAL HISTORY: Reason for exam: LLQ pain, diverticulitis. TECHNIQUE: Axial computed tomography images of the abdomen and pelvis with intravenous contrast. Automated exposure control was utilized for the study. A dose lowering technique was utilized adhering to the principles of ALARA. CONTRAST: Patient received 94ml optiray 320 of IV contrast COMPARISON: 12/15/2023 FINDINGS: Lung bases: No consolidation. ABDOMEN: Liver: A 7 mm lucency is noted within the left lobe of the liver.. Gallbladder and bile ducts: No calcified stones. No ductal dilation. Pancreas: No mass. No ductal dilation. Spleen: No splenomegaly. Adrenals: . No mass. Kidneys and ureters: No solid mass. No hydronephrosis. Stomach and bowel: There is air and fluid within the stomach. There is air and, fluid and stool within the colon. There are diverticula present on the colon. No significant inflammatory changes are noted.. There are distended loops of small bowel containing air and fluid.. PELVIS: Appendix: The appendix is not visualized. Bladder: No calculi are noted within the bladder.. Reproductive: There is a 3.7 x 5.8 cm lucency noted in the left adnexa.. ABDOMEN and PELVIS: Intraperitoneal space: No free air. No significant fluid collection. Bones/joints: There are degenerative changes in the spine. There is a bilateral spondylolysis with a grade 1 spondylolisthesis of L4 on L5.. Soft tissues: Unremarkable. Vasculature: . No abdominal aortic aneurysm. Lymph nodes: No enlarged lymph nodes. IMPRESSION: Diverticulosis. There is air and, fluid and stool within the colon. There are distended loops of small bowel containing air and fluid.. This may be related to an ileus. Cannot exclude a nonspecific enteritis. A 3.7 x 5.8 cm lucency is again noted in the left adnexa which may represent a cyst. This should be further evaluated with use of a nonemergent pelvic ultrasound. A 7 mm lucency in the left lobe of liver appears similar to previous exam may represent a cyst. Electronically signed by: Shahbaz Mahmood MD 03/17/24 23:03 PM Code Status & VTE Plan Code Status Full code VTE Prophylaxis Plan VTE Prophylaxis will be ordered: Yes PG Care Time/CCT Total # of Minutes Spent Total Time Spent with Patient: Total time spent is greater than 50% in coordination of care (as documented) at patient's floor/unit and/or counseling patient: Coding Level of Care Code 59898 INT INP/OBS CARE 3/75MIN Diagnoses Ileus K56.7 Enteritis K52.9 Anxiety F41.9 Depression F32.A Allergy-induced asthma J45.909 GERD (gastroesophageal reflux disease) K21.9 Hypothyroid E03.9
[2024-03-18] MEDS ORDERED: DICYCLOMINE HCL 10 MG CAP PO PRN (03:17)
[2024-03-18 03:37] LABS: Appearance Urine Clear (Clear); Bacteria Urine Automated None Seen (None Seen); Bilirubin Urine Negative (Negative); Blood Urine Negative (Negative); Cast Urine Automated 0-2 /lpf (0-2); Color Urine Yellow; Epithelial Cell Urine Auto 0-2 /hpf (0-2); Glucose Urine UA Negative (Negative); Ketones Urine Negative (Negative); Leukocyte Esterase Urine Negative (Negative); Nitrite Urine Negative (Negative); Protein Urine Trace (Negative); RBC Urine Automated 0-2 /hpf (0-2); Specific Gravity Urine > 1.045 (1.000-1.030); Urobilinogen Urine Negative (Negative); WBC Urine Automated 0-5 /hpf (0-5)
[2024-03-18] MEDS: NSS + 20MEQ KCL 20 MEQ/1,000 ML BAG IV SCH (04:05)
[2024-03-18] MEDS: LEVOTHYROXINE SODIUM 125 MCG TABLET PO SCH (06:00)
[2024-03-18 06:24] LABS: Basophils # (auto) 0.01 K/uL (0.00-0.20); Basophils % (auto) 0.1 %; Eosinophils # (auto) 0.35 K/uL (0.00-0.50); Eosinophils % (auto) 5.2 %; Hemoglobin 10.2 g/dl (12.0-16.0); Immature Granulocytes # (auto) 0.02 K/uL (0.01-0.20); Immature Granulocytes % (auto) 0.3 %; Lymphocytes # (auto) 1.65 K/uL (1.20-3.40); Lymphocytes % (auto) 24.3 %; Mean Corpuscular Hemoglobin 27.9 pg (25.0-34.0); Mean Corpuscular Hgb Conc 32.9 g/dL (32.0-36.0); Mean Corpuscular Volume 84.9 fL (80.0-100.0); Mean Platelet Volume 9.6 fL (9.4-12.4); Monocytes # (auto) 0.64 K/uL (0.11-0.59); Monocytes % (auto) 9.4 %; Neutrophils # (auto) 4.11 K/uL (1.40-6.50); Neutrophils % (auto) 60.7 %; Platelet Count 262 K/uL (130-400); RDW Standard Deviation 39.9 fL (36.4-46.3); Red Blood Count 3.65 M/uL (4.20-5.40); White Blood Count 6.78 K/ul (4.8-10.8)
[2024-03-18 06:45] LABS: Albumin Globulin Ratio 1.6 (0.9-2); Albumin Level 3.3 gm/dl (3.4-5.0); BUN Creatinine Ratio 21.2 (10-20); Bilirubin,Total 0.5 mg/dl (0.2-1.0); Calcium 8.3 mg/dl (8.6-10.3); Creatinine Clr Calc Pharmacy 95.6 ml/min; Est GFR (African American) 107.4 ml/min; Est GFR (Non-African American) 92.7 ml/min; Globulin 2.1 gm/dl (2.5-4.0); Magnesium 1.8 mg/dl (1.7-2.4); Potassium 3.5 mmol/L (3.5-5.1); Total Protein 5.4 gm/dl (6.0-8.3)
[2024-03-18] MEDS: ACETAMINOPHEN 325 MG TAB PO PRN (09:20)
[2024-03-18] MEDS: SERTRALINE HCL 100 MG TABLET PO SCH (09:20)
[2024-03-18] MEDS: ONDANSETRON INJ 2 MG/ML 2 ML VIAL IV PRN (10:17)
[2024-03-18] MEDS: PANTOprazole 40 MG in SYRINGE 0 ML IV SCH (11:54)
--- NOTE | 2024-03-18 13:54 | Hospitalist Progress Note ---
Date of Service March 18, 2024 Assessment & Plan (1) Enteritis: Plan: patient recently treated for sigmoid diverticulitis with a 2-week course of PO augmentin; this ended 2-3 days ago she presents with nausea, emesis, stomach upset, bloating, and left-sided pain (was generalized up until yesterday) CT a/p without findings of diverticulitis CT is more suspicious for an enteritis with the recent abx usage, recent hospital stay in late December for a TKR, etc she is at risk of c diff infection she could also have a viral or bacterial process outside of c diff (ate questionable food last few days, etc) await c diff testing await stool [employer] no contraindication to PO intake thus start clear liquid diet cont IV fluids repeat labs am (2) Ileus: Plan: possible, 2nd to #1 nausea/vomiting have resolved did have a small BM yesterday hyperactive bowel sounds on exam allow clear liquid diet (3) Anxiety: Plan: cont sertraline (4) Depression: Plan: cont sertraline (5) Allergy-induced asthma: Plan: no flare at this time (6) GERD (gastroesophageal reflux disease): Plan: cont PPI add pepcid 20mg IV x 1 (7) Hypothyroid: Plan: last TSH in our system was 05/2022 will repeat a TSH in am tomorrow Plan appreciate gen surg input Admission and Anticipated Discharge Date Admission Date: March 18, 2024 Subjective patient reports no nausea or emesis still some mild abdominal discomfort - was generalized when she came to the ER, now mainly left-sided and particularly near the LLQ no stool since admission no fevers or chills she just finished a course of augmentin 3 days ago for presumed sigmoid diverticulitis no h/o c. 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 on her [place] near [place] she had COVID earlier this month - most URI symptoms are resolved Review of Systems Review of Systems: CV - no chest pain pulm - no dyspnea Physical Exam Physical Exam: gen - NAD; pleasant, nontoxic mouth - MMM heart - RRR, s1 s2, no murmur lungs - CTA b/l abd - minimally distended, BS+ (very active), no HSM; mild tenderness LUQ & LLQ; no peritoneal signs ext - no edema, pulses 2+ b/l psych - a/o x 3 Results & Data Results & Data Vital Signs (Past 12 Hours) Vital Signs Temp Pulse Resp BP Pulse Ox O2 Del Method 03/18/24 11:21 36.8 C 62 14 118/73 96 Room Air 03/18/24 07:36 36.5 C 64 14 112/69 95 Room Air 03/18/24 03:23 65 14 122/82 98 Room Air 03/18/24 02:48 36.7 C 65 14 122/82 98 Room Air Laboratory Results Laboratory Results - last 24 hr 03/17/24 03/18/24 03/18/24 20:40 03:00 05:56 WBC 10.89 H 6.78 RBC 4.52 3.65 L Hgb 12.4 10.2 L Hct 38.9 31.0 L MCV 86.1 84.9 MCH 27.4 27.9 MCHC 31.9 L 32.9 RDW Std Deviation 40.4 39.9 RDW Coeff of Geovani 12.9 13.0 Plt Count 339 262 MPV 9.6 9.6 Immature Gran % (Auto) 0.5 0.3 Neut % (Auto) 80.9 60.7 Lymph % (Auto) 9.0 24.3 [place] % (Auto) 7.8 9.4 Eos % (Auto) 1.7 5.2 Baso % (Auto) 0.1 0.1 Neut # (Auto) 8.82 H 4.11 Lymph # (Auto) 0.98 L 1.65 [place] # (Auto) 0.85 H 0.64 H Eos # (Auto) 0.18 0.35 Baso # (Auto) 0.01 0.01 Immature Gran # (Auto) 0.05 0.02 Sodium 139 142 Potassium 3.6 3.5 Chloride 106 110 H Carbon Dioxide 25 28 Anion Gap 8 4 BUN 17 14 Creatinine 0.72 0.66 Est Cr Clr Drug Dosing 87.7 95.6 Est GFR ( Amer) 101.9 107.4 Est GFR (Non-Af Amer) 87.9 92.7 BUN/Creatinine Ratio 23.6 H 21.2 H Glucose 100 H 89 Calcium 9.2 8.3 L Magnesium 1.8 Total Bilirubin 0.4 0.5 AST 13 11 L ALT 11 8 Alkaline Phosphatase 104 85 Total Protein 7.1 5.4 L D Albumin 4.3 3.3 L Globulin 2.8 2.1 L Albumin/Globulin Ratio 1.5 1.6 Lipase 29 Urine Color Yellow Urine Appearance Clear Urine pH 6.0 Ur Specific [place] > 1.045 H Urine Protein Trace H Urine Glucose (UA) Negative Urine Ketones Negative Urine Blood Negative Urine Nitrite Negative Urine Bilirubin Negative Urine Urobilinogen Negative Ur Leukocyte Esterase Negative Urine WBC (Auto) 0-5 Urine RBC (Auto) 0-2 U Hyaline Cast (Auto) 0-2 U Epithel Cells (Auto) 0-2 Urine Bacteria (Auto) None Seen Diagnostic Findings Abdomen/Pelvis CT 03/17/24 20:39 Exam(s): CT ABDOMEN + PELVIS With Contrast IV Amt: 94ml optiray 320 EXAM: CT Abdomen and Pelvis With Intravenous Contrast CLINICAL HISTORY: Reason for exam: LLQ pain, diverticulitis. TECHNIQUE: Axial computed tomography images of the abdomen and pelvis with intravenous contrast. Automated exposure control was utilized for the study. A dose lowering technique was utilized adhering to the principles of ALARA. CONTRAST: Patient received 94ml optiray 320 of IV contrast COMPARISON: 12/15/2023 FINDINGS: Lung bases: No consolidation. ABDOMEN: Liver: A 7 mm lucency is noted within the left lobe of the liver.. Gallbladder and bile ducts: No calcified stones. No ductal dilation. Pancreas: No mass. No ductal dilation. Spleen: No splenomegaly. Adrenals: . No mass. Kidneys and ureters: No solid mass. No hydronephrosis. Stomach and bowel: There is air and fluid within the stomach. There is air and, fluid and stool within the colon. There are diverticula present on the colon. No significant inflammatory changes are noted.. There are distended loops of small bowel containing air and fluid.. PELVIS: Appendix: The appendix is not visualized. Bladder: No calculi are noted within the bladder.. Reproductive: There is a 3.7 x 5.8 cm lucency noted in the left adnexa.. ABDOMEN and PELVIS: Intraperitoneal space: No free air. No significant fluid collection. Bones/joints: There are degenerative changes in the spine. There is a bilateral spondylolysis with a grade 1 spondylolisthesis of L4 on L5.. Soft tissues: Unremarkable. Vasculature: . No abdominal aortic aneurysm. Lymph nodes: No enlarged lymph nodes. IMPRESSION: Diverticulosis. There is air and, fluid and stool within the colon. There are distended loops of small bowel containing air and fluid.. This may be related to an ileus. Cannot exclude a nonspecific enteritis. A 3.7 x 5.8 cm lucency is again noted in the left adnexa which may represent a cyst. This should be further evaluated with use of a nonemergent pelvic ultrasound. A 7 mm lucency in the left lobe of liver appears similar to previous exam may represent a cyst. Electronically signed by: Shahbaz Mahmood MD 03/17/24 23:03 PM PG Care Time/CCT Total # of Minutes Spent Total Time Spent with Patient: Total time spent is greater than 50% in coordination of care (as documented) at patient's floor/unit and/or counseling patient: Coding Level of Care Code 27642 SUB INP/OBS CARE 2/35MIN Diagnoses Enteritis K52.9 Ileus K56.7 Anxiety F41.9 Depression F32.A Allergy-induced asthma J45.909 GERD (gastroesophageal reflux disease) K21.9 Hypothyroid E03.9
[2024-03-18] MEDS: KETOROLAC TROMETHAMINE 15 MG/ML VIAL IV PRN (14:38)
[2024-03-18] MEDS: FAMOTIDINE 20MG IV PUSH 20 MG/5 ML SYR IV STA (15:09)
[2024-03-18 20:07] LABS: Adenovirus F 40/41 PCR Not Detected (NotDetected); Astrovirus PCR Not Detected (NotDetected); Campylobacter PCR Not Detected (NotDetected); Cryptosporidium PCR Not Detected (NotDetected); Cyclospora cayetanensis PCR Not Detected (NotDetected); Entamoeba histolytica PCR Not Detected (NotDetected); Enteroaggregative E.coli(EAEC) Not Detected (NotDetected); Enterotoxigenic E.coli (ETEC) Not Detected (NotDetected); Giardia lamblia PCR Not Detected (NotDetected); Norovirus GI/GII PCR Not Detected (NotDetected); Plesiomonas shigelloides PCR Not Detected (NotDetected); Rotavirus A PCR Not Detected (NotDetected); Salmonella PCR Not Detected (NotDetected); Sapovirus PCR Not Detected (NotDetected); Shiga-like Toxin E.coli (STEC) Not Detected (NotDetected); Shigella/Enteroinvasive E.coli Not Detected (NotDetected); Vibrio cholerae PCR Not Detected (NotDetected); Vibrio species PCR Not Detected (NotDetected); Yersinia enterocolitica PCR Not Detected (NotDetected)
[2024-03-18 21:01] LABS: Cdiff Antigen Positive; Cdiff Toxin A+B Negative Cdiff Toxin (Negative); Cdiff Toxin B Gene (2yr or >) Positive Cdiff Gene (Neg)
[2024-03-18 21:05] LABS: Enteropathogenic E.coli (EPEC) DETECTED (NotDetected)
[2024-03-18] MEDS: traZODone HCL 100 MG TAB PO SCH (22:02)
[2024-03-19 06:50] LABS: BUN Creatinine Ratio 11.9 (10-20); Calcium 8.7 mg/dl (8.6-10.3); Creatinine Clr Calc Pharmacy 94.2 ml/min; Est GFR (African American) 106.9 ml/min; Est GFR (Non-African American) 92.2 ml/min; Potassium 3.7 mmol/L (3.5-5.1)
[2024-03-19] MEDS: PANTOprazole 40 MG TAB PO SCH (09:36)
--- NOTE | 2024-03-19 10:33 | Surgery Progress Note ---
Date of Service March 19, 2024 Assessment & Plan (1) Enteritis: (2) Ileus: Plan: supportive care with IVF initiated at admission. Patient with improving symptoms as well as resolution of a mild leukocytosis at admission. Bowel function returning to normal and nausea is resolved. Stool studies obtained by medicine reveal c. diff gene (+) without toxin present and (+) PCR No surgical etiology for symptoms, diet has been advanced and surgery will sign off at this time. The patient may continue her planned follow up plan with Dr. Aponte as an outpatient for surgical planning for previous diverticulitis episodes. Please reconsult surgery if needed. Admission and Anticipated Discharge Date Admission Date: March 18, 2024 Subjective I have seen and examined this patient this am. She continues to feel more and more improved. Still with some occasional mild abdominal cramping across the mid abdomen but much less. States she is passing flatus and had a small BM, denies nausea and has been tolerating liquids. Physical Exam Constitutional: no acute distress, not ill appearing, not in distress and not diaphoretic Respiratory: normal respiratory effort; no respiratory distress, no labored breathing and does not use accessory muscles Gastrointestinal (Abdomen): Inspection/Auscultation: abdomen normal to inspection; abdomen not distended Percussion/Palpation: abdomen soft; abdomen nontender, no guarding and abdomen not rigid Results & Data Vital Signs (Past 12 Hours) Vital Signs Temp Pulse Resp BP Pulse Ox O2 Del Method 03/19/24 07:27 36.5 C 66 17 108/55 L 95 Room Air Laboratory Results stool with C. diff gene present, no toxin PCR detected Results Complete Blood Count Results: RBC 3.65 M/uL (4.20-5.40) L 03/18/24 WBC 6.78 K/ul (4.8-10.8) 03/18/24 Hgb 10.2 g/dl (12.0-16.0) L 03/18/24 Hct 31.0 % (37.0-47.0) L 03/18/24 Plt Count 262 K/uL (130-400) 03/18/24 PG Care Time/CCT Total # of Minutes Spent Total Time Spent with Patient: Total time spent is greater than 50% in coordination of care (as documented) at patient's floor/unit and/or counseling patient: Coding Level of Care Code 70459 SUB INP/OBS CARE 07/14MIN Diagnoses Enteritis K52.9 Ileus K56.7
[2024-03-19] MEDS: KETOROLAC 30 MG/ML VIAL IV ONE (14:24)
[2024-03-19 15:40] VITALS: BP 123/67; PULSE 61; RESP 18; TEMP 98.2; O2SAT 97
--- NOTE | 2024-03-19 17:27 | Discharge Summary ---
Discharge Summary Date of Service date of admission - March 18, 2024 date of discharge - March 19, 2024 Principal Dx & Hospital Course #1 = Principal Diagnosis (1) Enteritis: patient was recently treated presumptively for sigmoid diverticulitis with a 2- week course of PO augmentin; this ended 2-3 days prior to admission she presented with nausea, emesis, stomach upset, bloating, and left-sided pain (pain was generalized up until the day before admission) CT abd/pelvis at time of admission did NOT show diverticulitis however, CT was more suspicious for an enteritis stool BioFire was positive for enteropathogenic e.coli; suspect she got this due to contaminated meat (she consumed a meat-filled sub that had not been refrigerated for over 24 hours) stool C diff showed POSITIVE c diff gene but NEGATIVE toxin her stools were not liquid; they were semi-formed in her estimation she was seen in consult by general surgery nothing surgical was advised for her in light of the negative CT abd/pelvis she was resumed on a clear liquid diet this was advanced to low fiber diet she tolerated such without any nausea/vomiting at time of discharge we advised the following - * no Rx for the c diff gene positivity; explained to the patient she was a c diff carrier but that no Rx was needed due to lack of c diff toxin positivity * IF her diarrhea worsens in the 1-2 days post-discharge then consider Rx for enteropathogenic e.coli with azithromycin 500mg daily x 3 days (prescription was given to patient to have on hand at home) (2) Ileus: possible, 2nd to #1 nausea/vomiting resolved while here did have a small, semi-solid bowel movement during the stay - but no significant diarrhea (3) Anxiety: cont sertraline (4) Depression: cont sertraline (5) Allergy-induced asthma: no flare while hospitalized (6) GERD (gastroesophageal reflux disease): cont PPI (7) Hypothyroid: advise TSH as outpatient cont synthroid 125mcg daily in meantime (8) Adnexal cyst: left - 3.7cm x 5.8cm has been seen on prior CT scans earlier in 2023 should have pelvic ultrasound for further characterization Notes For Next Care Provider left adnexal cyst - 3.7cm x 5.8cm has been seen on prior CT scans earlier in 2023 should have pelvic ultrasound for further characterization Medication Changes From Visit azithromycin 500mg daily x 3 days (if needed) for enteropathogenic e.coli Admission HPI Per Admitting Provider The patient is a 63-year-old female with a past medical history including recurrent diverticulitis, hypothyroidism, anxiety with depression, allergy induced asthma, GERD and fibromyalgia. She was empirically treated for her most recent case of diverticulitis from 03/02 through 03/16 with Augmentin twice daily dosing. She reports her stools have been more mushy over the past 48 hours, and today developed more significant abdominal pain and nausea with vomiting. She also reports that 2 days ago she ate a cheese steak which had been sitting out unrefrigerated for 24 hours. She is scheduled to undergo a sigmoid resection due to recurrent diverticulitis by Dr. Aponte on June 07. She denies any recent travels or sick exposures. Main dietary potential indiscretion is the above-mentioned she cheese steak. She reports that her abdominal pain is usually in her left lower quadrant, which is where it began on March 02, and now is more across her upper abdomen, from right side to left, and feels more gassy and crampy Discharge Exam gen - NAD; pleasant, nontoxic mouth - MMM heart - RRR, s1 s2, no murmur lungs - CTA b/l abd - soft NT ND BS+; no peritoneal signs; no HSM ext - no edema, pulses 2+ b/l psych - a/o x 3 Discharge Plan Discharge Items Patient Disposition: Home - Self-Care Reason For Visit: ENTERITIS Discharge Diagnosis: 1. e. coli gastroenteritis 2. 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 recurrent diverticulitis - none seen on CT scan this admission Activity: As commented below Activity Comment: take it easy for a day or two, then gradually increase activities Non-emergency contact: Primary Care Provider and Surgeon Call non-emergency contact if: you have any medication questions, your symptoms worsen, your pain is not controlled, your pain is worsening and you have a fever Follow-up/Referrals: Ishaan Aponte DO [Surgeon] - (May follow up with the surgeon as previously planned) Donovan Kumar MD [Primary Care Provider] - 03/26/24 12:45 pm (1 week) Diet: Low Fiber Addtl Attending Provider Instructions: Ms Anthony, You were hospitalized due to vomiting and abdominal pain. CT scan of your abdomen did NOT show active diverticulitis at this time. However, it showed signs of "enteritis" or "gastroenteritis" which is when the bowels get sick from an infection. Your stool studies were positive for a strain of e.coli as well as c. diff. We suspect that the e.coli - which likely was transmitted to you from contaminated food - was the cause of your recent illness. You are a carrier of c. diff which is a bacterium that can reside in the colon. We do not suspect that the c. diff is causing active infection at this time. If you have severe diarrhea over the next 1-2 days you can fill the prescription for azithromycin antibiotic. If you have to take the azithromycin take 500mg daily x 3 days. Only fill this if you are having multiple loose, watery stools each day. If your stools remain relatively normal you do not need to take the azithromycin. Most people clear the e.coli over several days without any treatment. Focus on good nutrition (low fiber diet for 5 days - see handout), proper hydration, and good handwashing with soap/water over the next few days. You do not need to take any special precautions for the c.diff at this time. Follow-up - see separate section Return to [facility] if - * you have fevers over 100 degrees * you have worsening or recurrent abdominal pains * you see blood in your stools * you are having severe vomiting * any other concerns It was our pleasure to care for you! Pending Studies at Discharge: No Stand-Alone Forms: My [facility], Smoking Cessation Medications and DC Order Prescriptions: Continued hydrocodone-acetaminophen 5-325 mg tablet 1 tab PO Q6H PRN (Reason: pain) Qty: 30 0RF levothyroxine [Levo-T] 125 mcg tablet 125 mcg PO DAILY ondansetron HCl 4 mg tablet 4 mg PO Q8H PRN (Reason: nausea and vomiting) Qty: 20 0RF trazodone 100 mg tablet 100 mg PO HS sertraline 100 mg tablet 100 mg PO QAM meclizine 25 mg tablet 25 mg PO TID PRN (Reason: motion sickness) No Action ondansetron 4 mg tablet,disintegrating 4 mg PO Q8H PRN (Reason: nausea and vomiting) 4 Days Qty: 10 0RF ciprofloxacin HCl [Cipro] 500 mg tablet 500 mg PO BID 5 Days Qty: 10 0RF Discharge Orders: Discharge Order (Routine); Ordered 03/19/24 Ordered By: Isaac Solorio/Other Patient Handouts: E. Coli Infection, Diverticulitis Dc Admission Data Admit Date/Time: 03/18/24 00:24 Attending Provider: Isaac Alexandre Admit Provider: Long Lui Primary Care Provider: Donovan Kumar Other Providers: Long Lui Other Interventions: Discharge Summary Assessment (RN) Last Done: 03/19/24 17:37 Hospital Stay Data Consultations general surgery Diagnostic Imagining Performed Abdomen/Pelvis CT 03/17/24 20:39 Exam(s): CT ABDOMEN + PELVIS With Contrast IV Amt: 94ml optiray 320 EXAM: CT Abdomen and Pelvis With Intravenous Contrast CLINICAL HISTORY: Reason for exam: LLQ pain, diverticulitis. TECHNIQUE: Axial computed tomography images of the abdomen and pelvis with intravenous contrast. Automated exposure control was utilized for the study. A dose lowering technique was utilized adhering to the principles of ALARA. CONTRAST: Patient received 94ml optiray 320 of IV contrast COMPARISON: 12/15/2023 FINDINGS: Lung bases: No consolidation. ABDOMEN: Liver: A 7 mm lucency is noted within the left lobe of the liver.. Gallbladder and bile ducts: No calcified stones. No ductal dilation. Pancreas: No mass. No ductal dilation. Spleen: No splenomegaly. Adrenals: . No mass. Kidneys and ureters: No solid mass. No hydronephrosis. Stomach and bowel: There is air and fluid within the stomach. There is air and, fluid and stool within the colon. There are diverticula present on the colon. No significant inflammatory changes are noted.. There are distended loops of small bowel containing air and fluid.. PELVIS: Appendix: The appendix is not visualized. Bladder: No calculi are noted within the bladder.. Reproductive: There is a 3.7 x 5.8 cm lucency noted in the left adnexa.. ABDOMEN and PELVIS: Intraperitoneal space: No free air. No significant fluid collection. Bones/joints: There are degenerative changes in the spine. There is a bilateral spondylolysis with a grade 1 spondylolisthesis of L4 on L5.. Soft tissues: Unremarkable. Vasculature: . No abdominal aortic aneurysm. Lymph nodes: No enlarged lymph nodes. IMPRESSION: Diverticulosis. There is air and, fluid and stool within the colon. There are distended loops of small bowel containing air and fluid.. This may be related to an ileus. Cannot exclude a nonspecific enteritis. A 3.7 x 5.8 cm lucency is again noted in the left adnexa which may represent a cyst. This should be further evaluated with use of a nonemergent pelvic ultrasound. A 7 mm lucency in the left lobe of liver appears similar to previous exam may represent a cyst. Electronically signed by: Shahbaz Mahmood MD 03/17/24 23:03 PM Pending Results Patient Have Any Pending Studies at Discharge: No Discharge Instructions Given to Patient (Per Discharging Provider) Ms Anthony, You were hospitalized due to vomiting and abdominal pain. CT scan of your abdomen did NOT show active diverticulitis at this time. However, it showed signs of "enteritis" or "gastroenteritis" which is when the bowels get sick from an infection. Your stool studies were positive for a strain of e.coli as well as c. diff. We suspect that the e.coli - which likely was transmitted to you from contaminated food - was the cause of your recent illness. You are a carrier of c. diff which is a bacterium that can reside in the colon. We do not suspect that the c. diff is causing active infection at this time. If you have severe diarrhea over the next 1-2 days you can fill the prescription for azithromycin antibiotic. If you have to take the azithromycin take 500mg daily x 3 days. Only fill this if you are having multiple loose, watery stools each day. If your stools remain relatively normal you do not need to take the azithromycin. Most people clear the e.coli over several days without any treatment. Focus on good nutrition (low fiber diet for 5 days - see handout), proper hydration, and good handwashing with soap/water over the next few days. You do not need to take any special precautions for the c.diff at this time. Follow-up - see separate section Return to [facility] if - * you have fevers over 100 degrees * you have worsening or recurrent abdominal pains * you see blood in your stools * you are having severe vomiting * any other concerns It was our pleasure to care for you! Total Time Total Time Spent Total Time Spent (In Minutes): 40 Coding Level of Care Code 65907 INP/OBS DISCH >30 MIN Diagnoses Enteritis K52.9 Ileus K56.7 Anxiety F41.9 Depression F32.A Allergy-induced asthma J45.909 GERD (gastroesophageal reflux disease) K21.9 Hypothyroid E03.9 Adnexal cyst N94.9
== END 2024-03-19 18:21 | disposition home or self-care (01) ==
LOC: ED 20:22 → 3N 20:22 → SUATTDRO 03-18 00:24 → 3N 03-18 02:40

== ENCOUNTER 2024-12-27 08:07 | Inpatient (IN) ==
--- NOTE | 2024-06-04 10:58 | Anesthesiology Consultation ---
Date of Service June 04, 2024 Assessment & Plan (1) Encounter for pre-operative examination: - S/P Right TKA (01/13/24): SAB at L3-4 (1 attempt) + regional at [facility]. No issues noted per post-op anesthesia progress note. - Check BMP DOS (Not done with recent labs) - Infectious disease screening: Spoke with patient 05/30/24 via phone. Patient indicates that she has productive cough, sore throat, improving sinus pressure. Symptom onset 6 weeks ago. Patient states she has been evaluated by urgent care + PCP. Diagnosed with strep- has completed antibiotics. CXR 06/04/24 was unremarkable. Surgeon made aware. Patient noted persistent symptoms to PCP who recommended Nedi-Pot. Spoke with patient again 06/04/24 via phone- she states symptoms are continuing to improve but does still have a productive cough and congestion (yellow discharge). - Received notification from surgeon's office > Surgery cancelled at this time due to patient being ill. Chart Review Chart Review: Patient NOT seen in Pre Admission Testing History Surgery Operation Date: 06/07/24 08:45 Proposed Procedures p Laparoscopic Sigmoid Bowel Resection - Ishaan Aponte, DO Height/Weight Height: 5 ft 7 in Weight: 81.647 kg Allergies Allergy/AdvReac Type Severity Reaction Status Date / Time house dust Allergy Mild Sinus Verified 06/01/24 16:03 issues mold Allergy Mild Sinus Verified 06/01/24 16:03 issues Medications Home Medications Medication Instructions Recorded Confirmed Last Taken trazodone 100 mg tablet 100 mg PO HS 07/10/18 06/01/24 01/12/24 22:00 meclizine 25 mg tablet 25 mg PO TID PRN motion sickness 09/07/23 06/01/24 Unknown levothyroxine 125 mcg tablet 125 mcg PO QAM 03/05/24 06/01/24 Unknown (Levo-T) sertraline 100 mg tablet 150 mg PO QAM 05/16/24 06/01/24 Unknown albuterol sulfate 90 mcg/actuation 2 puff inhalation Q6H PRN 06/01/24 06/01/24 Unknown aerosol inhaler Shortness Of Breath amoxicillin 500 mg tablet 2,000 mg PO ONCE PRN dental 06/01/24 06/01/24 Unknown procedure valacyclovir 1 gram tablet 1,000 mg PO DAILY PRN Cold Sores 06/01/24 06/01/24 Unknown amoxicillin 875 mg-potassium 1 tab PO BID #28 tabs 06/04/24 Unknown clavulanate 125 mg tablet Past Medical History Medical History (Updated 06/01/24 @ 16:[address] Pérez, RN) Allergy-induced asthma inhaler prn Anxiety Chronic back pain Depression Endometrial thickening on ultrasound GERD (gastroesophageal reflux disease) Hearing difficulty of right ear History of COVID-19 (2021) Symptoms resolved History of diverticulitis (08/2023) [facility] hospitalization, medically managed/decision not to have surgical intervention No issues since, resolution of diverticulitis on subsequent Abdomen/Pelvis CT 12/15/2023 Hypothyroid Osteoarthritis PVD (posterior vitreous detachment), left eye 4+ years ago, medically managed/surgical intervention not required No issues since Past Family History Family History Aunt Cancer Grandmother Cancer Grandfather Cancer Mother Heart disease Hypertension Brother Diabetes Other No family history of adverse response to anesthesia Past Surgical History Surgical History (Updated 06/01/24 @ 16:[address] Pérez, SUNNY) 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 History of arthroscopy of right knee History of colonoscopy [facility] (12/2022) History of dilatation and curettage History of tooth extraction History of total right knee replacement (TKR) (01/13/24) History of wisdom tooth extraction S/P carpal tunnel release R/L S/P trigger finger release Social History Smoking Status: Never smoker Do You Dip or Chew Tobacco: No Hx Alcohol Use: Yes (occasionally) Alcohol type: wine alcohol intake frequency: holidays/special occasions only Hx Substance Use: No substance use type: does not use Testing Laboratory Results 05/07/24 WBC 7.84 H/H 12.2/38.3 PLATELETS 316 TSH 4.00 FREE T4 0.99 Electrocardiogram Date: 09/07/23 NSR at 80bpm. PRWP, consider anterior OR vs lead placement vs LVH. Compared to 07/06/2022, NS TWA worsened in anterior lead. Chest X-Ray Date: 05/25/24 FINDINGS: Lungs and pleural spaces: Stable mild hyperinflation. No consolidation or pulmonary edema. No pleural effusion or pneumothorax. Mild scarring left base. Heart: Normal shape and configuration. Mediastinum: Normal contour. Bones/joints: No fracture, erosion or dislocation. IMPRESSION: Stable chronic changes. No acute disease.
[~2024-12-27 08:07] MED LIST changes: -BOSW1POW4 PO; -CETITAB27 PO; +CIPROFLOXACIN / D5W 400 MG/200 ML BAG IV SCH; -DEXM10TA PO; -DEXM10TA2 PO; -HYDR-5688 PO; -LEVO112T2 PO; -PARO1TAB27 PO; -TRAZ100T29 PO; +metroNIDAZOLE 500 MG/100 ML BAG IV SCH
[2024-12-27] MEDS ORDERED: GLYCOPYRROLATE 0.2 MG/ML VIAL ONE (08:15)
[2024-12-27] MEDS ORDERED: DEXAMETHASONE SOD INJ 4 MG/ML VIAL ONE (08:15)
[2024-12-27] MEDS ORDERED: MIDAZOLAM HCL 1 MG/ML 2ML VIAL ONE (08:15)
[2024-12-27] MEDS ORDERED: ROCURONIUM BROMIDE 10 MG/ML 5 ML VIAL IV ONE (08:15)
[2024-12-27] MEDS ORDERED: ONDANSETRON INJ 2 MG/ML 2 ML VIAL ONE (08:15)
[2024-12-27] MEDS ORDERED: PROPOFOL IV EMULSION 10 MG/ML 20 ML VIAL IV ONE (08:15)
[2024-12-27] MEDS ORDERED: LIDOCAINE 2% 2 ML VIAL/AMP(20MG/ML) INFIL ONE (08:15)
[2024-12-27] MEDS ORDERED: SUGAMMADEX SODIUM 200 MG/2 ML VIAL IV ONE (08:23)
[2024-12-27] MEDS ORDERED: ATROPINE SULFATE 0.1 MG/ML 10ML SYR IV PRN (08:25)
[2024-12-27] MEDS ORDERED: ONDANSETRON INJ 2 MG/ML 2 ML VIAL IV PRN (08:25)
[2024-12-27] MEDS: metroNIDAZOLE 500 MG/100 ML BAG IV SCH (08:38)
[2024-12-27 08:46] LABS: Anion Gap 3.0 (3-11); Blood Urea Nitrogen 11.0 mg/dl (6-23); Calcium 9.3 mg/dl (8.6-10.3); Carbon Dioxide 29.0 mmol/L (21-32); Chloride 109.0 mmol/L (98-107); Creatinine Clr Calc Pharmacy 78.4 ml/min; Glucose 93.0 mg/dl (70-99(Fasting)); Potassium 4.0 mmol/L (3.5-5.1); Sodium 141.0 mmol/L (136-145)
[2024-12-27] MEDS: LACTATED RINGER'S 1,000 ML IV SCH ×2 (09:00→15:08)
[2024-12-27] MEDS ORDERED: KETAMINE HCL 10MG/ML SYR ONE (09:31)
--- NOTE | 2024-12-27 09:53 | History & Physical Report ---
Date of Service December 27, 2024 Assessment & Plan (1) Diverticular disease: Plan: Discussed her options and risks. I have answered all of her questions. We will proceed today with laparoscopic sigmoid colon resection. History of Present Illness Primary Care Provider: Adria Craft MD Patti is here today for a sigmoid colon resection for recurrent diverticulitis. Other than some nasal congestion she is currently feeling okay. She did take her bowel prep yesterday. Allergies Allergy/AdvReac Type Severity Reaction Status Date / Time house dust Allergy Mild Sinus Verified 12/27/24 08:14 issues mold Allergy Mild Sinus Verified 12/27/24 08:14 issues Home Medications Medication Instructions Recorded Confirmed Type trazodone 100 mg tablet 100 - 200 mg PO HS 07/10/18 12/27/24 History meclizine 25 mg tablet 25 mg PO TID PRN motion sickness 09/07/23 12/27/24 History levothyroxine 125 mcg tablet 125 mcg PO QAM 03/05/24 12/27/24 History (Levo-T) sertraline 100 mg tablet 150 mg PO QAM 05/16/24 12/27/24 History albuterol sulfate 90 mcg/actuation 2 puff inhalation Q6H PRN 06/01/24 12/27/24 History aerosol inhaler Shortness Of Breath amoxicillin 500 mg tablet 2,000 mg PO ONCE PRN dental 06/01/24 12/27/24 History procedure valacyclovir 1 gram tablet 1,000 mg PO DAILY PRN Cold Sores 06/01/24 12/27/24 History ascorbic acid (vitamin C) 500 mg 500 mg PO DAILY PRN Colds 11/27/24 12/27/24 History tablet (Vitamin C) phenylephrine HCl 1 % nasal drops 2 drp intranasal Q4H PRN head 12/27/24 12/27/24 History conjestion Past Med/Surg History Problem List (Updated 12/27/24 @ 09:53 by Ishaan Aponte, ) Diverticular disease Sinusitis Adnexal cyst Ileus (Acute) Ileus Enteritis Diverticulitis Status post right knee replacement (~12/2023) Anxiety Diverticulosis Endometrial thickening on ultrasound Depression Osteoarthritis of right knee S/P lateral meniscectomy of right knee Allergy-induced asthma Encounter for pre-operative examination GERD (gastroesophageal reflux disease) Fibromyalgia Medical History (Updated 12/27/24 @ 09:53 by Ishaan Aponte, DO) PONV (postoperative nausea and vomiting) History of Lyme disease not confirmed - completed antibiotic History of anemia no blood transfusion/iron infusion Memory loss [facility] Neurology 12/31/24 Fibromyalgia Sinusitis "Started " will see pcp 11/29/24 for clearance for 12/06/24 procedure Diverticulitis multiple bouts - most recent 06/2024 - reason for procedure 12/06/24 Hypothyroid GERD (gastroesophageal reflux disease) Anxiety History of COVID-19 (2021) Symptoms resolved Allergy-induced asthma allergies/cold inhaler prn Depression History of diverticulitis (08/2023) [facility] hospitalization, medically managed/decision not to have surgical intervention No issues since, resolution of diverticulitis on subsequent Abdomen/Pelvis CT 12/15/2023 Endometrial thickening on ultrasound s/p d&c Chronic back pain PVD (posterior vitreous detachment), left eye years ago, medically managed/surgical intervention not required - no longer following with charge master specialist No issues since Hearing difficulty of right ear no hearing aid Osteoarthritis Surgical History History of total right knee replacement (TKR) (01/13/24) History of dilatation and curettage History of arthroscopy of right knee History of amputation of finger (2018) Right hand tip little finger History of colonoscopy [facility] (12/2022) History of tooth extraction History of wisdom tooth extraction S/P trigger finger release S/P carpal tunnel release Bilateral Family History Aunt Cancer Grandmother Cancer Grandfather Cancer Mother Heart disease Hypertension Brother Diabetes Other No family history of adverse response to anesthesia Social History Smoking Status: Never smoker Second Hand Exposure: No; Do You Dip or Chew Tobacco: No; Tobacco Cessation Education Requested by Patient: No Hx Alcohol Use: Yes Alcohol type: wine Hx Substance Use: No Preferred Language: Bermudian Communication Ability: Effective Visual Impairment: No Limitations Hearing Ability: Normal Housekeeper Cleaning Cooking Required: No Beliefs That Will Affect Care: None marital status: / Current Living Situation: Alone current occupational status: employed 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 How many Children do You have: 0 Other Information That Helps Us Care for You: No Feels Safe at Home: Yes Safety Concerns: Feels Safe At This Time during the past year weight has: decreased > 10 lbs Assistive Devices: Glasses Review of Systems All systems reviewed & are unremarkable except as noted in HPI & below Physical Exam Constitutional: WD/WN, vitals as above no acute distress and not ill appearing Eyes: PERRL, conjunctivae normal, anicteric sclerae EOM intact bilaterally ENMT: external ear and nose normal, oropharynx normal Ears: no hearing impairment Neck: trachea midline, no thyromegaly Respiratory: normal respiratory effort; no respiratory distress and does not use accessory muscles Cardiovascular: Rate/Rhythm: regular rate and regular rhythm Gastrointestinal (Abdomen): normal bowel sounds, soft, nontender, no hepatosplenomegaly Skin: no rashes, warm and dry Psychiatric: Orientation: alert, oriented x 3 and cooperative
[2024-12-27] MEDS: CIPROFLOXACIN / D5W 400 MG/200 ML BAG IV SCH (10:29)
[2024-12-27] MEDS ORDERED: HYDROmorphone INJ 2 MG/ML SYR/VIAL ONE (12:26)
[2024-12-27] MEDS: BUPIVACAINE/EPINEPHRINE 0.5% MPF 1:200,000 30 ML VIAL ONE (13:08)
[2024-12-27] MEDS: BUPIVACAINE LIPOSOME 1.3% 266 MG/20 ML VIAL ONE (13:08)
--- NOTE | 2024-12-27 13:41 | Operative Report ---
PG Post Operative Report Pre & Post Diagnosis Operation Date: 12/27/24 09:35 Pre-Op Diagnosis: Diverticular disease Post-Op Diagnosis: Diverticular disease I identified the patient and participated in the time-out.: Yes Procedure Operation Date: 12/27/24 09:35 Actual Procedures p Laparoscopic Sigmoid Colon Resection(Not Applicable) - Ishaan Aponte DO Surgeon Ishaan Aponte DO Learning Coordinator vazquez Flores; catrina Chester Estimated Blood Loss 500 Findings Consistent with Post-Op Diagnosis Specimens sigmoid colon Description of Procedure After informed consent was obtained the patient was taken to the operating room and placed in supine position. After successful intubation a Hull catheter was placed sterilely. The arms were tucked and the patient was placed into a low lithotomy position. The entire perineum and abdomen was sterilely prepped and draped in usual fashion. I began by making a supraumbilical incision with an 11 blade scalpel. This was carried down through the soft tissue using cautery. The anterior fascia was opened using cautery and two #0 Vicryl stay sutures were placed. Peritoneum was entered using blunt finger penetration and a finger sweep performed. A 12 mm Escamilla trocar was placed and the abdomen was insufflated to 40 mmHg. Laparoscope was inserted and the abdomen examined in 36 0 degrees. Initially no abnormality was seen. A right lower quadrant 12 mm port a right mid abdominal 5 mm trocar port and a left lower quadrant 5 mm trocar port were all placed under direct vision. I began by placing the patient into a Trendelenburg position and slightly airplaned to the right. There was an obvious site of prior inflammation in the sigmoid colon. It was tightly adherent to the left pelvic sidewall as well as to the left fallopian tube. I began by using blunt dissection and small amounts of harmonic scalpel to divide the white line of Toldt. I had to sharply the sigmoid colon from the left fallopian tube in order to mobilize it. I carried the white line of Toldt down over the peritoneal reflection down to the rectosigmoid junction. I then made a small window in the mesentery of the sigmoid colon using harmonic scalpel. Staying distal to the inflamed/abnormal appearing sigmoid I transected the rectosigmoid using a KIMBERLY purple cartridge linear stapler. We then used the harmonic scalpel to divide the mesentery of the sigmoid colon coming proximally until we reached normal-appearing colon proximal to the diverticular disease. We then removed the left lower quadrant trocar and extended it laterally and medially including the fascia. After toweling it off I was able to deliver the sigmoid colon out onto the anterior abdominal wall. We clamped it using bowel clamps and divided using a Metzenbaum scissor. The specimen was passed off. We sized the lumen to measure 25 mm. I then used 2-0 silk the hand sew a pursestring. The anvil of a 25 mm circular stapler was placed into the end and secured using the silk pursestring. After placing it back into the abdominal cavity we then changed our gloves. I closed the fascia the left lower quadrant incision using 0 PDS in running fashion. At this point we re-insufflated the abdomen. The anvil laid nicely over the pelvic brim and would be able to anastomose without any tension. Next we brought in the handle of a 25 mm circular stapler into the rectal stump. We had some difficulty getting it to the staple line. I therefore decided to take some additional proximal rectum to make the anastomosis easier. 2 more firings of a KIMBERLY purple cartridge stapler were used to transect the rectosigmoid at the proximal rectum. This small additional piece was placed into an Endo Catch bag and removed from the camera port site. We insufflated the rectal stump to ensure there was no leak. We then brought in the handle of the circular stapler. I deployed the spike anterior to the staple line. The handle was connected to the anvil. They were secured together and fired creating a circular functional end-to-end anastomosis. Both donuts were intact. We insufflated the anastomosis under w ater using a rigid proctoscope. There was no evidence of any leak. A final irrigation was performed. A 10 flat Nico-Moore drain was placed into the pelvis and brought out through one of the trocar sites. It was secured to the skin using 3-0 silk. All the trocars were removed and the abdomen desufflated. The fascia of the camera port was closed using 0 Vicryl in a [id number] fashion. The wounds were all irrigated and closed using skin rebecca. A [place] drain was placed into the left lower quadrant incision. Exparel was injected around this incision for postoperative analgesia. Marcaine was injected around the smaller incisions. Silver dressings gauze and tape were used and secured with tape. The patient was awakened extubated and transferred to recovery in stable condition. The nurse practitioner as well as my physician clinical trial assistant were both present throughout the case. They were instrumental in helping to access the abdomen, running the camera, assisting with dissection, helping with the anastomosis, wound closure and dressing placement. I attest to the content of the Intraoperative Record and any orders documented therein. Any exceptions are noted below.
[2024-12-27] MEDS: HYDROmorphone INJ 1 MG/ML SYRINGE IV PRN (13:48)
[2024-12-27] MEDS ORDERED: MoRPHine SULFATE 2 MG/ML CARP IV PRN (14:43)
[2024-12-27] MEDS ORDERED: ALBUTEROL HFA 8 GM INHALER INH PRN (14:43)
[2024-12-27] MEDS ORDERED: MECLIZINE HCL 25 MG TAB PO PRN (14:43)
[2024-12-27] MEDS ORDERED: PHENYLEPHRINE HCL 1% INTNAS PRN (14:43)
[2024-12-27] MEDS: ACETAMINOPHEN 1,000 MG/100 ML VIAL IV SCH (15:08)
[2024-12-27] MEDS: cefOXitin 2,000 MG in DEXTROSE 5 % MINI-B 50 ML IV SCH (15:47)
--- NOTE | 2024-12-27 16:30 | Anesthesiology Progress Note ---
Date of Service December 27, 2024 Anesthesia Post Procedure Vital Signs Vital Signs: Temp Pulse Pulse Pulse Resp BP Pulse Ox 12/27/24 15:42 36.4 C L 72 16 112/66 96 12/27/24 15:16 12/27/24 15:15 36.5 C 71 14 110/64 96 12/27/24 14:45 36.6 C 78 14 114/68 95 12/27/24 14:30 69 12 107/65 96 12/27/24 14:20 36.6 C 67 12 101/64 95 12/27/24 14:10 70 18 107/64 95 12/27/24 14:00 69 19 116/60 97 12/27/24 13:50 68 18 123/76 97 12/27/24 13:40 68 16 126/79 96 12/27/24 13:30 71 16 132/66 94 12/27/24 13:20 36.5 C 73 17 135/72 91 O2 Del Method O2 Flow Rate 12/27/24 15:42 Room Air 12/27/24 15:16 Nasal Cannula 3 12/27/24 15:15 Nasal Cannula 3 12/27/24 14:45 Nasal Cannula 3 12/27/24 14:30 Nasal Cannula 3 12/27/24 14:20 Nasal Cannula 3 12/27/24 14:10 Nasal Cannula 3 12/27/24 14:00 Oxymask 5 12/27/24 13:50 Oxymask 11 12/27/24 13:40 Oxymask 11 12/27/24 13:30 Oxymask 11 12/27/24 13:20 Oxymask 11 Pain Intensity Lower Back: Pain Intensity: 2 Head: Pain Intensity: 5 Abdomen: Pain Intensity: 7 Transfer of Care Handoff Completed per policy Notes Mental Status: alert / awake / arousable Patient Amnestic to Procedure: Yes Nausea / Vomiting: adequately controlled Pain: adequately controlled Airway Patency, RR, SpO2: stable & adequate BP & HR: stable & adequate Hydration State: stable & adequate Anesthetic Complications: no major complications apparent and Pt Satisfied with anesthetic care
[2024-12-27] MEDS: MoRPHine SULFATE 4 MG/ML 1 ML CARP\\VIAL IV PRN (17:02)
[2024-12-28] MEDS: LEVOTHYROXINE SODIUM 125 MCG TABLET PO SCH (05:26)
[2024-12-28 06:32] LABS: Hematocrit (blood only) 32.6 % (37.0-47.0); Hemoglobin 10.4 g/dl (12.0-16.0); Immature Granulocytes # (auto) 0.04 K/uL (0.01-0.20); Immature Granulocytes % (auto) 0.4 %; Mean Corpuscular Hemoglobin 28.3 pg (25.0-34.0); Mean Corpuscular Volume 88.6 fL (80.0-100.0); Platelet Count 278 K/uL (130-400); RDW Standard Deviation 42.9 fL (36.4-46.3); Red Blood Count 3.68 M/uL (4.20-5.40); White Blood Count 10.05 K/ul (4.8-10.8)
[2024-12-28 06:56] LABS: Anion Gap 4.0 (3-11); Blood Urea Nitrogen 11.0 mg/dl (6-23); Calcium 8.2 mg/dl (8.6-10.3); Carbon Dioxide 27.0 mmol/L (21-32); Chloride 107.0 mmol/L (98-107); Creatinine Clr Calc Pharmacy 98.5 ml/min; Glucose 103.0 mg/dl (70-99(Fasting)); Potassium 3.9 mmol/L (3.5-5.1); Sodium 138.0 mmol/L (136-145)
[2024-12-28] MEDS: SERTRALINE HCL 50 MG TABLET PO SCH (08:15)
--- NOTE | 2024-12-28 08:40 | Surgery Progress Note ---
Date of Service December 28, 2024 Assessment & Plan (1) S/P laparoscopic-assisted sigmoidectomy: Plan: POD 1 Laparoscopic Sigmoid Colon Resection with Dr Aponte abd soreness taking IV morphine and scheduled IV Tylenol, add oral oxycodone VSS, wbc wnl , h/h 10.4/32.6 denies n/v and -flatus , denies congestion requesting juice, may have clear liquids with sips discussed going slow abd dressing CDI reinforce if needed, PHUONG drain serosanguineous 80ml op IS q1hr while awake Continue IV fluids and 24hr po abx OOB to chair today , will keep mcbride cath until increasing ambulation As above. Doing well. Will keep Mcbride until tomorrow morning. Tolerating c lear liquids. Pain control adequate. Awaiting return of bowel function Admission and Anticipated Discharge Date Admission Date: December 27, 2024 Subjective abd soreness, taking IV morphine with relief denies cp, sob, nausea, vomiting, fever, chills no flatus yet requesting juice Review of Systems Constitutional: no fever and no chills Ear, Nose, Mouth, Throat: no nasal congestion Respiratory: no dyspnea Cardiovascular: no chest pain Gastrointestinal: + abdominal pain; no nausea and no vomit ing Psychiatric: no confusion Physical Exam Constitutional: cooperative and comfortable; no acute distress Respiratory: normal respiratory effort and able to speak in complete sentences; no respiratory distress Cardiovascular: Rate/Rhythm: regular rate Gastrointestinal (Abdomen): Inspection/Auscultation: + abdominal surgical incision (drsg CDI ) and + abdominal surgical drain present Psychiatric: A+Ox3, euthymic affect Genitourinary: mcbride Results & Data Vital Signs (Past 12 Hours) Vital Signs Temp Pulse Pulse Resp BP BP Pulse Ox 12/28/24 07:13 97.7 F 71 16 107/64 91 12/28/24 03:00 97.9 F 72 16 115/69 98 12/27/24 23:00 97.5 F L 69 16 111/65 97 12/27/24 21:40 O2 Del Method O2 Flow Rate 12/28/24 07:13 Room Air 12/28/24 03:00 Room Air 12/27/24 23:00 Nasal Cannula 2 12/27/24 21:40 Nasal Cannula 2 Results CBC w Diff Results: RBC 3.68 M/uL (4.20-5.40) L 12/28/24 WBC 10.05 K/ul (4.8-10.8) 12/28/24 Hgb 10.4 g/dl (12.0-16.0) L 12/28/24 Hct 32.6 % (37.0-47.0) L 12/28/24 MCV 88.6 fL (80.0-100.0) 12/28/24 MCH 28.3 pg (25.0-34.0) 12/28/24 MCHC 31.9 g/dL (32.0-36.0) L 12/28/24 RDW Standard Deviation 42.9 fL (36.4-46.3) 12/28/24 RDW Coefficient of Variation 13.3 % (11.5-14.5) 12/28/24 Plt Count 278 K/uL (130-400) 12/28/24 MPV 9.4 fL (9.4-12.4) 12/28/24 Neutrophils (%) (Auto) 77.3 % 12/28/24 Lymphocytes (%) (Auto) 13.8 % 12/28/24 Monocytes # (Auto) 0.81 K/uL (0.11-0.59) H 12/28/24 Eosinophils # (Auto) 0.02 K/uL (0.00-0.50) 12/28/24 Immature Granulocyte % (Auto) 0.4 % 12/28/24 Neutrophils # (Auto) 7.77 K/uL (1.40-6.50) H 12/28/24 Lymphocytes # (Auto) 1.39 K/uL (1.20-3.40) 12/28/24 Monocytes # (Auto) 0.81 K/uL (0.11-0.59) H 12/28/24 Eosinophils # (Auto) 0.02 K/uL (0.00-0.50) 12/28/24 Basophils # (Auto) 0.02 K/uL (0.00-0.20) 12/28/24 Immature Granulocyte # (Auto) 0.04 K/uL (0.01-0.20) 5 PG Care Time/CCT Total # of Minutes Spent Total Time Spent with Patient: Total time spent is greater than 50% in coordination of care (as documented) at patient's floor/unit and/or counseling patient: Coding Level of Care Code 19833 Post Operative Follow-Up Diagnoses S/P laparoscopic-assisted sigmoidectomy Z90.49
[2024-12-28] MEDS: ONDANSETRON INJ 2 MG/ML 2 ML VIAL IV PRN (14:25)
[2024-12-29] MEDS: COUGH DROP (SUGAR FREE) LOZ 24 LOZ/1 BOX BUCCAL ONE (04:42)
[2024-12-29 06:27] LABS: Hematocrit (blood only) 33.0 % (37.0-47.0); Hemoglobin 10.3 g/dl (12.0-16.0); Immature Granulocytes # (auto) 0.03 K/uL (0.01-0.20); Immature Granulocytes % (auto) 0.4 %; Mean Corpuscular Hemoglobin 27.8 pg (25.0-34.0); Mean Corpuscular Volume 88.9 fL (80.0-100.0); Platelet Count 248 K/uL (130-400); RDW Standard Deviation 43.2 fL (36.4-46.3); Red Blood Count 3.71 M/uL (4.20-5.40); White Blood Count 8.33 K/ul (4.8-10.8)
[2024-12-29 06:41] LABS: Anion Gap 2.0 (3-11); Blood Urea Nitrogen 8.0 mg/dl (6-23); Calcium 8.1 mg/dl (8.6-10.3); Carbon Dioxide 31.0 mmol/L (21-32); Chloride 106.0 mmol/L (98-107); Creatinine Clr Calc Pharmacy 86.4 ml/min; Glucose 99.0 mg/dl (70-99(Fasting)); Potassium 3.8 mmol/L (3.5-5.1); Sodium 139.0 mmol/L (136-145)
[2024-12-29] MEDS ORDERED: CHLORASEPTIC (PHENOL) 1.4% SOLN 180 ML BTL MT PRN (07:56)
--- NOTE | 2024-12-29 08:47 | Surgery Progress Note ---
Date of Service December 29, 2024 Assessment & Plan (1) S/P laparoscopic-assisted sigmoidectomy: Plan: POD#2 laparoscopic sigmoidectomy WBC 8, Hbg 10.3, Vitals stable Some n/v yesterday has subsided this AM. will continue clears for now. She is starting to pass gas Will start lovenox for DVT prophylaxis, encourage OOB at least TID Remove mcbride chloraseptic spray ordered for sore throat prn pain meds and scheduled tylenol ordered As above. Doing well. Will DC Mcbride and increase ambulation today. Awaiting full return of bowel function Admission and Anticipated Discharge Date Admission Date: December 27, 2024 Subjective Patient doing okay. She had some nausea with an episode of vomiting yesterday, but feels okay today. She has passed a small amount of gas. Reports a + headache and a sore throat. Physical Exam Physical Exam: awake/alert,no distress Neck: + patchy sore area in R side of throat Gastrointestinal (Abdomen): Inspection/Auscultation: + abdominal surgical incision (surgical dressings intact) and + abdominal surgical drain present (serosang.) Percussion/Palpation: + abdomen tender (expected post op discomfort ) and abdomen soft Results & Data Vital Signs (Past 12 Hours) Vital Signs Temp Pulse Resp BP Pulse Ox O2 Del Method 12/29/24 06:56 98.4 F 80 16 130/66 90 Room Air PG Care Time/CCT Total # of Minutes Spent Total Time Spent with Patient: Total time spent is greater than 50% in coordination of care (as documented) at patient's floor/unit and/or counseling patient: Coding Level of Care Code 47984 Post Operative Follow-Up Diagnoses S/P laparoscopic-assisted sigmoidectomy Z90.49
[2024-12-29] MEDS: ENOXAPARIN INJ 40 MG/0.4 ML SYR SQ SCH (09:12)
[2024-12-30 06:21] LABS: Hematocrit (blood only) 30.9 % (37.0-47.0); Hemoglobin 10.1 g/dl (12.0-16.0); Immature Granulocytes # (auto) 0.02 K/uL (0.01-0.20); Immature Granulocytes % (auto) 0.3 %; Mean Corpuscular Hemoglobin 28.5 pg (25.0-34.0); Mean Corpuscular Volume 87.3 fL (80.0-100.0); Platelet Count 254 K/uL (130-400); RDW Standard Deviation 41.5 fL (36.4-46.3); Red Blood Count 3.54 M/uL (4.20-5.40); White Blood Count 6.83 K/ul (4.8-10.8)
--- NOTE | 2024-12-30 06:26 | Surgery Progress Note ---
Date of Service December 30, 2024 Assessment & Plan (1) S/P laparoscopic-assisted sigmoidectomy: Plan: Patient is POD#[address] Aponte -Tolerating clear liquids without any additional N/V. States overall pain has also improved. -Passing gas and did have 2 BMs. Will advance to full liquids for breakfast and see how she does -VSS, afebrile, WBC 6.8 -Continue current pain regime -Lovenox for DVT ppx and encourage OOB to chair and ambulation while awake -Surgical dressings removed this morning, incisions are c/d/i with rebecca in place. Taylor drain to LLQ incision. PHUONG drain to remain in place for now Admission and Anticipated Discharge Date Admission Date: December 27, 2024 Subjective Patient doing well this morning States pain has overall started to improve, patient was OOB yesterday Passing gas and had 2 BMs overnight Tolerating clears without any reported issues of N/V PHUONG drain with 120cc recorded output VSS, afebrile, WBC 6.8 as above. doing great. possible d/c tomorrow or tuesday Physical Exam Constitutional: WD/WN, vitals as above Respiratory: normal respiratory effort, lungs clear to auscultation Cardiovascular: Rate/Rhythm: regular rate Gastrointestinal (Abdomen): Abdomen soft, nondistended, +appropriate TTP over surgical sites. Surgical dressings were taken down this morning, incisions are c/d/i with rebecca in place. Largest incision over LLQ with taylor in place PHUONG drain with serosangenous output Psychiatric: A+Ox3, euthymic affect Results & Data Vital Signs (Past 12 Hours) Vital Signs Temp Pulse Resp BP Pulse Ox O2 Del Method 12/29/24 19:42 36.7 C 62 16 118/75 94 Room Air 12/29/24 19:30 Room Air PG Care Time/CCT Total # of Minutes Spent Total Time Spent with Patient: Total time spent is greater than 50% in coordination of care (as documented) at patient's floor/unit and/or counseling patient: [place] [address] Post Operative Follow-Up Patient Type Established Medical Decision Making Straight Forward Diagnoses S/P laparoscopic-assisted sigmoidectomy Z90.49
[2024-12-30 06:46] LABS: Anion Gap 4.0 (3-11); Blood Urea Nitrogen 5.0 mg/dl (6-23); Calcium 8.2 mg/dl (8.6-10.3); Carbon Dioxide 31.0 mmol/L (21-32); Chloride 107.0 mmol/L (98-107); Creatinine Clr Calc Pharmacy 103.4 ml/min; Glucose 91.0 mg/dl (70-99(Fasting)); Potassium 3.5 mmol/L (3.5-5.1); Sodium 142.0 mmol/L (136-145)
--- NOTE | 2024-12-31 07:43 | Surgery Progress Note ---
<Statement entered by Dave Clay, - 12/31/24 17:06> I have seen and examined this patient with the surgical PA this afternoon. She appears well, is progressing well and tolerating solid diet with continued flatus. Date of Service December 31, 2024 Assessment & Plan (1) S/P laparoscopic-assisted sigmoidectomy: Plan: POD#[address] Aponte Labs pending. Vital signs are stable, no fevers. Tolerating full liquids. + gas. Some liquid stool over wknd. Will advance to low fiber today Will make PO tylenol standing to assist with headache management, otherwise prn pain meds available PO augmentin ordered for pink/redness around incision Lovenox for DVT ppx and encourage OOB to chair and ambulation while awake Continue PHUONG drain (serosang) and taylor drain until discharge Likely home tomorrow if continues to do well Admission and Anticipated Discharge Date Admission Date: December 27, 2024 Subjective Patient doing fairly well this AM. Mild headache. Reported mild nausea and + pain early this AM she received morphine for and was able to sleep well and feeling better this AM. Tolerating full liquids. + gas. Had some liquid stool over weekend. Voiding well. Physical Exam Physical Exam: awake/alert, no distress Gastrointestinal (Abdomen): Inspection/Auscultation: + abdominal surgical incision (c/d/i with rebecca, LLQ with taylor.); abdomen not distended umbilical wound with some pink/redness extending inferiorly towards LLQ wound. PHUONG drain serosang. Results & Data Vital Signs (Past 12 Hours) Vital Signs Temp Pulse Resp BP Pulse Ox O2 Del Method 12/31/24 06:53 98.4 F 71 16 115/70 94 Room Air PG Care Time/CCT Total # of Minutes Spent Total Time Spent with Patient: Total time spent is greater than 50% in coordination of care (as documented) at patient's floor/unit and/or counseling patient: Coding Level of Care Code 41047 Post Operative Follow-Up Diagnoses S/P laparoscopic-assisted sigmoidectomy Z90.49
[2024-12-31] MEDS: ACETAMINOPHEN 500 MG TAB PO SCH (08:29)
[2024-12-31] MEDS: AMOXICILLIN/CLAVULANATE 875 MG TAB PO SCH (08:30)
[2024-12-31 10:46] LABS: Hematocrit (blood only) 33.8 % (37.0-47.0); Hemoglobin 10.8 g/dl (12.0-16.0); Immature Granulocytes # (auto) 0.01 K/uL (0.01-0.20); Immature Granulocytes % (auto) 0.1 %; Mean Corpuscular Hemoglobin 27.8 pg (25.0-34.0); Mean Corpuscular Volume 87.1 fL (80.0-100.0); Platelet Count 314 K/uL (130-400); RDW Standard Deviation 41.6 fL (36.4-46.3); Red Blood Count 3.88 M/uL (4.20-5.40); White Blood Count 7.14 K/ul (4.8-10.8)
[2024-12-31 11:02] LABS: Anion Gap 5.0 (3-11); Blood Urea Nitrogen 6.0 mg/dl (6-23); Calcium 8.6 mg/dl (8.6-10.3); Carbon Dioxide 32.0 mmol/L (21-32); Chloride 103.0 mmol/L (98-107); Creatinine Clr Calc Pharmacy 94.1 ml/min; Glucose 97.0 mg/dl (70-99(Fasting)); Potassium 3.7 mmol/L (3.5-5.1); Sodium 140.0 mmol/L (136-145)
[2025-01-01 06:42] LABS: Hematocrit (blood only) 33.4 % (37.0-47.0); Hemoglobin 10.8 g/dl (12.0-16.0); Immature Granulocytes # (auto) 0.01 K/uL (0.01-0.20); Immature Granulocytes % (auto) 0.2 %; Mean Corpuscular Hemoglobin 27.7 pg (25.0-34.0); Mean Corpuscular Volume 85.6 fL (80.0-100.0); Platelet Count 304 K/uL (130-400); RDW Standard Deviation 40.3 fL (36.4-46.3); Red Blood Count 3.90 M/uL (4.20-5.40); White Blood Count 5.68 K/ul (4.8-10.8)
[2025-01-01 07:14] LABS: Anion Gap 5.0 (3-11); Blood Urea Nitrogen 9.0 mg/dl (6-23); Calcium 8.4 mg/dl (8.6-10.3); Carbon Dioxide 30.0 mmol/L (21-32); Chloride 106.0 mmol/L (98-107); Creatinine Clr Calc Pharmacy 88.8 ml/min; Glucose 88.0 mg/dl (70-99(Fasting)); Potassium 3.8 mmol/L (3.5-5.1); Sodium 141.0 mmol/L (136-145)
--- NOTE | 2025-01-01 07:20 | Surgery Progress Note ---
Date of Service January 01, 2025 Assessment & Plan (1) S/P laparoscopic-assisted sigmoidectomy: Plan: doing well ok for d/c PHUONG removed. f/u in 1-2 weeks. Admission and Anticipated Discharge Date Admission Date: December 27, 2024 Subjective doing well. no new complaints. Physical Exam Physical Exam: alert. nad incisions with mild erythema Left lower. no drainage. PHUONG with serous output. Results & Data Vital Signs (Past 12 Hours) Vital Signs Temp Pulse Resp BP Pulse Ox O2 Del Method 12/31/24 19:47 36.7 C 71 12 133/73 98 Room Air 12/31/24 19:30 Room Air PG Care Time/CCT Total # of Minutes Spent Total Time Spent with Patient: Total time spent is greater than 50% in coordination of care (as documented) at patient's floor/unit and/or counseling patient: Coding Level of Care Code 84531 Post Operative Follow-Up Diagnoses S/P laparoscopic-assisted sigmoidectomy Z90.49
[2025-01-01 07:23] VITALS: BP 115/73; PULSE 64; RESP 18; TEMP 97.7; O2SAT 93
--- NOTE | 2025-01-02 13:43 | Discharge Summary ---
Date of Service January 01, 2025 Admission HPI Per Admitting Provider Patti is here today for a sigmoid colon resection for recurrent diverticulitis. Other than some nasal congestion she is currently feeling okay. She did take her bowel prep yesterday. Principal Diagnosis Laparoscopic Sigmoid Colon Resection Discharge Exam Constitutional cooperative and comfortable; no acute distress Respiratory normal respiratory effort and able to speak in complete sentences; no respiratory distress Cardiovascular Rate/Rhythm: regular rate Gastrointestinal (Abdomen) Inspection/Auscultation: + abdominal surgical incision (drsg CDI ) and + abdominal surgical drain present Psychiatric A+Ox3, euthymic affect Discharge Data Allergies Allergy/AdvReac Type Severity Reaction Status Date / Time house dust Allergy Mild Sinus Verified 12/27/24 08:14 issues mold Allergy Mild Sinus Verified 12/27/24 08:14 issues Procedures Performed Operation Date: 12/27/24 09:35 Actual Procedures p Laparoscopic Sigmoid Colon Resection(Not Applicable) - Ishaan Aponte, DO Hospital Course (1) S/P laparoscopic-assisted sigmoidectomy: This is a 64 yo F who presented to the [facility] on 12/27/24 for an elective Laparoscopic Sigmoid colon resection with Dr Aponte. The patient tolerated the procedure well, see operative report for full details. Post operatively the patient was admitted to the hospitla for care and observation. She had a PHUONG drain, [place] drain, and mcbride catheter. The Patient's diet was slowly advanced to low fiber which she tolerated without nausea and vomiting. She began to have return of bowel function. Her Mcbride catheter was removed and she was able to void independently. Her pain was managed on prn medications, and incisions clean/dry/intact. On POD 5 01/01/25 her [place] and PHUONG drain where removed at bedside, and the patient was deemed stable for discharge to home. The patient was given discharge instructions, follow up recommendations, return precautions and a prescription for oral Augmentin and narcotics. (2) Diverticular disease: Total Time Total Time Spent Total Time Spent (In Minutes): 15 Discharge Plan Discharge Items Patient Disposition: Home - Home Health Services Reason For Visit: ENTEROVIRUS, PNA, HYPOXIA Discharge Diagnosis: sigmoid bowel resection Activity: Per Instructions section Lifting: No more than 10 pounds Bathing Comment: may shower; no soaking in tubs/pools x 2 weeks Driving/Machine Use: no driving while on narcotics for pain Non-emergency contact: Surgeon Call non-emergency contact if: you have any medication questions, your pain is not controlled, your pain is worsening, you have a fever, your temperature is above 101.5, your wound has increased redness, your wound has increased drainage and your wound pain has increased Follow-up/Referrals: Ishaan Aponte DO [Surgeon] - 01/09/25 11:45 am (Please call to schedule follow up in clinic within 7-10 days) Donovan Kumar MD [Outside Practitioners] - Diet: Low Fiber Addtl Attending Provider Instructions: SPECIAL CARE INSTRUCTIONS: * You have surgical rebecca in place that will be removed at your follow up appointment, around 14 days from your surgical date. You may cover with gauze/tape and change daily if needed for comfort. Change the dressing where your drains were removed daily and as needed with dry gauze and tape until healed and no longer leaking fluid. * You may shower.. NO soaking in pools or baths for 2 weeks * No lifting greater than 10lbs. No strenuous exercise until cleared by surgeon. Light walking is accepted. * No driving while taking narcotic pain medication; wait at least 3 days * No drinking alcohol while taking narcotic pain medication * May use Ibuprofen/Tylenol over the counter for pain as tolerated. Do not exceed 3grams of Tylenol per 24 hours * Expect some swelling and bruising. * Diet- continue on a low fiber diet until otherwise directed by the surgeon * May keep a dry dressing over the area where your surgical drain was removed and change daily with dry gauze and medical tape. Call your doctor if: * Temperature above 101 degrees, nausea/vomiting, fever/chills * Pain not relieved by pain medicine ordered * There is increased drainage or redness from any incision * You have any unanswered questions or concerns [phone]. FOLLOW UP VISIT: If not already scheduled, please call the office for a follow-up visit. Office Pending Studies at Discharge: Yes Studies:: surgical pathology Stand-Alone Forms: My [facility], Pain - Opioid Pain Management Medications and DC Order Prescriptions: New oxycodone 5 mg tablet 5 - 10 mg PO .[id number] PRN (Reason: pain, for initial therapy, max 6 tabs per day) Qty: 15 0RF amoxicillin-pot clavulanate 875-125 mg tablet 1 tab PO Q12H 6 Days Qty: 12 0RF Continued levothyroxine [Levo-T] 125 mcg tablet 125 mcg PO QAM trazodone 100 mg tablet 100 - 200 mg PO HS sertraline 100 mg tablet 150 mg PO QAM meclizine 25 mg tablet 25 mg PO TID PRN (Reason: motion sickness) amoxicillin 500 mg tablet 2,000 mg PO ONCE PRN (Reason: dental procedure) Rx Instructions: 4 tabs 1 hour prior to procedure valacyclovir 1 gram Tablet 1,000 mg PO DAILY PRN (Reason: Cold Sores) albuterol sulfate 90 mcg/actuation Hfa Aerosol Inhaler 2 puff INHALATION Q6H PRN (Reason: Shortness Of Breath) ascorbic acid (vitamin C) [Vitamin C] 500 mg Tablet 500 mg PO DAILY PRN (Reason: Colds) phenylephrine HCl 1 % Drops 2 drp INTRANASAL Q4H PRN (Reason: head conjestion) Discharge Orders: Discharge Order (Routine); Ordered 01/01/25 Ordered By: Sinan Solorio/Other Patient Handouts: Low-Fiber Diet, Preventing Deep Vein Thrombosis Admission Data Admit Date/Time: 12/27/24 14:40 Attending Provider: Ishaan Aponte Admit Provider: Ishaan Aponte Primary Care Provider: Adria Craft Other Providers: Dave Clay Other Interventions: Discharge Summary Assessment (RN) Last Done: 01/01/25 09:15 Coding Level of Care Code 29490 IN/OBS DISCH 30 MIN/LESS Diagnoses S/P laparoscopic-assisted sigmoidectomy Z90.49 Diverticular disease K57.90
== END 2025-01-01 15:07 | disposition home health service (06) | DRG 331 ==
LOC: ASU 08:07 → 3W 14:40
DX: K57.32 Diverticulitis of large intestine without perforation or abscess without bleeding; Z79.890 Hormone replacement therapy; E03.9 Hypothyroidism, unspecified; Z79.899 Other long term (current) drug therapy